=== PATIENT | male | born 1950 | race African-American/Black ===

== ENCOUNTER 2016-06-19 18:41 | Outpatient (CLI) | payer MEDICARE, OTHER | END 2016-06-19 18:42 | disposition home or self-care (01) | DX: N05.9 Unspecified nephritic syndrome with unspecified morphologic changes (principal); D64.9 Anemia, unspecified; R80.9 Proteinuria, unspecified; D50.0 Iron deficiency anemia secondary to blood loss (chronic); N25.81 Secondary hyperparathyroidism of renal origin ==

== ENCOUNTER 2016-08-04 12:59 | Outpatient (CLI) | payer MEDICARE, OTHER | END 2016-08-04 13:00 | disposition home or self-care (01) | DX: N05.9 Unspecified nephritic syndrome with unspecified morphologic changes (principal); D70.9 Neutropenia, unspecified; D63.1 Anemia in chronic kidney disease; E83.30 Disorder of phosphorus metabolism, unspecified; N25.81 Secondary hyperparathyroidism of renal origin ==

== ENCOUNTER 2016-08-21 15:06 | Outpatient (CLI) | payer MEDICARE, OTHER | END 2016-08-21 15:07 | disposition home or self-care (01) | DX: N05.9 Unspecified nephritic syndrome with unspecified morphologic changes (principal) ==

== ENCOUNTER 2016-10-26 13:41 | Outpatient (CLI) | payer MEDICARE, OTHER ==
[2016-10-26 19:46] LABS: CALCIUM 9.2 mg/dL (8.5-10.3); CREATININE 2.7 mg/dL (0.6-1.2); POTASSIUM 3.3 mmol/L (3.5-5.0)
== END 2016-10-26 13:42 | disposition home or self-care (01) ==
LOC: LAB.WCP 13:41
PROVIDERS: ATTEND Internal Medicine Nephrology
DX: N50.9 Disorder of male genital organs, unspecified (principal)
CPT/HCPCS: 36415; 80048

== ENCOUNTER 2016-10-30 11:26 | Emergency (ER) | payer MEDICARE, OTHER ==
--- NOTE | 2016-10-30 14:02 | ED Physician Documentation ---
PD HPI HEENT - Stated complaint Stated Complaint: MOUTH,THOAT & EYES BURNING,DIZZY - Chief complaint Chief Complaint: General - History obtained from History obtained from: Patient - History of Present Illness Timing - onset: How many days ago (1-2) Timing - duration: Days (1-2) Timing - details: Gradual onset Location: Other (he has feeling of burning/discomfort in face, throat, eyes. He has swelling in those areas. Says he had similar with low sodium in the past. Denies URI symptoms of fever, cough, congestion.) Worsens: No: Swalllowing, Position Associated symptoms: Facial swelling. No: Fever, Congestion, Rhinorrhea, Swollen nodes Similar symptoms before: Diagnosis (low sodium) Recently seen: Not recently seen Review of Systems Constitutional: denies: Fever, Chills Nose: denies: Rhinorrhea / runny nose, Congestion Throat: reports: Sore throat Cardiac: denies: Chest pain / pressure Respiratory: denies: Dyspnea, Cough, Wheezing GI: denies: Nausea, Vomiting, Diarrhea Neurologic: denies: Near syncope (but is feeling lightheaded) PD PAST MEDICAL HISTORY - Past Medical History Cardiovascular: Congestive heart failure, Hypertension, High cholesterol Respiratory: Pneumonia, Sleep apnea Neuro: Other Endocrine/Autoimmune: Type 2 diabetes : Renal insuffiency Psych: Depression, Post traumatic stress disorder Musculoskeletal: Gout Derm: Other - Past Surgical History Past Surgical History: Yes General: Appendectomy HEENT: Tonsil/Adenoidectomy - Present Medications Home Medications: Ambulatory Orders Medication Instructions Recorded Confirmed Atorvastatin Calcium [Lipitor] 20 mg PO DAILY 01/25/13 06/09/16 Bumetanide [Bumex] 8 mg PO TID 01/25/13 06/09/16 Carvedilol [Coreg] 50 mg PO BID 01/25/13 06/09/16 Clonidine HCl 0.2 mg PO BID 01/25/13 06/09/16 Hydralazine HCl 50 mg PO BID 01/25/13 06/09/16 Lisinopril [Zestril] 40 mg PO DAILY 01/25/13 06/09/16 Polyethylene Glycol 3350 [Miralax] 17 gm PO BID 01/25/13 06/09/16 Potassium Chloride 10 meq PO BID 01/25/13 06/09/16 amLODIPine [Norvasc] 10 mg PO DAILY 01/25/13 06/09/16 Ferrous Sulfate [Iron] 325 mg PO BID 08/13/13 06/09/16 Glimepiride 4 mg PO BID 08/13/13 06/09/16 oxyCODONE [Roxicodone] 5 mg PO Q4-6H PRN #10 tablet 08/11/14 06/09/16 Aspartame 32 units SQ TID 04/21/15 06/09/16 Chlorhexidine Gluconate [Peridex] 15 ml PO BID 04/21/15 06/09/16 Clindamycin Phosphate 1 applic TOP DAILY 04/21/15 06/09/16 Hydrocortisone 1% Oint 1 applic TOP BID PRN 04/21/15 06/09/16 [Hydrocortisone] Insulin Glargine [Lantus Solostar] 60 units SQ BID 04/21/15 06/09/16 Lidocaine Viscous 2% [Xylocaine 10 ml PO Q4HR PRN 04/21/15 06/09/16 Viscous 2%] Sildenafil Citrate [Viagra] 100 mg PO DAILY 04/21/15 06/09/16 Insulin Aspart [Novolog Flexpen] 40 unit SQ BID 06/09/16 06/09/16 Dexamethasone [Decadron] 4 mg PO DAILY #5 tablet 10/30/16 - Allergies Allergies/Adverse Reactions: Allergies Allergy/AdvReac Type Severity Reaction Status Date / Time PPD AdvReac Intermediate Unknown Uncoded 01/03/15 08:16 - Social History Does the pt smoke?: No Smoking Status: Never smoker Does the pt drink ETOH?: No Does the pt have substance abuse?: No - Immunizations Immunizations are current?: Yes - POLST Patient has POLST: No PD ED PE NORMAL - Vitals Vital signs reviewed: Yes - General General: Alert and oriented X 3, No acute distress, Well developed/nourished - HEENT HEENT: Other (facial swelling around eyes, mouth and cheeks. Mild swelling of uvula. Normal swallow and voice. No JVD noted. ) - Neck Neck: Supple, no meningeal sign, No adenopathy - Cardiac Cardiac: RRR, No murmur - Respiratory Respiratory: Clear bilaterally - Abdomen Abdomen: Soft, Non tender - Derm Derm: Normal color, Warm and dry, No rash - Neuro Neuro: Alert and oriented X 3, supervisor hanging and trimming 2-12 intact, No motor deficit, No sensory deficit, Normal speech - Psych Psych: Normal mood, Normal affect Results - Vitals Vitals: Oxygen O2 Source Room air - Labs Labs: Laboratory Tests 10/30/16 10/30/16 14:20 14:20 WBC 3.9 L RBC 5.25 Hgb 15.2 Hct 43.8 MCV 83.5 MCH 29.1 MCHC 34.8 RDW 14.5 Plt Count 154 MPV 9.3 Neut # 1.8 Lymph # 1.5 [place] # 0.4 Eos # 0.1 Baso # 0.0 Absolute Nucleated RBC 0.00 Nucleated RBCs 0.0 Manual Slide Review Indicated Platelet Estimate NORMAL (130-450,000) Platelet Morphology NORMAL APPEARANCE RBC Morph Micro Appear NORMAL APPEARANCE Sodium 127 L Potassium 3.1 L Chloride 81 L Carbon Dioxide 34 H Anion Gap 13.0 BUN 53 H Creatinine 3.0 H Estimated GFR (MDRD) 26 L Glucose 147 H Calcium 8.9 Magnesium 1.6 L Total Bilirubin 1.0 AST 17 ALT 16 Alkaline Phosphatase 84 Total Protein 6.9 Albumin 4.2 Globulin 2.7 Albumin/Globulin Ratio 1.6 Lipase 24 PD MEDICAL DECISION MAKING - ED course Complexity details: reviewed results, considered differential (sodium is low and he says he had similar feeling of furning in throat with low Na in the past. He has some swelling around eyes and lips, but minimal of uvula and throat. He is feeling improved after 1-2 hours in ED with decadron/ antihistamine and given IV NS. He is on lisinopril, so concern about related to that. BP slightly low but he feels okay standing up and walking around. ), d/w patient Departure - Departure Disposition: 01 Home, Self Care Clinical Impression: Hyponatremia, Hypokalemia Angio-edema Qualifiers: Encounter type: initial encounter Qualified Code(s): T78.3XXA - Angioneurotic edema, initial encounter Condition: Stable Record reviewed to determine appropriate education?: Yes Instructions: ED Angioedema Prescriptions: Dexamethasone [Decadron] 4 mg PO DAILY #5 tablet Comments: I would stop your Lisinopril as this might be contributing to the swelling. Other medications as usual. Decadron daily for 5 more days. Recheck with PMD next week for recheck labs. Discharge Date/Time: 10/30/16 17:22
[2016-10-30] MEDS ORDERED: diphenhydrAMINE INJ 50 MG/ML VIAL IVP STA (14:24)
[2016-10-30] MEDS ORDERED: DEXAMETHASONE 10 MG/ML VIAL IVP STA (14:24)
[2016-10-30] MEDS ORDERED: DEXAMETHASONE 10 MG/ML VIAL ONE (14:30)
[2016-10-30] MEDS ORDERED: diphenhydrAMINE INJ 50 MG/ML VIAL ONE (14:30)
[2016-10-30 14:44] LABS: BASOPHILS % (AUTO) 0.4 %; EOSINOPHILS # (AUTO) 0.1 10^3/uL (0.0-0.7); HCT - HEMATOCRIT 43.8 % (42.0-52.0); HGB - HEMOGLOBIN 15.2 g/dL (14.0-18.0); LYMPHOCYTES # (AUTO) 1.5 10^3/uL (1.5-3.5); LYMPHOCYTES % (AUTO) 38.3 %; MEAN CORPUSCULAR HEMOGLOBIN 29.1 pg (27.0-31.0); MEAN CORPUSCULAR HGB CONC 34.8 g/dL (32.0-36.0); MEAN CORPUSCULAR VOLUME 83.5 fL (80.0-94.0); MEAN PLATELET VOLUME 9.3 fL (7.4-11.4); MONOCYTES # (AUTO) 0.4 10^3/uL (0.0-1.0); MONOCYTES % (AUTO) 11.5 %; NEUTROPHILS # (AUTO) 1.8 10^3/uL (1.5-6.6); NEUTROPHILS % (AUTO) 46.8 %; RED BLOOD COUNT 5.25 10^6/uL (4.70-6.10); RED CELL DISTRIBUTION WIDTH 14.5 % (12.0-15.0); UNCORRECTED WHITE BLOOD COUNT 3.9 x10^3/uL; WHITE BLOOD COUNT 3.9 x10^3/uL (4.8-10.8)
[2016-10-30 15:01] LABS: PLATELET ESTIMATE, MANUAL NORMAL (130-450,000) (NORMAL); PLATELET MORPHOLOGY NORMAL APPEARANCE (NORMAL)
[2016-10-30 15:07] LABS: ALBUMIN/GLOBULIN RATIO 1.6 (1.0-2.2); CALCIUM 8.9 mg/dL (8.5-10.3); MAGNESIUM 1.6 mg/dL (1.7-2.8); POTASSIUM 3.1 mmol/L (3.5-5.0); TOTAL PROTEIN 6.9 g/dL (6.7-8.2)
[2016-10-30] MEDS ORDERED: SODIUM CHLORIDE 0.9% 1,000 ML IV ONE (15:18)
[2016-10-30] MEDS ORDERED: POTASSIUM BICARB 25 MEQ TABLET PO STA (15:20)
[2016-10-30] MEDS ORDERED: POTASSIUM BICARB 25 MEQ TABLET PO ONE (15:26)
[2016-10-30] MEDS ORDERED: MAG HYDROX/AL HYDROX/SIMETH 30 ML UDC PO STA (15:57)
[2016-10-30] MEDS ORDERED: MAG HYDROX/AL HYDROX/SIMETH 30 ML UDC ONE (16:00)
--- NOTE | 2016-10-30 16:39 | XRAY Preliminary Report ---
Exam: XR Chest 2 View PA/LAT IMPRESSION: Normal 2-view chest radiography. [facility] SITE ID: [id number]
--- NOTE | 2016-10-30 16:47 | XRAY Report ---
EXAM: CHEST RADIOGRAPHY EXAM DATE: 10/30/2016 04:15 PM. CLINICAL HISTORY: Chest pain. COMPARISON: 01/03/2015. TECHNIQUE: 2 views. FINDINGS: Lungs/Pleura: No focal opacities evident. No pleural effusion. No pneumothorax. Normal volumes. Mediastinum: Heart and mediastinal contours are unremarkable. Other: None. IMPRESSION: Normal 2-view chest radiography. [facility] Referring Provider Line: [phone] SITE ID: [id number]
[2016-10-30 17:12] VITALS: BP 143/77
== END 2016-10-30 17:22 | disposition home or self-care (01) ==
LOC: ED 11:26
DX: E87.1 Hypo-osmolality and hyponatremia (principal); E87.6 Hypokalemia; T78.3XXA Angioneurotic edema, initial encounter; I11.0 Hypertensive heart disease with heart failure; I50.9 Heart failure, unspecified; E11.9 Type 2 diabetes mellitus without complications; M10.9 Gout, unspecified; Z79.4 Long term (current) use of insulin
CPT/HCPCS: 36415; 71020; 80053; 83690; 83735; 85025; 96361; 96374; 96375; 99283; 99284; A9270

== ENCOUNTER 2016-11-10 08:00 | Outpatient (CLI) | payer MEDICARE, OTHER ==
[2016-11-10 19:14] LABS: CALCIUM 9.2 mg/dL (8.5-10.3); CREATININE 1.7 mg/dL (0.6-1.2); POTASSIUM 3.9 mmol/L (3.5-5.0)
== END 2016-11-10 08:01 ==
LOC: LAB.WCP 08:00
PROVIDERS: ATTEND Internal Medicine Nephrology
DX: N05.9 Unspecified nephritic syndrome with unspecified morphologic changes (principal)
CPT/HCPCS: 36415; 80048; 83880

== ENCOUNTER 2017-07-01 18:08 | Outpatient (CLI) | payer MEDICARE, OTHER ==
[2017-07-01 18:25] LABS: HGB - HEMOGLOBIN 13.2 g/dL (14.0-18.0); MEAN CORPUSCULAR HEMOGLOBIN 28.1 pg (27.0-31.0); MEAN CORPUSCULAR HGB CONC 33.8 g/dL (32.0-36.0); MEAN CORPUSCULAR VOLUME 82.9 fL (80.0-94.0); MEAN PLATELET VOLUME 8.6 fL (7.4-11.4); RED BLOOD COUNT 4.71 10^6/uL (4.70-6.10); RED CELL DISTRIBUTION WIDTH 15.8 % (12.0-15.0); WHITE BLOOD COUNT 4.2 x10^3/uL (4.8-10.8)
[2017-07-01 18:38] LABS: CALCIUM 9.4 mg/dL (8.5-10.3); CREATININE 2.5 mg/dL (0.6-1.2); PHOSPHORUS 3.9 mg/dL (2.5-4.6)
[2017-07-01 19:07] LABS: CREATININE,URINE 118.5 mg/dL; PROTEIN/CREATININE RATIO,URINE 0.1 (<=0.2)
== END 2017-07-01 18:09 | disposition home or self-care (01) ==
LOC: LAB 18:08
PROVIDERS: ATTEND Internal Medicine Nephrology
DX: N05.9 Unspecified nephritic syndrome with unspecified morphologic changes (principal); D70.9 Neutropenia, unspecified; D63.1 Anemia in chronic kidney disease; E83.30 Disorder of phosphorus metabolism, unspecified; N25.81 Secondary hyperparathyroidism of renal origin; R80.9 Proteinuria, unspecified
CPT/HCPCS: 80048; 82570; 83970; 84100; 84156

== ENCOUNTER 2017-12-27 08:00 | Outpatient (CLI) | payer MEDICARE, OTHER ==
[2017-12-27 18:51] LABS: HGB - HEMOGLOBIN 13.9 g/dL (14.0-18.0); MEAN CORPUSCULAR HEMOGLOBIN 29.7 pg (27.0-31.0); MEAN CORPUSCULAR HGB CONC 33.4 g/dL (32.0-36.0); MEAN CORPUSCULAR VOLUME 88.9 fL (80.0-94.0); MEAN PLATELET VOLUME 9.5 fL (7.4-11.4); RED BLOOD COUNT 4.69 10^6/uL (4.70-6.10); RED CELL DISTRIBUTION WIDTH 15.2 % (12.0-15.0); WHITE BLOOD COUNT 4.5 x10^3/uL (4.8-10.8)
[2017-12-27 18:53] LABS: CALCIUM 9.4 mg/dL (8.5-10.3); CREATININE 1.8 mg/dL (0.6-1.2)
== END 2017-12-27 08:01 | disposition home or self-care (01) ==
LOC: LAB.WCP 08:00
PROVIDERS: ATTEND Internal Medicine Nephrology
DX: N05.9 Unspecified nephritic syndrome with unspecified morphologic changes (principal); D63.1 Anemia in chronic kidney disease; D70.9 Neutropenia, unspecified; I50.32 Chronic diastolic (congestive) heart failure
CPT/HCPCS: 36415; 80048; 83880; 85027

== ENCOUNTER 2018-03-03 10:40 | Outpatient (CLI) | payer MEDICARE, OTHER | END 2018-03-03 10:41 | LOC: LAB.WCP 10:40 | PROVIDERS: ATTEND Urology | DX: E29.1 Testicular hypofunction (principal) | CPT/HCPCS: 36415; 84403 ==

== ENCOUNTER 2018-06-02 08:00 | Outpatient (CLI) | payer MEDICARE, OTHER ==
[2018-06-02 14:01] LABS: HGB - HEMOGLOBIN 14.6 g/dL (14.0-18.0); MEAN CORPUSCULAR HEMOGLOBIN 30.1 pg (27.0-31.0); MEAN CORPUSCULAR HGB CONC 34.7 g/dL (32.0-36.0); MEAN CORPUSCULAR VOLUME 86.8 fL (80.0-94.0); RED BLOOD COUNT 4.85 10^6/uL (4.70-6.10); RED CELL DISTRIBUTION WIDTH 14.4 % (12.0-15.0); WHITE BLOOD COUNT 4.2 x10^3/uL (4.8-10.8)
[2018-06-02 14:05] LABS: CREATININE 1.9 mg/dL (0.6-1.2)
[2018-06-02 14:37] LABS: CREATININE,URINE 21.9 mg/dL
[2018-06-02 14:40] LABS: TOTAL PROTEIN,URINE TIMED < 6 mg/dL
[2018-06-02 14:45] LABS: CALCIUM 9.5 mg/dL (8.5-10.3)
== END 2018-06-02 23:59 | disposition home or self-care (01) ==
LOC: LAB.WCP 08:00
PROVIDERS: ATTEND Internal Medicine Nephrology
DX: N05.9 Unspecified nephritic syndrome with unspecified morphologic changes (principal); D70.9 Neutropenia, unspecified; D63.1 Anemia in chronic kidney disease; R80.9 Proteinuria, unspecified
CPT/HCPCS: 36415; 80048; 80053; 82570; 84156; 85027

== ENCOUNTER 2018-07-16 00:03 | Outpatient (CLI) | payer MEDICARE, OTHER | END 2018-07-16 00:04 | disposition short-term general hospital (02) | LOC: EMS 00:03 | PROVIDERS: ATTEND Surgery | DX: R42 Dizziness and giddiness (principal) | CPT/HCPCS: A0425; A0429 ==

== ENCOUNTER 2018-12-28 16:33 | Outpatient (CLI) | payer MEDICARE, OTHER ==
[2018-12-28 17:17] LABS: HGB - HEMOGLOBIN 14.1 g/dL (14.0-18.0)
[2018-12-28 18:17] LABS: PSA FREE 0.12 ng/mL (0.16-2.81); PSA TOTAL 0.63 ng/mL (0.000-2.000)
[2018-12-28 18:19] LABS: ALBUMIN 4.2 g/dL (3.2-5.5); ALBUMIN/GLOBULIN RATIO 1.4 (1.0-2.2); BILIRUBIN,TOTAL 0.6 mg/dL (0.2-1.0); CALCIUM 9.6 mg/dL (8.5-10.3); CREATININE 1.8 mg/dL (0.6-1.2); TOTAL PROTEIN 7.3 g/dL (6.7-8.2)
== END 2018-12-28 16:34 | disposition home or self-care (01) ==
LOC: LAB 16:33
PROVIDERS: ATTEND Urology
DX: E29.1 Testicular hypofunction (principal); Z12.5 Encounter for screening for malignant neoplasm of prostate; N40.1 Benign prostatic hyperplasia with lower urinary tract symptoms
CPT/HCPCS: 36415; 80053; 84153; 84154; 84403; 85014; 85018

== ENCOUNTER 2019-01-29 05:30 | Outpatient (CLI) | payer MEDICARE, OTHER ==
[2019-01-29 06:24] LABS: HGB - HEMOGLOBIN 13.8 g/dL (14.0-18.0)
[2019-01-29 06:32] LABS: ALBUMIN 4.1 g/dL (3.2-5.5); ALBUMIN/GLOBULIN RATIO 1.5 (1.0-2.2); BILIRUBIN,DIRECT 0.1 mg/dL (0.1-0.5); BILIRUBIN,TOTAL 0.4 mg/dL (0.2-1.0); CALCIUM 9.1 mg/dL (8.5-10.3); TOTAL PROTEIN 6.9 g/dL (6.7-8.2)
== END 2019-01-29 05:31 | disposition home or self-care (01) ==
LOC: LAB 05:30
PROVIDERS: ATTEND Urology
DX: E29.1 Testicular hypofunction (principal)
CPT/HCPCS: 36415; 80053; 80076; 81599; 85014; 85018

== ENCOUNTER 2020-02-23 11:53 | Outpatient (CLI) | payer MEDICARE, OTHER ==
[2020-02-23 12:04] LABS: BILIRUBIN,URINE NEGATIVE (NEGATIVE); GLUCOSE, URINE (UA) >=1000 mg/dL (NEGATIVE); KETONES,URINE (UA) NEGATIVE (NEGATIVE); LEUKOCYTE ESTERASE, URINE NEGATIVE (NEGATIVE); NITRITE,URINE NEGATIVE (NEGATIVE); OCCULT BLOOD,URINE NEGATIVE (NEGATIVE); PH,URINE 5.5 PH (5.0-7.5); PROTEIN,URINE NEGATIVE (NEGATIVE); UROBILINOGEN,URINE 0.2 (NORMAL) E.U./dL (NORMAL)
[2020-02-23 12:05] LABS: CLARITY,URINE CLEAR (CLEAR)
[2020-02-23 12:13] LABS: RBC,URINE None Seen /HPF (0-5)
[2020-02-23 12:14] LABS: BACTERIA,URINE Rare /HPF (None Seen); SQUAMOUS EPITHELIAL CELL,UR RARE Squamous (<= Few)
== END 2020-02-23 11:54 | disposition home or self-care (01) ==
LOC: LAB 11:53
PROVIDERS: ATTEND Urology
DX: N39.0 Urinary tract infection, site not specified (principal)
CPT/HCPCS: 81001; 87086

== ENCOUNTER 2020-05-23 09:03 | Outpatient (CLI) | payer MEDICARE, OTHER ==
[2020-05-23 09:26] LABS: CALCIUM 9.3 mg/dL (8.5-10.3); CREATININE 1.6 mg/dL (0.6-1.2)
[2020-05-23 09:58] LABS: HEMOGLOBIN A1c% 8.6 % (4.27-6.07)
== END 2020-05-23 09:04 | disposition home or self-care (01) ==
LOC: LAB 09:03
PROVIDERS: ATTEND Internal Medicine Nephrology
DX: N05.9 Unspecified nephritic syndrome with unspecified morphologic changes (principal); E11.9 Type 2 diabetes mellitus without complications
CPT/HCPCS: 36415; 80048; 83036

== ENCOUNTER 2020-06-21 15:36 | Outpatient (CLI) | payer MEDICARE, OTHER ==
[2020-06-21 17:51] LABS: BASOPHILS % (AUTO) 0.2 %; EOSINOPHILS # (AUTO) 0.1 10^3/uL (0.0-0.7); EOSINOPHILS % (AUTO) 3.1 %; HCT - HEMATOCRIT 40.2 % (42.0-52.0); HGB - HEMOGLOBIN 13.7 g/dL (14.0-18.0); LYMPHOCYTES # (AUTO) 1.1 10^3/uL (1.5-3.5); LYMPHOCYTES % (AUTO) 26.9 %; MEAN CORPUSCULAR HGB CONC 34.1 g/dL (32.0-36.0); MEAN PLATELET VOLUME 12.2 fL (7.4-11.4); MONOCYTES # (AUTO) 0.4 10^3/uL (0.0-1.0); MONOCYTES % (AUTO) 8.3 %; NEUTROPHILS # (AUTO) 2.6 10^3/uL (1.5-6.6); PLT - PLATELET COUNT 163 10^3/uL (130-450); RED BLOOD COUNT 4.42 10^6/uL (4.70-6.10); RED CELL DISTRIBUTION WIDTH 14.6 % (12.0-15.0); WHITE BLOOD COUNT 4.2 x10^3/uL (4.8-10.8)
[2020-06-21 19:08] LABS: ALBUMIN 4.2 g/dL (3.2-5.5); ALBUMIN/GLOBULIN RATIO 1.4 (1.0-2.2); BILIRUBIN,TOTAL 0.9 mg/dL (0.2-1.0); CREATININE 1.6 mg/dL (0.6-1.2); POTASSIUM 3.3 mmol/L (3.5-5.0); TOTAL PROTEIN 7.2 g/dL (6.7-8.2)
[2020-06-21 19:10] LABS: BILIRUBIN,URINE NEGATIVE (NEGATIVE); GLUCOSE, URINE (UA) >=1000 mg/dL (NEGATIVE); KETONES,URINE (UA) NEGATIVE (NEGATIVE); LEUKOCYTE ESTERASE, URINE NEGATIVE (NEGATIVE); NITRITE,URINE NEGATIVE (NEGATIVE); OCCULT BLOOD,URINE NEGATIVE (NEGATIVE); PH,URINE 6.5 PH (5.0-7.5); PROTEIN,URINE NEGATIVE (NEGATIVE); UROBILINOGEN,URINE 0.2 (NORMAL) E.U./dL (NORMAL)
[2020-06-21 19:13] LABS: CLARITY,URINE CLEAR (CLEAR)
[2020-06-21 20:20] LABS: ESTIMATED AVERAGE GLUCOSE 194 mg/dL (70-100); HEMOGLOBIN A1c% 8.4 % (4.27-6.07)
== END 2020-06-21 23:59 | disposition home or self-care (01) ==
LOC: LAB.WCP 15:36
DX: E11.9 Type 2 diabetes mellitus without complications (principal); N39.0 Urinary tract infection, site not specified; Z79.4 Long term (current) use of insulin; N05.9 Unspecified nephritic syndrome with unspecified morphologic changes
CPT/HCPCS: 36415; 80053; 81001; 81003; 83036; 85025; 87086

== ENCOUNTER 2020-07-31 08:00 | Outpatient (CLI) | payer MEDICARE, OTHER ==
[2020-07-31 18:42] LABS: ALBUMIN/GLOBULIN RATIO 1.5 (1.0-2.2); ALKALINE PHOSPHATASE 90 IU/L (42-121); ALT ALANINE AMINOTRANSFERASE 27 IU/L (10-60); AST ASPARTATE AMINOTRANSFERASE 23 IU/L (10-42); BILIRUBIN,TOTAL 0.6 mg/dL (0.2-1.0); BUN - BLOOD UREA NITROGEN 22 mg/dL (6-20); CALCIUM 8.6 mg/dL (8.5-10.3); CARBON DIOXIDE - CO2 26 mmol/L (21-32); CHLORIDE 101 mmol/L (101-111); CHOL/HDL RATIO 3.2 (<5.0); CHOLESTEROL 156 mg/dL; CREATININE 1.5 mg/dL (0.6-1.2); GFR - MDRD 56 (>89); GLUCOSE 137 mg/dL (70-100); HDL CHOLESTEROL 49 mg/dL; LDL CHOLESTEROL,CALCULATED 89 mg/dL; LDL/HDL RATIO 1.8 (<3.6); POTASSIUM 3.4 mmol/L (3.5-5.0); SODIUM 136 mmol/L (135-145); TOTAL PROTEIN 6.7 g/dL (6.7-8.2); TRIGLYCERIDES 91 mg/dL; VLDL CHOLESTEROL 18 mg/dL
== END 2020-07-31 23:45 | disposition home or self-care (01) ==
LOC: LAB.WCP 08:00
PROVIDERS: ATTEND Urology
DX: E29.1 Testicular hypofunction (principal); Z12.5 Encounter for screening for malignant neoplasm of prostate; E78.5 Hyperlipidemia, unspecified
CPT/HCPCS: 36415; 80053; 80061; 84402; 84403; 85014; 85018; G0103; 81599; 83721; 84153

== ENCOUNTER 2020-12-05 12:15 | Outpatient (CLI) | payer MEDICARE, OTHER ==
[2020-12-05 12:41] LABS: HCT - HEMATOCRIT 37.6 % (42.0-52.0); HGB - HEMOGLOBIN 12.8 g/dL (14.0-18.0); MEAN CORPUSCULAR HEMOGLOBIN 29.4 pg (27.0-31.0); MEAN CORPUSCULAR VOLUME 86.4 fL (80.0-94.0); MEAN PLATELET VOLUME 11.6 fL (7.4-11.4); RED BLOOD COUNT 4.35 10^6/uL (4.70-6.10); RED CELL DISTRIBUTION WIDTH 14.9 % (12.0-15.0); WHITE BLOOD COUNT 3.9 x10^3/uL (4.8-10.8)
[2020-12-05 12:48] LABS: CALCIUM 9.3 mg/dL (8.5-10.3); CREATININE 2.5 mg/dL (0.6-1.2); POTASSIUM 3.9 mmol/L (3.5-5.0)
[2020-12-05 13:00] LABS: ESTIMATED AVERAGE GLUCOSE 177 mg/dL (70-100); HEMOGLOBIN A1c% 7.8 % (4.27-6.07)
== END 2020-12-05 12:16 | disposition home or self-care (01) ==
LOC: LAB 12:15
PROVIDERS: ATTEND Orthopaedic Surgery
DX: Z01.812 Encounter for preprocedural laboratory examination (principal); N05.9 Unspecified nephritic syndrome with unspecified morphologic changes; R68.89 Other general symptoms and signs; I50.32 Chronic diastolic (congestive) heart failure; D70.9 Neutropenia, unspecified; E10.8 Type 1 diabetes mellitus with unspecified complications; D63.1 Anemia in chronic kidney disease
CPT/HCPCS: 36415; 80048; 83036; 83880; 85025; 85027

== ENCOUNTER 2021-02-04 08:00 | Outpatient (CLI) | payer MEDICARE, OTHER | END 2021-02-04 23:59 | disposition home or self-care (01) | LOC: LAB.N 08:00 | PROVIDERS: ATTEND Nurse Practitioner | DX: R07.0 Pain in throat (principal); B34.9 Viral infection, unspecified; Z20.822 Contact with and (suspected) exposure to COVID-19 | CPT/HCPCS: 87070; U0004 ==

== ENCOUNTER 2021-03-27 14:59 | Outpatient (CLI) | payer MEDICARE, OTHER ==
[2021-03-27 19:30] LABS: ESTIMATED AVERAGE GLUCOSE 194 mg/dL (70-100); HEMOGLOBIN A1c% 8.4 % (4.27-6.07)
[2021-03-28 16:31] LABS: POTASSIUM 4.1 mmol/L (3.5-5.0)
== END 2021-03-27 15:00 | disposition home or self-care (01) ==
LOC: LAB 14:59
PROVIDERS: ATTEND Internal Medicine Nephrology
DX: N05.9 Unspecified nephritic syndrome with unspecified morphologic changes (principal); E11.9 Type 2 diabetes mellitus without complications
CPT/HCPCS: 36415; 82565; 83036; 84132

== ENCOUNTER 2021-05-09 12:11 | Outpatient (CLI) | payer MEDICARE, OTHER ==
--- NOTE | 2021-05-09 18:53 | XRAY Report ---
PROCEDURE: Abdomen 1 View X-Ray INDICATIONS: CONSTIPATION TECHNIQUE: 1 view of the abdomen were acquired. COMPARISON: Reference is made to the CT abdomen report dated August 16, 2012. FINDINGS: Surgical changes and devices: None. Bowel: No pneumoperitoneum. Nonspecific bowel gas pattern. Soft tissues: No masses; visualized solid organ contours appear normal in size. Suggestion of right nephrolithiasis. Bones: No suspicious bony abnormalities. Multifocal degenerative change. IMPRESSION: 1. Nonspecific bowel gas pattern. Reviewed by: Kedar Estevez MD on 05/09/2021 6:51 PM [facility] Approved by: Kedar Estevez MD on 05/09/2021 6:51 PM [facility] Station ID: [id number]
== END 2021-05-09 12:12 | disposition home or self-care (01) ==
LOC: DI 12:11
PROVIDERS: ATTEND Physician Assistant
DX: K59.00 Constipation, unspecified (principal)

== ENCOUNTER 2021-05-22 22:59 | Outpatient (CLI) | payer MEDICARE, OTHER | END 2021-05-22 23:00 | disposition EMS.NT | LOC: EMS 22:59 | DX: R25.2 Cramp and spasm (principal) ==

== ENCOUNTER 2021-06-20 10:40 | Outpatient (CLI) | payer OTHER, MEDICARE ==
--- NOTE | 2021-06-20 11:51 | SLEEP CARE CONSULTATION ---
Information from patient questionnaire entered by Rosi Laguerre MA. I have reviewed and concur with the information entered by Rosi Laguerre MA. This document represents the service I personally performed and the decisions made by me, Breanna Holbrook ARNP. History of Present Illness Service Date and Time: 06/20/2021 1040 Reason for Visit: New patient, Previously diagnosed sleep apnea Chief Complaint: reports: Insomnia, Unrefreshed sleep, Snoring, Excessive daytime sleepiness, Observed pauses in breathing, Fatigue, Frequent awakenings at night Date of Onset: 1971 Usual bedtime: don't have a usual time, 11 pm to 1 AM Time it takes to fall asleep: can't tell, long time Snores at night: Yes Observed to quit breathing while asleep: Yes Sleeps alone due to snoring: Yes Number of times waking at night: 3-5 times Reasons for waking at night: reports: Choking, Gasping for air Toss, Turn, or Twitch while sleeping: Yes Recalls having dreams: No Usually gets out of bed at: depends, 0630 to 0900 Feels refreshed in the morning: No Morning headache: Yes (1-2 times a week, last until drinks lot of water) Sleepy or fatigued during the day: Yes Ever fallen asleep while driving: Yes (drowsy driving, no accidents ) Takes day naps: Yes (whenever he sits still during the day) Dreams during day naps: No Prior sleep studies: Yes ([place], [facility]) Additional HPI information: I had the pleasure of seeing GABRIEL CHAVEZ today regarding the possibility of him having a sleep disorder. His current complaints are excessive daytime sleepiness, fatigue, frequent awakenings at night, insomnia, observed pauses in breathing, snoring and unrefreshed sleep. He has been previously diagnosed and put on a CPAP and tried about 6 times but was unable to tolerate it on his face due to claustrophobia and PTSD issues. He does not sleep in same room as his because of his loud snoring and hasn't for years. He states he only sleeps about 3 hours in small increments at night. He was sent here by the [place] ENT to see if he could be helped by the Inspire implantation therapy device. - Parasomnia Symptoms Ever been unable to move upon waking from sleep: No Walks in sleep: No Talks in sleep: Yes Ever acted out dreams in sleep: No Ever felt weak in the knees when startled or emotional: Yes Bothered by creepy, crawly, restless sensations in legs: Yes (gets nocturnal leg cramps) Problems with memory or concentration: Yes Subjective Initial [place] Sleepiness Scale score: 11 (2021) Past Medical History Past Medical History: reports: Hypertension, Claustrophobia, Congestive Heart Failure (2008), Diabetes (type 2), Arthritis, Anemia, Anxiety, Impotence, Depression, Mood disorder (PTSD), GERD Social History 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 Patient is and lives in [place]. Have you smoked in the past 12 months: No Years of smokin Quit date: 1990 Alcohol use: No Caffeine use: Yes Caffeine amount and frequency: daily 1-2 expressos Family History Family history of sleep disordered breathing: No Family Hx Sleep Apnea: Mother: Snoring, Father: Snoring Allergies and Home Medications Drug allergies reviewed: Yes (PPD) Home medication list reviewed: Yes Allergy and home medication list: See scanned list Review of Systems Weight gain over past 5 years: 50 Cardiovascular: reports: high blood pressure, leg or foot swelling, have to sleep sitting up Respiratory: reports: shortness of breath Gastrointestinal: reports: diarrhea, abdominal pain Urinary: reports: incontinence, impotence Neurological: reports: head trauma Psychiatric: reports: anxiety, depression, mood disorder (PTSD), claustrophobia Ear/Nose/Throat: reports: sinus problems, dry mouth/throat, tonsillectomy, wisdom teeth removed Endocrine: reports: sluggishness, increased appetite, unexplained weakness Musculoskeletal: reports: joint pain, neck pain, back pain, joint swelling, muscle pain or cramping, mobility problems Physical Exam Vital signs obtained and entered by: Juanito LAGUERRE CMA [facility] Blood Pressure: 139/84 (RIGHT, PULSE 80) Heart Rate: 87 O2 Saturation: 97 (WITH A PAPER MASK) Height: 5 ft 7 in Weight: 240 lb (WITH CLOTHES AND SHOES) Body Mass Index: 37.5 BMI Classification: Obese Neck circumference: 17.5 (inches) Mouth and throat: narrow oropharynx Soft palate: long Hard palate: normal Uvula: normal, long Uvula visualization: 25% Mallampati Class III Tongue: enlarged in size with teeth card on lateral edges Tonsils: absent bilaterally Heart: regular rate and rhythm Lungs: clear bilaterally Impression and Plan 1. Suspected Obstructive Sleep Apnea-Hypopnea Syndrome, as previously diagnosed and as suggested by a history of loud and irregular snoring, observed cessation of breath while asleep, gasping or choking in sleep, morning headache, frequent awakening during the night, unrefreshed sleep, cognitive impairment, and exc essive daytime sleepiness. Narrow oropharynx and obesity are common predisposing factors for obstructive sleep apnea-hypopnea syndrome. I recommend proceeding to polysomnography to confirm the diagnosis and to assess severity. If the patient has significant sleep disordered breathing, a manual CPAP titration study will also be performed to find the optimal treatment pressure. I informed the patient of what the sleep studies involve and after some discussion, obtained agreement to proceed. The pathophysiology of obstructive sleep apnea-hypopnea syndrome was discussed with the patient and health risks of cardiovascular and cerebrovascular disease if not treated. Risks of drowsy driving discussed in detail and patient advised to avoid long distance driving and to well puller head at the first sign of drowsiness. Patient agreed to plan. * Schedule polysomnography +- manual CPAP titration study and return in 1-2 weeks after the study to discuss result and initiate therapy. * Avoid long distance driving or driving when feeling sleepy. * Avoid alcohol, sedative and muscle relaxant around bedtime. * Attempt to lose weight. * Review instructions provided by trained office staff on how to prepare for the sleep study. * Return for follow-up after sleep study completed. Counseling Topics: Weight loss health impact Visit Type: In Office Time Spent with Patient (minutes): 37 Provider Statement: I spent 100% of the Face to Face Visit with the patient with greater than 50% spent counseling the patient and coordination of care.
[2021-06-20 11:52] VITALS: BP 139/84
== END 2021-06-20 10:41 | disposition home or self-care (01) ==
LOC: SC 10:40
PROVIDERS: ATTEND Nurse Practitioner Family
DX: G47.33 Obstructive sleep apnea (adult) (pediatric) (principal); E66.9 Obesity, unspecified; Z68.37 Body mass index [BMI] 37.0-37.9, adult
CPT/HCPCS: 99203; 99212

== ENCOUNTER 2021-06-25 08:22 | Outpatient (CLI) | payer OTHER, MEDICARE | END 2021-06-25 08:23 | disposition home or self-care (01) | LOC: SC 08:22 | PROVIDERS: ATTEND Nurse Practitioner Family | DX: G47.33 Obstructive sleep apnea (adult) (pediatric) (principal); R09.02 Hypoxemia; E66.9 Obesity, unspecified; Z68.37 Body mass index [BMI] 37.0-37.9, adult | CPT/HCPCS: 95806 ==

== ENCOUNTER 2021-07-04 12:44 | Outpatient (CLI) | payer OTHER, MEDICARE ==
[2021-07-04 13:28] VITALS: BP 131/68
--- NOTE | 2021-07-04 13:28 | SLEEP CARE CONSULTATION ---
Information from patient questionnaire entered by Rosi Fink MA. I have reviewed and concur with the information entered by Rosi Fink MA. This document represents the service I personally performed and the decisions made by , Breanna Holbrook ARNP. History of Present Illness Service Date and Time: 07/04/2021 1244 Initial [place] Sleepiness Scale score: 11 (2021) Current [place] Sleepiness Scale score: 14 Additional HPI information: GABRIEL CHAVEZ returns for follow up and results of the recently performed home sleep study. I explained the pathophysiology behind obstructive sleep apnea. We then spent quite a bit of time discussing different treatment options. For mild obstructive sleep apnea, surgery and oral appliance are alternatives to nasal CPAP therapy but in moderate or severe cases, nasal CPAP is the most effective and reliable treatment. I reviewed the impact of weight changes on sleep apnea and strongly recommended losing weight. Patient was cautioned about risks of drowsy driving until sleepiness symptoms resolve. Sleep Study - Results Type of Sleep Study: Home sleep study Prior sleep studies: Yes ([place], [place]) Polysomnography/Home Sleep Study results: Physician Impression: The quality of the study is good. The length of the study is adequate (> 240 minutes). Please also see the tabulated and graphic data. 1. Obstructive Sleep Apnea-Hypopnea (ICD-10 G47.33), mild, with an AHI of 8.6/hr and rei SaO2 of 84%. During the study, the patient had 5 apneas (5 obstructive, 0 central, 0 mixed) and 28 hypopneas. The longest episode lasted 72.5 seconds. The respiratory events occurred independently of body position (supine AHI was 8.8 and non-supine, 8.26). 2. Hypoxemia (ICD-10 R09.02), mild, with the lowest oxygen saturation of 84 % and 68.5 minutes with SaO2 under 90%. Baseline oxygen saturation was normal (Average oxygen saturation was 92%). Allergies and Home Medications Home medication list reviewed: Yes (no changes) Review of Systems Review of systems same as previous: No (pain behind ear and top of head: seen/eval at ED done) Physical Exam Blood Pressure: 131/68 (right) Cuff size: wrist Heart Rate: 77 O2 Saturation: 97 Height: 5 ft 7 in Weight: 247 lb Body Mass Index: 38.7 BMI Classification: Obese Impression and Plan 1. Obstructive Sleep Apnea-Hypopnea Syndrome, mild, with lowest oxygen saturation of 84%. Obviously this is the cause of the patients symptoms of unrefreshed sleep, and excessive daytime sleepiness. Positive pressure therapy could benefit hypertension, cardiac disease (CHF), diabetes, anxiety, depression, PTSD and gastric reflux. Patient states he did not sleep well the night of the study and he even started out the night in a chair. Patient states he cannot tolerate a mask on his face due to traumatic event in his past. He has tried to use a CPAP several times in the past but eventually just cannot tolerate it. He has tried an oral appliance and this also did not work for him. Patient would like to be evaluated for the Inspire implantable sleep apnea device. Patient informed that they would have to qualify for this type of therapy. A referral is needed for an ENT specialist who would evaluate if Inspire therapy is indeed right for them. Patient will need to undergo a sleep endoscopy where they are put under light sedation and the airway is examined by an endoscope to determine the cause of their sleep apnea. If it is determined that Inspire therapy is right for them than they may proceed to implantation. Patient voiced understanding and agreement with plan of care. He will follow up here if he does not qualify for Inspire. Patient was advised to try to lose weight. 2. Hypoxemia, mild, with the lowest oxygen saturation of 84 % and 68.5 minutes with SaO2 under 90%. His baseline oxygen saturation was normal with an average oxygen saturation of 92%. * Referral for Dr. Hiren Garcia for evaluation for Inspire implant therapy. * Attempt to lose weight. * Avoid alcohol consumption near bedtime. * Avoid supine sleep. * The patient is again cautioned about driving until sleepiness completely resolves. * Follow up determined by referral results. Counseling Topics: Weight loss health impact Visit Type: In Office Time Spent with Patient (minutes): 22 Provider Statement: I spent 100% of the Face to Face Visit with the patient with greater than 50% spent counseling the patient and coordination of care.
== END 2021-07-04 12:45 | disposition home or self-care (01) ==
LOC: SC 12:44
PROVIDERS: ATTEND Nurse Practitioner Family
DX: G47.33 Obstructive sleep apnea (adult) (pediatric) (principal); R09.02 Hypoxemia; E66.9 Obesity, unspecified; Z68.38 Body mass index [BMI] 38.0-38.9, adult
CPT/HCPCS: 99212; 99213

== ENCOUNTER 2021-08-05 13:19 | Outpatient (CLI) | payer OTHER | END 2021-08-05 13:20 | disposition critical access hospital (66) | LOC: EMS 13:19 | DX: R07.9 Chest pain, unspecified (principal); R06.02 Shortness of breath; R11.2 Nausea with vomiting, unspecified; M54.2 Cervicalgia; R61 Generalized hyperhidrosis | CPT/HCPCS: A0425; A0429 ==

== ENCOUNTER 2021-08-05 13:42 | Emergency (ER) | payer MEDICARE, OTHER ==
--- NOTE | 2021-08-05 14:01 | ED Physician Documentation ---
History of Present Illness - Stated complaint Stated Complaint: WEAKNESS N/V/D - Chief complaint Chief Complaint: General - History obtained from History obtained from: Patient - History of Present Illness Timing: Yesterday Pain level max: 2 Pain level now: 0 - Additonal information Additional information: Patient is a 71-year-old male brought in by EMS today for chest pain. He states that he has had chest pain intermittently for several years. Nothing makes it better or worse. He states it is not any different than usual. He states when he gets this chest discomfort it lasts for about an hour. Currently is asymptomatic. He states that he had a EKG yesterday prior to a colonoscopy at [facility]. He states that he was told that "the tracing looked different", but when they repeated the EKG it was "normal". No fevers. No chills. No diarrhea. No constipation. No vomiting. Has mild abdominal discomfort since yesterday. Patient states he had an angiogram in 2008 that was normal. He states his last cardiac stress test was about 5 months ago and was also normal. Review of Systems Ten Systems: 10 systems reviewed and negative Constitutional: denies: Fever, Chills Throat: denies: Sore throat Respiratory: denies: Cough, Wheezing Skin: denies: Rash Musculoskeletal: denies: Neck pain Neurologic: denies: Headache PD PAST MEDICAL HISTORY - Past Medical History Past Medical History: Yes Cardiovascular: Congestive heart failure, Hypertension, High cholesterol Respiratory: Pneumonia, Sleep apnea Endocrine/Autoimmune: Type 2 diabetes : Renal insuffiency Psych: Depression, Post traumatic stress disorder Musculoskeletal: Gout Derm: Other - Past Surgical History Past Surgical History: Yes General: Appendectomy HEENT: Tonsil/Adenoidectomy - Present Medications Home Medications: Ambulatory Orders Medication Instructions Recorded Confirmed Atorvastatin Calcium [Lipitor] 40 mg PO DAILY 01/25/13 02/27/20 Bumetanide [Bumex] 6 mg PO TID 01/25/13 02/27/20 amLODIPine [Norvasc] 10 mg PO DAILY 01/25/13 02/27/20 polyethylene glycoL 3350 [Miralax] 17 gm PO BID 01/25/13 02/27/20 Aspartame 32 units SQ TID 04/21/15 02/27/20 Chlorhexidine Gluconate [Peridex] 15 ml PO BID 04/21/15 02/27/20 Hydrocortisone 1% Oint 1 applic TOP BID PRN 04/21/15 02/27/20 [Hydrocortisone] Insulin Glargine [Lantus Solostar] 60 units SQ BID 04/21/15 02/27/20 Lidocaine Viscous 2% [Xylocaine 10 ml PO Q4HR PRN 04/21/15 02/27/20 Viscous 2%] Sildenafil Citrate [Viagra] 100 mg PO DAILY 04/21/15 02/27/20 Insulin Aspart [Novolog Flexpen] 10 unit SQ TID 06/09/16 02/27/20 dexAMETHasone [Decadron] 4 mg PO DAILY #5 tablet 10/30/16 02/27/20 Isoniazid 300 mg PO DAILY 02/27/20 02/27/20 Metoprolol Succinate [Toprol Xl] 25 mg PO DAILY #30 tablet 08/05/21 - Allergies Allergies/Adverse Reactions: Allergies Allergy/AdvReac Type Severity Reaction Status Date / Time PPD AdvReac Intermediate Unknown Uncoded 08/05/21 13:50 - Social History Does the pt smoke?: No Smoking Status: Never smoker Does the pt drink ETOH?: No Does the pt have substance abuse?: No - Immunizations Immunizations are current?: Yes - POLST Patient has POLST: No PD ED PE NORMAL - Vitals Vital signs reviewed: Yes - General General: Alert and oriented X 3, No acute distress, Well developed/nourished - HEENT HEENT: PERRL, Moist mucous membranes - Neck Neck: Supple, no meningeal sign - Cardiac Cardiac: RRR, Strong equal pulses - Respiratory Respiratory: No respiratory distress, Clear bilaterally - Abdomen Abdomen: Soft, Non tender, Non distended - Derm Derm: Warm and dry - Extremities Extremities: No edema, No calf tenderness / cord - Neuro Neuro: Alert and oriented X 3 - Psych Psych: Normal mood, Normal affect Results - Vitals Vitals: Vital Signs - 24 hr 08/05/21 08/05/21 08/05/21 13:50 13:55 15:55 Temperature 36.5 C 36.5 C Heart Rate 74 74 67 Respiratory 16 16 22 Rate Blood Pressure 178/77 H 178/77 H 148/87 H O2 Saturation 97 97 96 08/05/21 16:29 Temperature Heart Rate 67 Respiratory 20 Rate Blood Pressure 142/87 H O2 Saturation 100 Oxygen O2 Source Room air - EKG (time done) 1352 Rate: Rate (enter#) (71) Rhythm: NSR Kirby: Normal Intervals: Normal KS QRS: Normal Ischemia: Non specific changes - Labs Labs: Laboratory Tests 08/05/21 08/05/21 08/05/21 14:11 14:11 14:11 WBC 3.1 L RBC 4.34 L Hgb 12.9 L Hct 37.8 L MCV 87.1 MCH 29.7 MCHC 34.1 RDW 13.7 Plt Count 169 MPV 11.4 Neut # (Auto) 1.4 L Lymph # (Auto) 1.2 L Gates # (Auto) 0.4 Eos # (Auto) 0.1 Baso # (Auto) 0.0 Absolute Nucleated RBC 0.00 Nucleated RBC % 0.0 Sodium 141 Potassium 3.8 Chloride 103 Carbon Dioxide 27 Anion Gap 11.0 BUN 16 Creatinine 1.6 H Estimated GFR (MDRD) 52 L Glucose 131 H Calcium 9.5 Phosphorus Magnesium Total Bilirubin 0.7 AST 22 ALT 19 Alkaline Phosphatase 104 Troponin I High Sens 44.3 H* Total Protein 7.0 Albumin 4.1 Globulin 2.9 Albumin/Globulin Ratio 1.4 Lipase 44 08/05/21 14:11 WBC RBC Hgb Hct MCV MCH MCHC RDW Plt Count MPV Neut # (Auto) Lymph # (Auto) Gates # (Auto) Eos # (Auto) Baso # (Auto) Absolute Nucleated RBC Nucleated RBC % Sodium Potassium Chloride Carbon Dioxide Anion Gap BUN Creatinine Estimated GFR (MDRD) Glucose Calcium Phosphorus 2.8 Magnesium 1.9 Total Bilirubin AST ALT Alkaline Phosphatase Troponin I High Sens Total Protein Albumin Globulin Albumin/Globulin Ratio Lipase - Rads (name of study) cxr Radiology: Final report received, EMP read contemporaneously, See rad report (Interstitial radiopacities suspicious for pulmonary edema. ) PD MEDICAL DECISION MAKING - ED course Complexity details: reviewed results, re-evaluated patient, considered differential (No ST elevation DC, no aortic dissection, no PE, no tension pneumothorax, no aortic aneurysm), d/w patient ED course: 71-year-old male with constant chest pain for over 12 hours. Negative troponin. No acute findings on EKG. He did have 1 small run of nonsustained V. tach. Was asymptomatic with this. No significant lab abnormalities. Discussed the case with his asset protection specialist, Dr. Lewis, recommend starting Toprol-XL 25 mg p.o. daily and will follow up in the office. Patient currently asymptomatic. No chest pain. No shortness of breath. We did discuss a second troponin, but patient does not want to stay any longer in the emergency department. Request to go home. Patient counseled regarding signs and symptoms for which I believe and urgent re-evaluation would be necessary. Patient with good understanding of and agreement to plan and is comfortable going home at this time This document was made in part using voice recognition software. While efforts are made to proofread this document, sound alike and grammatical errors may occur. Departure - Departure Disposition: Home, Self Care Clinical Impression: Non-sustained ventricular tachycardia Hypertension Qualifiers: Hypertension type: unspecified Qualified Code(s): I10 - Essential (primary) hypertension Chest pain Qualifiers: Chest pain type: unspecified Qualified Code(s): R07.9 - Chest pain, unspecified Condition: Good Instructions: ED Chest Pain Atypical Unkn Cause Follow-Up: [facility]Elmer Hguhes MD [Primary Care Provider] - Bandar Lewis MD [Physician No Access] - Within 1 week Prescriptions: Metoprolol Succinate [Toprol Xl] 25 mg PO DAILY #30 tablet Comments: Your prescription was sent to [facility] in [place]. Please follow-up with your doctor for further care. You did have a short run of nonsustained ventricular tachycardia here. You need to stay on the metoprolol for this. I spoke with Dr. Lewis today. Discharge Date/Time: 08/05/21 16:15
[2021-08-05 14:18] LABS: BASOPHILS % (AUTO) 0.6 %; EOSINOPHILS # (AUTO) 0.1 10^3/uL (0.0-0.7); EOSINOPHILS % (AUTO) 1.9 %; HCT - HEMATOCRIT 37.8 % (42.0-52.0); HGB - HEMOGLOBIN 12.9 g/dL (14.0-18.0); LYMPHOCYTES # (AUTO) 1.2 10^3/uL (1.5-3.5); LYMPHOCYTES % (AUTO) 37.9 %; MEAN CORPUSCULAR HEMOGLOBIN 29.7 pg (27.0-31.0); MEAN CORPUSCULAR HGB CONC 34.1 g/dL (32.0-36.0); MEAN CORPUSCULAR VOLUME 87.1 fL (80.0-94.0); MEAN PLATELET VOLUME 11.4 fL (7.4-11.4); MONOCYTES # (AUTO) 0.4 10^3/uL (0.0-1.0); MONOCYTES % (AUTO) 14.2 %; NEUTROPHILS # (AUTO) 1.4 10^3/uL (1.5-6.6); NEUTROPHILS % (AUTO) 45.4 %; PLT - PLATELET COUNT 169 10^3/uL (130-450); RED BLOOD COUNT 4.34 10^6/uL (4.70-6.10); RED CELL DISTRIBUTION WIDTH 13.7 % (12.0-15.0); WHITE BLOOD COUNT 3.1 x10^3/uL (4.8-10.8)
[2021-08-05 14:32] LABS: ALBUMIN 4.1 g/dL (3.2-5.5); ALBUMIN/GLOBULIN RATIO 1.4 (1.0-2.2); BILIRUBIN,TOTAL 0.7 mg/dL (0.2-1.0); CALCIUM 9.5 mg/dL (8.5-10.3); CREATININE 1.6 mg/dL (0.6-1.2); POTASSIUM 3.8 mmol/L (3.5-5.0)
[2021-08-05] MEDS ORDERED: MAGNESIUM SULFATE 2 GRAM 2 GM/50 ML BAG IV ONE (14:49)
--- NOTE | 2021-08-05 15:16 | XRAY Report ---
PROCEDURE: Chest 1 View X-Ray INDICATIONS: Chest Pain TECHNIQUE: One view of the chest was acquired. COMPARISON: 2 views of the chest dated 10/30/2016 FINDINGS: Surgical changes and devices: None. Lungs and pleura: There are diffuse interstitial opacities bilaterally. No focal airspace consolidati on. No pleural effusion or pneumothorax. Mediastinum: Mediastinal contours appear normal. Heart size is normal. Bones and chest wall: No suspicious bony lesions. Overlying soft tissues appear unremarkable. IMPRESSION: Interstitial radiopacities suspicious for pulmonary edema. Reviewed by: Kemi Rothman MD on 08/05/2021 3:15 PM PST Approved by: Kemi Rothman MD on 08/05/2021 3:15 PM PST Station ID: [id number]
[2021-08-05 15:25] LABS: MAGNESIUM 1.9 mg/dL (1.7-2.8); PHOSPHORUS 2.8 mg/dL (2.5-4.6)
[2021-08-05] MEDS ORDERED: METOPROLOL SUCCINATE 25 MG TABLET PO STA (15:55)
[2021-08-05 16:30] VITALS: BP 142/87
== END 2021-08-05 16:15 | disposition home or self-care (01) ==
LOC: EDUNIT# → ED 13:42
DX: I47.2 Ventricular tachycardia (principal); I11.0 Hypertensive heart disease with heart failure; I50.9 Heart failure, unspecified; E11.9 Type 2 diabetes mellitus without complications; Z79.4 Long term (current) use of insulin
CPT/HCPCS: 36415; 71045; 80053; 83690; 83735; 84100; 84484; 85025; 93005; 96365; 99284; A9270

== ENCOUNTER 2021-08-22 05:52 | Outpatient (CLI) | payer OTHER | END 2021-08-22 05:53 | disposition short-term general hospital (02) | LOC: EMS 05:52 | DX: R07.81 Pleurodynia (principal); R07.1 Chest pain on breathing; M25.511 Pain in right shoulder; M54.2 Cervicalgia; W11.XXXA Fall on and from ladder, initial encounter | CPT/HCPCS: A0425; A0427 ==

== ENCOUNTER 2022-07-08 16:54 | Outpatient (CLI) | payer MEDICARE, OTHER ==
[2022-07-08 17:52] LABS: CALCIUM 9.5 mg/dL (8.5-10.3); CREATININE 2.3 mg/dL (0.6-1.2); POTASSIUM 3.8 mmol/L (3.5-5.0); URIC ACID 5.3 mg/dL (2.6-7.2)
[2022-07-08 17:54] LABS: HCT - HEMATOCRIT 40.5 % (42.0-52.0); HGB - HEMOGLOBIN 13.2 g/dL (14.0-18.0); MEAN CORPUSCULAR HEMOGLOBIN 28.4 pg (27.0-31.0); MEAN CORPUSCULAR HGB CONC 32.6 g/dL (32.0-36.0); MEAN CORPUSCULAR VOLUME 87.3 fL (80.0-94.0); MEAN PLATELET VOLUME 11.2 fL (7.4-11.4); RED BLOOD COUNT 4.64 10^6/uL (4.70-6.10); WHITE BLOOD COUNT 3.3 x10^3/uL (4.8-10.8)
== END 2022-07-08 16:55 | disposition home or self-care (01) ==
LOC: LAB 16:54
PROVIDERS: ATTEND Internal Medicine Nephrology
DX: N05.9 Unspecified nephritic syndrome with unspecified morphologic changes (principal); D70.9 Neutropenia, unspecified; E83.30 Disorder of phosphorus metabolism, unspecified; N25.81 Secondary hyperparathyroidism of renal origin; D47.2 Monoclonal gammopathy; M10.00 Idiopathic gout, unspecified site; D63.1 Anemia in chronic kidney disease
CPT/HCPCS: 36415; 80048; 81599; 83970; 84100; 84155; 84165; 84550; 85027

== ENCOUNTER 2022-07-10 17:26 | Outpatient (CLI) | payer MEDICARE, OTHER ==
[2022-07-10 18:06] LABS: CALCIUM 9.6 mg/dL (8.5-10.3); CREATININE 2.3 mg/dL (0.6-1.2); POTASSIUM 4.3 mmol/L (3.5-5.0)
[2022-07-10 21:22] LABS: ESTIMATED AVERAGE GLUCOSE 171 mg/dL (70-100); HEMOGLOBIN A1c% 7.6 % (4.27-6.07)
== END 2022-07-10 17:27 | disposition home or self-care (01) ==
LOC: LAB 17:26
PROVIDERS: ATTEND Internal Medicine Nephrology
DX: E11.9 Type 2 diabetes mellitus without complications (principal)
CPT/HCPCS: 36415; 80048; 83036

== ENCOUNTER 2022-07-27 12:39 | Emergency (ER) | payer MEDICARE, OTHER ==
--- NOTE | 2022-07-27 13:47 | ED Physician Documentation ---
PD HPI HEAD INJURY - Stated complaint Stated Complaint: BACK PX - Chief complaint Chief Complaint: Neuro - History obtained from History obtained from: Patient - History of Present Illness Mechanism of head injury: Fell (he states he fell 4 weeks ago getting out of his truck and struck side of head. With some ongoing headache and neck pain right side. He states was seen at [facility] ER after the injury and did not have focal deficits, no LOC, and seemed muscular pain, so he says no imaging done there.) Timing - onset: How many weeks ago (4) Location of injury: Right Quality of pain: Pain, Aching Associated symptoms: Neck pain. No: LOC, AMS, Nausea / vomiting, Paresthesias Contributing factors: No: Anticoagulated Similar symptoms before: Has not had sx before Recently seen: Emergency Dept (4 weeks ago at time of injury.) Review of Systems Constitutional: denies: Fever Nose: denies: Rhinorrhea / runny nose, Congestion Throat: denies: Sore throat Respiratory: denies: Cough GI: denies: Abdominal Pain, Nausea, Vomiting Skin: denies: Abrasion (s), Laceration (s) Musculoskeletal: reports: Neck pain (right posterior) Neurologic: reports: Headache (right posterior). denies: Focal weakness, Numbne ss PD PAST MEDICAL HISTORY - Past Medical History Cardiovascular: Congestive heart failure, Hypertension, High cholesterol Respiratory: Pneumonia, Sleep apnea Neuro: None Endocrine/Autoimmune: Type 2 diabetes : Renal insuffiency Psych: Depression, Post traumatic stress disorder Musculoskeletal: Gout Derm: Other - Past Surgical History Past Surgical History: Yes General: Appendectomy HEENT: Tonsil/Adenoidectomy - Present Medications Home Medications: Ambulatory Orders Medication Instructions Recorded Confirmed Atorvastatin Calcium [Lipitor] 20 mg PO DAILY 01/25/13 06/16/22 Bumetanide [Bumex] 2 mg PO BID 01/25/13 06/16/22 amLODIPine [Norvasc] 10 mg PO DAILY 01/25/13 06/16/22 polyethylene glycoL 3350 [Miralax] 17 gm PO BID 01/25/13 06/16/22 Hydrocortisone 1% Oint 1 applic TOP BID PRN 04/21/15 06/16/22 [Hydrocortisone] Insulin Glargine [Lantus Solostar] 56 units SQ BID 04/21/15 06/16/22 Lidocaine Viscous 2% [Xylocaine 10 ml PO Q4HR PRN 04/21/15 06/16/22 Viscous 2%] Sildenafil Citrate [Viagra] 100 mg PO DAILY 04/21/15 06/16/22 Insulin Aspart [Novolog Flexpen] 22 unit SQ UD 06/09/16 06/16/22 dexAMETHasone [Decadron] 4 mg PO DAILY #5 tablet 10/30/16 06/16/22 Isoniazid 300 mg PO DAILY 02/27/20 06/16/22 Metoprolol Succinate [Toprol Xl] 25 mg PO DAILY #30 tablet 08/05/21 06/16/22 Semaglutide [Ozempic] 1 mg SQ UD 06/16/22 06/16/22 Meloxicam [Mobic] 7.5 mg PO BID 10 Days #20 tablet 07/27/22 methocarbamoL [Robaxin] 500 mg PO Q6H PRN #30 tablet 07/27/22 traMADol [Ultram] 50 mg PO Q6H PRN #20 tablet 07/27/22 - Allergies Allergies/Adverse Reactions: Allergies Allergy/AdvReac Type Severity Reaction Status Date / Time gabapentin Allergy Unknown Verified 07/27/22 12:53 PPD AdvReac Intermediate Unknown Uncoded 07/27/22 12:53 - Social History Does the pt smoke?: No Smoking Status: Never smoker Does the pt drink ETOH?: No Does the pt have substance abuse?: No - Immunizations Immunizations are current?: Yes - POLST Patient has POLST: No PD ED PE NORMAL - Vitals Vital signs reviewed: Yes - General General: Alert and oriented X 3, No acute distress, Well developed/nourished - HEENT HEENT: PERRL, EOMI - Neck Neck: Supple, no meningeal sign, No adenopathy, Other (some tender in mid to lower cervical area, more to the right of midline. ) - Cardiac Cardiac: RRR, No murmur - Respiratory Respiratory: Clear bilaterally - Derm Derm: Normal color, Warm and dry - Neuro Neuro: Alert and oriented X 3, No motor deficit, No sensory deficit, Normal speech Results - Vitals Vitals: Vital Signs - 24 hr 07/27/22 07/27/22 12:46 16:14 Temperature 37.1 C 36.8 C Heart Rate 88 74 Respiratory 20 16 Rate Blood Pressure 136/74 H 135/57 H O2 Saturation 97 99 Oxygen O2 Source Room air - Rads (name of study) head cT Radiology: Prelim report reviewed (no acute process), See rad report cervical CT Radiology: Prelim report reviewed, See rad report PD Medical Decision Making - ED course Complexity details: reviewed results (read Radiology report and I viewed the images myself as well. ), considered differential, d/w patient Departure - Departure Disposition: 01 Home, Self Care Clinical Impression: Neck pain on right side Headache Qualifiers: Headache type: post-traumatic Headache chronicity pattern: acute headache Intractability: not intractable Qualified Code(s): G44.319 - Acute post- traumatic headache, not intractable Fall Qualifiers: Encounter type: initial encounter Qualified Code(s): W19.XXXA - Unspecified fall, initial encounter Condition: Stable Record reviewed to determine appropriate education?: Yes Instructions: ED Sprain Strain Neck Prescriptions: Meloxicam [Mobic] 7.5 mg PO BID 10 Days #20 tablet methocarbamoL [Robaxin] 500 mg PO Q6H PRN #30 tablet PRN Reason: Spasms traMADol [Ultram] 50 mg PO Q6H PRN #20 tablet PRN Reason: Pain Comments: Your head and neck CTs are normal without any acute abnormalities. No fractures, bleeding, significant disc displacement. There is arthritic changes in the neck. I presume your neck and head pain are related to muscle ligament injury in the neck and some headache after falling and hitting your head. We can treat these with a combination of anti-inflammatories and muscle relaxant. I prescribed meloxicam and methocarbamol. To that add Tylenol 4 times daily for the next 7 to 10 days. In addition you can use your tramadol every 6-8 hours if needed. I sent your prescriptions to [facility] pharmacy in [place]. Physical treatment such as heat, stretching, massage or chiropractic are all reasonable to try. Follow-up with your primary care in about a week if not improved well and resolved by that time. My narcotic instructions I am prescribing a short course of narcotic pain medication for you. These are potentially dangerous and addictive medications that should be used carefully. These medications may constipate you. Take an [id number] stool softener such as docusate twice daily with plenty of water while taking these medications. If you go 24 hours without a bowel movement, take [id number] MiraLAX, per package instructions. Do not drink or drive while taking these medications. If you received narcotic or sedating medications while in the emergency department do not drive for 24 hours. Store this medication in a safe, secure place and out of reach of children. It is a violation of federal law to give or sell this medication to another person or to use in a manner other than prescribed. The ED will not refill narcotic prescriptions, including prescriptions lost or stolen. You can dispose of unwanted medications at the [facility]'s office or at several pharmacies such as [facility]. Discharge Date/Time: 07/27/22 16:19
[2022-07-27] MEDS ORDERED: IBUPROFEN 600 MG TABLET PO STA (14:05)
[2022-07-27] MEDS ORDERED: ACETAMINOPHEN 325 MG TABLET PO STA (14:05)
--- OUTSIDE RECORDS SUMMARY | 2022-07-27 14:05 | EXTERNAL MEDICAL SUMMARY RPT | Continuity of Care Document ---
:1950 Author Organization [facility] Address [address] [place] [address] Phone Care Team Providers Name Role Phone Unavailable Unavailable Unavailable Elmer Naylor Unavailable Unavailable Sebastian, Provider Unavailable Unavailable Allergies and Intolerances date description facility type (no date) gabapentin [facility] (unknown) Encounters No information. Functional Status No information. Immunizations No information. Medications date description facility 2022-06-25 00:[address] [facility] 2022-06-25 00:[address] [facility]:[address] [facility] 2022-07-03 00:00 [facility] Problems date description facility 2022-06-16 00:00 Gout All 2022-06-16 00:00 Gout, unspecified All 2022-06-17 00:00 Gout All 2022-06-17 00:00 Gout, unspecified All 2022-06-18 00:00 Gout All 2022-06-18 00:00 Gout, unspecified All 2022-06-25 00:[address] [facility] 2022-06-25 00:00 Strain of hamstring muscle [facility] ital 2022-07-03 00:00 [facility]00 Pain in both lower extremities [facility] 2022-07-08 00:00 Gout All 2022-07-08 00:00 Gout, unspecified All 2022-07-10 00:00 Gout All 2022-07-10 00:00 Gout, unspecified All 2022-07-13 00:00 Gout All 2022-07-13 00:00 Gout, unspecified All Procedures No information. Results/Labs test date author facility value unit interpret ation Result panel 1 (unknown) (no date) (unknown) All (no value) (units unknown ) (unknown) Result panel 2 (unknown) (no date) (unknown) All (no value) (units unknown ) (unknown) Result panel 3 (unknown) (no date) (unknown) All (no value) (units unknown ) (unknown) Result panel 4 (unknown) (no date) (unknown) All (no value) (units unknown ) (unknown) Result panel 5 (unknown) (no date) (unknown) All (no value) (units unknown ) (unknown) Result panel 6 (unknown) (no date) (unknown) All (no value) (units unknown ) (unknown) Result panel 7 (unknown) (no date) (unknown) All (no value) (units unknown ) (unknown) Result panel 8 (unknown) (no date) (unknown) All (no value) (units unknown ) (unknown) Result panel 9 (unknown) (no date) (unknown) All (no value) (units unknown ) (unknown) Result panel 10 (unknown) (no date) (unknown) All (no value) (units unknown ) (unknown) Result panel 11 (unknown) (no date) (unknown) All (no value) (units unknown ) (unknown) Result panel 12 (unknown) (no date) (unknown) All (no value) (units unknown ) (unknown) Result panel 13 (unknown) (no date) (unknown) All (no value) (units unknown ) (unknown) Result panel 14 (unknown) (no date) (unknown) All (no value) (units unknown ) (unknown) Result panel 15 (unknown) (no date) (unknown) All (no value) (units unknown ) (unknown) Result panel 16 (unknown) (no date) (unknown) All (no value) (units unknown ) (unknown) Result panel 17 (unknown) (no date) (unknown) All (no value) (units unknown ) (unknown) Result panel 18 (unknown) (no date) (unknown) All (no value) (units unknown ) (unknown) Result panel 19 (unknown) (no date) (unknown) All (no value) (units unknown ) (unknown) Result panel 20 (unknown) (no date) (unknown) All (no value) (units unknown ) (unknown) Result panel 21 (unknown) (no date) (unknown) All (no value) (units unknown ) (unknown) Result panel 22 (unknown) (no date) (unknown) All (no value) (units unknown ) (unknown) Result panel 23 (unknown) (no date) (unknown) All (no value) (units unknown ) (unknown) Result panel 24 (unknown) (no date) (unknown) All (no value) (units unknown ) (unknown) Result panel 25 (unknown) (no date) (unknown) All (no value) (units unknown ) (unknown) Result panel 26 (unknown) (no date) (unknown) All (no value) (units unknown ) (unknown) Result panel 27 (unknown) (no date) (unknown) All (no value) (units unknown ) (unknown) Result panel 28 (unknown) (no date) (unknown) All (no value) (units unknown ) (unknown) Result panel 29 (unknown) (no date) (unknown) All (no value) (units unknown ) (unknown) Result panel 30 (unknown) (no date) (unknown) All (no value) (units unknown ) (unknown) Result panel 31 (unknown) (no date) (unknown) All (no value) (units unknown ) (unknown) Result panel 32 (unknown) (no date) (unknown) All (no value) (units unknown ) (unknown) Result panel 33 (unknown) (no date) (unknown) All (no value) (units unknown ) (unknown) Result panel 34 (unknown) (no date) (unknown) All (no value) (units unknown ) (unknown) Result panel 35 (unknown) (no date) (unknown) All (no value) (units unknown ) (unknown) Result panel 36 (unknown) (no date) (unknown) All (no value) (units unknown ) (unknown) Result panel 37 (unknown) (no date) (unknown) All (no value) (units unknown ) (unknown) Result panel 38 (unknown) (no date) (unknown) All (no value) (units unknown ) (unknown) Result panel 39 (unknown) (no date) (unknown) All (no value) (units unknown ) (unknown) Result panel 40 (unknown) (no date) (unknown) All (no value) (units unknown ) (unknown) Result panel 41 (unknown) (no date) (unknown) All (no value) (units unknown ) (unknown) Result panel 42 (unknown) (no date) (unknown) All (no value) (units unknown ) (unknown) Result panel 43 (unknown) (no date) (unknown) All (no value) (units unknown ) (unknown) Result panel 44 (unknown) (no date) (unknown) All (no value) (units unknown ) (unknown) Result panel 45 (unknown) (no date) (unknown) All (no value) (units unknown ) (unknown) Result panel 46 (unknown) (no date) (unknown) All (no value) (units unknown ) (unknown) Result panel 47 (unknown) (no date) (unknown) All (no value) (units unknown ) (unknown) Result panel 48 (unknown) (no date) (unknown) All (no value) (units unknown ) (unknown) Result panel 49 (unknown) (no date) (unknown) All (no value) (units unknown ) (unknown) Result panel 50 (unknown) (no date) (unknown) All (no value) (units unknown ) (unknown) Result panel 51 (unknown) (no date) (unknown) All (no value) (units unknown ) (unknown) Result panel 52 (unknown) (no date) (unknown) All (no value) (units unknown ) (unknown) Result panel 53 (unknown) (no date) (unknown) All (no value) (units unknown ) (unknown) Result panel 54 (unknown) (no date) (unknown) All (no value) (units unknown ) (unknown) Result panel 55 (unknown) (no date) (unknown) All (no value) (units unknown ) (unknown) Result panel 56 (unknown) (no date) (unknown) All (no value) (units unknown ) (unknown) Result panel 57 (unknown) (no date) (unknown) All (no value) (units unknown ) (unknown) Result panel 58 (unknown) (no date) (unknown) All (no value) (units unknown ) (unknown) Result panel 59 (unknown) (no date) (unknown) All (no value) (units unknown ) (unknown) Result panel 60 (unknown) (no date) (unknown) All (no value) (units unknown ) (unknown) Result panel 61 (unknown) (no date) (unknown) All (no value) (units unknown ) (unknown) Result panel 62 (unknown) (no date) (unknown) All (no value) (units unknown ) (unknown) Result panel 63 (unknown) (no date) (unknown) All (no value) (units unknown ) (unknown) Result panel 64 (unknown) (no date) (unknown) All (no value) (units unknown ) (unknown) Result panel 65 (unknown) (no date) (unknown) All (no value) (units unknown ) (unknown) Result panel 66 (unknown) (no date) (unknown) All (no value) (units unknown ) (unknown) Result panel 67 (unknown) (no date) (unknown) All (no value) (units unknown ) (unknown) Result panel 68 (unknown) (no date) (unknown) All (no value) (units unknown ) (unknown) Result panel 69 (unknown) (no date) (unknown) All (no value) (units unknown ) (unknown) Result panel 70 (unknown) (no date) (unknown) All (no value) (units unknown ) (unknown) Result panel 71 (unknown) (no date) (unknown) All (no value) (units unknown ) (unknown) Result panel 72 (unknown) (no date) (unknown) All (no value) (units unknown ) (unknown) Result panel 73 (unknown) (no date) (unknown) All (no value) (units unknown ) (unknown) Result panel 74 (unknown) (no date) (unknown) All (no value) (units unknown ) (unknown) Result panel 75 (unknown) (no date) (unknown) All (no value) (units unknown ) (unknown) Result panel 76 (unknown) (no date) (unknown) All (no value) (units unknown ) (unknown) Result panel 77 (unknown) (no date) (unknown) All (no value) (units unknown ) (unknown) Result panel 78 (unknown) (no date) (unknown) All (no value) (units unknown ) (unknown) Result panel 79 (unknown) (no date) (unknown) All (no value) (units unknown ) (unknown) Result panel 80 (unknown) (no date) (unknown) All (no value) (units unknown ) (unknown) Result panel 81 (unknown) (no date) (unknown) All (no value) (units unknown ) (unknown) Result panel 82 (unknown) (no date) (unknown) All (no value) (units unknown ) (unknown) Result panel 83 (unknown) (no date) (unknown) All (no value) (units unknown ) (unknown) Result panel 84 (unknown) (no date) (unknown) All (no value) (units unknown ) (unknown) Result panel 85 (unknown) (no date) (unknown) All (no value) (units unknown ) (unknown) Result panel 86 (unknown) (no date) (unknown) All (no value) (units unknown ) (unknown) Result panel 87 (unknown) (no date) (unknown) All (no value) (units unknown ) (unknown) Result panel 88 (unknown) (no date) (unknown) All (no value) (units unknown ) (unknown) Result panel 89 (unknown) (no date) (unknown) All (no value) (units unknown ) (unknown) Result panel 90 (unknown) (no date) (unknown) All (no value) (units unknown ) (unknown) Result panel 91 (unknown) (no date) (unknown) All (no value) (units unknown ) (unknown) Result panel 92 (unknown) (no date) (unknown) All (no value) (units unknown ) (unknown) Result panel 93 (unknown) (no date) (unknown) All (no value) (units unknown ) (unknown) Result panel 94 (unknown) (no date) (unknown) All (no value) (units unknown ) (unknown) Result panel 95 (unknown) (no date) (unknown) All (no value) (units unknown ) (unknown) Result panel 96 (unknown) (no date) (unknown) All (no value) (units unknown ) (unknown) Result panel 97 (unknown) (no date) (unknown) All (no value) (units unknown ) (unknown) Result panel 98 (unknown) (no date) (unknown) All (no value) (units unknown ) (unknown) Result panel 99 (unknown) (no date) (unknown) All (no value) (units unknown ) (unknown) Result panel 100 (unknown) (no date) (unknown) All (no value) (units unknown ) (unknown) Result panel 101 (unknown) (no date) (unknown) All (no value) (units unknown ) (unknown) Result panel 102 (unknown) (no date) (unknown) All (no value) (units unknown ) (unknown) Result panel 103 (unknown) (no date) (unknown) All (no value) (units unknown ) (unknown) Result panel 104 (unknown) (no date) (unknown) All (no value) (units unknown ) (unknown) Result panel 105 (unknown) (no date) (unknown) All (no value) (units unknown ) (unknown) Result panel 106 (unknown) (no date) (unknown) All (no value) (units unknown ) (unknown) Result panel 107 (unknown) (no date) (unknown) All (no value) (units unknown ) (unknown) Result panel 108 (unknown) (no date) (unknown) All (no value) (units unknown ) (unknown) Result panel 109 (unknown) (no date) (unknown) All (no value) (units unknown ) (unknown) Result panel 110 (unknown) (no date) (unknown) All (no value) (units unknown ) (unknown) Result panel 111 (unknown) (no date) (unknown) All (no value) (units unknown ) (unknown) Result panel 112 (unknown) (no date) (unknown) All (no value) (units unknown ) (unknown) Result panel 113 (unknown) (no date) (unknown) All (no value) (units unknown ) (unknown) Result panel 114 (unknown) (no date) (unknown) All (no value) (units unknown ) (unknown) Result panel 115 (unknown) (no date) (unknown) All (no value) (units unknown ) (unknown) Result panel 116 (unknown) (no date) (unknown) All (no value) (units unknown ) (unknown) Result panel 117 (unknown) (no date) (unknown) All (no value) (units unknown ) (unknown) Result panel 118 (unknown) (no date) (unknown) All (no value) (units unknown ) (unknown) Result panel 119 (unknown) (no date) (unknown) All (no value) (units unknown ) (unknown) Result panel 120 (unknown) (no date) (unknown) All (no value) (units unknown ) (unknown) Result panel 121 (unknown) (no date) (unknown) All (no value) (units unknown ) (unknown) Result panel 122 (unknown) (no date) (unknown) All (no value) (units unknown ) (unknown) Result panel 123 (unknown) (no date) (unknown) All (no value) (units unknown ) (unknown) Result panel 124 (unknown) (no date) (unknown) All (no value) (units unknown ) (unknown) Result panel 125 (unknown) (no date) (unknown) All (no value) (units unknown ) (unknown) Result panel 126 (unknown) (no date) (unknown) All (no value) (units unknown ) (unknown) Result panel 127 (unknown) (no date) (unknown) All (no value) (units unknown ) (unknown) Result panel 128 (unknown) (no date) (unknown) All (no value) (units unknown ) (unknown) Result panel 129 (unknown) (no date) (unknown) All (no value) (units unknown ) (unknown) Result panel 130 (unknown) (no date) (unknown) All (no value) (units unknown ) (unknown) Result panel 131 (unknown) (no date) (unknown) All (no value) (units unknown ) (unknown) Result panel 132 (unknown) (no date) (unknown) All (no value) (units unknown ) (unknown) Result panel 133 (unknown) (no date) (unknown) All (no value) (units unknown ) (unknown) Result panel 134 (unknown) (no date) (unknown) All (no value) (units unknown ) (unknown) Result panel 135 (unknown) (no date) (unknown) All (no value) (units unknown ) (unknown) Result panel 136 (unknown) (no date) (unknown) All (no value) (units unknown ) (unknown) Result panel 137 (unknown) (no date) (unknown) All (no value) (units unknown ) (unknown) Result panel 138 (unknown) (no date) (unknown) All (no value) (units unknown ) (unknown) Result panel 139 (unknown) (no date) (unknown) All (no value) (units unknown ) (unknown) Result panel 140 (unknown) (no date) (unknown) All (no value) (units unknown ) (unknown) Result panel 141 (unknown) (no date) (unknown) All (no value) (units unknown ) (unknown) Result panel 142 (unknown) (no date) (unknown) All (no value) (units unknown ) (unknown) Result panel 143 (unknown) (no date) (unknown) All (no value) (units unknown ) (unknown) Result panel 144 (unknown) (no date) (unknown) All (no value) (units unknown ) (unknown) Result panel 145 (unknown) (no date) (unknown) All (no value) (units unknown ) (unknown) Result panel 146 (unknown) (no date) (unknown) All (no value) (units unknown ) (unknown) Result panel 147 (unknown) (no date) (unknown) All (no value) (units unknown ) (unknown) Result panel 148 (unknown) (no date) (unknown) All (no value) (units unknown ) (unknown) Result panel 149 (unknown) (no date) (unknown) All (no value) (units unknown ) (unknown) Result panel 150 (unknown) (no date) (unknown) All (no value) (units unknown ) (unknown) Result panel 151 (unknown) (no date) (unknown) All (no value) (units unknown ) (unknown) Result panel 152 (unknown) (no date) (unknown) All (no value) (units unknown ) (unknown) Result panel 153 (unknown) (no date) (unknown) All (no value) (units unknown ) (unknown) Result panel 154 (unknown) (no date) (unknown) All (no value) (units unknown ) (unknown) Result panel 155 (unknown) (no date) (unknown) All (no value) (units unknown ) (unknown) Result panel 156 (unknown) (no date) (unknown) All (no value) (units unknown ) (unknown) Result panel 157 (unknown) (no date) (unknown) All (no value) (units unknown ) (unknown) Result panel 158 (unknown) (no date) (unknown) All (no value) (units unknown ) (unknown) Result panel 159 (unknown) (no date) (unknown) All (no value) (units unknown ) (unknown) Result panel 160 (unknown) (no date) (unknown) All (no value) (units unknown ) (unknown) Result panel 161 (unknown) (no date) (unknown) All (no value) (units unknown ) (unknown) Result panel 162 (unknown) (no date) (unknown) All (no value) (units unknown ) (unknown) Result panel 163 (unknown) (no date) (unknown) All (no value) (units unknown ) (unknown) Result panel 164 (unknown) (no date) (unknown) All (no value) (units unknown ) (unknown) Result panel 165 (unknown) (no date) (unknown) All (no value) (units unknown ) (unknown) Result panel 166 (unknown) (no date) (unknown) All (no value) (units unknown ) (unknown) Result panel 167 (unknown) (no date) (unknown) All (no value) (units unknown ) (unknown) Result panel 168 (unknown) (no date) (unknown) All (no value) (units unknown ) (unknown) Result panel 169 (unknown) (no date) (unknown) All (no value) (units unknown ) (unknown) Result panel 170 (unknown) (no date) (unknown) All (no value) (units unknown ) (unknown) Result panel 171 (unknown) (no date) (unknown) All (no value) (units unknown ) (unknown) Result panel 172 (unknown) (no date) (unknown) All (no value) (units unknown ) (unknown) Result panel 173 (unknown) (no date) (unknown) All (no value) (units unknown ) (unknown) Result panel 174 (unknown) (no date) (unknown) All (no value) (units unknown ) (unknown) Result panel 175 (unknown) (no date) (unknown) All (no value) (units unknown ) (unknown) Result panel 176 (unknown) (no date) (unknown) All (no value) (units unknown ) (unknown) Result panel 177 (unknown) (no date) (unknown) All (no value) (units unknown ) (unknown) Result panel 178 (unknown) (no date) (unknown) All (no value) (units unknown ) (unknown) Result panel 179 (unknown) (no date) (unknown) All (no value) (units unknown ) (unknown) Result panel 180 (unknown) (no date) (unknown) All (no value) (units unknown ) (unknown) Result panel 181 (unknown) (no date) (unknown) All (no value) (units unknown ) (unknown) Result panel 182 (unknown) (no date) (unknown) All (no value) (units unknown ) (unknown) Result panel 183 (unknown) (no date) (unknown) All (no value) (units unknown ) (unknown) Result panel 184 (unknown) (no date) (unknown) All (no value) (units unknown ) (unknown) Result panel 185 (unknown) (no date) (unknown) All (no value) (units unknown ) (unknown) Result panel 186 (unknown) (no date) (unknown) All (no value) (units unknown ) (unknown) Result panel 187 (unknown) (no date) (unknown) All (no value) (units unknown ) (unknown) Result panel 188 (unknown) (no date) (unknown) All (no value) (units unknown ) (unknown) Result panel 189 (unknown) (no date) (unknown) All (no value) (units unknown ) (unknown) Result panel 190 (unknown) (no date) (unknown) All (no value) (units unknown ) (unknown) Result panel 191 (unknown) (no date) (unknown) All (no value) (units unknown ) (unknown) Result panel 192 (unknown) (no date) (unknown) All (no value) (units unknown ) (unknown) Result panel 193 (unknown) (no date) (unknown) All (no value) (units unknown ) (unknown) Result panel 194 (unknown) (no date) (unknown) All (no value) (units unknown ) (unknown) Result panel 195 (unknown) (no date) (unknown) All (no value) (units unknown ) (unknown) Result panel 196 (unknown) (no date) (unknown) All (no value) (units unknown ) (unknown) Result panel 197 (unknown) (no date) (unknown) All (no value) (units unknown ) (unknown) Result panel 198 (unknown) (no date) (unknown) All (no value) (units unknown ) (unknown) Result panel 199 (unknown) (no date) (unknown) All (no value) (units unknown ) (unknown) Result panel 200 (unknown) (no date) (unknown) All (no value) (units unknown ) (unknown) Result panel 201 (unknown) (no date) (unknown) All (no value) (units unknown ) (unknown) Result panel 202 (unknown) (no date) (unknown) All (no value) (units unknown ) (unknown) Result panel 203 (unknown) (no date) (unknown) All (no value) (units unknown ) (unknown) Result panel 204 (unknown) (no date) (unknown) All (no value) (units unknown ) (unknown) Result panel 205 (unknown) (no date) (unknown) All (no value) (units unknown ) (unknown) Result panel 206 (unknown) (no date) (unknown) All (no value) (units unknown ) (unknown) Result panel 207 (unknown) (no date) (unknown) All (no value) (units unknown ) (unknown) Result panel 208 (unknown) (no date) (unknown) All (no value) (units unknown ) (unknown) Result panel 209 (unknown) (no date) (unknown) All (no value) (units unknown ) (unknown) Result panel 210 (unknown) (no date) (unknown) All (no value) (units unknown ) (unknown) Result panel 211 (unknown) (no date) (unknown) All (no value) (units unknown ) (unknown) Result panel 212 (unknown) (no date) (unknown) All (no value) (units unknown ) (unknown) Result panel 213 (unknown) (no date) (unknown) All (no value) (units unknown ) (unknown) Result panel 214 (unknown) (no date) (unknown) All (no value) (units unknown ) (unknown) Result panel 215 (unknown) (no date) (unknown) All (no value) (units unknown ) (unknown) Result panel 216 (unknown) (no date) (unknown) All (no value) (units unknown ) (unknown) Result panel 217 (unknown) (no date) (unknown) All (no value) (units unknown ) (unknown) Result panel 218 (unknown) (no date) (unknown) All (no value) (units unknown ) (unknown) Result panel 219 (unknown) (no date) (unknown) All (no value) (units unknown ) (unknown) Result panel 220 (unknown) (no date) (unknown) All (no value) (units unknown ) (unknown) Result panel 221 (unknown) (no date) (unknown) All (no value) (units unknown ) (unknown) Result panel 222 (unknown) (no date) (unknown) All (no value) (units unknown ) (unknown) Result panel 223 (unknown) (no date) (unknown) All (no value) (units unknown ) (unknown) Result panel 224 (unknown) (no date) (unknown) All (no value) (units unknown ) (unknown) Result panel 225 (unknown) (no date) (unknown) All (no value) (units unknown ) (unknown) Result panel 226 (unknown) (no date) (unknown) All (no value) (units unknown ) (unknown) Result panel 227 (unknown) (no date) (unknown) All (no value) (units unknown ) (unknown) Result panel 228 (unknown) (no date) (unknown) All (no value) (units unknown ) (unknown) Result panel 229 (unknown) (no date) (unknown) All (no value) (units unknown ) (unknown) Result panel 230 (unknown) (no date) (unknown) All (no value) (units unknown ) (unknown) Result panel 231 (unknown) (no date) (unknown) All (no value) (units unknown ) (unknown) Result panel 232 (unknown) (no date) (unknown) All (no value) (units unknown ) (unknown) Result panel 233 (unknown) (no date) (unknown) All (no value) (units unknown ) (unknown) Result panel 234 (unknown) (no date) (unknown) All (no value) (units unknown ) (unknown) Result panel 235 (unknown) (no date) (unknown) All (no value) (units unknown ) (unknown) Result panel 236 (unknown) (no date) (unknown) All (no value) (units unknown ) (unknown) Result panel 237 (unknown) (no date) (unknown) All (no value) (units unknown ) (unknown) Result panel 238 (unknown) (no date) (unknown) All (no value) (units unknown ) (unknown) Result panel 239 (unknown) (no date) (unknown) All (no value) (units unknown ) (unknown) Result panel 240 (unknown) (no date) (unknown) All (no value) (units unknown ) (unknown) Result panel 241 (unknown) (no date) (unknown) All (no value) (units unknown ) (unknown) Result panel 242 (unknown) (no date) (unknown) All (no value) (units unknown ) (unknown) Result panel 243 (unknown) (no date) (unknown) All (no value) (units unknown ) (unknown) Result panel 244 (unknown) (no date) (unknown) All (no value) (units unknown ) (unknown) Result panel 245 (unknown) (no date) (unknown) All (no value) (units unknown ) (unknown) Result panel 246 (unknown) (no date) (unknown) All (no value) (units unknown ) (unknown) Result panel 247 (unknown) (no date) (unknown) All (no value) (units unknown ) (unknown) Result panel 248 (unknown) (no date) (unknown) All (no value) (units unknown ) (unknown) Result panel 249 (unknown) (no date) (unknown) All (no value) (units unknown ) (unknown) Result panel 250 (unknown) (no date) (unknown) All (no value) (units unknown ) (unknown) Result panel 251 (unknown) (no date) (unknown) All (no value) (units unknown ) (unknown) Result panel 252 (unknown) (no date) (unknown) All (no value) (units unknown ) (unknown) Result panel 253 (unknown) (no date) (unknown) All (no value) (units unknown ) (unknown) Result panel 254 (unknown) (no date) (unknown) All (no value) (units unknown ) (unknown) Result panel 255 (unknown) (no date) (unknown) All (no value) (units unknown ) (unknown) Result panel 256 (unknown) (no date) (unknown) All (no value) (units unknown ) (unknown) Result panel 257 (unknown) (no date) (unknown) All (no value) (units unknown ) (unknown) Result panel 258 (unknown) (no date) (unknown) All (no value) (units unknown ) (unknown) Result panel 259 (unknown) (no date) (unknown) All (no value) (units unknown ) (unknown) Result panel 260 (unknown) (no date) (unknown) All (no value) (units unknown ) (unknown) Result panel 261 (unknown) (no date) (unknown) All (no value) (units unknown ) (unknown) Result panel 262 (unknown) (no date) (unknown) All (no value) (units unknown ) (unknown) Result panel 263 (unknown) (no date) (unknown) All (no value) (units unknown ) (unknown) Result panel 264 (unknown) (no date) (unknown) All (no value) (units unknown ) (unknown) Result panel 265 (unknown) (no date) (unknown) All (no value) (units unknown ) (unknown) Result panel 266 (unknown) (no date) (unknown) All (no value) (units unknown ) (unknown) Result panel 267 (unknown) (no date) (unknown) All (no value) (units unknown ) (unknown) Result panel 268 (unknown) (no date) (unknown) All (no value) (units unknown ) (unknown) Result panel 269 (unknown) (no date) (unknown) All (no value) (units unknown ) (unknown) Result panel 270 (unknown) (no date) (unknown) All (no value) (units unknown ) (unknown) Result panel 271 (unknown) (no date) (unknown) All (no value) (units unknown ) (unknown) Result panel 272 (unknown) (no date) (unknown) All (no value) (units unknown ) (unknown) Result panel 273 (unknown) (no date) (unknown) All (no value) (units unknown ) (unknown) Result panel 274 (unknown) (no date) (unknown) All (no value) (units unknown ) (unknown) Result panel 275 (unknown) (no date) (unknown) All (no value) (units unknown ) (unknown) Result panel 276 (unknown) (no date) (unknown) All (no value) (units unknown ) (unknown) Result panel 277 (unknown) (no date) (unknown) All (no value) (units unknown ) (unknown) Result panel 278 (unknown) (no date) (unknown) All (no value) (units unknown ) (unknown) Result panel 279 (unknown) (no date) (unknown) All (no value) (units unknown ) (unknown) Result panel 280 (unknown) (no date) (unknown) All (no value) (units unknown ) (unknown) Result panel 281 (unknown) (no date) (unknown) All (no value) (units unknown ) (unknown) Result panel 282 (unknown) (no date) (unknown) All (no value) (units unknown ) (unknown) Result panel 283 (unknown) (no date) (unknown) All (no value) (units unknown ) (unknown) Result panel 284 (unknown) (no date) (unknown) All (no value) (units unknown ) (unknown) Result panel 285 (unknown) (no date) (unknown) All (no value) (units unknown ) (unknown) Result panel 286 (unknown) (no date) (unknown) All (no value) (units unknown ) (unknown) Result panel 287 (unknown) (no date) (unknown) All (no value) (units unknown ) (unknown) Result panel 288 (unknown) (no date) (unknown) All (no value) (units unknown ) (unknown) Result panel 289 (unknown) (no date) (unknown) All (no value) (units unknown ) (unknown) Result panel 290 (unknown) (no date) (unknown) All (no value) (units unknown ) (unknown) Result panel 291 (unknown) (no date) (unknown) All (no value) (units unknown ) (unknown) Result panel 292 (unknown) (no date) (unknown) All (no value) (units unknown ) (unknown) Result panel 293 (unknown) (no date) (unknown) All (no value) (units unknown ) (unknown) Result panel 294 (unknown) (no date) (unknown) All (no value) (units unknown ) (unknown) Result panel 295 (unknown) (no date) (unknown) All (no value) (units unknown ) (unknown) Result panel 296 (unknown) (no date) (unknown) All (no value) (units unknown ) (unknown) Result panel 297 (unknown) (no date) (unknown) All (no value) (units unknown ) (unknown) Result panel 298 (unknown) (no date) (unknown) All (no value) (units unknown ) (unknown) Result panel 299 (unknown) (no date) (unknown) All (no value) (units unknown ) (unknown) Result panel 300 (unknown) (no date) (unknown) All (no value) (units unknown ) (unknown) Result panel 301 (unknown) (no date) (unknown) All (no value) (units unknown ) (unknown) Result panel 302 (unknown) (no date) (unknown) All (no value) (units unknown ) (unknown) Result panel 303 (unknown) (no date) (unknown) All (no value) (units unknown ) (unknown) Result panel 304 (unknown) (no date) (unknown) All (no value) (units unknown ) (unknown) Result panel 305 (unknown) (no date) (unknown) All (no value) (units unknown ) (unknown) Result panel 306 (unknown) (no date) (unknown) All (no value) (units unknown ) (unknown) Result panel 307 (unknown) (no date) (unknown) All (no value) (units unknown ) (unknown) Result panel 308 (unknown) (no date) (unknown) All (no value) (units unknown ) (unknown) Result panel 309 (unknown) (no date) (unknown) All (no value) (units unknown ) (unknown) Result panel 310 (unknown) (no date) (unknown) All (no value) (units unknown ) (unknown) Result panel 311 (unknown) (no date) (unknown) All (no value) (units unknown ) (unknown) Result panel 312 (unknown) (no date) (unknown) All (no value) (units unknown ) (unknown) Result panel 313 (unknown) (no date) (unknown) All (no value) (units unknown ) (unknown) Result panel 314 (unknown) (no date) (unknown) All (no value) (units unknown ) (unknown) Result panel 315 (unknown) (no date) (unknown) All (no value) (units unknown ) (unknown) Result panel 316 (unknown) (no date) (unknown) All (no value) (units unknown ) (unknown) Result panel 317 (unknown) (no date) (unknown) All (no value) (units unknown ) (unknown) Result panel 318 (unknown) (no date) (unknown) All (no value) (units unknown ) (unknown) Result panel 319 (unknown) (no date) (unknown) All (no value) (units unknown ) (unknown) Result panel 320 (unknown) (no date) (unknown) All (no value) (units unknown ) (unknown) Result panel 321 (unknown) (no date) (unknown) All (no value) (units unknown ) (unknown) Result panel 322 (unknown) (no date) (unknown) All (no value) (units unknown ) (unknown) Result panel 323 (unknown) (no date) (unknown) All (no value) (units unknown ) (unknown) Result panel 324 (unknown) (no date) (unknown) All (no value) (units unknown ) (unknown) Result panel 325 (unknown) (no date) (unknown) All (no value) (units unknown ) (unknown) Result panel 326 (unknown) (no date) (unknown) All (no value) (units unknown ) (unknown) Result panel 327 (unknown) (no date) (unknown) All (no value) (units unknown ) (unknown) Result panel 328 (unknown) (no date) (unknown) All (no value) (units unknown ) (unknown) Result panel 329 (unknown) (no date) (unknown) All (no value) (units unknown ) (unknown) Result panel 330 (unknown) (no date) (unknown) All (no value) (units unknown ) (unknown) Result panel 331 (unknown) (no date) (unknown) All (no value) (units unknown ) (unknown) Result panel 332 (unknown) (no date) (unknown) All (no value) (units unknown ) (unknown) Result panel 333 (unknown) (no date) (unknown) All (no value) (units unknown ) (unknown) Result panel 334 (unknown) (no date) (unknown) All (no value) (units unknown ) (unknown) Result panel 335 (unknown) (no date) (unknown) All (no value) (units unknown ) (unknown) Result panel 336 (unknown) (no date) (unknown) All (no value) (units unknown ) (unknown) Result panel 337 (unknown) (no date) (unknown) All (no value) (units unknown ) (unknown) Result panel 338 (unknown) (no date) (unknown) All (no value) (units unknown ) (unknown) Result panel 339 (unknown) (no date) (unknown) All (no value) (units unknown ) (unknown) Result panel 340 (unknown) (no date) (unknown) All (no value) (units unknown ) (unknown) Result panel 341 (unknown) (no date) (unknown) All (no value) (units unknown ) (unknown) Result panel 342 (unknown) (no date) (unknown) All (no value) (units unknown ) (unknown) Result panel 343 (unknown) (no date) (unknown) All (no value) (units unknown ) (unknown) Result panel 344 (unknown) (no date) (unknown) All (no value) (units unknown ) (unknown) Result panel 345 (unknown) (no date) (unknown) All (no value) (units unknown ) (unknown) Result panel 346 (unknown) (no date) (unknown) All (no value) (units unknown ) (unknown) Result panel 347 (unknown) (no date) (unknown) All (no value) (units unknown ) (unknown) Result panel 348 (unknown) (no date) (unknown) All (no value) (units unknown ) (unknown) Result panel 349 (unknown) (no date) (unknown) All (no value) (units unknown ) (unknown) Result panel 350 (unknown) (no date) (unknown) All (no value) (units unknown ) (unknown) Result panel 351 (unknown) (no date) (unknown) All (no value) (units unknown ) (unknown) Result panel 352 (unknown) (no date) (unknown) All (no value) (units unknown ) (unknown) Result panel 353 (unknown) (no date) (unknown) All (no value) (units unknown ) (unknown) Result panel 354 (unknown) (no date) (unknown) All (no value) (units unknown ) (unknown) Result panel 355 (unknown) (no date) (unknown) All (no value) (units unknown ) (unknown) Result panel 356 (unknown) (no date) (unknown) All (no value) (units unknown ) (unknown) Result panel 357 (unknown) (no date) (unknown) All (no value) (units unknown ) (unknown) Result panel 358 (unknown) (no date) (unknown) All (no value) (units unknown ) (unknown) Result panel 359 (unknown) (no date) (unknown) All (no value) (units unknown ) (unknown) Result panel 360 (unknown) (no date) (unknown) All (no value) (units unknown ) (unknown) Result panel 361 (unknown) (no date) (unknown) All (no value) (units unknown ) (unknown) Result panel 362 (unknown) (no date) (unknown) All (no value) (units unknown ) (unknown) Result panel 363 (unknown) (no date) (unknown) All (no value) (units unknown ) (unknown) Result panel 364 (unknown) (no date) (unknown) All (no value) (units unknown ) (unknown) Result panel 365 (unknown) (no date) (unknown) All (no value) (units unknown ) (unknown) Result panel 366 (unknown) (no date) (unknown) All (no value) (units unknown ) (unknown) Result panel 367 (unknown) (no date) (unknown) All (no value) (units unknown ) (unknown) Result panel 368 (unknown) (no date) (unknown) All (no value) (units unknown ) (unknown) Result panel 369 (unknown) (no date) (unknown) All (no value) (units unknown ) (unknown) Result panel 370 (unknown) (no date) (unknown) All (no value) (units unknown ) (unknown) Result panel 371 (unknown) (no date) (unknown) All (no value) (units unknown ) (unknown) Result panel 372 (unknown) (no date) (unknown) All (no value) (units unknown ) (unknown) Result panel 373 (unknown) (no date) (unknown) All (no value) (units unknown ) (unknown) Result panel 374 (unknown) (no date) (unknown) All (no value) (units unknown ) (unknown) Result panel 375 (unknown) (no date) (unknown) All (no value) (units unknown ) (unknown) Result panel 376 (unknown) (no date) (unknown) All (no value) (units unknown ) (unknown) Result panel 377 (unknown) (no date) (unknown) All (no value) (units unknown ) (unknown) Result panel 378 (unknown) (no date) (unknown) All (no value) (units unknown ) (unknown) Result panel 379 (unknown) (no date) (unknown) All (no value) (units unknown ) (unknown) Result panel 380 (unknown) (no date) (unknown) All (no value) (units unknown ) (unknown) Result panel 381 (unknown) (no date) (unknown) All (no value) (units unknown ) (unknown) Result panel 382 (unknown) (no date) (unknown) All (no value) (units unknown ) (unknown) Result panel 383 (unknown) (no date) (unknown) All (no value) (units unknown ) (unknown) Result panel 384 (unknown) (no date) (unknown) All (no value) (units unknown ) (unknown) Result panel 385 (unknown) (no date) (unknown) All (no value) (units unknown ) (unknown) Result panel 386 (unknown) (no date) (unknown) All (no value) (units unknown ) (unknown) Result panel 387 (unknown) (no date) (unknown) All (no value) (units unknown ) (unknown) Result panel 388 (unknown) (no date) (unknown) All (no value) (units unknown ) (unknown) Result panel 389 (unknown) (no date) (unknown) All (no value) (units unknown ) (unknown) Result panel 390 (unknown) (no date) (unknown) All (no value) (units unknown ) (unknown) Result panel 391 (unknown) (no date) (unknown) All (no value) (units unknown ) (unknown) Result panel 392 (unknown) (no date) (unknown) All (no value) (units unknown ) (unknown) Result panel 393 (unknown) (no date) (unknown) All (no value) (units unknown ) (unknown) Result panel 394 (unknown) (no date) (unknown) All (no value) (units unknown ) (unknown) Result panel 395 (unknown) (no date) (unknown) All (no value) (units unknown ) (unknown) Result panel 396 (unknown) (no date) (unknown) All (no value) (units unknown ) (unknown) Result panel 397 (unknown) (no date) (unknown) All (no value) (units unknown ) (unknown) Result panel 398 (unknown) (no date) (unknown) All (no value) (units unknown ) (unknown) Result panel 399 (unknown) (no date) (unknown) All (no value) (units unknown ) (unknown) Result panel 400 (unknown) (no date) (unknown) All (no value) (units unknown ) (unknown) Result panel 401 (unknown) (no date) (unknown) All (no value) (units unknown ) (unknown) Result panel 402 (unknown) (no date) (unknown) All (no value) (units unknown ) (unknown) Result panel 403 (unknown) (no date) (unknown) All (no value) (units unknown ) (unknown) Result panel 404 (unknown) (no date) (unknown) All (no value) (units unknown ) (unknown) Result panel 405 (unknown) (no date) (unknown) All (no value) (units unknown ) (unknown) Result panel 406 (unknown) (no date) (unknown) All (no value) (units unknown ) (unknown) Result panel 407 (unknown) (no date) (unknown) All (no value) (units unknown ) (unknown) Result panel 408 (unknown) (no date) (unknown) All (no value) (units unknown ) (unknown) Result panel 409 (unknown) (no date) (unknown) All (no value) (units unknown ) (unknown) Result panel 410 (unknown) (no date) (unknown) All (no value) (units unknown ) (unknown) Result panel 411 (unknown) (no date) (unknown) All (no value) (units unknown ) (unknown) Result panel 412 (unknown) (no date) (unknown) All (no value) (units unknown ) (unknown) Result panel 413 (unknown) (no date) (unknown) All (no value) (units unknown ) (unknown) Result panel 414 (unknown) (no date) (unknown) All (no value) (units unknown ) (unknown) Result panel 415 (unknown) (no date) (unknown) All (no value) (units unknown ) (unknown) Result panel 416 (unknown) (no date) (unknown) All (no value) (units unknown ) (unknown) Result panel 417 (unknown) (no date) (unknown) All (no value) (units unknown ) (unknown) Result panel 418 (unknown) (no date) (unknown) All (no value) (units unknown ) (unknown) Result panel 419 (unknown) (no date) (unknown) All (no value) (units unknown ) (unknown) Result panel 420 (unknown) (no date) (unknown) All (no value) (units unknown ) (unknown) Result panel 421 (unknown) (no date) (unknown) All (no value) (units unknown ) (unknown) Result panel 422 (unknown) (no date) (unknown) All (no value) (units unknown ) (unknown) Result panel 423 (unknown) (no date) (unknown) All (no value) (units unknown ) (unknown) Result panel 424 (unknown) (no date) (unknown) All (no value) (units unknown ) (unknown) Result panel 425 (unknown) (no date) (unknown) All (no value) (units unknown ) (unknown) Result panel 426 (unknown) (no date) (unknown) All (no value) (units unknown ) (unknown) Result panel 427 (unknown) (no date) (unknown) All (no value) (units unknown ) (unknown) Result panel 428 (unknown) (no date) (unknown) All (no value) (units unknown ) (unknown) Result panel 429 (unknown) (no date) (unknown) All (no value) (units unknown ) (unknown) Result panel 430 (unknown) (no date) (unknown) All (no value) (units unknown ) (unknown) Result panel 431 (unknown) (no date) (unknown) All (no value) (units unknown ) (unknown) Result panel 432 (unknown) (no date) (unknown) All (no value) (units unknown ) (unknown) Result panel 433 (unknown) (no date) (unknown) All (no value) (units unknown ) (unknown) Result panel 434 (unknown) (no date) (unknown) All (no value) (units unknown ) (unknown) Result panel 435 (unknown) (no date) (unknown) All (no value) (units unknown ) (unknown) Result panel 436 (unknown) (no date) (unknown) All (no value) (units unknown ) (unknown) Result panel 437 (unknown) (no date) (unknown) All (no value) (units unknown ) (unknown) Result panel 438 (unknown) (no date) (unknown) All (no value) (units unknown ) (unknown) Result panel 439 (unknown) (no date) (unknown) All (no value) (units unknown ) (unknown) Result panel 440 (unknown) (no date) (unknown) All (no value) (units unknown ) (unknown) Result panel 441 (unknown) (no date) (unknown) All (no value) (units unknown ) (unknown) Result panel 442 (unknown) (no date) (unknown) All (no value) (units unknown ) (unknown) Result panel 443 (unknown) (no date) (unknown) All (no value) (units unknown ) (unknown) Result panel 444 (unknown) (no date) (unknown) All (no value) (units unknown ) (unknown) Result panel 445 (unknown) (no date) (unknown) All (no value) (units unknown ) (unknown) Result panel 446 (unknown) (no date) (unknown) All (no value) (units unknown ) (unknown) Result panel 447 (unknown) (no date) (unknown) All (no value) (units unknown ) (unknown) Result panel 448 (unknown) (no date) (unknown) All (no value) (units unknown ) (unknown) Result panel 449 (unknown) (no date) (unknown) All (no value) (units unknown ) (unknown) Result panel 450 (unknown) (no date) (unknown) All (no value) (units unknown ) (unknown) Result panel 451 (unknown) (no date) (unknown) All (no value) (units unknown ) (unknown) Result panel 452 (unknown) (no date) (unknown) All (no value) (units unknown ) (unknown) Result panel 453 (unknown) (no date) (unknown) All (no value) (units unknown ) (unknown) Result panel 454 (unknown) (no date) (unknown) All (no value) (units unknown ) (unknown) Result panel 455 (unknown) (no date) (unknown) All (no value) (units unknown ) (unknown) Result panel 456 (unknown) (no date) (unknown) All (no value) (units unknown ) (unknown) Result panel 457 (unknown) (no date) (unknown) All (no value) (units unknown ) (unknown) Result panel 458 (unknown) (no date) (unknown) All (no value) (units unknown ) (unknown) Result panel 459 (unknown) (no date) (unknown) All (no value) (units unknown ) (unknown) Result panel 460 (unknown) (no date) (unknown) All (no value) (units unknown ) (unknown) Result panel 461 (unknown) (no date) (unknown) All (no value) (units unknown ) (unknown) Result panel 462 (unknown) (no date) (unknown) All (no value) (units unknown ) (unknown) Result panel 463 (unknown) (no date) (unknown) All (no value) (units unknown ) (unknown) Result panel 464 (unknown) (no date) (unknown) All (no value) (units unknown ) (unknown) Result panel 465 (unknown) (no date) (unknown) All (no value) (units unknown ) (unknown) Result panel 466 (unknown) (no date) (unknown) All (no value) (units unknown ) (unknown) Result panel 467 (unknown) (no date) (unknown) All (no value) (units unknown ) (unknown) Result panel 468 (unknown) (no date) (unknown) All (no value) (units unknown ) (unknown) Result panel 469 (unknown) (no date) (unknown) All (no value) (units unknown ) (unknown) Result panel 470 (unknown) (no date) (unknown) All (no value) (units unknown ) (unknown) Result panel 471 (unknown) (no date) (unknown) All (no value) (units unknown ) (unknown) Result panel 472 (unknown) (no date) (unknown) All (no value) (units unknown ) (unknown) Result panel 473 (unknown) (no date) (unknown) All (no value) (units unknown ) (unknown) Result panel 474 (unknown) (no date) (unknown) All (no value) (units unknown ) (unknown) Result panel 475 (unknown) (no date) (unknown) All (no value) (units unknown ) (unknown) Result panel 476 (unknown) (no date) (unknown) All (no value) (units unknown ) (unknown) Result panel 477 (unknown) (no date) (unknown) All (no value) (units unknown ) (unknown) Result panel 478 (unknown) (no date) (unknown) All (no value) (units unknown ) (unknown) Result panel 479 (unknown) (no date) (unknown) All (no value) (units unknown ) (unknown) Result panel 480 (unknown) (no date) (unknown) All (no value) (units unknown ) (unknown) Result panel 481 (unknown) (no date) (unknown) All (no value) (units unknown ) (unknown) Result panel 482 (unknown) (no date) (unknown) All (no value) (units unknown ) (unknown) Result panel 483 (unknown) (no date) (unknown) All (no value) (units unknown ) (unknown) Result panel 484 (unknown) (no date) (unknown) All (no value) (units unknown ) (unknown) Result panel 485 (unknown) (no date) (unknown) All (no value) (units unknown ) (unknown) Result panel 486 (unknown) (no date) (unknown) All (no value) (units unknown ) (unknown) Result panel 487 (unknown) (no date) (unknown) All (no value) (units unknown ) (unknown) Result panel 488 (unknown) (no date) (unknown) All (no value) (units unknown ) (unknown) Result panel 489 (unknown) (no date) (unknown) All (no value) (units unknown ) (unknown) Result panel 490 (unknown) (no date) (unknown) All (no value) (units unknown ) (unknown) Result panel 491 (unknown) (no date) (unknown) All (no value) (units unknown ) (unknown) Result panel 492 (unknown) (no date) (unknown) All (no value) (units unknown ) (unknown) Result panel 493 (unknown) (no date) (unknown) All (no value) (units unknown ) (unknown) Result panel 494 (unknown) (no date) (unknown) All (no value) (units unknown ) (unknown) Result panel 495 (unknown) (no date) (unknown) All (no value) (units unknown ) (unknown) Result panel 496 (unknown) (no date) (unknown) All (no value) (units unknown ) (unknown) Result panel 497 (unknown) (no date) (unknown) All (no value) (units unknown ) (unknown) Result panel 498 (unknown) (no date) (unknown) All (no value) (units unknown ) (unknown) Result panel 499 (unknown) (no date) (unknown) All (no value) (units unknown ) (unknown) Result panel 500 (unknown) (no date) (unknown) All (no value) (units unknown ) (unknown) Result panel 501 (unknown) (no date) (unknown) All (no value) (units unknown ) (unknown) Result panel 502 (unknown) (no date) (unknown) All (no value) (units unknown ) (unknown) Result panel 503 (unknown) (no date) (unknown) All (no value) (units unknown ) (unknown) Result panel 504 (unknown) (no date) (unknown) All (no value) (units unknown ) (unknown) Result panel 505 (unknown) (no date) (unknown) All (no value) (units unknown ) (unknown) Result panel 506 (unknown) (no date) (unknown) All (no value) (units unknown ) (unknown) Result panel 507 (unknown) (no date) (unknown) All (no value) (units unknown ) (unknown) Result panel 508 (unknown) (no date) (unknown) All (no value) (units unknown ) (unknown) Result panel 509 (unknown) (no date) (unknown) All (no value) (units unknown ) (unknown) Result panel 510 (unknown) (no date) (unknown) All (no value) (units unknown ) (unknown) Result panel 511 (unknown) (no date) (unknown) All (no value) (units unknown ) (unknown) Result panel 512 (unknown) (no date) (unknown) All (no value) (units unknown ) (unknown) Result panel 513 (unknown) (no date) (unknown) All (no value) (units unknown ) (unknown) Result panel 514 (unknown) (no date) (unknown) All (no value) (units unknown ) (unknown) Result panel 515 (unknown) (no date) (unknown) All (no value) (units unknown ) (unknown) Result panel 516 (unknown) (no date) (unknown) All (no value) (units unknown ) (unknown) Result panel 517 (unknown) (no date) (unknown) All (no value) (units unknown ) (unknown) Result panel 518 (unknown) (no date) (unknown) All (no value) (units unknown ) (unknown) Result panel 519 (unknown) (no date) (unknown) All (no value) (units unknown ) (unknown) Result panel 520 (unknown) (no date) (unknown) All (no value) (units unknown ) (unknown) Result panel 521 (unknown) (no date) (unknown) All (no value) (units unknown ) (unknown) Result panel 522 (unknown) (no date) (unknown) All (no value) (units unknown ) (unknown) Result panel 523 (unknown) (no date) (unknown) All (no value) (units unknown ) (unknown) Result panel 524 (unknown) (no date) (unknown) All (no value) (units unknown ) (unknown) Result panel 525 (unknown) (no date) (unknown) All (no value) (units unknown ) (unknown) Result panel 526 (unknown) (no date) (unknown) All (no value) (units unknown ) (unknown) Result panel 527 (unknown) (no date) (unknown) All (no value) (units unknown ) (unknown) Result panel 528 (unknown) (no date) (unknown) All (no value) (units unknown ) (unknown) Result panel 529 (unknown) (no date) (unknown) All (no value) (units unknown ) (unknown) Result panel 530 (unknown) (no date) (unknown) All (no value) (units unknown ) (unknown) Result panel 531 (unknown) (no date) (unknown) All (no value) (units unknown ) (unknown) Result panel 532 (unknown) (no date) (unknown) All (no value) (units unknown ) (unknown) Result panel 533 (unknown) (no date) (unknown) All (no value) (units unknown ) (unknown) Result panel 534 (unknown) (no date) (unknown) All (no value) (units unknown ) (unknown) Result panel 535 (unknown) (no date) (unknown) All (no value) (units unknown ) (unknown) Result panel 536 (unknown) (no date) (unknown) All (no value) (units unknown ) (unknown) Result panel 537 (unknown) (no date) (unknown) All (no value) (units unknown ) (unknown) Result panel 538 (unknown) (no date) (unknown) All (no value) (units unknown ) (unknown) Result panel 539 (unknown) (no date) (unknown) All (no value) (units unknown ) (unknown) Result panel 540 (unknown) (no (unknown) (unknown) (no value) (units (unk nown) date) unknown) (unknown) (no (unknown) (unknown) ##0 (units (unkno wn) date) unknown) (unknown) (no (unknown) (unknown) %-glycerin 0.9 % (PF) (un its (unknown) date) eye unknown) (unknown) (no (unknown) (unknown) (2.5 mg base)/3 mL (units (unknown) date) nebulization unknown) (unknown) (no (unknown) (unknown) (Voltaren) (units (unk nown) date) osteoarthritis ##0 unknown) (unknown) (no (unknown) (unknown) [id number] (units (unkn own) date) unknown) (unknown) (no (unknown) (unknown) 06/25/22 (units (unkno wn) date) unknown) (unknown) (no (unknown) (unknown) 08/23/21 (units (unkno wn) date) unknown) (unknown) (no (unknown) (unknown) 1 scottie Topical Q4H MDD (un its (unknown) date) 16 G (4 doses) PRN unknown) (Reason: osteoarthritis) Qty: 0 (unknown) (no (unknown) (unknown) 1 applic TOPICAL DAILY (u nits (unknown) date) unknown) (unknown) (no (unknown) (unknown) 1 applic dental (units (unknown) date) DIRECTED unknown) (unknown) (no (unknown) (unknown) 1 applic ophthalmic (unit s (unknown) date) (eye) QID unknown) (unknown) (no (unknown) (unknown) 1 applic topical PRN (uni ts (unknown) date) PRN (Reason: pain) unknown) (unknown) (no (unknown) (unknown) 1 cap PO DAILY (units (unknown) date) unknown) (unknown) (no (unknown) (unknown) 1 dose subcutaneously (un its (unknown) date) ;24 ac breakfast, 24 at unknow n) noon, 24 at bedtime. (unknown) (no (unknown) (unknown) 1 ea inhalation (units (unknown) date) DIRECTED unknown) (unknown) (no (unknown) (unknown) 1 mg SUBCUT QWEEK (units (unknown) date) unknown) (unknown) (no (unknown) (unknown) 1 patch topical DAILY (un its (unknown) date) PRN (Reason: pain) Qty: unknow n) 15 0RF (unknown) (no (unknown) (unknown) 1 spray PO PRN PRN (units (unknown) date) (Reason: Dry Mouth) unknown) (unknown) (no (unknown) (unknown) 1 tab PO BID PRN (units (unknown) date) (Reason: pain) Qty: 10 unknown ) 0RF (unknown) (no (unknown) (unknown) 1 tab PO DAILY (units (unknown) date) unknown) (unknown) (no (unknown) (unknown) 1 tab PO Q6H PRN (units (unknown) date) (Reason: pain) Qty: 10 unknown ) 0RF (unknown) (no (unknown) (unknown) 10 mg PO TID PRN (units (unknown) date) (Reason: muscle spasm) unknown ) Qty: 10 0RF (unknown) (no (unknown) (unknown) 10 mg PO TID PRN (units (unknown) date) (Reason: muscle spasm) unknown ) Qty: 30 0RF (unknown) (no (unknown) (unknown) 100 mg PO PRN MDD 100 (un its (unknown) date) mg PRN (Reason: Sexual unknown ) Activity) Qty: 0 (unknown) (no (unknown) (unknown) 14:01 (units (unkno wn) date) unknown) (unknown) (no (unknown) (unknown) 15 ml MUCOUS MEMBRANE (un its (unknown) date) BID unknown) (unknown) (no (unknown) (unknown) 17 gm PO QDAYP Qty: 0 (un its (unknown) date) unknown) (unknown) (no (unknown) (unknown) 180 mg PO DAILY (units (unknown) date) unknown) (unknown) (no (unknown) (unknown) 2 mg PO BID (units (un known) date) unknown) (unknown) (no (unknown) (unknown) 2 tab PO DAILY (units (unknown) date) unknown) (unknown) (no (unknown) (unknown) 2,000 unit PO DAILY (unit s (unknown) date) unknown) (unknown) (no (unknown) (unknown) 20 mg PO DAILY (units (unknown) date) unknown) (unknown) (no (unknown) (unknown) 25 mg PO BID (units (u nknown) date) unknown) (unknown) (no (unknown) (unknown) 25 mg PO DAILY (units (unknown) date) unknown) (unknown) (no (unknown) (unknown) 300 mg PO DAILY Qty: 0 (u nits (unknown) date) unknown) (unknown) (no (unknown) (unknown) 4 mg PO DAILY (units ( unknown) date) unknown) (unknown) (no (unknown) (unknown) 5 mg PO Q6H PRN (units (unknown) date) (Reason: pain) Qty: 14 unknown ) 0RF (unknown) (no (unknown) (unknown) 50 mg PO Q8H PRN (units (unknown) date) (Reason: pain) Qty: 7 unknown) 0RF (unknown) (no (unknown) (unknown) 50 mg tablet (units (u nknown) date) unknown) (unknown) (no (unknown) (unknown) 500 mg PO TID PRN (units (unknown) date) (Reason: muscle spasm) unknown ) Qty: 20 0RF (unknown) (no (unknown) (unknown) 60 mg PO DAILY (units (unknown) date) unknown) (unknown) (no (unknown) (unknown) 70 unit SUBCUT QAM (units (unknown) date) unknown) (unknown) (no (unknown) (unknown) 75 mg PO BID (units (u nknown) date) unknown) (unknown) (no (unknown) (unknown) 8 mg PO BEDTIME Qty: 0 (u nits (unknown) date) unknown) (unknown) (no (unknown) (unknown) Age/Sex: 72 / M (units (unknown) date) unknown) (unknown) (no (unknown) (unknown) Allergies (units (unkn own) date) unknown) (unknown) (no (unknown) (unknown) Allergy/AdvReac Type (uni ts (unknown) date) Severity Reaction Status unkno wn) Date / Time (unknown) (no (unknown) (unknown) Blood Pressure 148/67 H ( units (unknown) date) 06/25/22 14:01 unknown) (unknown) (no (unknown) (unknown) Blood Pressure 148/67 H ( units (unknown) date) unknown) (unknown) (no (unknown) (unknown) Chief complaint: (units (unknown) date) Extremity unknown) Problem,Nontraumatic (unknown) (no (unknown) (unknown) Constipation (units (u nknown) date) unknown) (unknown) (no (unknown) (unknown) Course (units (unkno wn) date) unknown) (unknown) (no (unknown) (unknown) : 1950 (units (unknown) date) Acct:[id number] unknown) (unknown) (no (unknown) (unknown) Date of Service: (units (unknown) date) 06/25/22 unknown) (unknown) (no (unknown) (unknown) Departure (units (unkn own) date) unknown) (unknown) (no (unknown) (unknown) Discharge Plan (units (unknown) date) unknown) (unknown) (no (unknown) (unknown) Doesn't take regularly (u nits (unknown) date) unknown) (unknown) (no (unknown) (unknown) ER Physician: (units ( unknown) date) Kel Coello D.O. unknown) (unknown) (no (unknown) (unknown) Emergency Report (units (unknown) date) unknown) (unknown) (no (unknown) (unknown) Exam (units (unkno wn) date) unknown) (unknown) (no (unknown) (unknown) Elmer Naylor, (u nits (unknown) date) [Primary Care unknown) Provider] (unknown) (no (unknown) (unknown) GERD (gastroesophageal (u nits (unknown) date) reflux disease) unknown) (unknown) (no (unknown) (unknown) General (units (unkno wn) date) unknown) (unknown) (no (unknown) (unknown) HPI - Extremity Problem ( units (unknown) date) unknown) (unknown) (no (unknown) (unknown) HTN (hypertension) (units (unknown) date) unknown) (unknown) (no (unknown) (unknown) Heart failure (units ( unknown) date) unknown) (unknown) (no (unknown) (unknown) Home Medications (units (unknown) date) unknown) (unknown) (no (unknown) (unknown) Hypercholesteremia (units (unknown) date) unknown) (unknown) (no (unknown) (unknown) Initial Vital Signs (unit s (unknown) date) unknown) (unknown) (no (unknown) (unknown) Initial Vital Signs: (uni ts (unknown) date) unknown) (unknown) (no (unknown) (unknown) [facility] [address] (uni ts (unknown) date) [address] [place] [address] [place], unknown ) [place] [address] (unknown) (no (unknown) (unknown) Knee pain (units (unkn own) date) unknown) (unknown) (no (unknown) (unknown) Label Comments: (units (unknown) date) unknown) (unknown) (no (unknown) (unknown) Medical History (units (unknown) date) (Reviewed 02/06/22 @ unknown) 19:18 by Kel Coello DO) (unknown) (no (unknown) (unknown) Medication Instructions ( units (unknown) date) Recorded Confirmed unknown) (unknown) (no (unknown) (unknown) Medication Instructions ( units (unknown) date) Recorded unknown) (unknown) (no (unknown) (unknown) Mode of arrival: (units (unknown) date) Wheelchair unknown) (unknown) (no (unknown) (unknown) No Action (units (unkn own) date) unknown) (unknown) (no (unknown) (unknown) Oxygen Delivery Method (u nits (unknown) date) 06/25/22 14:01 unknown) (unknown) (no (unknown) (unknown) Oxygen Delivery Method (u nits (unknown) date) Room Air unknown) (unknown) (no (unknown) (unknown) Ozempic 0.25 mg or 0.5 (u nits (unknown) date) mg(2 mg/1.5 mL) Pen unknown) Injector (unknown) (no (unknown) (unknown) Patient History (units (unknown) date) unknown) (unknown) (no (unknown) (unknown) Patient: (units (unkno wn) date) Gabriel Chavez MR#: M unkno wn) (unknown) (no (unknown) (unknown) Per Pt. Takes 35units (un its (unknown) date) left side ABD and the unknown) 0ther 35units on rt side (unknown) (no (unknown) (unknown) Prescriptions: (units (unknown) date) unknown) (unknown) (no (unknown) (unknown) Previous Rx's (units ( unknown) date) unknown) (unknown) (no (unknown) (unknown) Pulse Oximetry 99 (units (unknown) date) 06/25/22 14:01 unknown) (unknown) (no (unknown) (unknown) Pulse Oximetry 99 (units (unknown) date) unknown) (unknown) (no (unknown) (unknown) Pulse Rate 77 06/25/22 (u nits (unknown) date) 14:01 unknown) (unknown) (no (unknown) (unknown) Pulse Rate 77 (units ( unknown) date) unknown) (unknown) (no (unknown) (unknown) Referrals: (units (unk nown) date) unknown) (unknown) (no (unknown) (unknown) Related Data (units (u nknown) date) unknown) (unknown) (no (unknown) (unknown) Renal disease (units ( unknown) date) unknown) (unknown) (no (unknown) (unknown) Respiratory Rate 17 (unit s (unknown) date) 06/25/22 14:01 unknown) (unknown) (no (unknown) (unknown) Respiratory Rate 17 (unit s (unknown) date) unknown) (unknown) (no (unknown) (unknown) Rx Instructions: (units (unknown) date) unknown) (unknown) (no (unknown) (unknown) See Rx Instructions (unit s (unknown) date) .ROUTE .COMPLEX unknown) (unknown) (no (unknown) (unknown) Signed By: (units (unk nown) date) unknown) (unknown) (no (unknown) (unknown) Smoking Status: Former (u nits (unknown) date) smoker unknown) (unknown) (no (unknown) (unknown) Social History (units (unknown) date) (Reviewed 02/06/22 @ unknown) 19:18 by Kel Coello DO) (unknown) (no (unknown) (unknown) Source: patient (units (unknown) date) unknown) (unknown) (no (unknown) (unknown) Stated complaint: knees ( units (unknown) date) 'burning' mid thigh unknown) down/back of head RT ulysses (unknown) (no (unknown) (unknown) Substance Use Type: (unit s (unknown) date) does not use unknown) (unknown) (no (unknown) (unknown) Takes every Wednesday. (u nits (unknown) date) Per Pt 08/23/21 unknown) (unknown) (no (unknown) (unknown) Temperature 97.8 F (units (unknown) date) 06/25/22 14:01 unknown) (unknown) (no (unknown) (unknown) Temperature 97.8 F (units (unknown) date) unknown) (unknown) (no (unknown) (unknown) The above doses per (unit s (unknown) date) Gabriel today 08/23/21 unknown ) at approx 1535. (unknown) (no (unknown) (unknown) Time Seen by Provider: (u nits (unknown) date) 06/25/22 18:10 unknown) (unknown) (no (unknown) (unknown) Vital Signs - 8 hr (units (unknown) date) unknown) (unknown) (no (unknown) (unknown) Vital Signs (units (un known) date) unknown) (unknown) (no (unknown) (unknown) Vital signs: (units (u nknown) date) unknown) (unknown) (no (unknown) (unknown) alcohol intake (units (unknown) date) frequency: 0-2 drinks unknown) per day (unknown) (no (unknown) (unknown) alcohol intake: former (u nits (unknown) date) unknown) (unknown) (no (unknown) (unknown) allopurinol 300 MG (units (unknown) date) tablet unknown) (unknown) (no (unknown) (unknown) allopurinol 300 mg (units (unknown) date) tablet 300 mg PO DAILY unknown ) ##0 12/17/16 08/23/21 (unknown) (no (unknown) (unknown) artificial 1 spray PO (un its (unknown) date) PRN PRN Dry Mouth unknown) 11/24/18 08/23/21 (unknown) (no (unknown) (unknown) artificial saliva (units (unknown) date) (cmce-lytes) [place] With unknow n) Pump (unknown) (no (unknown) (unknown) atorvastatin 20 mg (units (unknown) date) tablet 20 mg PO DAILY unknown) 08/04/21 08/23/21 (unknown) (no (unknown) (unknown) atorvastatin 20 mg (units (unknown) date) tablet unknown) (unknown) (no (unknown) (unknown) bumetanide 2 mg tablet (u nits (unknown) date) 2 mg PO BID 11/24/18 unknown) 08/23/21 (unknown) (no (unknown) (unknown) bumetanide 2 mg tablet (u nits (unknown) date) unknown) (unknown) (no (unknown) (unknown) capsaicin 0.025 % cream ( units (unknown) date) unknown) (unknown) (no (unknown) (unknown) capsaicin 0.025 % (units (unknown) date) topical cream 1 applic unknown ) topical PRN PRN pain 11/24/18 08/23/21 (unknown) (no (unknown) (unknown) capsule,biphase delayed ( units (unknown) date) release unknown) (unknown) (no (unknown) (unknown) carboxymethylcell-glyce ( units (unknown) date) rin(PF) 0.5-0.9 % unknown) Dropperette (unknown) (no (unknown) (unknown) carboxymethylcellulose (u nits (unknown) date) 0.5 1 applic ophthalmic unknow n) (eye) QID 11/24/18 08/23/21 (unknown) (no (unknown) (unknown) chlorhexidine gluconate ( units (unknown) date) 0.12 % 15 ml mucous unknown) membrane BID 01/23/19 08/23/21 (unknown) (no (unknown) (unknown) chlorhexidine gluconate ( units (unknown) date) 0.12 % Mouthwash unknown) (unknown) (no (unknown) (unknown) chlorhexidine gluconate ( units (unknown) date) 4 % 1 applic topical unknown) DAILY 01/23/19 08/23/21 (unknown) (no (unknown) (unknown) chlorhexidine gluconate ( units (unknown) date) 4 % Liquid unknown) (unknown) (no (unknown) (unknown) cholecalciferol (units (unknown) date) (vitamin D3) 1,000 unit unknow n) capsule (unknown) (no (unknown) (unknown) cholecalciferol (units (unknown) date) (vitamin D3) 25 2,000 unknown) unit PO DAILY 11/24/18 08/23/21 (unknown) (no (unknown) (unknown) cream (units (unkno wn) date) unknown) (unknown) (no (unknown) (unknown) cyclobenzaprine 10 mg (un its (unknown) date) tablet 10 mg PO TID PRN unknow n) muscle spasm #10 11/22/21 (unknown) (no (unknown) (unknown) cyclobenzaprine 10 mg (un its (unknown) date) tablet 10 mg PO TID PRN unknow n) muscle spasm #30 01/23/19 (unknown) (no (unknown) (unknown) cyclobenzaprine 10 mg (un its (unknown) date) tablet unknown) (unknown) (no (unknown) (unknown) dexlansoprazole 60 mg (un its (unknown) date) 60 mg PO DAILY 11/24/18 unknow n) 08/23/21 (unknown) (no (unknown) (unknown) dexlansoprazole 60 mg (un its (unknown) date) capsule,biphase delayed unknow n) releas (unknown) (no (unknown) (unknown) diclofenac sodium 1 % (un its (unknown) date) topical gel 1 scottie unknown) topical Q4H PRN 12/17/16 08/23/21 (unknown) (no (unknown) (unknown) diclofenac sodium (units (unknown) date) [Voltaren] 1 % gel unknown) (unknown) (no (unknown) (unknown) doxazosin 8 mg tablet (un its (unknown) date) (Cardura) 8 mg PO unknown) BEDTIME ##0 12/17/16 08/23/21 (unknown) (no (unknown) (unknown) doxazosin [Cardura] 8 (un its (unknown) date) MG tablet unknown) (unknown) (no (unknown) (unknown) drink for at least one (u nits (unknown) date) hour after use. unknown) (unknown) (no (unknown) (unknown) drops,dropperette (units (unknown) date) unknown) (unknown) (no (unknown) (unknown) ea (units (unkno wn) date) unknown) (unknown) (no (unknown) (unknown) fexofenadine 180 mg (unit s (unknown) date) tablet 180 mg PO DAILY unknown ) 11/24/18 08/23/21 (unknown) (no (unknown) (unknown) fexofenadine 180 mg (unit s (unknown) date) tablet unknown) (unknown) (no (unknown) (unknown) fluoride (sodium) 1.1 % ( units (unknown) date) cream unknown) (unknown) (no (unknown) (unknown) fluoride (sodium) 1.1 % ( units (unknown) date) dental 1 applic dental unknown ) DIRECTED 11/24/18 08/23/21 (unknown) (no (unknown) (unknown) gabapentin Allergy (units (unknown) date) Verified 06/25/22 14:01 unknow n) (unknown) (no (unknown) (unknown) gram/dose oral powder (un its (unknown) date) (Miralax) unknown) (unknown) (no (unknown) (unknown) hasn't used for a (units (unknown) date) couple months unknown) (unknown) (no (unknown) (unknown) hasn't used in 'months' ( units (unknown) date) unknown) (unknown) (no (unknown) (unknown) household members: (units (unknown) date) spouse unknown) (unknown) (no (unknown) (unknown) hydrocodone 5 (units ( unknown) date) mg-acetaminophen 325 1 unknown ) tab PO BID PRN pain #10 tabs 07/03/21 (unknown) (no (unknown) (unknown) hydrocodone 5 (units ( unknown) date) mg-acetaminophen 325 1 unknown ) tab PO Q6H PRN pain #10 tabs 11/22/21 (unknown) (no (unknown) (unknown) hydrocodone-acetaminoph ( units (unknown) date) en 5-325 mg tablet unknown) (unknown) (no (unknown) (unknown) injector (Ozempic) (units (unknown) date) unknown) (unknown) (no (unknown) (unknown) insulin aspart U-100 (uni ts (unknown) date) 100 unit/mL See Rx unknown) Instructions .Route .COMPLEX 11/24/18 (unknown) (no (unknown) (unknown) insulin aspart U-100 (uni ts (unknown) date) 100 unit/mL Solution unknown) (unknown) (no (unknown) (unknown) insulin glargine 100 (uni ts (unknown) date) unit/mL 70 unit SUBCUT unknown ) QAM 01/23/19 08/23/21 (unknown) (no (unknown) (unknown) insulin glargine 100 (uni ts (unknown) date) unit/mL Solution unknown) (unknown) (no (unknown) (unknown) ipratropium 0.5 (units (unknown) date) mg-albuterol 3 mg 1 ea unknown ) inhalation DIRECTED 01/23/19 08/23/21 (unknown) (no (unknown) (unknown) ipratropium-albuterol (un its (unknown) date) 0.5 mg-3 mg(2.5 mg unknown) base)/3 mL Solution For Nebulization (unknown) (no (unknown) (unknown) leave on most painful (un its (unknown) date) area for up to 12 hrs unknown) (unknown) (no (unknown) (unknown) lidocaine 5 % adhesive (u nits (unknown) date) patch,medicated unknown) (unknown) (no (unknown) (unknown) lidocaine 5 % topical (un its (unknown) date) patch 1 patch topical unknown) DAILY PRN pain #15 06/23/20 (unknown) (no (unknown) (unknown) lives independently: (uni ts (unknown) date) Yes unknown) (unknown) (no (unknown) (unknown) losartan 25 mg tablet (un its (unknown) date) 25 mg PO DAILY 08/04/21 unknow n) 08/23/21 (unknown) (no (unknown) (unknown) losartan 25 mg tablet (un its (unknown) date) unknown) (unknown) (no (unknown) (unknown) marital status: ( units (unknown) date) unknown) (unknown) (no (unknown) (unknown) mcg (1,000 unit) (units (unknown) date) capsule unknown) (unknown) (no (unknown) (unknown) methocarbamol 500 mg (uni ts (unknown) date) tablet 500 mg PO TID PRN unkno wn) muscle spasm #20 07/03/21 (unknown) (no (unknown) (unknown) methocarbamol 500 mg (uni ts (unknown) date) tablet unknown) (unknown) (no (unknown) (unknown) mg tablet (units (unkn own) date) unknown) (unknown) (no (unknown) (unknown) mg/1.5 mL) subcutaneous ( units (unknown) date) pen unknown) (unknown) (no (unknown) (unknown) mouthwash (units (unkn own) date) unknown) (unknown) (no (unknown) (unknown) multivitamin with (units (unknown) date) minerals 1 cap PO DAILY unknow n) 11/24/18 08/23/21 (unknown) (no (unknown) (unknown) multivitamin with (units (unknown) date) minerals Capsule unknown) (unknown) (no (unknown) (unknown) oxycodone 5 mg tablet 5 ( units (unknown) date) mg PO Q6H PRN pain #14 unknown ) tabs 08/24/21 (unknown) (no (unknown) (unknown) oxycodone 5 mg tablet (un its (unknown) date) unknown) (unknown) (no (unknown) (unknown) per Pt at approx 1535 (un its (unknown) date) 08/23/21 unknown) (unknown) (no (unknown) (unknown) polyethylene glycol (unit s (unknown) date) 3350 17 17 gm PO QDAYP unknown ) constipation ##0 12/31/12 08/23/21 (unknown) (no (unknown) (unknown) polyethylene glycol (unit s (unknown) date) 3350 [Miralax] 119 GM unknown) powder (unknown) (no (unknown) (unknown) pregabalin 75 mg (units (unknown) date) capsule 75 mg PO BID unknown) 11/24/18 08/23/21 (unknown) (no (unknown) (unknown) pregabalin 75 mg (units (unknown) date) capsule unknown) (unknown) (no (unknown) (unknown) release 24 hr (units ( unknown) date) unknown) (unknown) (no (unknown) (unknown) saliva(carboxymethylcel ( units (unknown) date) lulose-electrolytes) unknown) (unknown) (no (unknown) (unknown) semaglutide 0.25 mg or (u nits (unknown) date) 0.5 mg (2 1 mg SUBCUT unknown) QWEEK 08/04/21 08/23/21 (unknown) (no (unknown) (unknown) sennosides 8.6 (units (unknown) date) mg-docusate sodium 2 tab unkno wn) PO DAILY 01/23/19 08/23/21 (unknown) (no (unknown) (unknown) sennosides-docusate (unit s (unknown) date) sodium 8.6-50 mg Tablet unknow n) (unknown) (no (unknown) (unknown) sildenafil 100 mg (units (unknown) date) tablet (Viagra) 100 mg unknown ) PO PRN PRN Sexual Activity 12/17/16 (unknown) (no (unknown) (unknown) sildenafil [Viagra] 100 ( units (unknown) date) MG tablet unknown) (unknown) (no (unknown) (unknown) soln (units (unkno wn) date) unknown) (unknown) (no (unknown) (unknown) spironolactone 25 mg (uni ts (unknown) date) tablet 25 mg PO BID unknown) 11/24/18 08/23/21 (unknown) (no (unknown) (unknown) spironolactone 25 mg (uni ts (unknown) date) tablet unknown) (unknown) (no (unknown) (unknown) spray pump (units (unk nown) date) unknown) (unknown) (no (unknown) (unknown) subcutaneous solution (un its (unknown) date) unknown) (unknown) (no (unknown) (unknown) swish for 30 seconds (uni ts (unknown) date) and spit. after unknown) breakfast and at bedtime. do not eat or (unknown) (no (unknown) (unknown) tabs (units (unkno wn) date) unknown) (unknown) (no (unknown) (unknown) to bumps on back of (unit s (unknown) date) head unknown) (unknown) (no (unknown) (unknown) tobacco type: (units ( unknown) date) cigarettes unknown) (unknown) (no (unknown) (unknown) tolterodine 4 mg (units (unknown) date) capsule,extended 4 mg PO unkno wn) DAILY 11/24/18 08/23/21 (unknown) (no (unknown) (unknown) tolterodine 4 mg (units (unknown) date) capsule,extended release unkno wn) 24hr (unknown) (no (unknown) (unknown) topical liquid (units (unknown) date) unknown) (unknown) (no (unknown) (unknown) total dose 1.5mg (units (unknown) date) unknown) (unknown) (no (unknown) (unknown) tramadol 50 mg tablet (un its (unknown) date) 50 mg PO Q8H PRN pain #7 unkno wn) tabs 01/23/19 (unknown) (no (unknown) (unknown) tramadol 50 mg tablet (un its (unknown) date) unknown) (unknown) (no (unknown) (unknown) vitamin B complex 1 tab ( units (unknown) date) PO DAILY 11/24/18 unknown) 08/23/21 (unknown) (no (unknown) (unknown) vitamin B complex (units (unknown) date) Tablet unknown) Result panel 541 (unknown) (no (unknown) (unknown) (no value) (units (unk nown) date) unknown) (unknown) (no (unknown) (unknown) ##0 (units (unkno wn) date) unknown) (unknown) (no (unknown) (unknown) %-glycerin 0.9 % (PF) (un its (unknown) date) eye unknown) (unknown) (no (unknown) (unknown) (2.5 mg base)/3 mL (units (unknown) date) nebulization unknown) (unknown) (no (unknown) (unknown) (Voltaren) (units (unk nown) date) osteoarthritis ##0 unknown) (unknown) (no (unknown) (unknown) [id number] (units (unkn own) date) unknown) (unknown) (no (unknown) (unknown) 06/25/22 (units (unkno wn) date) unknown) (unknown) (no (unknown) (unknown) 08/23/21 (units (unkno wn) date) unknown) (unknown) (no (unknown) (unknown) 1 scottie Topical Q4H MDD (un its (unknown) date) 16 G (4 doses) PRN unknown) (Reason: osteoarthritis) Qty: 0 (unknown) (no (unknown) (unknown) 1 applic TOPICAL DAILY (u nits (unknown) date) unknown) (unknown) (no (unknown) (unknown) 1 applic dental (units (unknown) date) DIRECTED unknown) (unknown) (no (unknown) (unknown) 1 applic ophthalmic (unit s (unknown) date) (eye) QID unknown) (unknown) (no (unknown) (unknown) 1 applic topical PRN (uni ts (unknown) date) PRN (Reason: pain) unknown) (unknown) (no (unknown) (unknown) 1 cap PO DAILY (units (unknown) date) unknown) (unknown) (no (unknown) (unknown) 1 dose subcutaneously (un its (unknown) date) ;24 ac breakfast, 24 at unknow n) noon, 24 at bedtime. (unknown) (no (unknown) (unknown) 1 ea inhalation (units (unknown) date) DIRECTED unknown) (unknown) (no (unknown) (unknown) 1 mg SUBCUT QWEEK (units (unknown) date) unknown) (unknown) (no (unknown) (unknown) 1 patch topical DAILY (un its (unknown) date) PRN (Reason: pain) Qty: unknow n) 15 0RF (unknown) (no (unknown) (unknown) 1 spray PO PRN PRN (units (unknown) date) (Reason: Dry Mouth) unknown) (unknown) (no (unknown) (unknown) 1 tab PO BID PRN (units (unknown) date) (Reason: pain) Qty: 10 unknown ) 0RF (unknown) (no (unknown) (unknown) 1 tab PO DAILY (units (unknown) date) unknown) (unknown) (no (unknown) (unknown) 1 tab PO Q6H PRN (units (unknown) date) (Reason: pain) Qty: 10 unknown ) 0RF (unknown) (no (unknown) (unknown) 10 mg PO TID PRN (units (unknown) date) (Reason: muscle spasm) unknown ) Qty: 10 0RF (unknown) (no (unknown) (unknown) 10 mg PO TID PRN (units (unknown) date) (Reason: muscle spasm) unknown ) Qty: 21 0RF (unknown) (no (unknown) (unknown) 10 mg PO TID PRN (units (unknown) date) (Reason: muscle spasm) unknown ) Qty: 30 0RF (unknown) (no (unknown) (unknown) 100 mg PO PRN MDD 100 (un its (unknown) date) mg PRN (Reason: Sexual unknown ) Activity) Qty: 0 (unknown) (no (unknown) (unknown) 14:01 06/25/22 (units (unknown) date) unknown) (unknown) (no (unknown) (unknown) 15 ml MUCOUS MEMBRANE (un its (unknown) date) BID unknown) (unknown) (no (unknown) (unknown) 17 gm PO QDAYP Qty: 0 (un its (unknown) date) unknown) (unknown) (no (unknown) (unknown) 180 mg PO DAILY (units (unknown) date) unknown) (unknown) (no (unknown) (unknown) 18:49 (units (unkno wn) date) unknown) (unknown) (no (unknown) (unknown) 2 mg PO BID (units (un known) date) unknown) (unknown) (no (unknown) (unknown) 2 tab PO DAILY (units (unknown) date) unknown) (unknown) (no (unknown) (unknown) 2,000 unit PO DAILY (unit s (unknown) date) unknown) (unknown) (no (unknown) (unknown) 20 mg PO DAILY Qty: 3 (un its (unknown) date) 0RF unknown) (unknown) (no (unknown) (unknown) 20 mg PO DAILY (units (unknown) date) unknown) (unknown) (no (unknown) (unknown) 25 mg PO BID (units (u nknown) date) unknown) (unknown) (no (unknown) (unknown) 25 mg PO DAILY (units (unknown) date) unknown) (unknown) (no (unknown) (unknown) 300 mg PO DAILY Qty: 0 (u nits (unknown) date) unknown) (unknown) (no (unknown) (unknown) 4 mg PO DAILY (units ( unknown) date) unknown) (unknown) (no (unknown) (unknown) 5 mg PO Q6H PRN (units (unknown) date) (Reason: pain) Qty: 14 unknown ) 0RF (unknown) (no (unknown) (unknown) 50 mg PO Q6H PRN (units (unknown) date) (Reason: pain) Qty: 12 unknown ) 0RF (unknown) (no (unknown) (unknown) 50 mg PO Q8H PRN (units (unknown) date) (Reason: pain) Qty: 7 unknown) 0RF (unknown) (no (unknown) (unknown) 50 mg tablet (units (u nknown) date) unknown) (unknown) (no (unknown) (unknown) 500 mg PO TID PRN (units (unknown) date) (Reason: muscle spasm) unknown ) Qty: 20 0RF (unknown) (no (unknown) (unknown) 60 mg PO DAILY (units (unknown) date) unknown) (unknown) (no (unknown) (unknown) 70 unit SUBCUT QAM (units (unknown) date) unknown) (unknown) (no (unknown) (unknown) 75 mg PO BID (units (u nknown) date) unknown) (unknown) (no (unknown) (unknown) 8 mg PO BEDTIME Qty: 0 (u nits (unknown) date) unknown) (unknown) (no (unknown) (unknown) Activity (units (unkno wn) date) Restrictions/Additional unknow n) Instructions: (unknown) (no (unknown) (unknown) Age/Sex: 72 / M (units (unknown) date) unknown) (unknown) (no (unknown) (unknown) Allergies (units (unkn own) date) unknown) (unknown) (no (unknown) (unknown) Allergy/AdvReac Type (uni ts (unknown) date) Severity Reaction Status unkno wn) Date / Time (unknown) (no (unknown) (unknown) Blood Pressure 148/67 H ( units (unknown) date) 06/25/22 14:01 unknown) (unknown) (no (unknown) (unknown) Blood Pressure 148/67 H ( units (unknown) date) 150/72 H unknown) (unknown) (no (unknown) (unknown) Cervical strain, Strain ( units (unknown) date) of hamstring muscle unknown) (unknown) (no (unknown) (unknown) Chief complaint: (units (unknown) date) Extremity unknown) Problem,Nontraumatic (unknown) (no (unknown) (unknown) Clinical Impression: (uni ts (unknown) date) unknown) (unknown) (no (unknown) (unknown) Constipation (units (u nknown) date) unknown) (unknown) (no (unknown) (unknown) Course (units (unkno wn) date) unknown) (unknown) (no (unknown) (unknown) : 1950 (units (unknown) date) Acct:[id number] unknown) (unknown) (no (unknown) (unknown) Date of Service: (units (unknown) date) 06/25/22 unknown) (unknown) (no (unknown) (unknown) Departure (units (unkn own) date) unknown) (unknown) (no (unknown) (unknown) Discharge Plan (units (unknown) date) unknown) (unknown) (no (unknown) (unknown) Doesn't take regularly (u nits (unknown) date) unknown) (unknown) (no (unknown) (unknown) ER Physician: (units ( unknown) date) Kel Coello D.O. unknown) (unknown) (no (unknown) (unknown) Emergency Report (units (unknown) date) unknown) (unknown) (no (unknown) (unknown) Exam (units (unkno wn) date) unknown) (unknown) (no (unknown) (unknown) Elmer Naylor, (u nits (unknown) date) MD [Primary Care unknown) Provider] (unknown) (no (unknown) (unknown) GERD (gastroesophageal (u nits (unknown) date) reflux disease) unknown) (unknown) (no (unknown) (unknown) General (units (unkno wn) date) unknown) (unknown) (no (unknown) (unknown) HPI - Extremity Problem ( units (unknown) date) unknown) (unknown) (no (unknown) (unknown) HTN (hypertension) (units (unknown) date) unknown) (unknown) (no (unknown) (unknown) Heart failure (units ( unknown) date) unknown) (unknown) (no (unknown) (unknown) Home Medications (units (unknown) date) unknown) (unknown) (no (unknown) (unknown) Hypercholesteremia (units (unknown) date) unknown) (unknown) (no (unknown) (unknown) Initial Vital Signs (unit s (unknown) date) unknown) (unknown) (no (unknown) (unknown) Initial Vital Signs: (uni ts (unknown) date) unknown) (unknown) (no (unknown) (unknown) Instructions: DI for (uni ts (unknown) date) Muscle Strain unknown) (unknown) (no (unknown) (unknown) [facility] [address] (uni ts (unknown) date) [address] [place] [address] [place], unknown ) [place] [address] (unknown) (no (unknown) (unknown) Knee pain (units (unkn own) date) unknown) (unknown) (no (unknown) (unknown) Label Comments: (units (unknown) date) unknown) (unknown) (no (unknown) (unknown) Medical History (units (unknown) date) (Reviewed 02/06/22 @ unknown) 19:18 by Kel Coello DO) (unknown) (no (unknown) (unknown) Medication Instructions ( units (unknown) date) Recorded Confirmed unknown) (unknown) (no (unknown) (unknown) Medication Instructions ( units (unknown) date) Recorded unknown) (unknown) (no (unknown) (unknown) Medications were sent (un its (unknown) date) to [facility] unknown) [place] per your request. One of the (unknown) (no (unknown) (unknown) Mode of arrival: (units (unknown) date) Wheelchair unknown) (unknown) (no (unknown) (unknown) New (units (unkno wn) date) unknown) (unknown) (no (unknown) (unknown) No Action (units (unkn own) date) unknown) (unknown) (no (unknown) (unknown) Oxygen Delivery Method (u nits (unknown) date) 06/25/22 14:01 unknown) (unknown) (no (unknown) (unknown) Oxygen Delivery Method (u nits (unknown) date) Room Air Room Air unknown) (unknown) (no (unknown) (unknown) Ozempic 0.25 mg or 0.5 (u nits (unknown) date) mg(2 mg/1.5 mL) Pen unknown) Injector (unknown) (no (unknown) (unknown) Patient Disposition: (uni ts (unknown) date) Home unknown) (unknown) (no (unknown) (unknown) Patient History (units (unknown) date) unknown) (unknown) (no (unknown) (unknown) Patient: (units (unkno wn) date) Gabriel Chavez MR#: M unkno wn) (unknown) (no (unknown) (unknown) Per Pt. Takes 35units (un its (unknown) date) left side ABD and the unknown) 0ther 35units on rt side (unknown) (no (unknown) (unknown) Prescriptions: (units (unknown) date) unknown) (unknown) (no (unknown) (unknown) Previous Rx's (units ( unknown) date) unknown) (unknown) (no (unknown) (unknown) Pulse Oximetry 99 (units (unknown) date) 06/25/22 14:01 unknown) (unknown) (no (unknown) (unknown) Pulse Oximetry 99 98 (uni ts (unknown) date) unknown) (unknown) (no (unknown) (unknown) Pulse Rate 77 06/25/22 (u nits (unknown) date) 14:01 unknown) (unknown) (no (unknown) (unknown) Pulse Rate 77 71 (units (unknown) date) unknown) (unknown) (no (unknown) (unknown) Referrals: (units (unk nown) date) unknown) (unknown) (no (unknown) (unknown) Related Data (units (u nknown) date) unknown) (unknown) (no (unknown) (unknown) Renal disease (units ( unknown) date) unknown) (unknown) (no (unknown) (unknown) Respiratory Rate 17 (unit s (unknown) date) 06/25/22 14:01 unknown) (unknown) (no (unknown) (unknown) Respiratory Rate 17 18 (u nits (unknown) date) unknown) (unknown) (no (unknown) (unknown) Rx Instructions: (units (unknown) date) unknown) (unknown) (no (unknown) (unknown) See Rx Instructions (unit s (unknown) date) .ROUTE .COMPLEX unknown) (unknown) (no (unknown) (unknown) Signed By: (units (unk nown) date) unknown) (unknown) (no (unknown) (unknown) Smoking Status: Former (u nits (unknown) date) smoker unknown) (unknown) (no (unknown) (unknown) Social History (units (unknown) date) (Reviewed 02/06/22 @ unknown) 19:18 by Kel Coello DO) (unknown) (no (unknown) (unknown) Source: patient (units (unknown) date) unknown) (unknown) (no (unknown) (unknown) Stand Alone Forms: (units (unknown) date) Patient Portal/API unknown) (unknown) (no (unknown) (unknown) Stated complaint: knees ( units (unknown) date) 'burning' mid thigh unknown) down/back of head RT ulysses (unknown) (no (unknown) (unknown) Substance Use Type: (unit s (unknown) date) does not use unknown) (unknown) (no (unknown) (unknown) Takes every Wednesday. (u nits (unknown) date) Per Pt 08/23/21 unknown) (unknown) (no (unknown) (unknown) Temperature 97.8 F (units (unknown) date) 06/25/22 14:01 unknown) (unknown) (no (unknown) (unknown) Temperature 97.8 F (units (unknown) date) unknown) (unknown) (no (unknown) (unknown) The above doses per (unit s (unknown) date) Gabriel today 08/23/21 unknown ) at approx 1535. (unknown) (no (unknown) (unknown) Time Seen by Provider: (u nits (unknown) date) 06/25/22 18:10 unknown) (unknown) (no (unknown) (unknown) Vital Signs - 8 hr (units (unknown) date) unknown) (unknown) (no (unknown) (unknown) Vital Signs (units (un known) date) unknown) (unknown) (no (unknown) (unknown) Vital signs: (units (u nknown) date) unknown) (unknown) (no (unknown) (unknown) alcohol intake (units (unknown) date) frequency: 0-2 drinks unknown) per day (unknown) (no (unknown) (unknown) alcohol intake: former (u nits (unknown) date) unknown) (unknown) (no (unknown) (unknown) allopurinol 300 MG (units (unknown) date) tablet unknown) (unknown) (no (unknown) (unknown) allopurinol 300 mg (units (unknown) date) tablet 300 mg PO DAILY unknown ) ##0 12/17/16 08/23/21 (unknown) (no (unknown) (unknown) artificial 1 spray PO (un its (unknown) date) PRN PRN Dry Mouth unknown) 11/24/18 08/23/21 (unknown) (no (unknown) (unknown) artificial saliva (units (unknown) date) (cmce-lytes) [place] With unknow n) Pump (unknown) (no (unknown) (unknown) atorvastatin 20 mg (units (unknown) date) tablet 20 mg PO DAILY unknown) 08/04/21 08/23/21 (unknown) (no (unknown) (unknown) atorvastatin 20 mg (units (unknown) date) tablet unknown) (unknown) (no (unknown) (unknown) bumetanide 2 mg tablet (u nits (unknown) date) 2 mg PO BID 11/24/18 unknown) 08/23/21 (unknown) (no (unknown) (unknown) bumetanide 2 mg tablet (u nits (unknown) date) unknown) (unknown) (no (unknown) (unknown) capsaicin 0.025 % cream ( units (unknown) date) unknown) (unknown) (no (unknown) (unknown) capsaicin 0.025 % (units (unknown) date) topical cream 1 applic unknown ) topical PRN PRN pain 11/24/18 08/23/21 (unknown) (no (unknown) (unknown) capsule,biphase delayed ( units (unknown) date) release unknown) (unknown) (no (unknown) (unknown) carboxymethylcell-glyce ( units (unknown) date) rin(PF) 0.5-0.9 % unknown) Dropperette (unknown) (no (unknown) (unknown) carboxymethylcellulose (u nits (unknown) date) 0.5 1 applic ophthalmic unknow n) (eye) QID 11/24/18 08/23/21 (unknown) (no (unknown) (unknown) chlorhexidine gluconate ( units (unknown) date) 0.12 % 15 ml mucous unknown) membrane BID 01/23/19 08/23/21 (unknown) (no (unknown) (unknown) chlorhexidine gluconate ( units (unknown) date) 0.12 % Mouthwash unknown) (unknown) (no (unknown) (unknown) chlorhexidine gluconate ( units (unknown) date) 4 % 1 applic topical unknown) DAILY 01/23/19 08/23/21 (unknown) (no (unknown) (unknown) chlorhexidine gluconate ( units (unknown) date) 4 % Liquid unknown) (unknown) (no (unknown) (unknown) cholecalciferol (units (unknown) date) (vitamin D3) 1,000 unit unknow n) capsule (unknown) (no (unknown) (unknown) cholecalciferol (units (unknown) date) (vitamin D3) 25 2,000 unknown) unit PO DAILY 11/24/18 08/23/21 (unknown) (no (unknown) (unknown) cream (units (unkno wn) date) unknown) (unknown) (no (unknown) (unknown) cyclobenzaprine 10 mg (un its (unknown) date) tablet 10 mg PO TID PRN unknow n) muscle spasm #10 11/22/21 (unknown) (no (unknown) (unknown) cyclobenzaprine 10 mg (un its (unknown) date) tablet 10 mg PO TID PRN unknow n) muscle spasm #21 06/25/22 (unknown) (no (unknown) (unknown) cyclobenzaprine 10 mg (un its (unknown) date) tablet 10 mg PO TID PRN unknow n) muscle spasm #30 01/23/19 (unknown) (no (unknown) (unknown) cyclobenzaprine 10 mg (un its (unknown) date) tablet unknown) (unknown) (no (unknown) (unknown) dexlansoprazole 60 mg (un its (unknown) date) 60 mg PO DAILY 11/24/18 unknow n) 08/23/21 (unknown) (no (unknown) (unknown) dexlansoprazole 60 mg (un its (unknown) date) capsule,biphase delayed unknow n) releas (unknown) (no (unknown) (unknown) diclofenac sodium 1 % (un its (unknown) date) topical gel 1 scottie unknown) topical Q4H PRN 12/17/16 08/23/21 (unknown) (no (unknown) (unknown) diclofenac sodium (units (unknown) date) [Voltaren] 1 % gel unknown) (unknown) (no (unknown) (unknown) doxazosin 8 mg tablet (un its (unknown) date) (Cardura) 8 mg PO unknown) BEDTIME ##0 12/17/16 08/23/21 (unknown) (no (unknown) (unknown) doxazosin [Cardura] 8 (un its (unknown) date) MG tablet unknown) (unknown) (no (unknown) (unknown) drink for at least one (u nits (unknown) date) hour after use. unknown) (unknown) (no (unknown) (unknown) drops,dropperette (units (unknown) date) unknown) (unknown) (no (unknown) (unknown) ea (units (unkno wn) date) unknown) (unknown) (no (unknown) (unknown) fexofenadine 180 mg (unit s (unknown) date) tablet 180 mg PO DAILY unknown ) 11/24/18 08/23/21 (unknown) (no (unknown) (unknown) fexofenadine 180 mg (unit s (unknown) date) tablet unknown) (unknown) (no (unknown) (unknown) fluoride (sodium) 1.1 % ( units (unknown) date) cream unknown) (unknown) (no (unknown) (unknown) fluoride (sodium) 1.1 % ( units (unknown) date) dental 1 applic dental unknown ) DIRECTED 11/24/18 08/23/21 (unknown) (no (unknown) (unknown) gabapentin Allergy (units (unknown) date) Verified 06/25/22 14:01 unknow n) (unknown) (no (unknown) (unknown) gram/dose oral powder (un its (unknown) date) (Miralax) unknown) (unknown) (no (unknown) (unknown) hasn't used for a (units (unknown) date) couple months unknown) (unknown) (no (unknown) (unknown) hasn't used in 'months' ( units (unknown) date) unknown) (unknown) (no (unknown) (unknown) household members: (units (unknown) date) spouse unknown) (unknown) (no (unknown) (unknown) hydrocodone 5 (units ( unknown) date) mg-acetaminophen 325 1 unknown ) tab PO BID PRN pain #10 tabs 07/03/21 (unknown) (no (unknown) (unknown) hydrocodone 5 (units ( unknown) date) mg-acetaminophen 325 1 unknown ) tab PO Q6H PRN pain #10 tabs 11/22/21 (unknown) (no (unknown) (unknown) hydrocodone-acetaminoph ( units (unknown) date) en 5-325 mg tablet unknown) (unknown) (no (unknown) (unknown) injector (Ozempic) (units (unknown) date) unknown) (unknown) (no (unknown) (unknown) insulin aspart U-100 (uni ts (unknown) date) 100 unit/mL See Rx unknown) Instructions .Route .COMPLEX 11/24/18 (unknown) (no (unknown) (unknown) insulin aspart U-100 (uni ts (unknown) date) 100 unit/mL Solution unknown) (unknown) (no (unknown) (unknown) insulin glargine 100 (uni ts (unknown) date) unit/mL 70 unit SUBCUT unknown ) QAM 01/23/19 08/23/21 (unknown) (no (unknown) (unknown) insulin glargine 100 (uni ts (unknown) date) unit/mL Solution unknown) (unknown) (no (unknown) (unknown) ipratropium 0.5 (units (unknown) date) mg-albuterol 3 mg 1 ea unknown ) inhalation DIRECTED 01/23/19 08/23/21 (unknown) (no (unknown) (unknown) ipratropium-albuterol (un its (unknown) date) 0.5 mg-3 mg(2.5 mg unknown) base)/3 mL Solution For Nebulization (unknown) (no (unknown) (unknown) leave on most painful (un its (unknown) date) area for up to 12 hrs unknown) (unknown) (no (unknown) (unknown) lidocaine 5 % adhesive (u nits (unknown) date) patch,medicated unknown) (unknown) (no (unknown) (unknown) lidocaine 5 % topical (un its (unknown) date) patch 1 patch topical unknown) DAILY PRN pain #15 06/23/20 (unknown) (no (unknown) (unknown) lives independently: (uni ts (unknown) date) Yes unknown) (unknown) (no (unknown) (unknown) losartan 25 mg tablet (un its (unknown) date) 25 mg PO DAILY 08/04/21 unknow n) 08/23/21 (unknown) (no (unknown) (unknown) losartan 25 mg tablet (un its (unknown) date) unknown) (unknown) (no (unknown) (unknown) marital status: ( units (unknown) date) unknown) (unknown) (no (unknown) (unknown) mcg (1,000 unit) (units (unknown) date) capsule unknown) (unknown) (no (unknown) (unknown) medications is a (units (unknown) date) steroid that can unknown) increase your blood sugars so make sure that (unknown) (no (unknown) (unknown) methocarbamol 500 mg (uni ts (unknown) date) tablet 500 mg PO TID PRN unkno wn) muscle spasm #20 07/03/21 (unknown) (no (unknown) (unknown) methocarbamol 500 mg (uni ts (unknown) date) tablet unknown) (unknown) (no (unknown) (unknown) mg tablet (units (unkn own) date) unknown) (unknown) (no (unknown) (unknown) mg/1.5 mL) subcutaneous ( units (unknown) date) pen unknown) (unknown) (no (unknown) (unknown) mouthwash (units (unkn own) date) unknown) (unknown) (no (unknown) (unknown) multivitamin with (units (unknown) date) minerals 1 cap PO DAILY unknow n) 11/24/18 08/23/21 (unknown) (no (unknown) (unknown) multivitamin with (units (unknown) date) minerals Capsule unknown) (unknown) (no (unknown) (unknown) oxycodone 5 mg tablet 5 ( units (unknown) date) mg PO Q6H PRN pain #14 unknown ) tabs 08/24/21 (unknown) (no (unknown) (unknown) oxycodone 5 mg tablet (un its (unknown) date) unknown) (unknown) (no (unknown) (unknown) per Pt at approx 1535 (un its (unknown) date) 08/23/21 unknown) (unknown) (no (unknown) (unknown) polyethylene glycol (unit s (unknown) date) 3350 17 17 gm PO QDAYP unknown ) constipation ##0 12/31/12 08/23/21 (unknown) (no (unknown) (unknown) polyethylene glycol (unit s (unknown) date) 3350 [Miralax] 119 GM unknown) powder (unknown) (no (unknown) (unknown) prednisone 20 mg tablet ( units (unknown) date) 20 mg PO DAILY #3 tabs unknown ) 06/25/22 (unknown) (no (unknown) (unknown) prednisone 20 mg tablet ( units (unknown) date) unknown) (unknown) (no (unknown) (unknown) pregabalin 75 mg (units (unknown) date) capsule 75 mg PO BID unknown) 11/24/18 08/23/21 (unknown) (no (unknown) (unknown) pregabalin 75 mg (units (unknown) date) capsule unknown) (unknown) (no (unknown) (unknown) release 24 hr (units ( unknown) date) unknown) (unknown) (no (unknown) (unknown) saliva(carboxymethylcel ( units (unknown) date) lulose-electrolytes) unknown) (unknown) (no (unknown) (unknown) semaglutide 0.25 mg or (u nits (unknown) date) 0.5 mg (2 1 mg SUBCUT unknown) QWEEK 08/04/21 08/23/21 (unknown) (no (unknown) (unknown) sennosides 8.6 (units (unknown) date) mg-docusate sodium 2 tab unkno wn) PO DAILY 01/23/19 08/23/21 (unknown) (no (unknown) (unknown) sennosides-docusate (unit s (unknown) date) sodium 8.6-50 mg Tablet unknow n) (unknown) (no (unknown) (unknown) sildenafil 100 mg (units (unknown) date) tablet (Viagra) 100 mg unknown ) PO PRN PRN Sexual Activity 12/17/16 (unknown) (no (unknown) (unknown) sildenafil [Viagra] 100 ( units (unknown) date) MG tablet unknown) (unknown) (no (unknown) (unknown) soln (units (unkno wn) date) unknown) (unknown) (no (unknown) (unknown) spironolactone 25 mg (uni ts (unknown) date) tablet 25 mg PO BID unknown) 11/24/18 08/23/21 (unknown) (no (unknown) (unknown) spironolactone 25 mg (uni ts (unknown) date) tablet unknown) (unknown) (no (unknown) (unknown) spray pump (units (unk nown) date) unknown) (unknown) (no (unknown) (unknown) subcutaneous solution (un its (unknown) date) unknown) (unknown) (no (unknown) (unknown) swish for 30 seconds (uni ts (unknown) date) and spit. after unknown) breakfast and at bedtime. do not eat or (unknown) (no (unknown) (unknown) tabs (units (unkno wn) date) unknown) (unknown) (no (unknown) (unknown) to bumps on back of (unit s (unknown) date) head unknown) (unknown) (no (unknown) (unknown) tobacco type: (units ( unknown) date) cigarettes unknown) (unknown) (no (unknown) (unknown) tolterodine 4 mg (units (unknown) date) capsule,extended 4 mg PO unkno wn) DAILY 11/24/18 08/23/21 (unknown) (no (unknown) (unknown) tolterodine 4 mg (units (unknown) date) capsule,extended release unkno wn) 24hr (unknown) (no (unknown) (unknown) topical liquid (units (unknown) date) unknown) (unknown) (no (unknown) (unknown) total dose 1.5mg (units (unknown) date) unknown) (unknown) (no (unknown) (unknown) tramadol 50 mg tablet (un its (unknown) date) 50 mg PO Q6H PRN pain unknown) #12 tabs 06/25/22 (unknown) (no (unknown) (unknown) tramadol 50 mg tablet (un its (unknown) date) 50 mg PO Q8H PRN pain #7 unkno wn) tabs 01/23/19 (unknown) (no (unknown) (unknown) tramadol 50 mg tablet (un its (unknown) date) unknown) (unknown) (no (unknown) (unknown) up. (units (unkno wn) date) unknown) (unknown) (no (unknown) (unknown) vitamin B complex 1 tab ( units (unknown) date) PO DAILY 11/24/18 unknown) 08/23/21 (unknown) (no (unknown) (unknown) vitamin B complex (units (unknown) date) Tablet unknown) (unknown) (no (unknown) (unknown) you adjust your insulin ( units (unknown) date) accordingly. Contact unknown) your primary doctor for a follow Result panel [phone] (unknown) (no (unknown) (unknown) (no value) (units (unk nown) date) unknown) (unknown) (no (unknown) (unknown) ##0 (units (unkno wn) date) unknown) (unknown) (no (unknown) (unknown) %-glycerin 0.9 % (PF) (un its (unknown) date) eye unknown) (unknown) (no (unknown) (unknown) <Electronically signed (u nits (unknown) date) by Kel Coello D.O.> unkno wn) (unknown) (no (unknown) (unknown) (2.5 mg base)/3 mL (units (unknown) date) nebulization unknown) (unknown) (no (unknown) (unknown) (Voltaren) (units (unk nown) date) osteoarthritis ##0 unknown) (unknown) (no (unknown) (unknown) [id number] (units (unkn own) date) unknown) (unknown) (no (unknown) (unknown) 06/25/220 (units ( unknown) date) unknown) (unknown) (no (unknown) (unknown) 06/25/22 (units (unkno wn) date) unknown) (unknown) (no (unknown) (unknown) 08/23/21 (units (unkno wn) date) unknown) (unknown) (no (unknown) (unknown) 1 scottie Topical Q4H MDD (un its (unknown) date) 16 G (4 doses) PRN unknown) (Reason: osteoarthritis) Qty: 0 (unknown) (no (unknown) (unknown) 1 applic TOPICAL DAILY (u nits (unknown) date) unknown) (unknown) (no (unknown) (unknown) 1 applic dental (units (unknown) date) DIRECTED unknown) (unknown) (no (unknown) (unknown) 1 applic ophthalmic (unit s (unknown) date) (eye) QID unknown) (unknown) (no (unknown) (unknown) 1 applic topical PRN (uni ts (unknown) date) PRN (Reason: pain) unknown) (unknown) (no (unknown) (unknown) 1 cap PO DAILY (units (unknown) date) unknown) (unknown) (no (unknown) (unknown) 1 dose subcutaneously (un its (unknown) date) ;24 ac breakfast, 24 at unknow n) noon, 24 at bedtime. (unknown) (no (unknown) (unknown) 1 ea inhalation (units (unknown) date) DIRECTED unknown) (unknown) (no (unknown) (unknown) 1 mg SUBCUT QWEEK (units (unknown) date) unknown) (unknown) (no (unknown) (unknown) 1 patch topical DAILY (un its (unknown) date) PRN (Reason: pain) Qty: unknow n) 15 0RF (unknown) (no (unknown) (unknown) 1 spray PO PRN PRN (units (unknown) date) (Reason: Dry Mouth) unknown) (unknown) (no (unknown) (unknown) 1 tab PO BID PRN (units (unknown) date) (Reason: pain) Qty: 10 unknown ) 0RF (unknown) (no (unknown) (unknown) 1 tab PO DAILY (units (unknown) date) unknown) (unknown) (no (unknown) (unknown) 1 tab PO Q6H PRN (units (unknown) date) (Reason: pain) Qty: 10 unknown ) 0RF (unknown) (no (unknown) (unknown) 10 mg PO TID PRN (units (unknown) date) (Reason: muscle spasm) unknown ) Qty: 10 0RF (unknown) (no (unknown) (unknown) 10 mg PO TID PRN (units (unknown) date) (Reason: muscle spasm) unknown ) Qty: 21 0RF (unknown) (no (unknown) (unknown) 10 mg PO TID PRN (units (unknown) date) (Reason: muscle spasm) unknown ) Qty: 30 0RF (unknown) (no (unknown) (unknown) 100 mg PO PRN MDD 100 (un its (unknown) date) mg PRN (Reason: Sexual unknown ) Activity) Qty: 0 (unknown) (no (unknown) (unknown) 14:01 06/25/22 (units (unknown) date) unknown) (unknown) (no (unknown) (unknown) 15 ml MUCOUS MEMBRANE (un its (unknown) date) BID unknown) (unknown) (no (unknown) (unknown) 17 gm PO QDAYP Qty: 0 (un its (unknown) date) unknown) (unknown) (no (unknown) (unknown) 180 mg PO DAILY (units (unknown) date) unknown) (unknown) (no (unknown) (unknown) 18:49 (units (unkno wn) date) unknown) (unknown) (no (unknown) (unknown) 2 mg PO BID (units (un known) date) unknown) (unknown) (no (unknown) (unknown) 2 tab PO DAILY (units (unknown) date) unknown) (unknown) (no (unknown) (unknown) 2,000 unit PO DAILY (unit s (unknown) date) unknown) (unknown) (no (unknown) (unknown) 20 mg PO DAILY Qty: 3 (un its (unknown) date) 0RF unknown) (unknown) (no (unknown) (unknown) 20 mg PO DAILY (units (unknown) date) unknown) (unknown) (no (unknown) (unknown) 25 mg PO BID (units (u nknown) date) unknown) (unknown) (no (unknown) (unknown) 25 mg PO DAILY (units (unknown) date) unknown) (unknown) (no (unknown) (unknown) 300 mg PO DAILY Qty: 0 (u nits (unknown) date) unknown) (unknown) (no (unknown) (unknown) 4 mg PO DAILY (units ( unknown) date) unknown) (unknown) (no (unknown) (unknown) 5 mg PO Q6H PRN (units (unknown) date) (Reason: pain) Qty: 14 unknown ) 0RF (unknown) (no (unknown) (unknown) 50 mg PO Q6H PRN (units (unknown) date) (Reason: pain) Qty: 12 unknown ) 0RF (unknown) (no (unknown) (unknown) 50 mg PO Q8H PRN (units (unknown) date) (Reason: pain) Qty: 7 unknown) 0RF (unknown) (no (unknown) (unknown) 50 mg tablet (units (u nknown) date) unknown) (unknown) (no (unknown) (unknown) 500 mg PO TID PRN (units (unknown) date) (Reason: muscle spasm) unknown ) Qty: 20 0RF (unknown) (no (unknown) (unknown) 60 mg PO DAILY (units (unknown) date) unknown) (unknown) (no (unknown) (unknown) 70 unit SUBCUT QAM (units (unknown) date) unknown) (unknown) (no (unknown) (unknown) 72-year-old male who is ( units (unknown) date) here for evaluation of 2 unkno wn) separate things. He is here (unknown) (no (unknown) (unknown) 75 mg PO BID (units (u nknown) date) unknown) (unknown) (no (unknown) (unknown) 8 mg PO BEDTIME Qty: 0 (u nits (unknown) date) unknown) (unknown) (no (unknown) (unknown) Activity (units (unkno wn) date) Restrictions/Additional unknow n) Instructions: (unknown) (no (unknown) (unknown) Age/Sex: 72 / M (units (unknown) date) unknown) (unknown) (no (unknown) (unknown) Allergies (units (unkn own) date) unknown) (unknown) (no (unknown) (unknown) Allergy/AdvReac Type (uni ts (unknown) date) Severity Reaction Status unkno wn) Date / Time (unknown) (no (unknown) (unknown) Back/Spine/Pelvis (units (unknown) date) unknown) (unknown) (no (unknown) (unknown) Blood Pressure 148/67 H ( units (unknown) date) 06/25/22 14:01 unknown) (unknown) (no (unknown) (unknown) Blood Pressure 148/67 H ( units (unknown) date) 150/72 H unknown) (unknown) (no (unknown) (unknown) Cervical strain, Strain ( units (unknown) date) of hamstring muscle unknown) (unknown) (no (unknown) (unknown) Chief complaint: (units (unknown) date) Extremity unknown) Problem,Nontraumatic (unknown) (no (unknown) (unknown) Clinical Impression: (uni ts (unknown) date) unknown) (unknown) (no (unknown) (unknown) Constipation (units (u nknown) date) unknown) (unknown) (no (unknown) (unknown) Constitutional (units (unknown) date) unknown) (unknown) (no (unknown) (unknown) Constitutional: Reports ( units (unknown) date) system reviewed and no unknown ) additional complaints, except as (unknown) (no (unknown) (unknown) Course (units (unkno wn) date) unknown) (unknown) (no (unknown) (unknown) : 1950 (units (unknown) date) Acct:[id number] unknown) (unknown) (no (unknown) (unknown) Date of Service: (units (unknown) date) 06/25/22 unknown) (unknown) (no (unknown) (unknown) Departure (units (unkn own) date) unknown) (unknown) (no (unknown) (unknown) Differential diagnosis (u nits (unknown) date) includes pulled muscles, unkno wn) lumbar radiculopathy, DVT, (unknown) (no (unknown) (unknown) Discharge Plan (units (unknown) date) unknown) (unknown) (no (unknown) (unknown) Discomfort with (units (unknown) date) palpation of bilateral unknown ) calf muscles from about the mid calf up (unknown) (no (unknown) (unknown) Doesn't take regularly (u nits (unknown) date) unknown) (unknown) (no (unknown) (unknown) ER Physician: (units ( unknown) date) Kel Coello D.O. unknown) (unknown) (no (unknown) (unknown) Effort + Inspection: (uni ts (unknown) date) normal respiratory unknown) effort (unknown) (no (unknown) (unknown) Emergency Report (units (unknown) date) unknown) (unknown) (no (unknown) (unknown) Exam (units (unkno wn) date) unknown) (unknown) (no (unknown) (unknown) Extrem (units (unkno wn) date) unknown) (unknown) (no (unknown) (unknown) Elmer Naylor, (u nits (unknown) date) [Primary Care unknown) Provider] (unknown) (no (unknown) (unknown) GERD (gastroesophageal (u nits (unknown) date) reflux disease) unknown) (unknown) (no (unknown) (unknown) General (units (unkno wn) date) unknown) (unknown) (no (unknown) (unknown) General: no rashes or (un its (unknown) date) lesions noted unknown) (unknown) (no (unknown) (unknown) Genitourinary (units ( unknown) date) unknown) (unknown) (no (unknown) (unknown) Genitourinary: Reports (u nits (unknown) date) system reviewed and no unknown ) additional complaints, except as (unknown) (no (unknown) (unknown) HPI - Extremity Problem ( units (unknown) date) unknown) (unknown) (no (unknown) (unknown) HPI Narrative: (units (unknown) date) unknown) (unknown) (no (unknown) (unknown) HTN (hypertension) (units (unknown) date) unknown) (unknown) (no (unknown) (unknown) He was given return (unit s (unknown) date) precautions. He unknown) expressed understanding and agreement. (unknown) (no (unknown) (unknown) Heart failure (units ( unknown) date) unknown) (unknown) (no (unknown) (unknown) History of Present (units (unknown) date) Illness unknown) (unknown) (no (unknown) (unknown) Home Medications (units (unknown) date) unknown) (unknown) (no (unknown) (unknown) Hypercholesteremia (units (unknown) date) unknown) (unknown) (no (unknown) (unknown) Initial Vital Signs (unit s (unknown) date) unknown) (unknown) (no (unknown) (unknown) Initial Vital Signs: (uni ts (unknown) date) unknown) (unknown) (no (unknown) (unknown) Instructions: DI for (uni ts (unknown) date) Muscle Strain unknown) (unknown) (no (unknown) (unknown) Integumentary/Breasts (un its (unknown) date) unknown) (unknown) (no (unknown) (unknown) [facility] [address] (uni ts (unknown) date) [address] [place], unknown ) [place] [id number] (unknown) (no (unknown) (unknown) Knee pain (units (unkn own) date) unknown) (unknown) (no (unknown) (unknown) Label Comments: (units (unknown) date) unknown) (unknown) (no (unknown) (unknown) Limitations: no (units (unknown) date) limitations unknown) (unknown) (no (unknown) (unknown) MDM - Extremity (units (unknown) date) (Nontraumatic) unknown) (unknown) (no (unknown) (unknown) MDM Narrative (units ( unknown) date) unknown) (unknown) (no (unknown) (unknown) Medical History (units (unknown) date) (Reviewed 06/25/22 @ unknown) 19:07 by Kel Coello DO) (unknown) (no (unknown) (unknown) Medical decision making ( units (unknown) date) narrative: unknown) (unknown) (no (unknown) (unknown) Medication Instructions ( units (unknown) date) Recorded Confirmed unknown) (unknown) (no (unknown) (unknown) Medication Instructions ( units (unknown) date) Recorded unknown) (unknown) (no (unknown) (unknown) [facility] [place] [facility] [place] per your request. One of the (unknown) (no (unknown) (unknown) Mode of arrival: (units (unknown) date) Wheelchair unknown) (unknown) (no (unknown) (unknown) Musculoskeletal (units (unknown) date) unknown) (unknown) (no (unknown) (unknown) Musculoskeletal: Reports ( units (unknown) date) system reviewed and no unknown ) additional complaints, except as (unknown) (no (unknown) (unknown) Neuro (units (unkno wn) date) unknown) (unknown) (no (unknown) (unknown) Neurologic (units (unk nown) date) unknown) (unknown) (no (unknown) (unknown) Neurologic: Reports (unit s (unknown) date) system reviewed and no unknown ) additional complaints, except as (unknown) (no (unknown) (unknown) New (units (unkno wn) date) unknown) (unknown) (no (unknown) (unknown) No Action (units (unkn own) date) unknown) (unknown) (no (unknown) (unknown) Other: (units (unkno wn) date) unknown) (unknown) (no (unknown) (unknown) Oxygen Delivery Method (u nits (unknown) date) 06/25/22 14:01 unknown) (unknown) (no (unknown) (unknown) Oxygen Delivery Method (u nits (unknown) date) Room Air Room Air unknown) (unknown) (no (unknown) (unknown) Ozempic 0.25 mg or 0.5 (u nits (unknown) date) mg(2 mg/1.5 mL) Pen unknown) Injector (unknown) (no (unknown) (unknown) Patient Disposition: (uni ts (unknown) date) Home unknown) (unknown) (no (unknown) (unknown) Patient History (units (unknown) date) unknown) (unknown) (no (unknown) (unknown) Patient: (units (unkno wn) date) Gabriel Chavez MR#: M unkno wn) (unknown) (no (unknown) (unknown) Per Pt. Takes 35units (un its (unknown) date) left side ABD and the unknown) 0ther 35units on rt side (unknown) (no (unknown) (unknown) Prescriptions: (units (unknown) date) unknown) (unknown) (no (unknown) (unknown) Previous Rx's (units ( unknown) date) unknown) (unknown) (no (unknown) (unknown) Pulse Oximetry 99 (units (unknown) date) 06/25/22 14:01 unknown) (unknown) (no (unknown) (unknown) Pulse Oximetry 99 98 (uni ts (unknown) date) unknown) (unknown) (no (unknown) (unknown) Pulse Rate 77 06/25/22 (u nits (unknown) date) 14:01 unknown) (unknown) (no (unknown) (unknown) Pulse Rate 77 71 (units (unknown) date) unknown) (unknown) (no (unknown) (unknown) Referrals: (units (unk nown) date) unknown) (unknown) (no (unknown) (unknown) Related Data (units (u nknown) date) unknown) (unknown) (no (unknown) (unknown) Renal disease (units ( unknown) date) unknown) (unknown) (no (unknown) (unknown) Resp (units (unkno wn) date) unknown) (unknown) (no (unknown) (unknown) Respiratory Rate 17 (unit s (unknown) date) 06/25/22 14:01 unknown) (unknown) (no (unknown) (unknown) Respiratory Rate 17 18 (u nits (unknown) date) unknown) (unknown) (no (unknown) (unknown) Review of Systems (units (unknown) date) unknown) (unknown) (no (unknown) (unknown) Rx Instructions: (units (unknown) date) unknown) (unknown) (no (unknown) (unknown) See Rx Instructions (unit s (unknown) date) .ROUTE .COMPLEX unknown) (unknown) (no (unknown) (unknown) Sensory Exam: no (units (unknown) date) sensory deficits noted unknown ) (unknown) (no (unknown) (unknown) Signed By: (units (unk nown) date) unknown) (unknown) (no (unknown) (unknown) Skin (units (unkno wn) date) unknown) (unknown) (no (unknown) (unknown) Skin/Breast: Reports (uni ts (unknown) date) system reviewed and no unknown ) additional complaints, except as (unknown) (no (unknown) (unknown) Smoking Status: Former (u nits (unknown) date) smoker unknown) (unknown) (no (unknown) (unknown) Social History (units (unknown) date) (Reviewed 06/25/22 @ unknown) 19:07 by Kel Coello DO) (unknown) (no (unknown) (unknown) Source: patient (units (unknown) date) unknown) (unknown) (no (unknown) (unknown) Stand Alone Forms: (units (unknown) date) Patient Portal/API unknown) (unknown) (no (unknown) (unknown) Stated complaint: knees ( units (unknown) date) 'burning' mid thigh unknown) down/back of head RT ulysses (unknown) (no (unknown) (unknown) Substance Use Type: (unit s (unknown) date) does not use unknown) (unknown) (no (unknown) (unknown) Takes every Wednesday. (u nits (unknown) date) Per Pt 08/23/21 unknown) (unknown) (no (unknown) (unknown) Temperature 97.8 F (units (unknown) date) 06/25/22 14:01 unknown) (unknown) (no (unknown) (unknown) Temperature 97.8 F (units (unknown) date) unknown) (unknown) (no (unknown) (unknown) Tenderness along the (uni ts (unknown) date) trapezius/levator unknown) scapula and also occipital muscle (unknown) (no (unknown) (unknown) The above doses per (unit s (unknown) date) Gabriel today 08/23/21 unknown ) at approx 1535. (unknown) (no (unknown) (unknown) Time Seen by Provider: (u nits (unknown) date) 06/25/22 18:10 unknown) (unknown) (no (unknown) (unknown) Vital Signs - 8 hr (units (unknown) date) unknown) (unknown) (no (unknown) (unknown) Vital Signs (units (un known) date) unknown) (unknown) (no (unknown) (unknown) Vital signs: (units (u nknown) date) unknown) (unknown) (no (unknown) (unknown) a couple weeks ago he (un its (unknown) date) fell while getting out unknown ) of his truck. He states he (unknown) (no (unknown) (unknown) alcohol intake (units (unknown) date) frequency: 0-2 drinks unknown) per day (unknown) (no (unknown) (unknown) alcohol intake: former (u nits (unknown) date) unknown) (unknown) (no (unknown) (unknown) allopurinol 300 MG (units (unknown) date) tablet unknown) (unknown) (no (unknown) (unknown) allopurinol 300 mg (units (unknown) date) tablet 300 mg PO DAILY unknown ) ##0 12/17/16 08/23/21 (unknown) (no (unknown) (unknown) artificial 1 spray PO (un its (unknown) date) PRN PRN Dry Mouth unknown) 11/24/18 08/23/21 (unknown) (no (unknown) (unknown) artificial saliva (units (unknown) date) (cmce-lytes) [place] With unknow n) Pump (unknown) (no (unknown) (unknown) atorvastatin 20 mg (units (unknown) date) tablet 20 mg PO DAILY unknown) 08/04/21 08/23/21 (unknown) (no (unknown) (unknown) atorvastatin 20 mg (units (unknown) date) tablet unknown) (unknown) (no (unknown) (unknown) because several weeks (un its (unknown) date) of right-sided upper unknown) back pain that has been (unknown) (no (unknown) (unknown) bumetanide 2 mg tablet (u nits (unknown) date) 2 mg PO BID 11/24/18 unknown) 08/23/21 (unknown) (no (unknown) (unknown) bumetanide 2 mg tablet (u nits (unknown) date) unknown) (unknown) (no (unknown) (unknown) burning sensation. (units (unknown) date) unknown) (unknown) (no (unknown) (unknown) capsaicin 0.025 % cream ( units (unknown) date) unknown) (unknown) (no (unknown) (unknown) capsaicin 0.025 % (units (unknown) date) topical cream 1 applic unknown ) topical PRN PRN pain 11/24/18 08/23/21 (unknown) (no (unknown) (unknown) capsule,biphase delayed ( units (unknown) date) release unknown) (unknown) (no (unknown) (unknown) carboxymethylcell-glyce ( units (unknown) date) rin(PF) 0.5-0.9 % unknown) Dropperette (unknown) (no (unknown) (unknown) carboxymethylcellulose (u nits (unknown) date) 0.5 1 applic ophthalmic unknow n) (eye) QID 11/24/18 08/23/21 (unknown) (no (unknown) (unknown) cellulitis, vasculitis, (u nits (unknown) date) cervical fracture, unknown) cervical muscle strain, headache, and (unknown) (no (unknown) (unknown) chlorhexidine gluconate ( units (unknown) date) 0.12 % 15 ml mucous unknown) membrane BID 01/23/19 08/23/21 (unknown) (no (unknown) (unknown) chlorhexidine gluconate ( units (unknown) date) 0.12 % Mouthwash unknown) (unknown) (no (unknown) (unknown) chlorhexidine gluconate ( units (unknown) date) 4 % 1 applic topical unknown) DAILY 01/23/19 08/23/21 (unknown) (no (unknown) (unknown) chlorhexidine gluconate ( units (unknown) date) 4 % Liquid unknown) (unknown) (no (unknown) (unknown) cholecalciferol (units (unknown) date) (vitamin D3) 1,000 unit unknow n) capsule (unknown) (no (unknown) (unknown) cholecalciferol (units (unknown) date) (vitamin D3) 25 2,000 unknown) unit PO DAILY 11/24/18 08/23/21 (unknown) (no (unknown) (unknown) cream (units (unkno wn) date) unknown) (unknown) (no (unknown) (unknown) cyclobenzaprine 10 mg (un its (unknown) date) tablet 10 mg PO TID PRN unknow n) muscle spasm #10 11/22/21 (unknown) (no (unknown) (unknown) cyclobenzaprine 10 mg (un its (unknown) date) tablet 10 mg PO TID PRN unknow n) muscle spasm #21 06/25/22 (unknown) (no (unknown) (unknown) cyclobenzaprine 10 mg (un its (unknown) date) tablet 10 mg PO TID PRN unknow n) muscle spasm #30 01/23/19 (unknown) (no (unknown) (unknown) cyclobenzaprine 10 mg (un its (unknown) date) tablet unknown) (unknown) (no (unknown) (unknown) dexlansoprazole 60 mg (un its (unknown) date) 60 mg PO DAILY 11/24/18 unknow n) 08/23/21 (unknown) (no (unknown) (unknown) dexlansoprazole 60 mg (un its (unknown) date) capsule,biphase delayed unknow n) releas (unknown) (no (unknown) (unknown) diclofenac sodium 1 % (un its (unknown) date) topical gel 1 scottie unknown) topical Q4H PRN 12/17/16 08/23/21 (unknown) (no (unknown) (unknown) diclofenac sodium (units (unknown) date) [Voltaren] 1 % gel unknown) (unknown) (no (unknown) (unknown) doctor regarding this. (u nits (unknown) date) The medications were unknown) sent to the pharmacy of his choice. (unknown) (no (unknown) (unknown) documented (units (unk nown) date) unknown) (unknown) (no (unknown) (unknown) does radiate up to the (u nits (unknown) date) back of his head. It unknown) hurts when he moves his head. He (unknown) (no (unknown) (unknown) doxazosin 8 mg tablet (un its (unknown) date) (Cardura) 8 mg PO unknown) BEDTIME ##0 12/17/16 08/23/21 (unknown) (no (unknown) (unknown) doxazosin [Cardura] 8 (un its (unknown) date) MG tablet unknown) (unknown) (no (unknown) (unknown) drink for at least one (u nits (unknown) date) hour after use. unknown) (unknown) (no (unknown) (unknown) drops,dropperette (units (unknown) date) unknown) (unknown) (no (unknown) (unknown) ea (units (unkno wn) date) unknown) (unknown) (no (unknown) (unknown) fexofenadine 180 mg (unit s (unknown) date) tablet 180 mg PO DAILY unknown ) 11/24/18 08/23/21 (unknown) (no (unknown) (unknown) fexofenadine 180 mg (unit s (unknown) date) tablet unknown) (unknown) (no (unknown) (unknown) fluoride (sodium) 1.1 % ( units (unknown) date) cream unknown) (unknown) (no (unknown) (unknown) fluoride (sodium) 1.1 % ( units (unknown) date) dental 1 applic dental unknown ) DIRECTED 11/24/18 08/23/21 (unknown) (no (unknown) (unknown) fractures. He does take ( units (unknown) date) oxycodone at home but he unkno wn) does not have any of his (unknown) (no (unknown) (unknown) gabapentin Allergy (units (unknown) date) Verified 06/25/22 14:01 unknow n) (unknown) (no (unknown) (unknown) gram/dose oral powder (un its (unknown) date) (Miralax) unknown) (unknown) (no (unknown) (unknown) hamstrings down to his (u nits (unknown) date) mid calf region. It is unknown ) now constant as well. It is a (unknown) (no (unknown) (unknown) hamstrings. (units (un known) date) unknown) (unknown) (no (unknown) (unknown) has been taking his (unit s (unknown) date) medications at home as unknown ) prescribed. He is also here because (unknown) (no (unknown) (unknown) hasn't used for a (units (unknown) date) couple months unknown) (unknown) (no (unknown) (unknown) hasn't used in 'months' ( units (unknown) date) unknown) (unknown) (no (unknown) (unknown) have a very high (units (unknown) date) suspicion this is unknown) musculoskeletal in origin. There is no (unknown) (no (unknown) (unknown) he can take prednisone (u nits (unknown) date) for a very short period unknow n) of time swallowing put him on (unknown) (no (unknown) (unknown) household members: (units (unknown) date) spouse unknown) (unknown) (no (unknown) (unknown) hydrocodone 5 (units ( unknown) date) mg-acetaminophen 325 1 unknown ) tab PO BID PRN pain #10 tabs 07/03/21 (unknown) (no (unknown) (unknown) hydrocodone 5 (units ( unknown) date) mg-acetaminophen 325 1 unknown ) tab PO Q6H PRN pain #10 tabs 11/22/21 (unknown) (no (unknown) (unknown) hydrocodone-acetaminoph ( units (unknown) date) en 5-325 mg tablet unknown) (unknown) (no (unknown) (unknown) hyperextended his lower ( units (unknown) date) legs and since that time unkno wn) has had pain from his mid (unknown) (no (unknown) (unknown) indication for any (units (unknown) date) radiologic studies. unknown) Patient is diabetic although he states (unknown) (no (unknown) (unknown) injector (Ozempic) (units (unknown) date) unknown) (unknown) (no (unknown) (unknown) insulin aspart U-100 (uni ts (unknown) date) 100 unit/mL See Rx unknown) Instructions .Route .COMPLEX 11/24/18 (unknown) (no (unknown) (unknown) insulin aspart U-100 (uni ts (unknown) date) 100 unit/mL Solution unknown) (unknown) (no (unknown) (unknown) insulin glargine 100 (uni ts (unknown) date) unit/mL 70 unit SUBCUT unknown ) QAM 01/23/19 08/23/21 (unknown) (no (unknown) (unknown) insulin glargine 100 (uni ts (unknown) date) unit/mL Solution unknown) (unknown) (no (unknown) (unknown) ipratropium 0.5 (units (unknown) date) mg-albuterol 3 mg 1 ea unknown ) inhalation DIRECTED 01/23/19 08/23/21 (unknown) (no (unknown) (unknown) ipratropium-albuterol (un its (unknown) date) 0.5 mg-3 mg(2.5 mg unknown) base)/3 mL Solution For Nebulization (unknown) (no (unknown) (unknown) leave on most painful (un its (unknown) date) area for up to 12 hrs unknown) (unknown) (no (unknown) (unknown) lidocaine 5 % adhesive (u nits (unknown) date) patch,medicated unknown) (unknown) (no (unknown) (unknown) lidocaine 5 % topical (un its (unknown) date) patch 1 patch topical unknown) DAILY PRN pain #15 06/23/20 (unknown) (no (unknown) (unknown) lives independently: (uni ts (unknown) date) Yes unknown) (unknown) (no (unknown) (unknown) losartan 25 mg tablet (un its (unknown) date) 25 mg PO DAILY 08/04/21 unknow n) 08/23/21 (unknown) (no (unknown) (unknown) losartan 25 mg tablet (un its (unknown) date) unknown) (unknown) (no (unknown) (unknown) marital status: ( units (unknown) date) unknown) (unknown) (no (unknown) (unknown) mcg (1,000 unit) (units (unknown) date) capsule unknown) (unknown) (no (unknown) (unknown) medication at home and (u nits (unknown) date) I told him that he unknown) needed to follow-up with his primary (unknown) (no (unknown) (unknown) medications is a (units (unknown) date) steroid that can unknown) increase your blood sugars so make sure that (unknown) (no (unknown) (unknown) methocarbamol 500 mg (uni ts (unknown) date) tablet 500 mg PO TID PRN unkno wn) muscle spasm #20 07/03/21 (unknown) (no (unknown) (unknown) methocarbamol 500 mg (uni ts (unknown) date) tablet unknown) (unknown) (no (unknown) (unknown) mg tablet (units (unkn own) date) unknown) (unknown) (no (unknown) (unknown) mg/1.5 mL) subcutaneous ( units (unknown) date) pen unknown) (unknown) (no (unknown) (unknown) mouthwash (units (unkn own) date) unknown) (unknown) (no (unknown) (unknown) multivitamin with (units (unknown) date) minerals 1 cap PO DAILY unknow n) 11/24/18 08/23/21 (unknown) (no (unknown) (unknown) multivitamin with (units (unknown) date) minerals Capsule unknown) (unknown) (no (unknown) (unknown) others. Patient's (units (unknown) date) symptoms been going on unknown ) for the past several days/weeks. I (unknown) (no (unknown) (unknown) oxycodone 5 mg tablet 5 ( units (unknown) date) mg PO Q6H PRN pain #14 unknown ) tabs 08/24/21 (unknown) (no (unknown) (unknown) oxycodone 5 mg tablet (un its (unknown) date) unknown) (unknown) (no (unknown) (unknown) per Pt at approx 1535 (un its (unknown) date) 08/23/21 unknown) (unknown) (no (unknown) (unknown) physical exam was not (un its (unknown) date) consistent with a DVT. I unkno wn) have low suspicion for (unknown) (no (unknown) (unknown) polyethylene glycol (unit s (unknown) date) 3350 17 17 gm PO QDAYP unknown ) constipation ##0 12/31/12 08/23/21 (unknown) (no (unknown) (unknown) polyethylene glycol (unit s (unknown) date) 3350 [Miralax] 119 GM unknown) powder (unknown) (no (unknown) (unknown) prednisone 20 mg tablet ( units (unknown) date) 20 mg PO DAILY #3 tabs unknown ) 06/25/22 (unknown) (no (unknown) (unknown) prednisone 20 mg tablet ( units (unknown) date) unknown) (unknown) (no (unknown) (unknown) prednisone for the next ( units (unknown) date) 3 days. I also feel the unknow n) muscle relaxers will be helpful (unknown) (no (unknown) (unknown) pregabalin 75 mg (units (unknown) date) capsule 75 mg PO BID unknown) 11/24/18 08/23/21 (unknown) (no (unknown) (unknown) pregabalin 75 mg (units (unknown) date) capsule unknown) (unknown) (no (unknown) (unknown) release 24 hr (units ( unknown) date) unknown) (unknown) (no (unknown) (unknown) saliva(carboxymethylcel ( units (unknown) date) lulose-electrolytes) unknown) (unknown) (no (unknown) (unknown) semaglutide 0.25 mg or (u nits (unknown) date) 0.5 mg (2 1 mg SUBCUT unknown) QWEEK 08/04/21 08/23/21 (unknown) (no (unknown) (unknown) sennosides 8.6 (units (unknown) date) mg-docusate sodium 2 tab unkno wn) PO DAILY 01/23/19 08/23/21 (unknown) (no (unknown) (unknown) sennosides-docusate (unit s (unknown) date) sodium 8.6-50 mg Tablet unknow n) (unknown) (no (unknown) (unknown) sildenafil 100 mg (units (unknown) date) tablet (Viagra) 100 mg unknown ) PO PRN PRN Sexual Activity 12/17/16 (unknown) (no (unknown) (unknown) sildenafil [Viagra] 100 ( units (unknown) date) MG tablet unknown) (unknown) (no (unknown) (unknown) soln (units (unkno wn) date) unknown) (unknown) (no (unknown) (unknown) specific on the right (un its (unknown) date) side of his cervical unknown) region. (unknown) (no (unknown) (unknown) specifically with his (un its (unknown) date) cervical muscle injury. unknow n) Reassured the patient that his (unknown) (no (unknown) (unknown) spironolactone 25 mg (uni ts (unknown) date) tablet 25 mg PO BID unknown) 11/24/18 08/23/21 (unknown) (no (unknown) (unknown) spironolactone 25 mg (uni ts (unknown) date) tablet unknown) (unknown) (no (unknown) (unknown) spray pump (units (unk nown) date) unknown) (unknown) (no (unknown) (unknown) subcutaneous solution (un its (unknown) date) unknown) (unknown) (no (unknown) (unknown) swish for 30 seconds (uni ts (unknown) date) and spit. after unknown) breakfast and at bedtime. do not eat or (unknown) (no (unknown) (unknown) tabs (units (unkno wn) date) unknown) (unknown) (no (unknown) (unknown) the posterior portion (un its (unknown) date) of the calf muscles past unkno wn) the knee to bilateral medial (unknown) (no (unknown) (unknown) to bumps on back of (unit s (unknown) date) head unknown) (unknown) (no (unknown) (unknown) tobacco type: (units ( unknown) date) cigarettes unknown) (unknown) (no (unknown) (unknown) tolterodine 4 mg (units (unknown) date) capsule,extended 4 mg PO unkno wn) DAILY 11/24/18 08/23/21 (unknown) (no (unknown) (unknown) tolterodine 4 mg (units (unknown) date) capsule,extended release unkno wn) 24hr (unknown) (no (unknown) (unknown) topical liquid (units (unknown) date) unknown) (unknown) (no (unknown) (unknown) total dose 1.5mg (units (unknown) date) unknown) (unknown) (no (unknown) (unknown) tramadol 50 mg tablet (un its (unknown) date) 50 mg PO Q6H PRN pain unknown) #12 tabs 06/25/22 (unknown) (no (unknown) (unknown) tramadol 50 mg tablet (un its (unknown) date) 50 mg PO Q8H PRN pain #7 unkno wn) tabs 01/23/19 (unknown) (no (unknown) (unknown) tramadol 50 mg tablet (un its (unknown) date) unknown) (unknown) (no (unknown) (unknown) up. (units (unkno wn) date) unknown) (unknown) (no (unknown) (unknown) vitamin B complex 1 tab ( units (unknown) date) PO DAILY 11/24/18 unknown) 08/23/21 (unknown) (no (unknown) (unknown) vitamin B complex (units (unknown) date) Tablet unknown) (unknown) (no (unknown) (unknown) worsening/constant over ( units (unknown) date) the past 3 days. No unknown) specific injury. He states that it (unknown) (no (unknown) (unknown) you adjust your insulin ( units (unknown) date) accordingly. Contact unknown) your primary doctor for a follow Result panel 543 (unknown) (no (unknown) (unknown) (no value) (units (unk nown) date) unknown) (unknown) (no (unknown) (unknown) ##0 (units (unkno wn) date) unknown) (unknown) (no (unknown) (unknown) %-glycerin 0.9 % (PF) (un its (unknown) date) eye unknown) (unknown) (no (unknown) (unknown) (2.5 mg base)/3 mL (units (unknown) date) nebulization unknown) (unknown) (no (unknown) (unknown) (Voltaren) (units (unk nown) date) osteoarthritis ##0 unknown) (unknown) (no (unknown) (unknown) [id number] (units (unkn own) date) unknown) (unknown) (no (unknown) (unknown) 07/03/22 (units (unkno wn) date) unknown) (unknown) (no (unknown) (unknown) 08/23/21 (units (unkno wn) date) unknown) (unknown) (no (unknown) (unknown) 1 scottie Topical Q4H MDD (un its (unknown) date) 16 G (4 doses) PRN unknown) (Reason: osteoarthritis) Qty: 0 (unknown) (no (unknown) (unknown) 1 applic TOPICAL DAILY (u nits (unknown) date) unknown) (unknown) (no (unknown) (unknown) 1 applic dental (units (unknown) date) DIRECTED unknown) (unknown) (no (unknown) (unknown) 1 applic ophthalmic (unit s (unknown) date) (eye) QID unknown) (unknown) (no (unknown) (unknown) 1 applic topical PRN (uni ts (unknown) date) PRN (Reason: pain) unknown) (unknown) (no (unknown) (unknown) 1 cap PO DAILY (units (unknown) date) unknown) (unknown) (no (unknown) (unknown) 1 dose subcutaneously (un its (unknown) date) ;24 ac breakfast, 24 at unknow n) noon, 24 at bedtime. (unknown) (no (unknown) (unknown) 1 ea inhalation (units (unknown) date) DIRECTED unknown) (unknown) (no (unknown) (unknown) 1 mg SUBCUT QWEEK (units (unknown) date) unknown) (unknown) (no (unknown) (unknown) 1 patch topical DAILY (un its (unknown) date) PRN (Reason: pain) Qty: unknow n) 15 0RF (unknown) (no (unknown) (unknown) 1 spray PO PRN PRN (units (unknown) date) (Reason: Dry Mouth) unknown) (unknown) (no (unknown) (unknown) 1 tab PO BID PRN (units (unknown) date) (Reason: pain) Qty: 10 unknown ) 0RF (unknown) (no (unknown) (unknown) 1 tab PO DAILY (units (unknown) date) unknown) (unknown) (no (unknown) (unknown) 1 tab PO Q6H PRN (units (unknown) date) (Reason: pain) Qty: 10 unknown ) 0RF (unknown) (no (unknown) (unknown) 10 mg PO TID PRN (units (unknown) date) (Reason: muscle spasm) unknown ) Qty: 10 0RF (unknown) (no (unknown) (unknown) 10 mg PO TID PRN (units (unknown) date) (Reason: muscle spasm) unknown ) Qty: 21 0RF (unknown) (no (unknown) (unknown) 10 mg PO TID PRN (units (unknown) date) (Reason: muscle spasm) unknown ) Qty: 30 0RF (unknown) (no (unknown) (unknown) 100 mg PO PRN MDD 100 (un its (unknown) date) mg PRN (Reason: Sexual unknown ) Activity) Qty: 0 (unknown) (no (unknown) (unknown) 15 ml MUCOUS MEMBRANE (un its (unknown) date) BID unknown) (unknown) (no (unknown) (unknown) 17 gm PO QDAYP Qty: 0 (un its (unknown) date) unknown) (unknown) (no (unknown) (unknown) 180 mg PO DAILY (units (unknown) date) unknown) (unknown) (no (unknown) (unknown) 2 mg PO BID (units (un known) date) unknown) (unknown) (no (unknown) (unknown) 2 tab PO DAILY (units (unknown) date) unknown) (unknown) (no (unknown) (unknown) 2,000 unit PO DAILY (unit s (unknown) date) unknown) (unknown) (no (unknown) (unknown) 20 mg PO DAILY Qty: 3 (un its (unknown) date) 0RF unknown) (unknown) (no (unknown) (unknown) 20 mg PO DAILY (units (unknown) date) unknown) (unknown) (no (unknown) (unknown) 20:29 (units (unkno wn) date) unknown) (unknown) (no (unknown) (unknown) 25 mg PO BID (units (u nknown) date) unknown) (unknown) (no (unknown) (unknown) 25 mg PO DAILY (units (unknown) date) unknown) (unknown) (no (unknown) (unknown) 300 mg PO DAILY Qty: 0 (u nits (unknown) date) unknown) (unknown) (no (unknown) (unknown) 4 mg PO DAILY (units ( unknown) date) unknown) (unknown) (no (unknown) (unknown) 5 mg PO Q6H PRN (units (unknown) date) (Reason: pain) Qty: 14 unknown ) 0RF (unknown) (no (unknown) (unknown) 50 mg PO Q6H PRN (units (unknown) date) (Reason: pain) Qty: 12 unknown ) 0RF (unknown) (no (unknown) (unknown) 50 mg PO Q8H PRN (units (unknown) date) (Reason: pain) Qty: 7 unknown) 0RF (unknown) (no (unknown) (unknown) 50 mg tablet (units (u nknown) date) unknown) (unknown) (no (unknown) (unknown) 500 mg PO TID PRN (units (unknown) date) (Reason: muscle spasm) unknown ) Qty: 20 0RF (unknown) (no (unknown) (unknown) 60 mg PO DAILY (units (unknown) date) unknown) (unknown) (no (unknown) (unknown) 70 unit SUBCUT QAM (units (unknown) date) unknown) (unknown) (no (unknown) (unknown) 75 mg PO BID (units (u nknown) date) unknown) (unknown) (no (unknown) (unknown) 8 mg PO BEDTIME Qty: 0 (u nits (unknown) date) unknown) (unknown) (no (unknown) (unknown) Age/Sex: 72 / M (units (unknown) date) unknown) (unknown) (no (unknown) (unknown) Allergies (units (unkn own) date) unknown) (unknown) (no (unknown) (unknown) Allergy/AdvReac Type (uni ts (unknown) date) Severity Reaction Status unkno wn) Date / Time (unknown) (no (unknown) (unknown) Blood Pressure 164/70 H ( units (unknown) date) 07/03/22 20:29 unknown) (unknown) (no (unknown) (unknown) Blood Pressure 164/70 H ( units (unknown) date) unknown) (unknown) (no (unknown) (unknown) Chief complaint: (units (unknown) date) Extremity unknown) Problem,Nontraumatic (unknown) (no (unknown) (unknown) Constipation (units (u nknown) date) unknown) (unknown) (no (unknown) (unknown) Course (units (unkno wn) date) unknown) (unknown) (no (unknown) (unknown) : 1950 (units (unknown) date) Acct:[id number] unknown) (unknown) (no (unknown) (unknown) Date of Service: (units (unknown) date) 07/03/22 unknown) (unknown) (no (unknown) (unknown) Departure (units (unkn own) date) unknown) (unknown) (no (unknown) (unknown) Discharge Plan (units (unknown) date) unknown) (unknown) (no (unknown) (unknown) Doesn't take regularly (u nits (unknown) date) unknown) (unknown) (no (unknown) (unknown) ER Physician: (units ( unknown) date) Kel Coello D.O. unknown) (unknown) (no (unknown) (unknown) Emergency Report (units (unknown) date) unknown) (unknown) (no (unknown) (unknown) Exam (units (unkno wn) date) unknown) (unknown) (no (unknown) (unknown) Elmer Naylor, (u nits (unknown) date) [Primary Care unknown) Provider] (unknown) (no (unknown) (unknown) GERD (gastroesophageal (u nits (unknown) date) reflux disease) unknown) (unknown) (no (unknown) (unknown) General (units (unkno wn) date) unknown) (unknown) (no (unknown) (unknown) HPI - Extremity Problem ( units (unknown) date) unknown) (unknown) (no (unknown) (unknown) HTN (hypertension) (units (unknown) date) unknown) (unknown) (no (unknown) (unknown) Heart failure (units ( unknown) date) unknown) (unknown) (no (unknown) (unknown) Home Medications (units (unknown) date) unknown) (unknown) (no (unknown) (unknown) Hypercholesteremia (units (unknown) date) unknown) (unknown) (no (unknown) (unknown) Initial Vital Signs (unit s (unknown) date) unknown) (unknown) (no (unknown) (unknown) Initial Vital Signs: (uni ts (unknown) date) unknown) (unknown) (no (unknown) (unknown) [facility] [address] (uni ts (unknown) date) [address] [place] [address] [place], unknown ) [place] [id number] (unknown) (no (unknown) (unknown) Knee pain (units (unkn own) date) unknown) (unknown) (no (unknown) (unknown) Label Comments: (units (unknown) date) unknown) (unknown) (no (unknown) (unknown) Medical History (units (unknown) date) (Reviewed 06/25/22 @ unknown) 19:07 by Kel Coello DO) (unknown) (no (unknown) (unknown) Medication Instructions ( units (unknown) date) Recorded Confirmed unknown) (unknown) (no (unknown) (unknown) Medication Instructions ( units (unknown) date) Recorded unknown) (unknown) (no (unknown) (unknown) Mode of arrival: (units (unknown) date) Wheelchair unknown) (unknown) (no (unknown) (unknown) No Action (units (unkn own) date) unknown) (unknown) (no (unknown) (unknown) Oxygen Delivery Method (u nits (unknown) date) 07/03/22 20:29 unknown) (unknown) (no (unknown) (unknown) Oxygen Delivery Method (u nits (unknown) date) Room Air unknown) (unknown) (no (unknown) (unknown) Ozempic 0.25 mg or 0.5 (u nits (unknown) date) mg(2 mg/1.5 mL) Pen unknown) Injector (unknown) (no (unknown) (unknown) Patient History (units (unknown) date) unknown) (unknown) (no (unknown) (unknown) Patient: (units (unkno wn) date) Gabriel Chavez MR#: M unkno wn) (unknown) (no (unknown) (unknown) Per Pt. Takes 35units (un its (unknown) date) left side ABD and the unknown) 0ther 35units on rt side (unknown) (no (unknown) (unknown) Prescriptions: (units (unknown) date) unknown) (unknown) (no (unknown) (unknown) Previous Rx's (units ( unknown) date) unknown) (unknown) (no (unknown) (unknown) Pulse Oximetry 99 (units (unknown) date) 07/03/22 20:29 unknown) (unknown) (no (unknown) (unknown) Pulse Oximetry 99 (units (unknown) date) unknown) (unknown) (no (unknown) (unknown) Pulse Rate 96 H (units (unknown) date) 07/03/22 20:29 unknown) (unknown) (no (unknown) (unknown) Pulse Rate 96 H (units (unknown) date) unknown) (unknown) (no (unknown) (unknown) Referrals: (units (unk nown) date) unknown) (unknown) (no (unknown) (unknown) Related Data (units (u nknown) date) unknown) (unknown) (no (unknown) (unknown) Renal disease (units ( unknown) date) unknown) (unknown) (no (unknown) (unknown) Respiratory Rate 20 (unit s (unknown) date) 07/03/22 20:29 unknown) (unknown) (no (unknown) (unknown) Respiratory Rate 20 (unit s (unknown) date) unknown) (unknown) (no (unknown) (unknown) Rx Instructions: (units (unknown) date) unknown) (unknown) (no (unknown) (unknown) See Rx Instructions (unit s (unknown) date) .ROUTE .COMPLEX unknown) (unknown) (no (unknown) (unknown) Signed By: (units (unk nown) date) unknown) (unknown) (no (unknown) (unknown) Smoking Status: Former (u nits (unknown) date) smoker unknown) (unknown) (no (unknown) (unknown) Social History (units (unknown) date) (Reviewed 06/25/22 @ unknown) 19:07 by Kel Coello DO) (unknown) (no (unknown) (unknown) Source: patient (units (unknown) date) unknown) (unknown) (no (unknown) (unknown) Stated complaint: Both (u nits (unknown) date) legs burnings/ joint unknown) pain 4-5 days (unknown) (no (unknown) (unknown) Substance Use Type: (unit s (unknown) date) does not use unknown) (unknown) (no (unknown) (unknown) Takes every Wednesday. (u nits (unknown) date) Per Pt 08/23/21 unknown) (unknown) (no (unknown) (unknown) Temperature 97.3 F L (uni ts (unknown) date) 07/03/22 20:29 unknown) (unknown) (no (unknown) (unknown) Temperature 97.3 F L (uni ts (unknown) date) unknown) (unknown) (no (unknown) (unknown) The above doses per (unit s (unknown) date) Gabriel today 08/23/21 unknown ) at approx 1535. (unknown) (no (unknown) (unknown) Time Seen by Provider: (u nits (unknown) date) 07/03/22 20:45 unknown) (unknown) (no (unknown) (unknown) Vital Signs - 8 hr (units (unknown) date) unknown) (unknown) (no (unknown) (unknown) Vital Signs (units (un known) date) unknown) (unknown) (no (unknown) (unknown) Vital signs: (units (u nknown) date) unknown) (unknown) (no (unknown) (unknown) alcohol intake (units (unknown) date) frequency: 0-2 drinks unknown) per day (unknown) (no (unknown) (unknown) alcohol intake: former (u nits (unknown) date) unknown) (unknown) (no (unknown) (unknown) allopurinol 300 MG (units (unknown) date) tablet unknown) (unknown) (no (unknown) (unknown) allopurinol 300 mg (units (unknown) date) tablet 300 mg PO DAILY unknown ) ##0 12/17/16 08/23/21 (unknown) (no (unknown) (unknown) artificial 1 spray PO (un its (unknown) date) PRN PRN Dry Mouth unknown) 11/24/18 08/23/21 (unknown) (no (unknown) (unknown) artificial saliva (units (unknown) date) (cmce-lytes) [place] With unknow n) Pump (unknown) (no (unknown) (unknown) atorvastatin 20 mg (units (unknown) date) tablet 20 mg PO DAILY unknown) 08/04/21 08/23/21 (unknown) (no (unknown) (unknown) atorvastatin 20 mg (units (unknown) date) tablet unknown) (unknown) (no (unknown) (unknown) bumetanide 2 mg tablet (u nits (unknown) date) 2 mg PO BID 11/24/18 unknown) 08/23/21 (unknown) (no (unknown) (unknown) bumetanide 2 mg tablet (u nits (unknown) date) unknown) (unknown) (no (unknown) (unknown) capsaicin 0.025 % cream ( units (unknown) date) unknown) (unknown) (no (unknown) (unknown) capsaicin 0.025 % (units (unknown) date) topical cream 1 applic unknown ) topical PRN PRN pain 11/24/18 08/23/21 (unknown) (no (unknown) (unknown) capsule,biphase delayed ( units (unknown) date) release unknown) (unknown) (no (unknown) (unknown) carboxymethylcell-glyce ( units (unknown) date) rin(PF) 0.5-0.9 % unknown) Dropperette (unknown) (no (unknown) (unknown) carboxymethylcellulose (u nits (unknown) date) 0.5 1 applic ophthalmic unknow n) (eye) QID 11/24/18 08/23/21 (unknown) (no (unknown) (unknown) chlorhexidine gluconate ( units (unknown) date) 0.12 % 15 ml mucous unknown) membrane BID 01/23/19 08/23/21 (unknown) (no (unknown) (unknown) chlorhexidine gluconate ( units (unknown) date) 0.12 % Mouthwash unknown) (unknown) (no (unknown) (unknown) chlorhexidine gluconate ( units (unknown) date) 4 % 1 applic topical unknown) DAILY 01/23/19 08/23/21 (unknown) (no (unknown) (unknown) chlorhexidine gluconate ( units (unknown) date) 4 % Liquid unknown) (unknown) (no (unknown) (unknown) cholecalciferol (units (unknown) date) (vitamin D3) 1,000 unit unknow n) capsule (unknown) (no (unknown) (unknown) cholecalciferol (units (unknown) date) (vitamin D3) 25 2,000 unknown) unit PO DAILY 11/24/18 08/23/21 (unknown) (no (unknown) (unknown) cream (units (unkno wn) date) unknown) (unknown) (no (unknown) (unknown) cyclobenzaprine 10 mg (un its (unknown) date) tablet 10 mg PO TID PRN unknow n) muscle spasm #10 11/22/21 (unknown) (no (unknown) (unknown) cyclobenzaprine 10 mg (un its (unknown) date) tablet 10 mg PO TID PRN unknow n) muscle spasm #21 06/25/22 (unknown) (no (unknown) (unknown) cyclobenzaprine 10 mg (un its (unknown) date) tablet 10 mg PO TID PRN unknow n) muscle spasm #30 01/23/19 (unknown) (no (unknown) (unknown) cyclobenzaprine 10 mg (un its (unknown) date) tablet unknown) (unknown) (no (unknown) (unknown) dexlansoprazole 60 mg (un its (unknown) date) 60 mg PO DAILY 11/24/18 unknow n) 08/23/21 (unknown) (no (unknown) (unknown) dexlansoprazole 60 mg (un its (unknown) date) capsule,biphase delayed unknow n) releas (unknown) (no (unknown) (unknown) diclofenac sodium 1 % (un its (unknown) date) topical gel 1 scottie unknown) topical Q4H PRN 12/17/16 08/23/21 (unknown) (no (unknown) (unknown) diclofenac sodium (units (unknown) date) [Voltaren] 1 % gel unknown) (unknown) (no (unknown) (unknown) doxazosin 8 mg tablet (un its (unknown) date) (Cardura) 8 mg PO unknown) BEDTIME ##0 12/17/16 08/23/21 (unknown) (no (unknown) (unknown) doxazosin [Cardura] 8 (un its (unknown) date) MG tablet unknown) (unknown) (no (unknown) (unknown) drink for at least one (u nits (unknown) date) hour after use. unknown) (unknown) (no (unknown) (unknown) drops,dropperette (units (unknown) date) unknown) (unknown) (no (unknown) (unknown) ea (units (unkno wn) date) unknown) (unknown) (no (unknown) (unknown) fexofenadine 180 mg (unit s (unknown) date) tablet 180 mg PO DAILY unknown ) 11/24/18 08/23/21 (unknown) (no (unknown) (unknown) fexofenadine 180 mg (unit s (unknown) date) tablet unknown) (unknown) (no (unknown) (unknown) fluoride (sodium) 1.1 % ( units (unknown) date) cream unknown) (unknown) (no (unknown) (unknown) fluoride (sodium) 1.1 % ( units (unknown) date) dental 1 applic dental unknown ) DIRECTED 11/24/18 08/23/21 (unknown) (no (unknown) (unknown) gabapentin Allergy (units (unknown) date) Verified 07/03/22 20:29 unknow n) (unknown) (no (unknown) (unknown) gram/dose oral powder (un its (unknown) date) (Miralax) unknown) (unknown) (no (unknown) (unknown) hasn't used for a (units (unknown) date) couple months unknown) (unknown) (no (unknown) (unknown) hasn't used in 'months' ( units (unknown) date) unknown) (unknown) (no (unknown) (unknown) household members: (units (unknown) date) spouse unknown) (unknown) (no (unknown) (unknown) hydrocodone 5 (units ( unknown) date) mg-acetaminophen 325 1 unknown ) tab PO BID PRN pain #10 tabs 07/03/21 (unknown) (no (unknown) (unknown) hydrocodone 5 (units ( unknown) date) mg-acetaminophen 325 1 unknown ) tab PO Q6H PRN pain #10 tabs 11/22/21 (unknown) (no (unknown) (unknown) hydrocodone-acetaminoph ( units (unknown) date) en 5-325 mg tablet unknown) (unknown) (no (unknown) (unknown) injector (Ozempic) (units (unknown) date) unknown) (unknown) (no (unknown) (unknown) insulin aspart U-100 (uni ts (unknown) date) 100 unit/mL See Rx unknown) Instructions .Route .COMPLEX 11/24/18 (unknown) (no (unknown) (unknown) insulin aspart U-100 (uni ts (unknown) date) 100 unit/mL Solution unknown) (unknown) (no (unknown) (unknown) insulin glargine 100 (uni ts (unknown) date) unit/mL 70 unit SUBCUT unknown ) QAM 01/23/19 08/23/21 (unknown) (no (unknown) (unknown) insulin glargine 100 (uni ts (unknown) date) unit/mL Solution unknown) (unknown) (no (unknown) (unknown) ipratropium 0.5 (units (unknown) date) mg-albuterol 3 mg 1 ea unknown ) inhalation DIRECTED 01/23/19 08/23/21 (unknown) (no (unknown) (unknown) ipratropium-albuterol (un its (unknown) date) 0.5 mg-3 mg(2.5 mg unknown) base)/3 mL Solution For Nebulization (unknown) (no (unknown) (unknown) leave on most painful (un its (unknown) date) area for up to 12 hrs unknown) (unknown) (no (unknown) (unknown) lidocaine 5 % adhesive (u nits (unknown) date) patch,medicated unknown) (unknown) (no (unknown) (unknown) lidocaine 5 % topical (un its (unknown) date) patch 1 patch topical unknown) DAILY PRN pain #15 06/23/20 (unknown) (no (unknown) (unknown) lives independently: (uni ts (unknown) date) Yes unknown) (unknown) (no (unknown) (unknown) losartan 25 mg tablet (un its (unknown) date) 25 mg PO DAILY 08/04/21 unknow n) 08/23/21 (unknown) (no (unknown) (unknown) losartan 25 mg tablet (un its (unknown) date) unknown) (unknown) (no (unknown) (unknown) marital status: ( units (unknown) date) unknown) (unknown) (no (unknown) (unknown) mcg (1,000 unit) (units (unknown) date) capsule unknown) (unknown) (no (unknown) (unknown) methocarbamol 500 mg (uni ts (unknown) date) tablet 500 mg PO TID PRN unkno wn) muscle spasm #20 07/03/21 (unknown) (no (unknown) (unknown) methocarbamol 500 mg (uni ts (unknown) date) tablet unknown) (unknown) (no (unknown) (unknown) mg tablet (units (unkn own) date) unknown) (unknown) (no (unknown) (unknown) mg/1.5 mL) subcutaneous ( units (unknown) date) pen unknown) (unknown) (no (unknown) (unknown) mouthwash (units (unkn own) date) unknown) (unknown) (no (unknown) (unknown) multivitamin with (units (unknown) date) minerals 1 cap PO DAILY unknow n) 11/24/18 08/23/21 (unknown) (no (unknown) (unknown) multivitamin with (units (unknown) date) minerals Capsule unknown) (unknown) (no (unknown) (unknown) oxycodone 5 mg tablet 5 ( units (unknown) date) mg PO Q6H PRN pain #14 unknown ) tabs 08/24/21 (unknown) (no (unknown) (unknown) oxycodone 5 mg tablet (un its (unknown) date) unknown) (unknown) (no (unknown) (unknown) per Pt at approx 1535 (un its (unknown) date) 08/23/21 unknown) (unknown) (no (unknown) (unknown) polyethylene glycol (unit s (unknown) date) 3350 17 17 gm PO QDAYP unknown ) constipation ##0 12/31/12 08/23/21 (unknown) (no (unknown) (unknown) polyethylene glycol (unit s (unknown) date) 3350 [Miralax] 119 GM unknown) powder (unknown) (no (unknown) (unknown) prednisone 20 mg tablet ( units (unknown) date) 20 mg PO DAILY #3 tabs unknown ) 06/25/22 (unknown) (no (unknown) (unknown) prednisone 20 mg tablet ( units (unknown) date) unknown) (unknown) (no (unknown) (unknown) pregabalin 75 mg (units (unknown) date) capsule 75 mg PO BID unknown) 11/24/18 08/23/21 (unknown) (no (unknown) (unknown) pregabalin 75 mg (units (unknown) date) capsule unknown) (unknown) (no (unknown) (unknown) release 24 hr (units ( unknown) date) unknown) (unknown) (no (unknown) (unknown) saliva(carboxymethylcel ( units (unknown) date) lulose-electrolytes) unknown) (unknown) (no (unknown) (unknown) semaglutide 0.25 mg or (u nits (unknown) date) 0.5 mg (2 1 mg SUBCUT unknown) QWEEK 08/04/21 08/23/21 (unknown) (no (unknown) (unknown) sennosides 8.6 (units (unknown) date) mg-docusate sodium 2 tab unkno wn) PO DAILY 01/23/19 08/23/21 (unknown) (no (unknown) (unknown) sennosides-docusate (unit s (unknown) date) sodium 8.6-50 mg Tablet unknow n) (unknown) (no (unknown) (unknown) sildenafil 100 mg (units (unknown) date) tablet (Viagra) 100 mg unknown ) PO PRN PRN Sexual Activity 12/17/16 (unknown) (no (unknown) (unknown) sildenafil [Viagra] 100 ( units (unknown) date) MG tablet unknown) (unknown) (no (unknown) (unknown) soln (units (unkno wn) date) unknown) (unknown) (no (unknown) (unknown) spironolactone 25 mg (uni ts (unknown) date) tablet 25 mg PO BID unknown) 11/24/18 08/23/21 (unknown) (no (unknown) (unknown) spironolactone 25 mg (uni ts (unknown) date) tablet unknown) (unknown) (no (unknown) (unknown) spray pump (units (unk nown) date) unknown) (unknown) (no (unknown) (unknown) subcutaneous solution (un its (unknown) date) unknown) (unknown) (no (unknown) (unknown) swish for 30 seconds (uni ts (unknown) date) and spit. after unknown) breakfast and at bedtime. do not eat or (unknown) (no (unknown) (unknown) tabs (units (unkno wn) date) unknown) (unknown) (no (unknown) (unknown) to bumps on back of (unit s (unknown) date) head unknown) (unknown) (no (unknown) (unknown) tobacco type: (units ( unknown) date) cigarettes unknown) (unknown) (no (unknown) (unknown) tolterodine 4 mg (units (unknown) date) capsule,extended 4 mg PO unkno wn) DAILY 11/24/18 08/23/21 (unknown) (no (unknown) (unknown) tolterodine 4 mg (units (unknown) date) capsule,extended release unkno wn) 24hr (unknown) (no (unknown) (unknown) topical liquid (units (unknown) date) unknown) (unknown) (no (unknown) (unknown) total dose 1.5mg (units (unknown) date) unknown) (unknown) (no (unknown) (unknown) tramadol 50 mg tablet (un its (unknown) date) 50 mg PO Q6H PRN pain unknown) #12 tabs 06/25/22 (unknown) (no (unknown) (unknown) tramadol 50 mg tablet (un its (unknown) date) 50 mg PO Q8H PRN pain #7 unkno wn) tabs 01/23/19 (unknown) (no (unknown) (unknown) tramadol 50 mg tablet (un its (unknown) date) unknown) (unknown) (no (unknown) (unknown) vitamin B complex 1 tab ( units (unknown) date) PO DAILY 11/24/18 unknown) 08/23/21 (unknown) (no (unknown) (unknown) vitamin B complex (units (unknown) date) Tablet unknown) Result panel 544 (unknown) (no (unknown) (unknown) (no value) (units (unk nown) date) unknown) (unknown) (no (unknown) (unknown) ##0 (units (unkno wn) date) unknown) (unknown) (no (unknown) (unknown) %-glycerin 0.9 % (PF) (un its (unknown) date) eye unknown) (unknown) (no (unknown) (unknown) (2.5 mg base)/3 mL (units (unknown) date) nebulization unknown) (unknown) (no (unknown) (unknown) (Voltaren) (units (unk nown) date) osteoarthritis ##0 unknown) (unknown) (no (unknown) (unknown) [id number] (units (unkn own) date) unknown) (unknown) (no (unknown) (unknown) 07/03/22 (units (unkno wn) date) unknown) (unknown) (no (unknown) (unknown) 08/23/21 (units (unkno wn) date) unknown) (unknown) (no (unknown) (unknown) 1 scottie Topical Q4H MDD (un its (unknown) date) 16 G (4 doses) PRN unknown) (Reason: osteoarthritis) Qty: 0 (unknown) (no (unknown) (unknown) 1 applic TOPICAL DAILY (u nits (unknown) date) unknown) (unknown) (no (unknown) (unknown) 1 applic dental (units (unknown) date) DIRECTED unknown) (unknown) (no (unknown) (unknown) 1 applic ophthalmic (unit s (unknown) date) (eye) QID unknown) (unknown) (no (unknown) (unknown) 1 applic topical PRN (uni ts (unknown) date) PRN (Reason: pain) unknown) (unknown) (no (unknown) (unknown) 1 cap PO DAILY (units (unknown) date) unknown) (unknown) (no (unknown) (unknown) 1 dose subcutaneously (un its (unknown) date) ;24 ac breakfast, 24 at unknow n) noon, 24 at bedtime. (unknown) (no (unknown) (unknown) 1 ea inhalation (units (unknown) date) DIRECTED unknown) (unknown) (no (unknown) (unknown) 1 mg SUBCUT QWEEK (units (unknown) date) unknown) (unknown) (no (unknown) (unknown) 1 patch topical DAILY (un its (unknown) date) PRN (Reason: pain) Qty: unknow n) 15 0RF (unknown) (no (unknown) (unknown) 1 spray PO PRN PRN (units (unknown) date) (Reason: Dry Mouth) unknown) (unknown) (no (unknown) (unknown) 1 tab PO BID PRN (units (unknown) date) (Reason: pain) Qty: 10 unknown ) 0RF (unknown) (no (unknown) (unknown) 1 tab PO DAILY (units (unknown) date) unknown) (unknown) (no (unknown) (unknown) 1 tab PO Q6H PRN (units (unknown) date) (Reason: pain) Qty: 10 unknown ) 0RF (unknown) (no (unknown) (unknown) 10 mg PO TID PRN (units (unknown) date) (Reason: muscle spasm) unknown ) Qty: 10 0RF (unknown) (no (unknown) (unknown) 10 mg PO TID PRN (units (unknown) date) (Reason: muscle spasm) unknown ) Qty: 21 0RF (unknown) (no (unknown) (unknown) 10 mg PO TID PRN (units (unknown) date) (Reason: muscle spasm) unknown ) Qty: 30 0RF (unknown) (no (unknown) (unknown) 100 mg PO PRN MDD 100 (un its (unknown) date) mg PRN (Reason: Sexual unknown ) Activity) Qty: 0 (unknown) (no (unknown) (unknown) 15 ml MUCOUS MEMBRANE (un its (unknown) date) BID unknown) (unknown) (no (unknown) (unknown) 17 gm PO QDAYP Qty: 0 (un its (unknown) date) unknown) (unknown) (no (unknown) (unknown) 180 mg PO DAILY (units (unknown) date) unknown) (unknown) (no (unknown) (unknown) 2 mg PO BID (units (un known) date) unknown) (unknown) (no (unknown) (unknown) 2 tab PO DAILY (units (unknown) date) unknown) (unknown) (no (unknown) (unknown) 2,000 unit PO DAILY (unit s (unknown) date) unknown) (unknown) (no (unknown) (unknown) 20 mg PO DAILY Qty: 3 (un its (unknown) date) 0RF unknown) (unknown) (no (unknown) (unknown) 20 mg PO DAILY (units (unknown) date) unknown) (unknown) (no (unknown) (unknown) 20:29 07/03/22 (units (unknown) date) unknown) (unknown) (no (unknown) (unknown) 23:28 (units (unkno wn) date) unknown) (unknown) (no (unknown) (unknown) 25 mg PO BID (units (u nknown) date) unknown) (unknown) (no (unknown) (unknown) 25 mg PO DAILY (units (unknown) date) unknown) (unknown) (no (unknown) (unknown) 300 mg PO DAILY Qty: 0 (u nits (unknown) date) unknown) (unknown) (no (unknown) (unknown) 4 mg PO DAILY (units ( unknown) date) unknown) (unknown) (no (unknown) (unknown) 5 mg PO Q6H PRN (units (unknown) date) (Reason: pain) Qty: 14 unknown ) 0RF (unknown) (no (unknown) (unknown) 50 mg PO Q6H PRN (units (unknown) date) (Reason: pain) Qty: 12 unknown ) 0RF (unknown) (no (unknown) (unknown) 50 mg PO Q8H PRN (units (unknown) date) (Reason: pain) Qty: 21 unknown ) 0RF (unknown) (no (unknown) (unknown) 50 mg PO Q8H PRN (units (unknown) date) (Reason: pain) Qty: 7 unknown) 0RF (unknown) (no (unknown) (unknown) 50 mg tablet (units (u nknown) date) unknown) (unknown) (no (unknown) (unknown) 500 mg PO TID PRN (units (unknown) date) (Reason: muscle spasm) unknown ) Qty: 20 0RF (unknown) (no (unknown) (unknown) 60 mg PO DAILY (units (unknown) date) unknown) (unknown) (no (unknown) (unknown) 70 unit SUBCUT QAM (units (unknown) date) unknown) (unknown) (no (unknown) (unknown) 75 mg PO BID (units (u nknown) date) unknown) (unknown) (no (unknown) (unknown) 8 mg PO BEDTIME Qty: 0 (u nits (unknown) date) unknown) (unknown) (no (unknown) (unknown) Activity (units (unkno wn) date) Restrictions/Additional unknow n) Instructions: (unknown) (no (unknown) (unknown) Acute thoracic back (unit s (unknown) date) pain, Bilateral leg pain unkno wn) (unknown) (no (unknown) (unknown) Age/Sex: 72 / M (units (unknown) date) unknown) (unknown) (no (unknown) (unknown) Allergies (units (unkn own) date) unknown) (unknown) (no (unknown) (unknown) Allergy/AdvReac Type (uni ts (unknown) date) Severity Reaction Status unkno wn) Date / Time (unknown) (no (unknown) (unknown) Blood Pressure 164/70 H ( units (unknown) date) 07/03/22 20:29 unknown) (unknown) (no (unknown) (unknown) Blood Pressure 164/70 H ( units (unknown) date) 154/76 H unknown) (unknown) (no (unknown) (unknown) Chief complaint: (units (unknown) date) Extremity unknown) Problem,Nontraumatic (unknown) (no (unknown) (unknown) Clinical Impression: (uni ts (unknown) date) unknown) (unknown) (no (unknown) (unknown) Constipation (units (u nknown) date) unknown) (unknown) (no (unknown) (unknown) Course (units (unkno wn) date) unknown) (unknown) (no (unknown) (unknown) Cyclobenzaprine HCl (unit s (unknown) date) (Cyclobenzaprine 10 Mg unknown ) Prepack) 1 bottle MISC SEEINSTR ONE (unknown) (no (unknown) (unknown) : 1950 (units (unknown) date) Acct:[id number] unknown) (unknown) (no (unknown) (unknown) Date of Service: (units (unknown) date) 07/03/22 unknown) (unknown) (no (unknown) (unknown) Departure (units (unkn own) date) unknown) (unknown) (no (unknown) (unknown) Discharge Plan (units (unknown) date) unknown) (unknown) (no (unknown) (unknown) Discontinued (units (u nknown) date) Medications unknown) (unknown) (no (unknown) (unknown) Documented By: GC (units (unknown) date) unknown) (unknown) (no (unknown) (unknown) Doesn't take regularly (u nits (unknown) date) unknown) (unknown) (no (unknown) (unknown) ER Physician: (units ( unknown) date) Kel Coello D.O. unknown) (unknown) (no (unknown) (unknown) Emergency Report (units (unknown) date) unknown) (unknown) (no (unknown) (unknown) Exam (units (unkno wn) date) unknown) (unknown) (no (unknown) (unknown) Elmer Naylor, (u nits (unknown) date) [Primary Care unknown) Provider] (unknown) (no (unknown) (unknown) GERD (gastroesophageal (u nits (unknown) date) reflux disease) unknown) (unknown) (no (unknown) (unknown) General (units (unkno wn) date) unknown) (unknown) (no (unknown) (unknown) HPI - Extremity Problem ( units (unknown) date) unknown) (unknown) (no (unknown) (unknown) HTN (hypertension) (units (unknown) date) unknown) (unknown) (no (unknown) (unknown) Heart failure (units ( unknown) date) unknown) (unknown) (no (unknown) (unknown) Home Medications (units (unknown) date) unknown) (unknown) (no (unknown) (unknown) Hypercholesteremia (units (unknown) date) unknown) (unknown) (no (unknown) (unknown) Initial Vital Signs (unit s (unknown) date) unknown) (unknown) (no (unknown) (unknown) Initial Vital Signs: (uni ts (unknown) date) unknown) (unknown) (no (unknown) (unknown) [facility] [address] (uni ts (unknown) date) [address] [place] [address] [place], unknown ) [place] [address] (unknown) (no (unknown) (unknown) It is important that (uni ts (unknown) date) you follow-up with your unknow n) primary doctor for long-term pain (unknown) (no (unknown) (unknown) Knee pain (units (unkn own) date) unknown) (unknown) (no (unknown) (unknown) Label Comments: (units (unknown) date) unknown) (unknown) (no (unknown) (unknown) Last Admin: 07/03/22 (uni ts (unknown) date) 23:23 Dose: 1 bottle unknown) (unknown) (no (unknown) (unknown) Limitations: no (units (unknown) date) limitations unknown) (unknown) (no (unknown) (unknown) Medical History (units (unknown) date) (Reviewed 06/25/22 @ unknown) 19:07 by Kel Coello DO) (unknown) (no (unknown) (unknown) Medication Instructions ( units (unknown) date) Recorded Confirmed unknown) (unknown) (no (unknown) (unknown) Medication Instructions ( units (unknown) date) Recorded unknown) (unknown) (no (unknown) (unknown) Mode of arrival: (units (unknown) date) Wheelchair unknown) (unknown) (no (unknown) (unknown) New (units (unkno wn) date) unknown) (unknown) (no (unknown) (unknown) No Action (units (unkn own) date) unknown) (unknown) (no (unknown) (unknown) Ordered: (units (unkno wn) date) unknown) (unknown) (no (unknown) (unknown) Orders (units (unkno wn) date) unknown) (unknown) (no (unknown) (unknown) Oxygen Delivery Method (u nits (unknown) date) 07/03/22 20:29 unknown) (unknown) (no (unknown) (unknown) Oxygen Delivery Method (u nits (unknown) date) Room Air Room Air unknown) (unknown) (no (unknown) (unknown) Ozempic 0.25 mg or 0.5 (u nits (unknown) date) mg(2 mg/1.5 mL) Pen unknown) Injector (unknown) (no (unknown) (unknown) Patient Disposition: (uni ts (unknown) date) Home unknown) (unknown) (no (unknown) (unknown) Patient History (units (unknown) date) unknown) (unknown) (no (unknown) (unknown) Patient: (units (unkno wn) date) Gabriel Chavez MR#: M unkno wn) (unknown) (no (unknown) (unknown) Per Pt. Takes 35units (un its (unknown) date) left side ABD and the unknown) 0ther 35units on rt side (unknown) (no (unknown) (unknown) Prescriptions: (units (unknown) date) unknown) (unknown) (no (unknown) (unknown) Previous Rx's (units ( unknown) date) unknown) (unknown) (no (unknown) (unknown) Pulse Oximetry 99 (units (unknown) date) 07/03/22 20:29 unknown) (unknown) (no (unknown) (unknown) Pulse Oximetry 99 98 (uni ts (unknown) date) unknown) (unknown) (no (unknown) (unknown) Pulse Rate 96 H (units (unknown) date) 07/03/22 20:29 unknown) (unknown) (no (unknown) (unknown) Pulse Rate 96 H 78 (units (unknown) date) unknown) (unknown) (no (unknown) (unknown) Referrals: (units (unk nown) date) unknown) (unknown) (no (unknown) (unknown) Related Data (units (u nknown) date) unknown) (unknown) (no (unknown) (unknown) Renal disease (units ( unknown) date) unknown) (unknown) (no (unknown) (unknown) Respiratory Rate 20 (unit s (unknown) date) 07/03/22 20:29 unknown) (unknown) (no (unknown) (unknown) Respiratory Rate 20 18 (u nits (unknown) date) unknown) (unknown) (no (unknown) (unknown) Rx Instructions: (units (unknown) date) unknown) (unknown) (no (unknown) (unknown) See Rx Instructions (unit s (unknown) date) .ROUTE .COMPLEX unknown) (unknown) (no (unknown) (unknown) Signed By: (units (unk nown) date) unknown) (unknown) (no (unknown) (unknown) Smoking Status: Former (u nits (unknown) date) smoker unknown) (unknown) (no (unknown) (unknown) Social History (units (unknown) date) (Reviewed 06/25/22 @ unknown) 19:07 by Kel Coello DO) (unknown) (no (unknown) (unknown) Source: patient (units (unknown) date) unknown) (unknown) (no (unknown) (unknown) Stand Alone Forms: (units (unknown) date) Patient Portal/API unknown) (unknown) (no (unknown) (unknown) Stated complaint: Both (u nits (unknown) date) legs burnings/ joint unknown) pain 4-5 days (unknown) (no (unknown) (unknown) Stop: 07/03/22 23:13 (uni ts (unknown) date) unknown) (unknown) (no (unknown) (unknown) Substance Use Type: (unit s (unknown) date) does not use unknown) (unknown) (no (unknown) (unknown) Takes every Wednesday. (u nits (unknown) date) Per Pt 08/23/21 unknown) (unknown) (no (unknown) (unknown) Temperature 97.3 F L (uni ts (unknown) date) 07/03/22 20:29 unknown) (unknown) (no (unknown) (unknown) Temperature 97.3 F L (uni ts (unknown) date) 97.3 F L unknown) (unknown) (no (unknown) (unknown) The above doses per (unit s (unknown) date) Gabriel today 08/23/21 unknown ) at approx 1535. (unknown) (no (unknown) (unknown) Time Seen by Provider: (u nits (unknown) date) 07/03/22 20:45 unknown) (unknown) (no (unknown) (unknown) Tramadol HCl (Tramadol (u nits (unknown) date) 50 Mg Prepack) 1 bottle unknow n) MISC SEEINSTR ONE (unknown) (no (unknown) (unknown) Vital Signs - 8 hr (units (unknown) date) unknown) (unknown) (no (unknown) (unknown) Vital Signs (units (un known) date) unknown) (unknown) (no (unknown) (unknown) Vital signs: (units (u nknown) date) unknown) (unknown) (no (unknown) (unknown) alcohol intake (units (unknown) date) frequency: 0-2 drinks unknown) per day (unknown) (no (unknown) (unknown) alcohol intake: former (u nits (unknown) date) unknown) (unknown) (no (unknown) (unknown) allopurinol 300 MG (units (unknown) date) tablet unknown) (unknown) (no (unknown) (unknown) allopurinol 300 mg (units (unknown) date) tablet 300 mg PO DAILY unknown ) ##0 12/17/16 08/23/21 (unknown) (no (unknown) (unknown) artificial 1 spray PO (un its (unknown) date) PRN PRN Dry Mouth unknown) 11/24/18 08/23/21 (unknown) (no (unknown) (unknown) artificial saliva (units (unknown) date) (cmce-lytes) [place] With unknow n) Pump (unknown) (no (unknown) (unknown) atorvastatin 20 mg (units (unknown) date) tablet 20 mg PO DAILY unknown) 08/04/21 08/23/21 (unknown) (no (unknown) (unknown) atorvastatin 20 mg (units (unknown) date) tablet unknown) (unknown) (no (unknown) (unknown) bumetanide 2 mg tablet (u nits (unknown) date) 2 mg PO BID 11/24/18 unknown) 08/23/21 (unknown) (no (unknown) (unknown) bumetanide 2 mg tablet (u nits (unknown) date) unknown) (unknown) (no (unknown) (unknown) capsaicin 0.025 % cream ( units (unknown) date) unknown) (unknown) (no (unknown) (unknown) capsaicin 0.025 % (units (unknown) date) topical cream 1 applic unknown ) topical PRN PRN pain 11/24/18 08/23/21 (unknown) (no (unknown) (unknown) capsule,biphase delayed ( units (unknown) date) release unknown) (unknown) (no (unknown) (unknown) carboxymethylcell-glyce ( units (unknown) date) rin(PF) 0.5-0.9 % unknown) Dropperette (unknown) (no (unknown) (unknown) carboxymethylcellulose (u nits (unknown) date) 0.5 1 applic ophthalmic unknow n) (eye) QID 11/24/18 08/23/21 (unknown) (no (unknown) (unknown) chlorhexidine gluconate ( units (unknown) date) 0.12 % 15 ml mucous unknown) membrane BID 01/23/19 08/23/21 (unknown) (no (unknown) (unknown) chlorhexidine gluconate ( units (unknown) date) 0.12 % Mouthwash unknown) (unknown) (no (unknown) (unknown) chlorhexidine gluconate ( units (unknown) date) 4 % 1 applic topical unknown) DAILY 01/23/19 08/23/21 (unknown) (no (unknown) (unknown) chlorhexidine gluconate ( units (unknown) date) 4 % Liquid unknown) (unknown) (no (unknown) (unknown) cholecalciferol (units (unknown) date) (vitamin D3) 1,000 unit unknow n) capsule (unknown) (no (unknown) (unknown) cholecalciferol (units (unknown) date) (vitamin D3) 25 2,000 unknown) unit PO DAILY 11/24/18 08/23/21 (unknown) (no (unknown) (unknown) cream (units (unkno wn) date) unknown) (unknown) (no (unknown) (unknown) cyclobenzaprine 10 mg (un its (unknown) date) tablet 10 mg PO TID PRN unknow n) muscle spasm #10 11/22/21 (unknown) (no (unknown) (unknown) cyclobenzaprine 10 mg (un its (unknown) date) tablet 10 mg PO TID PRN unknow n) muscle spasm #21 06/25/22 (unknown) (no (unknown) (unknown) cyclobenzaprine 10 mg (un its (unknown) date) tablet 10 mg PO TID PRN unknow n) muscle spasm #21 07/03/22 (unknown) (no (unknown) (unknown) cyclobenzaprine 10 mg (un its (unknown) date) tablet 10 mg PO TID PRN unknow n) muscle spasm #30 01/23/19 (unknown) (no (unknown) (unknown) cyclobenzaprine 10 mg (un its (unknown) date) tablet unknown) (unknown) (no (unknown) (unknown) dexlansoprazole 60 mg (un its (unknown) date) 60 mg PO DAILY 11/24/18 unknow n) 08/23/21 (unknown) (no (unknown) (unknown) dexlansoprazole 60 mg (un its (unknown) date) capsule,biphase delayed unknow n) releas (unknown) (no (unknown) (unknown) diclofenac sodium 1 % (un its (unknown) date) topical gel 1 scottie unknown) topical Q4H PRN 12/17/16 08/23/21 (unknown) (no (unknown) (unknown) diclofenac sodium (units (unknown) date) [Voltaren] 1 % gel unknown) (unknown) (no (unknown) (unknown) doxazosin 8 mg tablet (un its (unknown) date) (Cardura) 8 mg PO unknown) BEDTIME ##0 12/17/16 08/23/21 (unknown) (no (unknown) (unknown) doxazosin [Cardura] 8 (un its (unknown) date) MG tablet unknown) (unknown) (no (unknown) (unknown) drink for at least one (u nits (unknown) date) hour after use. unknown) (unknown) (no (unknown) (unknown) drops,dropperette (units (unknown) date) unknown) (unknown) (no (unknown) (unknown) ea (units (unkno wn) date) unknown) (unknown) (no (unknown) (unknown) fexofenadine 180 mg (unit s (unknown) date) tablet 180 mg PO DAILY unknown ) 11/24/18 08/23/21 (unknown) (no (unknown) (unknown) fexofenadine 180 mg (unit s (unknown) date) tablet unknown) (unknown) (no (unknown) (unknown) fluoride (sodium) 1.1 % ( units (unknown) date) cream unknown) (unknown) (no (unknown) (unknown) fluoride (sodium) 1.1 % ( units (unknown) date) dental 1 applic dental unknown ) DIRECTED 11/24/18 08/23/21 (unknown) (no (unknown) (unknown) gabapentin Allergy (units (unknown) date) Verified 07/03/22 20:29 unknow n) (unknown) (no (unknown) (unknown) gram/dose oral powder (un its (unknown) date) (Miralax) unknown) (unknown) (no (unknown) (unknown) hasn't used for a (units (unknown) date) couple months unknown) (unknown) (no (unknown) (unknown) hasn't used in 'months' ( units (unknown) date) unknown) (unknown) (no (unknown) (unknown) household members: (units (unknown) date) spouse unknown) (unknown) (no (unknown) (unknown) hydrocodone 5 (units ( unknown) date) mg-acetaminophen 325 1 unknown ) tab PO BID PRN pain #10 tabs 07/03/21 (unknown) (no (unknown) (unknown) hydrocodone 5 (units ( unknown) date) mg-acetaminophen 325 1 unknown ) tab PO Q6H PRN pain #10 tabs 11/22/21 (unknown) (no (unknown) (unknown) hydrocodone-acetaminoph ( units (unknown) date) en 5-325 mg tablet unknown) (unknown) (no (unknown) (unknown) injector (Ozempic) (units (unknown) date) unknown) (unknown) (no (unknown) (unknown) insulin aspart U-100 (uni ts (unknown) date) 100 unit/mL See Rx unknown) Instructions .Route .COMPLEX 11/24/18 (unknown) (no (unknown) (unknown) insulin aspart U-100 (uni ts (unknown) date) 100 unit/mL Solution unknown) (unknown) (no (unknown) (unknown) insulin glargine 100 (uni ts (unknown) date) unit/mL 70 unit SUBCUT unknown ) QAM 01/23/19 08/23/21 (unknown) (no (unknown) (unknown) insulin glargine 100 (uni ts (unknown) date) unit/mL Solution unknown) (unknown) (no (unknown) (unknown) ipratropium 0.5 (units (unknown) date) mg-albuterol 3 mg 1 ea unknown ) inhalation DIRECTED 01/23/19 08/23/21 (unknown) (no (unknown) (unknown) ipratropium-albuterol (un its (unknown) date) 0.5 mg-3 mg(2.5 mg unknown) base)/3 mL Solution For Nebulization (unknown) (no (unknown) (unknown) leave on most painful (un its (unknown) date) area for up to 12 hrs unknown) (unknown) (no (unknown) (unknown) lidocaine 5 % adhesive (u nits (unknown) date) patch,medicated unknown) (unknown) (no (unknown) (unknown) lidocaine 5 % topical (un its (unknown) date) patch 1 patch topical unknown) DAILY PRN pain #15 06/23/20 (unknown) (no (unknown) (unknown) lives independently: (uni ts (unknown) date) Yes unknown) (unknown) (no (unknown) (unknown) losartan 25 mg tablet (un its (unknown) date) 25 mg PO DAILY 08/04/21 unknow n) 08/23/21 (unknown) (no (unknown) (unknown) losartan 25 mg tablet (un its (unknown) date) unknown) (unknown) (no (unknown) (unknown) management (units (unk nown) date) prescriptions. Return to unkno wn) the emergency department for any new (unknown) (no (unknown) (unknown) marital status: ( units (unknown) date) unknown) (unknown) (no (unknown) (unknown) mcg (1,000 unit) (units (unknown) date) capsule unknown) (unknown) (no (unknown) (unknown) methocarbamol 500 mg (uni ts (unknown) date) tablet 500 mg PO TID PRN unkno wn) muscle spasm #20 07/03/21 (unknown) (no (unknown) (unknown) methocarbamol 500 mg (uni ts (unknown) date) tablet unknown) (unknown) (no (unknown) (unknown) mg tablet (units (unkn own) date) unknown) (unknown) (no (unknown) (unknown) mg/1.5 mL) subcutaneous ( units (unknown) date) pen unknown) (unknown) (no (unknown) (unknown) mouthwash (units (unkn own) date) unknown) (unknown) (no (unknown) (unknown) multivitamin with (units (unknown) date) minerals 1 cap PO DAILY unknow n) 11/24/18 08/23/21 (unknown) (no (unknown) (unknown) multivitamin with (units (unknown) date) minerals Capsule unknown) (unknown) (no (unknown) (unknown) oxycodone 5 mg tablet 5 ( units (unknown) date) mg PO Q6H PRN pain #14 unknown ) tabs 08/24/21 (unknown) (no (unknown) (unknown) oxycodone 5 mg tablet (un its (unknown) date) unknown) (unknown) (no (unknown) (unknown) per Pt at approx 1535 (un its (unknown) date) 08/23/21 unknown) (unknown) (no (unknown) (unknown) polyethylene glycol (unit s (unknown) date) 3350 17 17 gm PO QDAYP unknown ) constipation ##0 12/31/12 08/23/21 (unknown) (no (unknown) (unknown) polyethylene glycol (unit s (unknown) date) 3350 [Miralax] 119 GM unknown) powder (unknown) (no (unknown) (unknown) prednisone 20 mg tablet ( units (unknown) date) 20 mg PO DAILY #3 tabs unknown ) 06/25/22 (unknown) (no (unknown) (unknown) prednisone 20 mg tablet ( units (unknown) date) unknown) (unknown) (no (unknown) (unknown) pregabalin 75 mg (units (unknown) date) capsule 75 mg PO BID unknown) 11/24/18 08/23/21 (unknown) (no (unknown) (unknown) pregabalin 75 mg (units (unknown) date) capsule unknown) (unknown) (no (unknown) (unknown) release 24 hr (units ( unknown) date) unknown) (unknown) (no (unknown) (unknown) saliva(carboxymethylcel ( units (unknown) date) lulose-electrolytes) unknown) (unknown) (no (unknown) (unknown) semaglutide 0.25 mg or (u nits (unknown) date) 0.5 mg (2 1 mg SUBCUT unknown) QWEEK 08/04/21 08/23/21 (unknown) (no (unknown) (unknown) sennosides 8.6 (units (unknown) date) mg-docusate sodium 2 tab unkno wn) PO DAILY 08/19/19 03/19/22 (unknown) (no (unknown) (unknown) sennosides-docusate (unit s (unknown) date) sodium 8.6-50 mg Tablet unknow n) (unknown) (no (unknown) (unknown) sildenafil 100 mg (units (unknown) date) tablet (Viagra) 100 mg unknown ) PO PRN PRN Sexual Activity 12/17/16 (unknown) (no (unknown) (unknown) sildenafil [Viagra] 100 ( units (unknown) date) MG tablet unknown) (unknown) (no (unknown) (unknown) soln (units (unkno wn) date) unknown) (unknown) (no (unknown) (unknown) spironolactone 25 mg (uni ts (unknown) date) tablet 25 mg PO BID unknown) 11/24/18 08/23/21 (unknown) (no (unknown) (unknown) spironolactone 25 mg (uni ts (unknown) date) tablet unknown) (unknown) (no (unknown) (unknown) spray pump (units (unk nown) date) unknown) (unknown) (no (unknown) (unknown) subcutaneous solution (un its (unknown) date) unknown) (unknown) (no (unknown) (unknown) swish for 30 seconds (uni ts (unknown) date) and spit. after unknown) breakfast and at bedtime. do not eat or (unknown) (no (unknown) (unknown) symptoms. Continue all (u nits (unknown) date) of your medications as unknown ) directed. (unknown) (no (unknown) (unknown) tabs (units (unkno wn) date) unknown) (unknown) (no (unknown) (unknown) to bumps on back of (unit s (unknown) date) head unknown) (unknown) (no (unknown) (unknown) tobacco type: (units ( unknown) date) cigarettes unknown) (unknown) (no (unknown) (unknown) tolterodine 4 mg (units (unknown) date) capsule,extended 4 mg PO unkno wn) DAILY 11/24/18 08/23/21 (unknown) (no (unknown) (unknown) tolterodine 4 mg (units (unknown) date) capsule,extended release unkno wn) 24hr (unknown) (no (unknown) (unknown) topical liquid (units (unknown) date) unknown) (unknown) (no (unknown) (unknown) total dose 1.5mg (units (unknown) date) unknown) (unknown) (no (unknown) (unknown) tramadol 50 mg tablet (un its (unknown) date) 50 mg PO Q6H PRN pain unknown) #12 tabs 06/25/22 (unknown) (no (unknown) (unknown) tramadol 50 mg tablet (un its (unknown) date) 50 mg PO Q8H PRN pain unknown) #21 tabs 07/03/22 (unknown) (no (unknown) (unknown) tramadol 50 mg tablet (un its (unknown) date) 50 mg PO Q8H PRN pain #7 unkno wn) tabs 01/23/19 (unknown) (no (unknown) (unknown) tramadol 50 mg tablet (un its (unknown) date) unknown) (unknown) (no (unknown) (unknown) vitamin B complex 1 tab ( units (unknown) date) PO DAILY 11/24/18 unknown) 08/23/21 (unknown) (no (unknown) (unknown) vitamin B complex (units (unknown) date) Tablet unknown) Result panel 545 (unknown) (no (unknown) (unknown) (no value) (units (unk nown) date) unknown) (unknown) (no (unknown) (unknown) ##0 (units (unkno wn) date) unknown) (unknown) (no (unknown) (unknown) %-glycerin 0.9 % (PF) (un its (unknown) date) eye unknown) (unknown) (no (unknown) (unknown) (2.5 mg base)/3 mL (units (unknown) date) nebulization unknown) (unknown) (no (unknown) (unknown) (Voltaren) (units (unk nown) date) osteoarthritis ##0 unknown) (unknown) (no (unknown) (unknown) [id number] (units (unkn own) date) unknown) (unknown) (no (unknown) (unknown) 07/03/22 (units (unkno wn) date) unknown) (unknown) (no (unknown) (unknown) 08/23/21 (units (unkno wn) date) unknown) (unknown) (no (unknown) (unknown) 1 scottie Topical Q4H MDD (un its (unknown) date) 16 G (4 doses) PRN unknown) (Reason: osteoarthritis) Qty: 0 (unknown) (no (unknown) (unknown) 1 applic TOPICAL DAILY (u nits (unknown) date) unknown) (unknown) (no (unknown) (unknown) 1 applic dental (units (unknown) date) DIRECTED unknown) (unknown) (no (unknown) (unknown) 1 applic ophthalmic (unit s (unknown) date) (eye) QID unknown) (unknown) (no (unknown) (unknown) 1 applic topical PRN (uni ts (unknown) date) PRN (Reason: pain) unknown) (unknown) (no (unknown) (unknown) 1 cap PO DAILY (units (unknown) date) unknown) (unknown) (no (unknown) (unknown) 1 dose subcutaneously (un its (unknown) date) ;24 ac breakfast, 24 at unknow n) noon, 24 at bedtime. (unknown) (no (unknown) (unknown) 1 ea inhalation (units (unknown) date) DIRECTED unknown) (unknown) (no (unknown) (unknown) 1 mg SUBCUT QWEEK (units (unknown) date) unknown) (unknown) (no (unknown) (unknown) 1 patch topical DAILY (un its (unknown) date) PRN (Reason: pain) Qty: unknow n) 15 0RF (unknown) (no (unknown) (unknown) 1 spray PO PRN PRN (units (unknown) date) (Reason: Dry Mouth) unknown) (unknown) (no (unknown) (unknown) 1 tab PO BID PRN (units (unknown) date) (Reason: pain) Qty: 10 unknown ) 0RF (unknown) (no (unknown) (unknown) 1 tab PO DAILY (units (unknown) date) unknown) (unknown) (no (unknown) (unknown) 1 tab PO Q6H PRN (units (unknown) date) (Reason: pain) Qty: 10 unknown ) 0RF (unknown) (no (unknown) (unknown) 10 mg PO TID PRN (units (unknown) date) (Reason: muscle spasm) unknown ) Qty: 10 0RF (unknown) (no (unknown) (unknown) 10 mg PO TID PRN (units (unknown) date) (Reason: muscle spasm) unknown ) Qty: 21 0RF (unknown) (no (unknown) (unknown) 10 mg PO TID PRN (units (unknown) date) (Reason: muscle spasm) unknown ) Qty: 30 0RF (unknown) (no (unknown) (unknown) 100 mg PO PRN MDD 100 (un its (unknown) date) mg PRN (Reason: Sexual unknown ) Activity) Qty: 0 (unknown) (no (unknown) (unknown) 15 ml MUCOUS MEMBRANE (un its (unknown) date) BID unknown) (unknown) (no (unknown) (unknown) 17 gm PO QDAYP Qty: 0 (un its (unknown) date) unknown) (unknown) (no (unknown) (unknown) 180 mg PO DAILY (units (unknown) date) unknown) (unknown) (no (unknown) (unknown) 2 mg PO BID (units (un known) date) unknown) (unknown) (no (unknown) (unknown) 2 tab PO DAILY (units (unknown) date) unknown) (unknown) (no (unknown) (unknown) 2,000 unit PO DAILY (unit s (unknown) date) unknown) (unknown) (no (unknown) (unknown) 20 mg PO DAILY Qty: 3 (un its (unknown) date) 0RF unknown) (unknown) (no (unknown) (unknown) 20 mg PO DAILY (units (unknown) date) unknown) (unknown) (no (unknown) (unknown) 20:29 07/03/22 (units (unknown) date) unknown) (unknown) (no (unknown) (unknown) 23:28 (units (unkno wn) date) unknown) (unknown) (no (unknown) (unknown) 25 mg PO BID (units (u nknown) date) unknown) (unknown) (no (unknown) (unknown) 25 mg PO DAILY (units (unknown) date) unknown) (unknown) (no (unknown) (unknown) 300 mg PO DAILY Qty: 0 (u nits (unknown) date) unknown) (unknown) (no (unknown) (unknown) 4 mg PO DAILY (units ( unknown) date) unknown) (unknown) (no (unknown) (unknown) 5 mg PO Q6H PRN (units (unknown) date) (Reason: pain) Qty: 14 unknown ) 0RF (unknown) (no (unknown) (unknown) 50 mg PO Q6H PRN (units (unknown) date) (Reason: pain) Qty: 12 unknown ) 0RF (unknown) (no (unknown) (unknown) 50 mg PO Q8H PRN (units (unknown) date) (Reason: pain) Qty: 21 unknown ) 0RF (unknown) (no (unknown) (unknown) 50 mg PO Q8H PRN (units (unknown) date) (Reason: pain) Qty: 7 unknown) 0RF (unknown) (no (unknown) (unknown) 50 mg tablet (units (u nknown) date) unknown) (unknown) (no (unknown) (unknown) 500 mg PO TID PRN (units (unknown) date) (Reason: muscle spasm) unknown ) Qty: 20 0RF (unknown) (no (unknown) (unknown) 60 mg PO DAILY (units (unknown) date) unknown) (unknown) (no (unknown) (unknown) 70 unit SUBCUT QAM (units (unknown) date) unknown) (unknown) (no (unknown) (unknown) 75 mg PO BID (units (u nknown) date) unknown) (unknown) (no (unknown) (unknown) 8 mg PO BEDTIME Qty: 0 (u nits (unknown) date) unknown) (unknown) (no (unknown) (unknown) Activity (units (unkno wn) date) Restrictions/Additional unknow n) Instructions: (unknown) (no (unknown) (unknown) Acute thoracic back (unit s (unknown) date) pain, Bilateral leg pain unkno wn) (unknown) (no (unknown) (unknown) Age/Sex: 72 / M (units (unknown) date) unknown) (unknown) (no (unknown) (unknown) Allergies (units (unkn own) date) unknown) (unknown) (no (unknown) (unknown) Allergy/AdvReac Type (uni ts (unknown) date) Severity Reaction Status unkno wn) Date / Time (unknown) (no (unknown) (unknown) Blood Pressure 164/70 H ( units (unknown) date) 07/03/22 20:29 unknown) (unknown) (no (unknown) (unknown) Blood Pressure 164/70 H ( units (unknown) date) 154/76 H unknown) (unknown) (no (unknown) (unknown) Chief complaint: (units (unknown) date) Extremity unknown) Problem,Nontraumatic (unknown) (no (unknown) (unknown) Clinical Impression: (uni ts (unknown) date) unknown) (unknown) (no (unknown) (unknown) Constipation (units (u nknown) date) unknown) (unknown) (no (unknown) (unknown) Course (units (unkno wn) date) unknown) (unknown) (no (unknown) (unknown) Cyclobenzaprine HCl (unit s (unknown) date) (Cyclobenzaprine 10 Mg unknown ) Prepack) 1 bottle MIS SEEINSTR ONE (unknown) (no (unknown) (unknown) : 1950 (units (unknown) date) Acct:[id number] unknown) (unknown) (no (unknown) (unknown) Date of Service: (units (unknown) date) 07/03/22 unknown) (unknown) (no (unknown) (unknown) Departure (units (unkn own) date) unknown) (unknown) (no (unknown) (unknown) Discharge Plan (units (unknown) date) unknown) (unknown) (no (unknown) (unknown) Discontinued (units (u nknown) date) Medications unknown) (unknown) (no (unknown) (unknown) Documented By: GC (units (unknown) date) unknown) (unknown) (no (unknown) (unknown) Doesn't take regularly (u nits (unknown) date) unknown) (unknown) (no (unknown) (unknown) ER Physician: (units ( unknown) date) Kel Coello D.O. unknown) (unknown) (no (unknown) (unknown) Emergency Report (units (unknown) date) unknown) (unknown) (no (unknown) (unknown) Exam (units (unkno wn) date) unknown) (unknown) (no (unknown) (unknown) Elmer Naylor, (u nits (unknown) date) MD [Primary Care unknown) Provider] (unknown) (no (unknown) (unknown) GERD (gastroesophageal (u nits (unknown) date) reflux disease) unknown) (unknown) (no (unknown) (unknown) General (units (unkno wn) date) unknown) (unknown) (no (unknown) (unknown) HPI - Extremity Problem ( units (unknown) date) unknown) (unknown) (no (unknown) (unknown) HTN (hypertension) (units (unknown) date) unknown) (unknown) (no (unknown) (unknown) Heart failure (units ( unknown) date) unknown) (unknown) (no (unknown) (unknown) Home Medications (units (unknown) date) unknown) (unknown) (no (unknown) (unknown) Hypercholesteremia (units (unknown) date) unknown) (unknown) (no (unknown) (unknown) Initial Vital Signs (unit s (unknown) date) unknown) (unknown) (no (unknown) (unknown) Initial Vital Signs: (uni ts (unknown) date) unknown) (unknown) (no (unknown) (unknown) [facility] [address] (uni ts (unknown) date) [address] [place] [address] [place], unknown ) [place] [id number] (unknown) (no (unknown) (unknown) It is important that (uni ts (unknown) date) you follow-up with your unknow n) primary doctor for long-term pain (unknown) (no (unknown) (unknown) Knee pain (units (unkn own) date) unknown) (unknown) (no (unknown) (unknown) Label Comments: (units (unknown) date) unknown) (unknown) (no (unknown) (unknown) Last Admin: 07/03/22 (uni ts (unknown) date) 23:23 Dose: 1 bottle unknown) (unknown) (no (unknown) (unknown) Limitations: no (units (unknown) date) limitations unknown) (unknown) (no (unknown) (unknown) Medical History (units (unknown) date) (Reviewed 06/25/22 @ unknown) 19:07 by Kel Coello DO) (unknown) (no (unknown) (unknown) Medication Instructions ( units (unknown) date) Recorded Confirmed unknown) (unknown) (no (unknown) (unknown) Medication Instructions ( units (unknown) date) Recorded unknown) (unknown) (no (unknown) (unknown) Mode of arrival: (units (unknown) date) Wheelchair unknown) (unknown) (no (unknown) (unknown) New (units (unkno wn) date) unknown) (unknown) (no (unknown) (unknown) No Action (units (unkn own) date) unknown) (unknown) (no (unknown) (unknown) Ordered: (units (unkno wn) date) unknown) (unknown) (no (unknown) (unknown) Orders (units (unkno wn) date) unknown) (unknown) (no (unknown) (unknown) Oxygen Delivery Method (u nits (unknown) date) 07/03/22 20:29 unknown) (unknown) (no (unknown) (unknown) Oxygen Delivery Method (u nits (unknown) date) Room Air Room Air unknown) (unknown) (no (unknown) (unknown) Ozempic 0.25 mg or 0.5 (u nits (unknown) date) mg(2 mg/1.5 mL) Pen unknown) Injector (unknown) (no (unknown) (unknown) Patient Disposition: (uni ts (unknown) date) Home unknown) (unknown) (no (unknown) (unknown) Patient History (units (unknown) date) unknown) (unknown) (no (unknown) (unknown) Patient: (units (unkno wn) date) Gabriel Chavez MR#: M unkno wn) (unknown) (no (unknown) (unknown) Per Pt. Takes 35units (un its (unknown) date) left side ABD and the unknown) 0ther 35units on rt side (unknown) (no (unknown) (unknown) Prescriptions: (units (unknown) date) unknown) (unknown) (no (unknown) (unknown) Previous Rx's (units ( unknown) date) unknown) (unknown) (no (unknown) (unknown) Pulse Oximetry 99 (units (unknown) date) 07/03/22 20:29 unknown) (unknown) (no (unknown) (unknown) Pulse Oximetry 99 98 (uni ts (unknown) date) unknown) (unknown) (no (unknown) (unknown) Pulse Rate 96 H (units (unknown) date) 07/03/22 20:29 unknown) (unknown) (no (unknown) (unknown) Pulse Rate 96 H 78 (units (unknown) date) unknown) (unknown) (no (unknown) (unknown) Referrals: (units (unk nown) date) unknown) (unknown) (no (unknown) (unknown) Related Data (units (u nknown) date) unknown) (unknown) (no (unknown) (unknown) Renal disease (units ( unknown) date) unknown) (unknown) (no (unknown) (unknown) Respiratory Rate 20 (unit s (unknown) date) 07/03/22 20:29 unknown) (unknown) (no (unknown) (unknown) Respiratory Rate 20 18 (u nits (unknown) date) unknown) (unknown) (no (unknown) (unknown) Rx Instructions: (units (unknown) date) unknown) (unknown) (no (unknown) (unknown) See Rx Instructions (unit s (unknown) date) .ROUTE .COMPLEX unknown) (unknown) (no (unknown) (unknown) Signed By: (units (unk nown) date) unknown) (unknown) (no (unknown) (unknown) Smoking Status: Former (u nits (unknown) date) smoker unknown) (unknown) (no (unknown) (unknown) Social History (units (unknown) date) (Reviewed 06/25/22 @ unknown) 19:07 by Kel Coello DO) (unknown) (no (unknown) (unknown) Source: patient (units (unknown) date) unknown) (unknown) (no (unknown) (unknown) Stand Alone Forms: (units (unknown) date) Patient Portal/API unknown) (unknown) (no (unknown) (unknown) Stated complaint: Both (u nits (unknown) date) legs burnings/ joint unknown) pain 4-5 days (unknown) (no (unknown) (unknown) Stop: 07/03/22 23:13 (uni ts (unknown) date) unknown) (unknown) (no (unknown) (unknown) Substance Use Type: (unit s (unknown) date) does not use unknown) (unknown) (no (unknown) (unknown) Takes every Wednesday. (u nits (unknown) date) Per Pt 08/23/21 unknown) (unknown) (no (unknown) (unknown) Temperature 97.3 F L (uni ts (unknown) date) 07/03/22 20:29 unknown) (unknown) (no (unknown) (unknown) Temperature 97.3 F L (uni ts (unknown) date) 97.3 F L unknown) (unknown) (no (unknown) (unknown) The above doses per (unit s (unknown) date) Gabriel today 08/23/21 unknown ) at approx 1535. (unknown) (no (unknown) (unknown) Time Seen by Provider: (u nits (unknown) date) 07/03/22 20:45 unknown) (unknown) (no (unknown) (unknown) Tramadol HCl (Tramadol (u nits (unknown) date) 50 Mg Prepack) 1 bottle unknow n) MISC SEEINSTR ONE (unknown) (no (unknown) (unknown) Vital Signs - 8 hr (units (unknown) date) unknown) (unknown) (no (unknown) (unknown) Vital Signs (units (un known) date) unknown) (unknown) (no (unknown) (unknown) Vital signs: (units (u nknown) date) unknown) (unknown) (no (unknown) (unknown) alcohol intake (units (unknown) date) frequency: 0-2 drinks unknown) per day (unknown) (no (unknown) (unknown) alcohol intake: former (u nits (unknown) date) unknown) (unknown) (no (unknown) (unknown) allopurinol 300 MG (units (unknown) date) tablet unknown) (unknown) (no (unknown) (unknown) allopurinol 300 mg (units (unknown) date) tablet 300 mg PO DAILY unknown ) ##0 12/17/16 08/23/21 (unknown) (no (unknown) (unknown) artificial 1 spray PO (un its (unknown) date) PRN PRN Dry Mouth unknown) 11/24/18 08/23/21 (unknown) (no (unknown) (unknown) artificial saliva (units (unknown) date) (cmce-lytes) [place] With unknow n) Pump (unknown) (no (unknown) (unknown) atorvastatin 20 mg (units (unknown) date) tablet 20 mg PO DAILY unknown) 08/04/21 08/23/21 (unknown) (no (unknown) (unknown) atorvastatin 20 mg (units (unknown) date) tablet unknown) (unknown) (no (unknown) (unknown) bumetanide 2 mg tablet (u nits (unknown) date) 2 mg PO BID 11/24/18 unknown) 08/23/21 (unknown) (no (unknown) (unknown) bumetanide 2 mg tablet (u nits (unknown) date) unknown) (unknown) (no (unknown) (unknown) capsaicin 0.025 % cream ( units (unknown) date) unknown) (unknown) (no (unknown) (unknown) capsaicin 0.025 % (units (unknown) date) topical cream 1 applic unknown ) topical PRN PRN pain 11/24/18 08/23/21 (unknown) (no (unknown) (unknown) capsule,biphase delayed ( units (unknown) date) release unknown) (unknown) (no (unknown) (unknown) carboxymethylcell-glyce ( units (unknown) date) rin(PF) 0.5-0.9 % unknown) Dropperette (unknown) (no (unknown) (unknown) carboxymethylcellulose (u nits (unknown) date) 0.5 1 applic ophthalmic unknow n) (eye) QID 11/24/18 08/23/21 (unknown) (no (unknown) (unknown) chlorhexidine gluconate ( units (unknown) date) 0.12 % 15 ml mucous unknown) membrane BID 01/23/19 08/23/21 (unknown) (no (unknown) (unknown) chlorhexidine gluconate ( units (unknown) date) 0.12 % Mouthwash unknown) (unknown) (no (unknown) (unknown) chlorhexidine gluconate ( units (unknown) date) 4 % 1 applic topical unknown) DAILY 01/23/19 08/23/21 (unknown) (no (unknown) (unknown) chlorhexidine gluconate ( units (unknown) date) 4 % Liquid unknown) (unknown) (no (unknown) (unknown) cholecalciferol (units (unknown) date) (vitamin D3) 1,000 unit unknow n) capsule (unknown) (no (unknown) (unknown) cholecalciferol (units (unknown) date) (vitamin D3) 25 2,000 unknown) unit PO DAILY 11/24/18 08/23/21 (unknown) (no (unknown) (unknown) cream (units (unkno wn) date) unknown) (unknown) (no (unknown) (unknown) cyclobenzaprine 10 mg (un its (unknown) date) tablet 10 mg PO TID PRN unknow n) muscle spasm #10 11/22/21 (unknown) (no (unknown) (unknown) cyclobenzaprine 10 mg (un its (unknown) date) tablet 10 mg PO TID PRN unknow n) muscle spasm #21 06/25/22 (unknown) (no (unknown) (unknown) cyclobenzaprine 10 mg (un its (unknown) date) tablet 10 mg PO TID PRN unknow n) muscle spasm #21 07/03/22 (unknown) (no (unknown) (unknown) cyclobenzaprine 10 mg (un its (unknown) date) tablet 10 mg PO TID PRN unknow n) muscle spasm #30 01/23/19 (unknown) (no (unknown) (unknown) cyclobenzaprine 10 mg (un its (unknown) date) tablet unknown) (unknown) (no (unknown) (unknown) dexlansoprazole 60 mg (un its (unknown) date) 60 mg PO DAILY 11/24/18 unknow n) 08/23/21 (unknown) (no (unknown) (unknown) dexlansoprazole 60 mg (un its (unknown) date) capsule,biphase delayed unknow n) releas (unknown) (no (unknown) (unknown) diclofenac sodium 1 % (un its (unknown) date) topical gel 1 scottie unknown) topical Q4H PRN 12/17/16 08/23/21 (unknown) (no (unknown) (unknown) diclofenac sodium (units (unknown) date) [Voltaren] 1 % gel unknown) (unknown) (no (unknown) (unknown) doxazosin 8 mg tablet (un its (unknown) date) (Cardura) 8 mg PO unknown) BEDTIME ##0 12/17/16 08/23/21 (unknown) (no (unknown) (unknown) doxazosin [Cardura] 8 (un its (unknown) date) MG tablet unknown) (unknown) (no (unknown) (unknown) drink for at least one (u nits (unknown) date) hour after use. unknown) (unknown) (no (unknown) (unknown) drops,dropperette (units (unknown) date) unknown) (unknown) (no (unknown) (unknown) ea (units (unkno wn) date) unknown) (unknown) (no (unknown) (unknown) fexofenadine 180 mg (unit s (unknown) date) tablet 180 mg PO DAILY unknown ) 11/24/18 08/23/21 (unknown) (no (unknown) (unknown) fexofenadine 180 mg (unit s (unknown) date) tablet unknown) (unknown) (no (unknown) (unknown) fluoride (sodium) 1.1 % ( units (unknown) date) cream unknown) (unknown) (no (unknown) (unknown) fluoride (sodium) 1.1 % ( units (unknown) date) dental 1 applic dental unknown ) DIRECTED 11/24/18 08/23/21 (unknown) (no (unknown) (unknown) gabapentin Allergy (units (unknown) date) Verified 07/03/22 20:29 unknow n) (unknown) (no (unknown) (unknown) gram/dose oral powder (un its (unknown) date) (Miralax) unknown) (unknown) (no (unknown) (unknown) hasn't used for a (units (unknown) date) couple months unknown) (unknown) (no (unknown) (unknown) hasn't used in 'months' ( units (unknown) date) unknown) (unknown) (no (unknown) (unknown) household members: (units (unknown) date) spouse unknown) (unknown) (no (unknown) (unknown) hydrocodone 5 (units ( unknown) date) mg-acetaminophen 325 1 unknown ) tab PO BID PRN pain #10 tabs 07/03/21 (unknown) (no (unknown) (unknown) hydrocodone 5 (units ( unknown) date) mg-acetaminophen 325 1 unknown ) tab PO Q6H PRN pain #10 tabs 11/22/21 (unknown) (no (unknown) (unknown) hydrocodone-acetaminoph ( units (unknown) date) en 5-325 mg tablet unknown) (unknown) (no (unknown) (unknown) injector (Ozempic) (units (unknown) date) unknown) (unknown) (no (unknown) (unknown) insulin aspart U-100 (uni ts (unknown) date) 100 unit/mL See Rx unknown) Instructions .Route .COMPLEX 11/24/18 (unknown) (no (unknown) (unknown) insulin aspart U-100 (uni ts (unknown) date) 100 unit/mL Solution unknown) (unknown) (no (unknown) (unknown) insulin glargine 100 (uni ts (unknown) date) unit/mL 70 unit SUBCUT unknown ) QAM 01/23/19 08/23/21 (unknown) (no (unknown) (unknown) insulin glargine 100 (uni ts (unknown) date) unit/mL Solution unknown) (unknown) (no (unknown) (unknown) ipratropium 0.5 (units (unknown) date) mg-albuterol 3 mg 1 ea unknown ) inhalation DIRECTED 01/23/19 08/23/21 (unknown) (no (unknown) (unknown) ipratropium-albuterol (un its (unknown) date) 0.5 mg-3 mg(2.5 mg unknown) base)/3 mL Solution For Nebulization (unknown) (no (unknown) (unknown) leave on most painful (un its (unknown) date) area for up to 12 hrs unknown) (unknown) (no (unknown) (unknown) lidocaine 5 % adhesive (u nits (unknown) date) patch,medicated unknown) (unknown) (no (unknown) (unknown) lidocaine 5 % topical (un its (unknown) date) patch 1 patch topical unknown) DAILY PRN pain #15 06/23/20 (unknown) (no (unknown) (unknown) lives independently: (uni ts (unknown) date) Yes unknown) (unknown) (no (unknown) (unknown) losartan 25 mg tablet (un its (unknown) date) 25 mg PO DAILY 08/04/21 unknow n) 08/23/21 (unknown) (no (unknown) (unknown) losartan 25 mg tablet (un its (unknown) date) unknown) (unknown) (no (unknown) (unknown) management (units (unk nown) date) prescriptions. Return to unkno wn) the emergency department for any new (unknown) (no (unknown) (unknown) marital status: ( units (unknown) date) unknown) (unknown) (no (unknown) (unknown) mcg (1,000 unit) (units (unknown) date) capsule unknown) (unknown) (no (unknown) (unknown) methocarbamol 500 mg (uni ts (unknown) date) tablet 500 mg PO TID PRN unkno wn) muscle spasm #20 07/03/21 (unknown) (no (unknown) (unknown) methocarbamol 500 mg (uni ts (unknown) date) tablet unknown) (unknown) (no (unknown) (unknown) mg tablet (units (unkn own) date) unknown) (unknown) (no (unknown) (unknown) mg/1.5 mL) subcutaneous ( units (unknown) date) pen unknown) (unknown) (no (unknown) (unknown) mouthwash (units (unkn own) date) unknown) (unknown) (no (unknown) (unknown) multivitamin with (units (unknown) date) minerals 1 cap PO DAILY unknow n) 11/24/18 08/23/21 (unknown) (no (unknown) (unknown) multivitamin with (units (unknown) date) minerals Capsule unknown) (unknown) (no (unknown) (unknown) oxycodone 5 mg tablet 5 ( units (unknown) date) mg PO Q6H PRN pain #14 unknown ) tabs 08/24/21 (unknown) (no (unknown) (unknown) oxycodone 5 mg tablet (un its (unknown) date) unknown) (unknown) (no (unknown) (unknown) per Pt at approx 1535 (un its (unknown) date) 08/23/21 unknown) (unknown) (no (unknown) (unknown) polyethylene glycol (unit s (unknown) date) 3350 17 17 gm PO QDAYP unknown ) constipation ##0 12/31/12 08/23/21 (unknown) (no (unknown) (unknown) polyethylene glycol (unit s (unknown) date) 3350 [Miralax] 119 GM unknown) powder (unknown) (no (unknown) (unknown) prednisone 20 mg tablet ( units (unknown) date) 20 mg PO DAILY #3 tabs unknown ) 06/25/22 (unknown) (no (unknown) (unknown) prednisone 20 mg tablet ( units (unknown) date) unknown) (unknown) (no (unknown) (unknown) pregabalin 75 mg (units (unknown) date) capsule 75 mg PO BID unknown) 11/24/18 08/23/21 (unknown) (no (unknown) (unknown) pregabalin 75 mg (units (unknown) date) capsule unknown) (unknown) (no (unknown) (unknown) release 24 hr (units ( unknown) date) unknown) (unknown) (no (unknown) (unknown) saliva(carboxymethylcel ( units (unknown) date) lulose-electrolytes) unknown) (unknown) (no (unknown) (unknown) semaglutide 0.25 mg or (u nits (unknown) date) 0.5 mg (2 1 mg SUBCUT unknown) QWEEK 08/04/21 08/23/21 (unknown) (no (unknown) (unknown) sennosides 8.6 (units (unknown) date) mg-docusate sodium 2 tab unkno wn) PO DAILY 01/23/19 08/23/21 (unknown) (no (unknown) (unknown) sennosides-docusate (unit s (unknown) date) sodium 8.6-50 mg Tablet unknow n) (unknown) (no (unknown) (unknown) sildenafil 100 mg (units (unknown) date) tablet (Viagra) 100 mg unknown ) PO PRN PRN Sexual Activity 12/17/16 (unknown) (no (unknown) (unknown) sildenafil [Viagra] 100 ( units (unknown) date) MG tablet unknown) (unknown) (no (unknown) (unknown) soln (units (unkno wn) date) unknown) (unknown) (no (unknown) (unknown) spironolactone 25 mg (uni ts (unknown) date) tablet 25 mg PO BID unknown) 11/24/18 08/23/21 (unknown) (no (unknown) (unknown) spironolactone 25 mg (uni ts (unknown) date) tablet unknown) (unknown) (no (unknown) (unknown) spray pump (units (unk nown) date) unknown) (unknown) (no (unknown) (unknown) subcutaneous solution (un its (unknown) date) unknown) (unknown) (no (unknown) (unknown) swish for 30 seconds (uni ts (unknown) date) and spit. after unknown) breakfast and at bedtime. do not eat or (unknown) (no (unknown) (unknown) symptoms. Continue all (u nits (unknown) date) of your medications as unknown ) directed. (unknown) (no (unknown) (unknown) tabs (units (unkno wn) date) unknown) (unknown) (no (unknown) (unknown) to bumps on back of (unit s (unknown) date) head unknown) (unknown) (no (unknown) (unknown) tobacco type: (units ( unknown) date) cigarettes unknown) (unknown) (no (unknown) (unknown) tolterodine 4 mg (units (unknown) date) capsule,extended 4 mg PO unkno wn) DAILY 11/24/18 08/23/21 (unknown) (no (unknown) (unknown) tolterodine 4 mg (units (unknown) date) capsule,extended release unkno wn) 24hr (unknown) (no (unknown) (unknown) topical liquid (units (unknown) date) unknown) (unknown) (no (unknown) (unknown) total dose 1.5mg (units (unknown) date) unknown) (unknown) (no (unknown) (unknown) tramadol 50 mg tablet (un its (unknown) date) 50 mg PO Q6H PRN pain unknown) #12 tabs 06/25/22 (unknown) (no (unknown) (unknown) tramadol 50 mg tablet (un its (unknown) date) 50 mg PO Q8H PRN pain unknown) #21 tabs 07/03/22 (unknown) (no (unknown) (unknown) tramadol 50 mg tablet (un its (unknown) date) 50 mg PO Q8H PRN pain #7 unkno wn) tabs 01/23/19 (unknown) (no (unknown) (unknown) tramadol 50 mg tablet (un its (unknown) date) unknown) (unknown) (no (unknown) (unknown) vitamin B complex 1 tab ( units (unknown) date) PO DAILY 11/24/18 unknown) 08/23/21 (unknown) (no (unknown) (unknown) vitamin B complex (units (unknown) date) Tablet unknown) Result panel 546 (unknown) (no (unknown) (unknown) (no value) (units (unk nown) date) unknown) (unknown) (no (unknown) (unknown) ##0 (units (unkno wn) date) unknown) (unknown) (no (unknown) (unknown) %-glycerin 0.9 % (PF) (un its (unknown) date) eye unknown) (unknown) (no (unknown) (unknown) <Electronically signed (u nits (unknown) date) by Kel Coello D.O.> unkno wn) (unknown) (no (unknown) (unknown) (2.5 mg base)/3 mL (units (unknown) date) nebulization unknown) (unknown) (no (unknown) (unknown) (Voltaren) (units (unk nown) date) osteoarthritis ##0 unknown) (unknown) (no (unknown) (unknown) [id number] (units (unkn own) date) unknown) (unknown) (no (unknown) (unknown) 07/03/22 (units (unkno wn) date) unknown) (unknown) (no (unknown) (unknown) 07/04/22 0301 (units ( unknown) date) unknown) (unknown) (no (unknown) (unknown) 08/23/21 (units (unkno wn) date) unknown) (unknown) (no (unknown) (unknown) 1 scottie Topical Q4H MDD (un its (unknown) date) 16 G (4 doses) PRN unknown) (Reason: osteoarthritis) Qty: 0 (unknown) (no (unknown) (unknown) 1 applic TOPICAL DAILY (u nits (unknown) date) unknown) (unknown) (no (unknown) (unknown) 1 applic dental (units (unknown) date) DIRECTED unknown) (unknown) (no (unknown) (unknown) 1 applic ophthalmic (unit s (unknown) date) (eye) QID unknown) (unknown) (no (unknown) (unknown) 1 applic topical PRN (uni ts (unknown) date) PRN (Reason: pain) unknown) (unknown) (no (unknown) (unknown) 1 cap PO DAILY (units (unknown) date) unknown) (unknown) (no (unknown) (unknown) 1 dose subcutaneously (un its (unknown) date) ;24 ac breakfast, 24 at unknow n) noon, 24 at bedtime. (unknown) (no (unknown) (unknown) 1 ea inhalation (units (unknown) date) DIRECTED unknown) (unknown) (no (unknown) (unknown) 1 mg SUBCUT QWEEK (units (unknown) date) unknown) (unknown) (no (unknown) (unknown) 1 patch topical DAILY (un its (unknown) date) PRN (Reason: pain) Qty: unknow n) 15 0RF (unknown) (no (unknown) (unknown) 1 spray PO PRN PRN (units (unknown) date) (Reason: Dry Mouth) unknown) (unknown) (no (unknown) (unknown) 1 tab PO BID PRN (units (unknown) date) (Reason: pain) Qty: 10 unknown ) 0RF (unknown) (no (unknown) (unknown) 1 tab PO DAILY (units (unknown) date) unknown) (unknown) (no (unknown) (unknown) 1 tab PO Q6H PRN (units (unknown) date) (Reason: pain) Qty: 10 unknown ) 0RF (unknown) (no (unknown) (unknown) 10 mg PO TID PRN (units (unknown) date) (Reason: muscle spasm) unknown ) Qty: 10 0RF (unknown) (no (unknown) (unknown) 10 mg PO TID PRN (units (unknown) date) (Reason: muscle spasm) unknown ) Qty: 21 0RF (unknown) (no (unknown) (unknown) 10 mg PO TID PRN (units (unknown) date) (Reason: muscle spasm) unknown ) Qty: 30 0RF (unknown) (no (unknown) (unknown) 100 mg PO PRN MDD 100 (un its (unknown) date) mg PRN (Reason: Sexual unknown ) Activity) Qty: 0 (unknown) (no (unknown) (unknown) 15 ml MUCOUS MEMBRANE (un its (unknown) date) BID unknown) (unknown) (no (unknown) (unknown) 17 gm PO QDAYP Qty: 0 (un its (unknown) date) unknown) (unknown) (no (unknown) (unknown) 180 mg PO DAILY (units (unknown) date) unknown) (unknown) (no (unknown) (unknown) 2 mg PO BID (units (un known) date) unknown) (unknown) (no (unknown) (unknown) 2 tab PO DAILY (units (unknown) date) unknown) (unknown) (no (unknown) (unknown) 2,000 unit PO DAILY (unit s (unknown) date) unknown) (unknown) (no (unknown) (unknown) 20 mg PO DAILY Qty: 3 (un its (unknown) date) 0RF unknown) (unknown) (no (unknown) (unknown) 20 mg PO DAILY (units (unknown) date) unknown) (unknown) (no (unknown) (unknown) 20:29 07/03/22 (units (unknown) date) unknown) (unknown) (no (unknown) (unknown) 23:28 (units (unkno wn) date) unknown) (unknown) (no (unknown) (unknown) 25 mg PO BID (units (u nknown) date) unknown) (unknown) (no (unknown) (unknown) 25 mg PO DAILY (units (unknown) date) unknown) (unknown) (no (unknown) (unknown) 300 mg PO DAILY Qty: 0 (u nits (unknown) date) unknown) (unknown) (no (unknown) (unknown) 4 mg PO DAILY (units ( unknown) date) unknown) (unknown) (no (unknown) (unknown) 5 mg PO Q6H PRN (units (unknown) date) (Reason: pain) Qty: 14 unknown ) 0RF (unknown) (no (unknown) (unknown) 50 mg PO Q6H PRN (units (unknown) date) (Reason: pain) Qty: 12 unknown ) 0RF (unknown) (no (unknown) (unknown) 50 mg PO Q8H PRN (units (unknown) date) (Reason: pain) Qty: 21 unknown ) 0RF (unknown) (no (unknown) (unknown) 50 mg PO Q8H PRN (units (unknown) date) (Reason: pain) Qty: 7 unknown) 0RF (unknown) (no (unknown) (unknown) 50 mg tablet (units (u nknown) date) unknown) (unknown) (no (unknown) (unknown) 500 mg PO TID PRN (units (unknown) date) (Reason: muscle spasm) unknown ) Qty: 20 0RF (unknown) (no (unknown) (unknown) 60 mg PO DAILY (units (unknown) date) unknown) (unknown) (no (unknown) (unknown) 70 unit SUBCUT QAM (units (unknown) date) unknown) (unknown) (no (unknown) (unknown) 75 mg PO BID (units (u nknown) date) unknown) (unknown) (no (unknown) (unknown) 8 mg PO BEDTIME Qty: 0 (u nits (unknown) date) unknown) (unknown) (no (unknown) (unknown) Activity (units (unkno wn) date) Restrictions/Additional unknow n) Instructions: (unknown) (no (unknown) (unknown) Acute thoracic back (unit s (unknown) date) pain, Bilateral leg pain unkno wn) (unknown) (no (unknown) (unknown) Age/Sex: 72 / M (units (unknown) date) unknown) (unknown) (no (unknown) (unknown) Allergies (units (unkn own) date) unknown) (unknown) (no (unknown) (unknown) Allergy/AdvReac Type (uni ts (unknown) date) Severity Reaction Status unkno wn) Date / Time (unknown) (no (unknown) (unknown) Back/Spine/Pelvis (units (unknown) date) unknown) (unknown) (no (unknown) (unknown) Blood Pressure 164/70 H ( units (unknown) date) 07/03/22 20:29 unknown) (unknown) (no (unknown) (unknown) Blood Pressure 164/70 H ( units (unknown) date) 154/76 H unknown) (unknown) (no (unknown) (unknown) Chief complaint: (units (unknown) date) Extremity unknown) Problem,Nontraumatic (unknown) (no (unknown) (unknown) Clinical Impression: (uni ts (unknown) date) unknown) (unknown) (no (unknown) (unknown) Const (units (unkno wn) date) unknown) (unknown) (no (unknown) (unknown) Constipation (units (u nknown) date) unknown) (unknown) (no (unknown) (unknown) Constitutional (units (unknown) date) unknown) (unknown) (no (unknown) (unknown) Constitutional: Reports ( units (unknown) date) system reviewed and no unknown ) additional complaints, except as (unknown) (no (unknown) (unknown) Continued symptoms (units (unknown) date) since the last time that unkno wn) he was here. He is scheduled to see (unknown) (no (unknown) (unknown) Course (units (unkno wn) date) unknown) (unknown) (no (unknown) (unknown) Cyclobenzaprine HCl (unit s (unknown) date) (Cyclobenzaprine 10 Mg unknown ) Prepack) 1 bottle [facility] [place] (unknown) (no (unknown) (unknown) : 1950 (units (unknown) date) Acct:[id number] unknown) (unknown) (no (unknown) (unknown) Date of Service: (units (unknown) date) 07/03/22 unknown) (unknown) (no (unknown) (unknown) Departure (units (unkn own) date) unknown) (unknown) (no (unknown) (unknown) Discharge Plan (units (unknown) date) unknown) (unknown) (no (unknown) (unknown) Discomfort upper (units (unknown) date) thoracic region unknown) (unknown) (no (unknown) (unknown) Discontinued (units (u nknown) date) Medications unknown) (unknown) (no (unknown) (unknown) Documented By: GC (units (unknown) date) unknown) (unknown) (no (unknown) (unknown) Doesn't take regularly (u nits (unknown) date) unknown) (unknown) (no (unknown) (unknown) ER Physician: (units ( unknown) date) Kel Coello D.O. unknown) (unknown) (no (unknown) (unknown) Emergency Report (units (unknown) date) unknown) (unknown) (no (unknown) (unknown) Exam (units (unkno wn) date) unknown) (unknown) (no (unknown) (unknown) Extrem (units (unkno wn) date) unknown) (unknown) (no (unknown) (unknown) Elmer Naylor, (u nits (unknown) date) MD [Primary Care unknown) Provider] (unknown) (no (unknown) (unknown) GERD (gastroesophageal (u nits (unknown) date) reflux disease) unknown) (unknown) (no (unknown) (unknown) General (units (unkno wn) date) unknown) (unknown) (no (unknown) (unknown) General: cooperative (uni ts (unknown) date) and No ill appearing unknown) (unknown) (no (unknown) (unknown) General: no rashes or (un its (unknown) date) lesions noted unknown) (unknown) (no (unknown) (unknown) General: normal to (units (unknown) date) inspection and capillary unkno wn) refill normal (unknown) (no (unknown) (unknown) General: patient alert, ( units (unknown) date) patient awake and moves unknow n) all extremities (unknown) (no (unknown) (unknown) HENMT (units (unkno wn) date) unknown) (unknown) (no (unknown) (unknown) HPI - Extremity Problem ( units (unknown) date) unknown) (unknown) (no (unknown) (unknown) HPI Narrative: (units (unknown) date) unknown) (unknown) (no (unknown) (unknown) HTN (hypertension) (units (unknown) date) unknown) (unknown) (no (unknown) (unknown) Head: normal to (units (unknown) date) inspection and unknown) normocephalic (unknown) (no (unknown) (unknown) Heart failure (units ( unknown) date) unknown) (unknown) (no (unknown) (unknown) History of Present (units (unknown) date) Illness unknown) (unknown) (no (unknown) (unknown) Home Medications (units (unknown) date) unknown) (unknown) (no (unknown) (unknown) Hypercholesteremia (units (unknown) date) unknown) (unknown) (no (unknown) (unknown) Initial Vital Signs (unit s (unknown) date) unknown) (unknown) (no (unknown) (unknown) Initial Vital Signs: (uni ts (unknown) date) unknown) (unknown) (no (unknown) (unknown) [facility] [address] (uni ts (unknown) date) [address] [place] [address] [place], unknown ) [place] [address] (unknown) (no (unknown) (unknown) It is important that (uni ts (unknown) date) you follow-up with your unknow n) primary doctor for long-term pain (unknown) (no (unknown) (unknown) Knee pain (units (unkn own) date) unknown) (unknown) (no (unknown) (unknown) Label Comments: (units (unknown) date) unknown) (unknown) (no (unknown) (unknown) Last Admin: 07/03/22 (uni ts (unknown) date) 23:23 Dose: 1 bottle unknown) (unknown) (no (unknown) (unknown) Limitations: no (units (unknown) date) limitations unknown) (unknown) (no (unknown) (unknown) MDM - Extremity (units (unknown) date) (Nontraumatic) unknown) (unknown) (no (unknown) (unknown) MDM Narrative (units ( unknown) date) unknown) (unknown) (no (unknown) (unknown) Medical History (units (unknown) date) (Reviewed 07/04/22 @ unknown) 03:00 by Kel Coello DO) (unknown) (no (unknown) (unknown) Medical decision making ( units (unknown) date) narrative: unknown) (unknown) (no (unknown) (unknown) Medication Instructions ( units (unknown) date) Recorded Confirmed unknown) (unknown) (no (unknown) (unknown) Medication Instructions ( units (unknown) date) Recorded unknown) (unknown) (no (unknown) (unknown) Mode of arrival: (units (unknown) date) Wheelchair unknown) (unknown) (no (unknown) (unknown) Musculoskeletal (units (unknown) date) unknown) (unknown) (no (unknown) (unknown) Musculoskeletal: Reports ( units (unknown) date) system reviewed and no unknown ) additional complaints, except as (unknown) (no (unknown) (unknown) Neuro (units (unkno wn) date) unknown) (unknown) (no (unknown) (unknown) Neurologic (units (unk nown) date) unknown) (unknown) (no (unknown) (unknown) Neurologic: Reports (unit s (unknown) date) system reviewed and no unknown ) additional complaints, except as (unknown) (no (unknown) (unknown) New (units (unkno wn) date) unknown) (unknown) (no (unknown) (unknown) No Action (units (unkn own) date) unknown) (unknown) (no (unknown) (unknown) Ordered: (units (unkno wn) date) unknown) (unknown) (no (unknown) (unknown) Orders (units (unkno wn) date) unknown) (unknown) (no (unknown) (unknown) Other: (units (unkno wn) date) unknown) (unknown) (no (unknown) (unknown) Oxygen Delivery Method (u nits (unknown) date) 07/03/22 20:29 unknown) (unknown) (no (unknown) (unknown) Oxygen Delivery Method (u nits (unknown) date) Room Air Room Air unknown) (unknown) (no (unknown) (unknown) Ozempic 0.25 mg or 0.5 (u nits (unknown) date) mg(2 mg/1.5 mL) Pen unknown) Injector (unknown) (no (unknown) (unknown) Patient Disposition: (uni ts (unknown) date) Home unknown) (unknown) (no (unknown) (unknown) Patient History (units (unknown) date) unknown) (unknown) (no (unknown) (unknown) Patient is a (units (u nknown) date) 72-year-old male who I unknown ) evaluated here in the emergency department (unknown) (no (unknown) (unknown) Patient: (units (unkno wn) date) Gabriel Chavez MR#: M unkno wn) (unknown) (no (unknown) (unknown) Per Pt. Takes 35units (un its (unknown) date) left side ABD and the unknown) 0ther 35units on rt side (unknown) (no (unknown) (unknown) Prescriptions: (units (unknown) date) unknown) (unknown) (no (unknown) (unknown) Previous Rx's (units ( unknown) date) unknown) (unknown) (no (unknown) (unknown) Pulse Oximetry 99 (units (unknown) date) 07/03/22 20:29 unknown) (unknown) (no (unknown) (unknown) Pulse Oximetry 99 98 (uni ts (unknown) date) unknown) (unknown) (no (unknown) (unknown) Pulse Rate 96 H (units (unknown) date) 07/03/22 20:29 unknown) (unknown) (no (unknown) (unknown) Pulse Rate 96 H 78 (units (unknown) date) unknown) (unknown) (no (unknown) (unknown) Referrals: (units (unk nown) date) unknown) (unknown) (no (unknown) (unknown) Related Data (units (u nknown) date) unknown) (unknown) (no (unknown) (unknown) Renal disease (units ( unknown) date) unknown) (unknown) (no (unknown) (unknown) Respiratory Rate 20 (unit s (unknown) date) 07/03/22 20:29 unknown) (unknown) (no (unknown) (unknown) Respiratory Rate 20 18 (u nits (unknown) date) unknown) (unknown) (no (unknown) (unknown) Review of Systems (units (unknown) date) unknown) (unknown) (no (unknown) (unknown) Rx Instructions: (units (unknown) date) unknown) (unknown) (no (unknown) (unknown) See Rx Instructions (unit s (unknown) date) .ROUTE .COMPLEX unknown) (unknown) (no (unknown) (unknown) Signed By: (units (unk nown) date) unknown) (unknown) (no (unknown) (unknown) Since that time he (units (unknown) date) states his symptoms have unkno wn) continued. He has contacted his (unknown) (no (unknown) (unknown) Skin (units (unkno wn) date) unknown) (unknown) (no (unknown) (unknown) Smoking Status: Former (u nits (unknown) date) smoker unknown) (unknown) (no (unknown) (unknown) Social History (units (unknown) date) (Reviewed 07/04/22 @ unknown) 03:00 by Kel Coello DO) (unknown) (no (unknown) (unknown) Source: patient (units (unknown) date) unknown) (unknown) (no (unknown) (unknown) Stand Alone Forms: (units (unknown) date) Patient Portal/API unknown) (unknown) (no (unknown) (unknown) Stated complaint: Both (u nits (unknown) date) legs burnings/ joint unknown) pain 4-5 days (unknown) (no (unknown) (unknown) Stop: 07/03/22 23:13 (uni ts (unknown) date) unknown) (unknown) (no (unknown) (unknown) Substance Use Type: (unit s (unknown) date) does not use unknown) (unknown) (no (unknown) (unknown) Takes every Wednesday. (u nits (unknown) date) Per Pt 08/23/21 unknown) (unknown) (no (unknown) (unknown) Temperature 97.3 F L (uni ts (unknown) date) 07/03/22 20:29 unknown) (unknown) (no (unknown) (unknown) Temperature 97.3 F L (uni ts (unknown) date) 97.3 F L unknown) (unknown) (no (unknown) (unknown) The above doses per (unit s (unknown) date) Gabriel today 08/23/21 unknown ) at approx 1535. (unknown) (no (unknown) (unknown) Time Seen by Provider: (u nits (unknown) date) 07/03/22 20:45 unknown) (unknown) (no (unknown) (unknown) Tramadol HCl (Tramadol (u nits (unknown) date) 50 Mg Prepack) 1 bottle unknow n) MISC SEEINSTR ONE (unknown) (no (unknown) (unknown) Vital Signs - 8 hr (units (unknown) date) unknown) (unknown) (no (unknown) (unknown) Vital Signs (units (un known) date) unknown) (unknown) (no (unknown) (unknown) Vital signs: (units (u nknown) date) unknown) (unknown) (no (unknown) (unknown) agreement. (units (unk nown) date) unknown) (unknown) (no (unknown) (unknown) alcohol intake (units (unknown) date) frequency: 0-2 drinks unknown) per day (unknown) (no (unknown) (unknown) alcohol intake: former (u nits (unknown) date) unknown) (unknown) (no (unknown) (unknown) allopurinol 300 MG (units (unknown) date) tablet unknown) (unknown) (no (unknown) (unknown) allopurinol 300 mg (units (unknown) date) tablet 300 mg PO DAILY unknown ) ##0 12/17/16 08/23/21 (unknown) (no (unknown) (unknown) although he states that ( units (unknown) date) as of today that has yet unkno wn) to happen. He is run out of (unknown) (no (unknown) (unknown) artificial 1 spray PO (un its (unknown) date) PRN PRN Dry Mouth unknown) 11/24/18 08/23/21 (unknown) (no (unknown) (unknown) artificial saliva (units (unknown) date) (cmce-lytes) [place] With unknow n) Pump (unknown) (no (unknown) (unknown) atorvastatin 20 mg (units (unknown) date) tablet 20 mg PO DAILY unknown) 08/04/21 08/23/21 (unknown) (no (unknown) (unknown) atorvastatin 20 mg (units (unknown) date) tablet unknown) (unknown) (no (unknown) (unknown) bumetanide 2 mg tablet (u nits (unknown) date) 2 mg PO BID 11/24/18 unknown) 08/23/21 (unknown) (no (unknown) (unknown) bumetanide 2 mg tablet (u nits (unknown) date) unknown) (unknown) (no (unknown) (unknown) capsaicin 0.025 % cream ( units (unknown) date) unknown) (unknown) (no (unknown) (unknown) capsaicin 0.025 % (units (unknown) date) topical cream 1 applic unknown ) topical PRN PRN pain 11/24/18 08/23/21 (unknown) (no (unknown) (unknown) capsule,biphase delayed ( units (unknown) date) release unknown) (unknown) (no (unknown) (unknown) carboxymethylcell-glyce ( units (unknown) date) rin(PF) 0.5-0.9 % unknown) Dropperette (unknown) (no (unknown) (unknown) carboxymethylcellulose (u nits (unknown) date) 0.5 1 applic ophthalmic unknow n) (eye) QID 11/24/18 08/23/21 (unknown) (no (unknown) (unknown) chlorhexidine gluconate ( units (unknown) date) 0.12 % 15 ml mucous unknown) membrane BID 01/23/19 08/23/21 (unknown) (no (unknown) (unknown) chlorhexidine gluconate ( units (unknown) date) 0.12 % Mouthwash unknown) (unknown) (no (unknown) (unknown) chlorhexidine gluconate ( units (unknown) date) 4 % 1 applic topical unknown) DAILY 01/23/19 08/23/21 (unknown) (no (unknown) (unknown) chlorhexidine gluconate ( units (unknown) date) 4 % Liquid unknown) (unknown) (no (unknown) (unknown) cholecalciferol (units (unknown) date) (vitamin D3) 1,000 unit unknow n) capsule (unknown) (no (unknown) (unknown) cholecalciferol (units (unknown) date) (vitamin D3) 25 2,000 unknown) unit PO DAILY 11/24/18 08/23/21 (unknown) (no (unknown) (unknown) cream (units (unkno wn) date) unknown) (unknown) (no (unknown) (unknown) cyclobenzaprine 10 mg (un its (unknown) date) tablet 10 mg PO TID PRN unknow n) muscle spasm #10 11/22/21 (unknown) (no (unknown) (unknown) cyclobenzaprine 10 mg (un its (unknown) date) tablet 10 mg PO TID PRN unknow n) muscle spasm #21 06/25/22 (unknown) (no (unknown) (unknown) cyclobenzaprine 10 mg (un its (unknown) date) tablet 10 mg PO TID PRN unknow n) muscle spasm #21 07/03/22 (unknown) (no (unknown) (unknown) cyclobenzaprine 10 mg (un its (unknown) date) tablet 10 mg PO TID PRN unknow n) muscle spasm #30 01/23/19 (unknown) (no (unknown) (unknown) cyclobenzaprine 10 mg (un its (unknown) date) tablet unknown) (unknown) (no (unknown) (unknown) dexlansoprazole 60 mg (un its (unknown) date) 60 mg PO DAILY 11/24/18 unknow n) 08/23/21 (unknown) (no (unknown) (unknown) dexlansoprazole 60 mg (un its (unknown) date) capsule,biphase delayed unkn n) releas (unknown) (no (unknown) (unknown) diclofenac sodium 1 % (un its (unknown) date) topical gel 1 scottie unknown) topical Q4H PRN 12/17/16 08/23/21 (unknown) (no (unknown) (unknown) diclofenac sodium (units (unknown) date) [Voltaren] 1 % gel unknown) (unknown) (no (unknown) (unknown) documented (units (unk nown) date) unknown) (unknown) (no (unknown) (unknown) doxazosin 8 mg tablet (un its (unknown) date) (Cardura) 8 mg PO unknown) BEDTIME ##0 12/17/16 08/23/21 (unknown) (no (unknown) (unknown) doxazosin [Cardura] 8 (un its (unknown) date) MG tablet unknown) (unknown) (no (unknown) (unknown) drink for at least one (u nits (unknown) date) hour after use. unknown) (unknown) (no (unknown) (unknown) drops,dropperette (units (unknown) date) unknown) (unknown) (no (unknown) (unknown) ea (units (unkno wn) date) unknown) (unknown) (no (unknown) (unknown) fexofenadine 180 mg (unit s (unknown) date) tablet 180 mg PO DAILY unknown ) 11/24/18 08/23/21 (unknown) (no (unknown) (unknown) fexofenadine 180 mg (unit s (unknown) date) tablet unknown) (unknown) (no (unknown) (unknown) fluoride (sodium) 1.1 % ( units (unknown) date) cream unknown) (unknown) (no (unknown) (unknown) fluoride (sodium) 1.1 % ( units (unknown) date) dental 1 applic dental unknown ) DIRECTED 11/24/18 08/23/21 (unknown) (no (unknown) (unknown) gabapentin Allergy (units (unknown) date) Verified 07/03/22 20:29 unknow n) (unknown) (no (unknown) (unknown) gram/dose oral powder (un its (unknown) date) (Miralax) unknown) (unknown) (no (unknown) (unknown) hasn't used for a (units (unknown) date) couple months unknown) (unknown) (no (unknown) (unknown) hasn't used in 'months' ( units (unknown) date) unknown) (unknown) (no (unknown) (unknown) his primary doctor. No (u nits (unknown) date) indication for further unknown ) radiologic studies. I will (unknown) (no (unknown) (unknown) household members: (units (unknown) date) spouse unknown) (unknown) (no (unknown) (unknown) hydrocodone 5 (units ( unknown) date) mg-acetaminophen 325 1 unknown ) tab PO BID PRN pain #10 tabs 07/03/21 (unknown) (no (unknown) (unknown) hydrocodone 5 (units ( unknown) date) mg-acetaminophen 325 1 unknown ) tab PO Q6H PRN pain #10 tabs 11/22/21 (unknown) (no (unknown) (unknown) hydrocodone-acetaminoph ( units (unknown) date) en 5-325 mg tablet unknown) (unknown) (no (unknown) (unknown) injector (Ozempic) (units (unknown) date) unknown) (unknown) (no (unknown) (unknown) insulin aspart U-100 (uni ts (unknown) date) 100 unit/mL See Rx unknown) Instructions .Route .COMPLEX 11/24/18 (unknown) (no (unknown) (unknown) insulin aspart U-100 (uni ts (unknown) date) 100 unit/mL Solution unknown) (unknown) (no (unknown) (unknown) insulin glargine 100 (uni ts (unknown) date) unit/mL 70 unit SUBCUT unknown ) QAM 01/23/19 08/23/21 (unknown) (no (unknown) (unknown) insulin glargine 100 (uni ts (unknown) date) unit/mL Solution unknown) (unknown) (no (unknown) (unknown) ipratropium 0.5 (units (unknown) date) mg-albuterol 3 mg 1 ea unknown ) inhalation DIRECTED 01/23/19 08/23/21 (unknown) (no (unknown) (unknown) ipratropium-albuterol (un its (unknown) date) 0.5 mg-3 mg(2.5 mg unknown) base)/3 mL Solution For Nebulization (unknown) (no (unknown) (unknown) leave on most painful (un its (unknown) date) area for up to 12 hrs unknown) (unknown) (no (unknown) (unknown) lidocaine 5 % adhesive (u nits (unknown) date) patch,medicated unknown) (unknown) (no (unknown) (unknown) lidocaine 5 % topical (un its (unknown) date) patch 1 patch topical unknown) DAILY PRN pain #15 06/23/20 (unknown) (no (unknown) (unknown) lives independently: (uni ts (unknown) date) Yes unknown) (unknown) (no (unknown) (unknown) losartan 25 mg tablet (un its (unknown) date) 25 mg PO DAILY 08/04/21 unknow n) 08/23/21 (unknown) (no (unknown) (unknown) losartan 25 mg tablet (un its (unknown) date) unknown) (unknown) (no (unknown) (unknown) management (units (unk nown) date) prescriptions. Return to unkno wn) the emergency department for any new (unknown) (no (unknown) (unknown) marital status: ( units (unknown) date) unknown) (unknown) (no (unknown) (unknown) mcg (1,000 unit) (units (unknown) date) capsule unknown) (unknown) (no (unknown) (unknown) methocarbamol 500 mg (uni ts (unknown) date) tablet 500 mg PO TID PRN unkno wn) muscle spasm #20 07/03/21 (unknown) (no (unknown) (unknown) methocarbamol 500 mg (uni ts (unknown) date) tablet unknown) (unknown) (no (unknown) (unknown) mg tablet (units (unkn own) date) unknown) (unknown) (no (unknown) (unknown) mg/1.5 mL) subcutaneous ( units (unknown) date) pen unknown) (unknown) (no (unknown) (unknown) mouthwash (units (unkn own) date) unknown) (unknown) (no (unknown) (unknown) multivitamin with (units (unknown) date) minerals 1 cap PO DAILY unknow n) 11/24/18 08/23/21 (unknown) (no (unknown) (unknown) multivitamin with (units (unknown) date) minerals Capsule unknown) (unknown) (no (unknown) (unknown) oxycodone 5 mg tablet 5 ( units (unknown) date) mg PO Q6H PRN pain #14 unknown ) tabs 08/24/21 (unknown) (no (unknown) (unknown) oxycodone 5 mg tablet (un its (unknown) date) unknown) (unknown) (no (unknown) (unknown) pain management. (units (unknown) date) unknown) (unknown) (no (unknown) (unknown) per Pt at approx 1535 (un its (unknown) date) 08/23/21 unknown) (unknown) (no (unknown) (unknown) polyethylene glycol (unit s (unknown) date) 3350 17 17 gm PO QDAYP unknown ) constipation ##0 12/31/12 08/23/21 (unknown) (no (unknown) (unknown) polyethylene glycol (unit s (unknown) date) 3350 [Miralax] 119 GM unknown) powder (unknown) (no (unknown) (unknown) prednisone 20 mg tablet ( units (unknown) date) 20 mg PO DAILY #3 tabs unknown ) 06/25/22 (unknown) (no (unknown) (unknown) prednisone 20 mg tablet ( units (unknown) date) unknown) (unknown) (no (unknown) (unknown) pregabalin 75 mg (units (unknown) date) capsule 75 mg PO BID unknown) 11/24/18 08/23/21 (unknown) (no (unknown) (unknown) pregabalin 75 mg (units (unknown) date) capsule unknown) (unknown) (no (unknown) (unknown) primary doctor for (units (unknown) date) anymore medications. 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 He does ( units (unknown) date) have an appointment unknown) scheduled. He stated that his (unknown) (no (unknown) (unknown) refill his pain (units (unknown) date) medication but he was unknown) informed that he needed to talk with his (unknown) (no (unknown) (unknown) release 24 hr (units ( unknown) date) unknown) (unknown) (no (unknown) (unknown) saliva(carboxymethylcel ( units (unknown) date) lulose-electrolytes) unknown) (unknown) (no (unknown) (unknown) semaglutide 0.25 mg or (u nits (unknown) date) 0.5 mg (2 1 mg SUBCUT unknown) QWEEK 08/04/21 08/23/21 (unknown) (no (unknown) (unknown) sennosides 8.6 (units (unknown) date) mg-docusate sodium 2 tab unkno wn) PO DAILY 01/23/19 08/23/21 (unknown) (no (unknown) (unknown) sennosides-docusate (unit s (unknown) date) sodium 8.6-50 mg Tablet unknow n) (unknown) (no (unknown) (unknown) several days ago for (uni ts (unknown) date) pain in the back of his unknow n) legs and also upper back pain. (unknown) (no (unknown) (unknown) sildenafil 100 mg (units (unknown) date) tablet (Viagra) 100 mg unknown ) PO PRN PRN Sexual Activity 12/17/16 (unknown) (no (unknown) (unknown) sildenafil [Viagra] 100 ( units (unknown) date) MG tablet unknown) (unknown) (no (unknown) (unknown) soln (units (unkno wn) date) unknown) (unknown) (no (unknown) (unknown) spironolactone 25 mg (uni ts (unknown) date) tablet 25 mg PO BID unknown) 11/24/18 08/23/21 (unknown) (no (unknown) (unknown) spironolactone 25 mg (uni ts (unknown) date) tablet unknown) (unknown) (no (unknown) (unknown) spray pump (units (unk nown) date) unknown) (unknown) (no (unknown) (unknown) subcutaneous solution (un its (unknown) date) unknown) (unknown) (no (unknown) (unknown) swish for 30 seconds (uni ts (unknown) date) and spit. after unknown) breakfast and at bedtime. do not eat or (unknown) (no (unknown) (unknown) symptoms. Continue all (u nits (unknown) date) of your medications as unknown ) directed. (unknown) (no (unknown) (unknown) tabs (units (unkno wn) date) unknown) (unknown) (no (unknown) (unknown) the medications that he ( units (unknown) date) was given during his unknown) last visit. He is here seeking (unknown) (no (unknown) (unknown) to bumps on back of (unit s (unknown) date) head unknown) (unknown) (no (unknown) (unknown) tobacco type: (units ( unknown) date) cigarettes unknown) (unknown) (no (unknown) (unknown) tolterodine 4 mg (units (unknown) date) capsule,extended 4 mg PO unkno wn) DAILY 11/24/18 08/23/21 (unknown) (no (unknown) (unknown) tolterodine 4 mg (units (unknown) date) capsule,extended release unkno wn) 24hr (unknown) (no (unknown) (unknown) topical liquid (units (unknown) date) unknown) (unknown) (no (unknown) (unknown) total dose 1.5mg (units (unknown) date) unknown) (unknown) (no (unknown) (unknown) tramadol 50 mg tablet (un its (unknown) date) 50 mg PO Q6H PRN pain unknown) #12 tabs 06/25/22 (unknown) (no (unknown) (unknown) tramadol 50 mg tablet (un its (unknown) date) 50 mg PO Q8H PRN pain unknown) #21 tabs 07/03/22 (unknown) (no (unknown) (unknown) tramadol 50 mg tablet (un its (unknown) date) 50 mg PO Q8H PRN pain #7 unkno wn) tabs 01/23/19 (unknown) (no (unknown) (unknown) tramadol 50 mg tablet (un its (unknown) date) unknown) (unknown) (no (unknown) (unknown) vitamin B complex 1 tab ( units (unknown) date) PO DAILY 11/24/18 unknown) 08/23/21 (unknown) (no (unknown) (unknown) vitamin B complex (units (unknown) date) Tablet unknown) Social History date description facility 2022-06-25 00:00 Ex-smoker (finding) [facility] 2022-07-03 00:00 Ex-smoker (finding) [facility] Vital Signs date measurement value units 2022-06-25 00:00 BMI 34.4 kg/m2 2022-06-25 00:00 BP_diastolic 72 mmHg 2022-06-25 00:00 BP_systolic 150 mmHg 2022-06-25 00:00 heart_rate 71 /min 2022-06-25 00:00 height_metric 170.18 cm 2022-06-25 00:00 height_standard 67 in 2022-06-25 00:00 o2_saturation 98 % 2022-06-25 00:00 respiration_rate 18 /min 2022-06-25 00:00 temperature_metric 36.56 C 2022-06-25 00:00 temperature_standard 97.8 F 2022-06-25 00:00 weight_metric 99.79 kg 2022-06-25 00:00 weight_standard 220 lb 2022-07-03 00:00 BMI 34.4 kg/m2 2022-07-03 00:00 BP_diastolic 76 mmHg 2022-07-03 00:00 BP_systolic 154 mmHg 2022-07-03 00:00 heart_rate 78 /min 2022-07-03 00:00 height_metric 170.18 cm 2022-07-03 00:00 height_standard 67 in 2022-07-03 00:00 o2_saturation 98 % 2022-07-03 00:00 respiration_rate 18 /min 2022-07-03 00:00 temperature_metric 36.28 C 2022-07-03 00:00 temperature_standard 97.3 F 2022-07-03 00:00 weight_metric 99.79 kg 2022-07-03 00:00 weight_standard 220 lb
--- NOTE | 2022-07-27 15:00 | CT Report ---
PROCEDURE: HEAD WO INDICATIONS: fall, struck right head/neck TECHNIQUE: Noncontrast 4.5 mm thick angled axial sections acquired from the foramen magnum to the vertex. For r adiation dose reduction, the following was used: automated exposure control, adjustment of mA and/or kV according to patient size. COMPARISON: 12/14/2013. FINDINGS: Image quality: Excellent. CSF spaces: Basal cisterns are patent. No extra-axial fluid collections. Ventricles are normal in size and shape. Brain: No midline shift. No intracranial masses or hemorrhage. العلي-white matter interface is norm al. Intracranial carotid calcifications. Age-related volume loss and mild small vessel ischemic esparza ge. Skull and face: Calvarium and visualized facial bones are intact, without suspicious lesions. Sinuses: Visualized sinuses and mastoids are clear. IMPRESSION: Unremarkable CT head for patient's age. No evidence of acute intracranial process. Reviewed by: Sandeep Bojorquez MD on 07/27/2022 2:59 PM PST Approved by: Sandeep Bojorquez MD on 07/27/2022 2:59 PM PST Station ID: [id number]
--- NOTE | 2022-07-27 15:03 | CT Report ---
PROCEDURE: CERVICAL SPINE WO INDICATIONS: fall, struck head/neck TECHNIQUE: Noncontrast 3 mm thick sections acquired from the skull base to the T4 level. Sagittal and coronal r eformats were then constructed. For radiation dose reduction, the following was used: automated exp osure control, adjustment of mA and/or kV according to patient size. COMPARISON: 12/14/2013. FINDINGS: Image quality: Excellent. Bones: No fractures or dislocations. Visualized superior ribs are intact. Cervical spondylosis wit h multilevel facet arthropathy and multilevel disc height loss and uncovertebral joint osteophytes. Soft tissues: Prevertebral soft tissues are normal in thickness. No paravertebral hematomas. No ap ical pneumothoraces. Thyroid goiter. Question 4 cm left thyroid nodule. IMPRESSION: 1. No evidence of acute cervical fracture or dislocation. 2. Cervical spondylosis. 3. Thyroid goiter with question of 4 cm left thyroid nodule. Comment: Recommend nonemergent thyroid ultrasound for further characterization. Reviewed by: Sandeep Bojorquez MD on 07/27/2022 3:01 PM PST Approved by: Sandeep Bojorquez MD on 07/27/2022 3:01 PM PST Station ID: [id number]
[2022-07-27 16:15] VITALS: BP 135/57
== END 2022-07-27 16:19 | disposition home or self-care (01) ==
LOC: ED 12:39
DX: R51.9 Headache, unspecified (principal); M54.2 Cervicalgia; W17.89XA Other fall from one level to another, initial encounter; Y92.812 Truck as the place of occurrence of the external cause; I11.0 Hypertensive heart disease with heart failure; I50.9 Heart failure, unspecified; E11.9 Type 2 diabetes mellitus without complications; E78.00 Pure hypercholesterolemia, unspecified; Z79.899 Other long term (current) drug therapy; Z79.4 Long term (current) use of insulin; Z79.84 Long term (current) use of oral hypoglycemic drugs
CPT/HCPCS: 70450; 72125; 99283; 99284; A9270

== ENCOUNTER 2022-08-26 16:16 | Outpatient (CLI) | payer MEDICARE, OTHER ==
[2022-08-26 16:39] LABS: CALCIUM 9.2 mg/dL (8.5-10.3); CREATININE 2.3 mg/dL (0.6-1.2); POTASSIUM 4.3 mmol/L (3.5-5.0)
== END 2022-08-26 16:17 | disposition home or self-care (01) ==
LOC: LAB 16:16
PROVIDERS: ATTEND Nurse Practitioner
DX: M17.12 Unilateral primary osteoarthritis, left knee (principal)
CPT/HCPCS: 36415; 80048

== ENCOUNTER 2022-08-28 13:05 | Outpatient (CLI) | payer MEDICARE, OTHER ==
--- NOTE | 2022-08-28 15:09 | Ultrasound Report ---
PROCEDURE: Duplex Ext Veins Left INDICATIONS: LEG EDEMA TECHNIQUE: Real-time imaging, as well as color and pulse Doppler interrogation, were performed of the lower extr emity deep veins from the inguinal ligament to the popliteal fossa. COMPARISON: None. FINDINGS: The deep veins are normally compressible, and free of intraluminal thrombus. Color and pu lse Doppler demonstrate normal phasic intraluminal flow. There is normal augmentation response to di stal compression maneuver. IMPRESSION: Negative for DVT. Posterior tibial veins are not well-seen due to symptoms. Reviewed by: Anil Redmond MD on 08/28/2022 3:08 PM PDT Approved by: Anil Redmond MD on 08/28/2022 3:08 PM PDT Station ID: [id number]
== END 2022-08-28 13:06 | disposition home or self-care (01) ==
LOC: DI 13:05
PROVIDERS: ATTEND Family Medicine
DX: R60.0 Localized edema (principal); Z96.652 Presence of left artificial knee joint

== ENCOUNTER 2023-01-11 15:59 | Emergency (ER) | payer MEDICARE, OTHER ==
[2023-01-11 16:48] LABS: BASOPHILS % (AUTO) 0.3 %; EOSINOPHILS # (AUTO) 0.1 10^3/uL (0.0-0.7); HCT - HEMATOCRIT 39.6 % (42.0-52.0); HGB - HEMOGLOBIN 12.8 g/dL (14.0-18.0); LYMPHOCYTES # (AUTO) 1.2 10^3/uL (1.5-3.5); LYMPHOCYTES % (AUTO) 34.7 %; MEAN CORPUSCULAR HEMOGLOBIN 28.1 pg (27.0-31.0); MEAN CORPUSCULAR HGB CONC 32.3 g/dL (32.0-36.0); MEAN PLATELET VOLUME 10.7 fL (7.4-11.4); MONOCYTES # (AUTO) 0.3 10^3/uL (0.0-1.0); MONOCYTES % (AUTO) 8.2 %; NEUTROPHILS # (AUTO) 1.9 10^3/uL (1.5-6.6); NEUTROPHILS % (AUTO) 52.8 %; PLT - PLATELET COUNT 173 10^3/uL (130-450); RED BLOOD COUNT 4.55 10^6/uL (4.70-6.10); RED CELL DISTRIBUTION WIDTH 15.7 % (12.0-15.0); WHITE BLOOD COUNT 3.5 x10^3/uL (4.8-10.8)
[2023-01-11 17:04] LABS: ALBUMIN 4.1 g/dL (3.2-5.5); ALBUMIN/GLOBULIN RATIO 1.4 (1.0-2.2); BILIRUBIN,TOTAL 0.5 mg/dL (0.2-1.0); CALCIUM 10.1 mg/dL (8.5-10.3); CREATININE 1.8 mg/dL (0.6-1.3); POTASSIUM 4.3 mmol/L (3.5-4.5)
[2023-01-11] MEDS ORDERED: SODIUM CHLORIDE 0.9% 1,000 ML IV STA ×2 (17:09)
[2023-01-11] MEDS ORDERED: ONDANSETRON 4 MG/2 ML VIAL IVP STA (17:09)
--- NOTE | 2023-01-11 17:14 | ED Physician Documentation ---
History of Present Illness - Stated complaint Stated Complaint: V/ABD PX - Chief complaint Chief Complaint: Abd Pain - History obtained from History obtained from: Patient - History of Present Illness Pain level max: 2 Pain level now: 2 - Additonal information Additional information: Patient is a 72-year-old male, history of chronic renal failure and diabetes. Presents to the emergency department with emesis x3 today. The first was this morning around 9 AM, another episode was around noon and final episode around 1 PM. Has mild abdominal cramping, diffuse. No fevers. No chills. No recent antibiotics. No recent travel. No urinary symptoms. Patient states he currently is feeling better. Review of Systems Constitutional: denies: Fever, Chills Respiratory: denies: Dyspnea, Cough GI: reports: Nausea, Vomiting. denies: Diarrhea Musculoskeletal: denies: Neck pain, Back pain Neurologic: denies: Headache PD PAST MEDICAL HISTORY - Past Medical History Cardiovascular: Congestive heart failure, Hypertension, High cholesterol Respiratory: Pneumonia, Sleep apnea Neuro: None Endocrine/Autoimmune: Type 2 diabetes GI: GERD : Renal insuffiency HEENT: None Psych: Depression, Post traumatic stress disorder Musculoskeletal: Gout Derm: Other - Past Surgical History Past Surgical History: Yes General: Appendectomy HEENT: Tonsil/Adenoidectomy - Present Medications Home Medications: Ambulatory Orders Medication Instructions Recorded Confirmed Atorvastatin Calcium [Lipitor] 20 mg PO DAILY 01/25/13 06/16/22 Bumetanide [Bumex] 2 mg PO BID 01/25/13 06/16/22 amLODIPine [Norvasc] 10 mg PO DAILY 01/25/13 06/16/22 polyethylene glycoL 3350 [Miralax] 17 gm PO BID 01/25/13 06/16/22 Hydrocortisone 1% Oint 1 applic TOP BID PRN 04/21/15 06/16/22 [Hydrocortisone] Insulin Glargine [Lantus Solostar] 56 units SQ BID 04/21/15 06/16/22 Lidocaine Viscous 2% [Xylocaine 10 ml PO Q4HR PRN 04/21/15 06/16/22 Viscous 2%] Sildenafil Citrate [Viagra] 100 mg PO DAILY 04/21/15 06/16/22 Insulin Aspart [Novolog Flexpen] 22 unit SQ UD 06/09/16 06/16/22 dexAMETHasone [Decadron] 4 mg PO DAILY #5 tablet 10/30/16 06/16/22 Isoniazid 300 mg PO DAILY 02/27/20 06/16/22 Metoprolol Succinate [Toprol Xl] 25 mg PO DAILY #30 tablet 08/05/21 06/16/22 Semaglutide [Ozempic] 1 mg SQ UD 06/16/22 06/16/22 Meloxicam [Mobic] 7.5 mg PO BID 10 Days #20 tablet 07/27/22 methocarbamoL [Robaxin] 500 mg PO Q6H PRN #30 tablet 07/27/22 traMADol [Ultram] 50 mg PO Q6H PRN #20 tablet 07/27/22 - Allergies Allergies/Adverse Reactions: Allergies Allergy/AdvReac Type Severity Reaction Status Date / Time gabapentin Allergy Unknown Verified 01/11/23 16:02 PPD AdvReac Intermediate Unknown Uncoded 01/11/23 16:02 - Social History Does the pt smoke?: No Smoking Status: Never smoker Does the pt drink ETOH?: No Does the pt have substance abuse?: No - Immunizations Immunizations are current?: Yes - POLST Patient has POLST: No PD ED PE NORMAL - Vitals Vital signs reviewed: Yes - General General: Alert and oriented X 3, No acute distress - HEENT HEENT: Moist mucous membranes - Neck Neck: Supple, no meningeal sign - Cardiac Cardiac: RRR - Respiratory Respiratory: No respiratory distress, Clear bilaterally - Abdomen Abdomen: Soft, Non tender, Non distended - Back Back: No CVA TTP, No spinal TTP - Derm Derm: Warm and dry, No rash - Extremities Extremities: No edema, No calf tenderness / cord - Neuro Neuro: Alert and oriented X 3 - Psych Psych: Normal mood, Normal affect Results - Vitals Vitals: Vital Signs - 24 hr 01/11/23 01/11/23 16:02 19:48 Temperature 36.5 C Heart Rate 70 75 Respiratory 16 15 Rate Blood Pressure 160/70 H 194/91 H O2 Saturation 98 99 Oxygen O2 Source Room air - Labs Labs: Laboratory Tests 01/11/23 01/11/23 16:44 16:44 WBC 3.5 L RBC 4.55 L Hgb 12.8 L Hct 39.6 L MCV 87.0 MCH 28.1 MCHC 32.3 RDW 15.7 H Plt Count 173 MPV 10.7 Neut # (Auto) 1.9 Lymph # (Auto) 1.2 L [place] # (Auto) 0.3 Eos # (Auto) 0.1 Baso # (Auto) 0.0 Absolute Nucleated RBC 0.00 Nucleated RBC % 0.0 Sodium 138 Potassium 4.3 Chloride 103 Carbon Dioxide 30 Anion Gap 5.0 L BUN 34 H Creatinine 1.8 H Estimated GFR (MDRD) 45 L Glucose 185 H Calcium 10.1 Total Bilirubin 0.5 AST 13 ALT 10 Alkaline Phosphatase 131 H Total Protein 7.0 Albumin 4.1 Globulin 2.9 Albumin/Globulin Ratio 1.4 Lipase 68 - Rads (name of study) CT abdomen pelvis Relevant Findings:: Final report received, See rad report PD Medical Decision Making - ED course Complexity details: reviewed results, re-evaluated patient, considered differential, d/w patient ED course: Patient without further nausea and vomiting in the emergency department. Feels better after IV fluids. Tolerating p.o. without difficulty. No acute findings on laboratory testing or CT scan. Abdomen is soft, nontender nondistended on serial exam. Possible diabetic gastroparesis? Possible viral syndrome? We will continue supportive care and have him follow-up with his doctor. Patient counseled regarding signs and symptoms for which I believe and urgent re- evaluation would be necessary. Patient with good understanding of and agreement to plan and is comfortable going home at this time This document was made in part using voice recognition software. While efforts are made to proofread this document, sound alike and grammatical errors may occ ur. Departure - Departure Disposition: 01 Home, Self Care Clinical Impression: Vomiting Qualifiers: Vomiting type: unspecified Nausea presence: with nausea Qualified Code(s): R11.2 - Nausea with vomiting, unspecified Condition: Good Instructions: ED Nausea Vomiting Follow-Up: Elmer Naylor MD [Primary Care Provider] - Within 1 week Comments: Your laboratory testing and CT scan did not show any acute abnormalities today. Please follow-up with your doctor for further care. Please return if you worsen. The cause of your symptoms is unclear. Forms: PCP List Discharge Date/Time: 01/11/23 19:49
--- NOTE | 2023-01-11 19:06 | CT Report ---
PROCEDURE: ABDOMEN/PELVIS WO INDICATIONS: abd pain, vomiting TECHNIQUE: A CT scan of the abdomen and pelvis was performed without the use of intravenous contrast. Images we re recorded and evaluated at appropriate window settings. Reformats: coronal and sagittal. For radiat ion dose reduction, the following was used: automated exposure control, adjustment of mA and/or kV ac cording to patient size. COMPARISON: None. FINDINGS: Image quality: Excellent. Lung bases and heart: Bilateral lung bases are clear. Heart size is enlarged, no pericardial effusion . Liver: No solid mass. Gallbladder and biliary tree: Gallbladder is distended. Sludge material within dependent portion of g allbladder lumen is seen. No gallbladder wall thickening. No biliary ductal dilatation. Spleen: No splenomegaly. Pancreas: No pancreatic ductal dilation. Adrenals: No adrenal nodule. Kidneys and ureters: No hydronephrosis. No renal cystic lesion which requires follow up. No solid mas s. Nonspecific bilateral perinephric fat stranding is seen. Bowel and peritoneum: There is no bowel obstruction. No gross abnormal bowel wall thickening or mesen teric fat stranding. No abscess collection. Colonic diverticulosis is seen without colonic wall thick ening or mesenteric fat stranding. Lymph nodes: No central or retroperitoneal adenopathy. Vessels: No infrarenal aortic aneurysm. Moderate atherosclerotic calcifications in the abdominal aort a is seen. PELVIS Reproductive organs: Unremarkable. Bladder: No wall thickness, accounting for underdistention. Pelvic lymph nodes: No pelvic adenopathy by size criteria. Bones: No aggressive osseous abnormality. Other: Small left inguinal hernia is noted containing fat only. No ventral hernia. IMPRESSION: 1. No acute inflammatory process is seen in abdomen or pelvis. No bowel obstruction or abnormal bowel wall thickening. No free fluid of free air. Colonic diverticulosis without CT evidence of acute dive rticulitis. 2. No obstructing renal stones or hydronephrosis. Nonspecific mild bilateral perinephric fat strandin g. Reviewed by: Moy Polanco MD on 01/11/2023 7:05 PM PDT Approved by: Moy Polanco MD on 01/11/2023 7:05 PM PDT Station ID: [id number]
[2023-01-11 19:53] VITALS: BP 194/91; O2SAT 99
== END 2023-01-11 19:49 | disposition home or self-care (01) ==
LOC: ED 15:59
DX: R11.2 Nausea with vomiting, unspecified (principal); I13.0 Hypertensive heart and chronic kidney disease with heart failure and stage 1 through stage 4 chronic kidney disease, or unspecified chronic kidney disease; I50.9 Heart failure, unspecified; N18.9 Chronic kidney disease, unspecified; E11.22 Type 2 diabetes mellitus with diabetic chronic kidney disease; E78.00 Pure hypercholesterolemia, unspecified; Z79.899 Other long term (current) drug therapy; Z79.4 Long term (current) use of insulin
CPT/HCPCS: 36415; 80053; 83690; 85025; 96374; 99283

== ENCOUNTER 2024-02-23 19:10 | Emergency (ER) | payer OTHER ==
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
[2024-02-23] MEDS: ACETAMINOPHEN 500 MG TABLET PO STA (20:06)
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
[2024-02-23 20:59] VITALS: BP 174/78; O2SAT 95
== END 2024-02-23 20:52 | disposition home or self-care (01) ==
LOC: ED 19:10
DX: S22.32XA Fracture of one rib, left side, initial encounter for closed fracture (principal); V47.5XXA Car driver injured in collision with fixed or stationary object in traffic accident, initial encounter; E04.9 Nontoxic goiter, unspecified; M19.012 Primary osteoarthritis, left shoulder; M19.011 Primary osteoarthritis, right shoulder; M47.814 Spondylosis without myelopathy or radiculopathy, thoracic region; I51.7 Cardiomegaly
CPT/HCPCS: 71250; 93005; 99284; A9270

== ENCOUNTER 2024-03-06 08:37 | Inpatient (IN) ==
--- NOTE | 2024-03-06 08:49 | ED Physician Documentation ---
PD HPI ALTERED MENTAL STATUS - Stated complaint Stated Complaint: EXPOSURE - History obtained from History obtained from: Patient, Family (report from through Medic), EMS (Lives at home with his . She did not notice that he was not in the house. Found him outside this morning. Seemed agitated and unable to follow commands. EMS was called. They found him with left arm weakness and gaze deviation. Altered mental status.) - History of Present Illness Timing - onset: Last night (Sometime during the night he apparently wandered outside and was on the ground for what ever part of the night. Cold to the touch. Aphasic.) Timing - duration: Hours Timing - details: Still present Quality / character: Less responsive, Agitated Associated symptoms: Headache (he is able to verbalize somewhat with some ditinguishable, yes/no type answers.) Contributing factors: Diabetic. No: Anticoagulated PD PAST MEDICAL HISTORY - Past Medical History Cardiovascular: Congestive heart failure, Hypertension, High cholesterol Respiratory: Pneumonia, Sleep apnea Neuro: None Endocrine/Autoimmune: Type 2 diabetes GI: GERD : Renal insuffiency HEENT: None Psych: Depression, Post traumatic stress disorder Musculoskeletal: Gout Derm: Other - Past Surgical History Past Surgical History: Yes General: Appendectomy HEENT: Tonsil/Adenoidectomy - Present Medications Home Medications: Ambulatory Orders Medication Instructions Recorded Confirmed Atorvastatin Calcium [Lipitor] 40 mg PO DAILY 01/25/13 03/06/24 Hydrocortisone 1% Oint 1 applic TOP BID PRN 04/21/15 03/06/24 [Hydrocortisone] traMADol [Ultram] 50 mg PO Q6H PRN #20 tablet 07/27/22 03/06/24 Alfuzosin HCl [Alfuzosin HCl ER] 10 mg PO DAILY 03/06/24 03/06/24 Aspirin EC [Ecotrin] 81 mg PO DAILY 03/06/24 03/06/24 Dexlansoprazole [Dexlansoprazole 60 mg PO DAILY 03/06/24 03/06/24 ] Diclofenac Sodium 1% Gel [Voltaren 1 each TOP PRN PRN 03/06/24 03/06/24 Gel] Empagliflozin [Jardiance] 10 mg PO DAILY 03/06/24 03/06/24 Fluticasone [Flonase] 2 spray CARLOS EDUARDO DAILY 03/06/24 03/06/24 Metoprolol Succinate [Toprol Xl] 25 mg PO DAILY 03/06/24 03/06/24 Mirabegron [Myrbetriq] 50 mg PO DAILY 03/06/24 03/06/24 Multivitamin,Therapeutic 1 each PO DAILY 03/06/24 03/06/24 [Thera-Tabs] Pregabalin [Lyrica] 75 mg PO BID 03/06/24 03/06/24 Sacubitril/Valsartan [Entresto 97 1 each PO BID 03/06/24 03/06/24 mg-103 mg Tablet] Tolterodine Tartrate [Tolterodine 4 mg PO DAILY 03/06/24 03/06/24 Tartrate ER] allopurinoL [Allopurinol] 200 mg PO DAILY 03/06/24 03/06/24 - Allergies Allergies/Adverse Reactions: Allergies Allergy/AdvReac Type Severity Reaction Status Date / Time gabapentin Allergy Unknown Verified 02/23/24 19:37 lisinopril Allergy Edema Verified 03/06/24 10:18 metolazone Allergy Unknown Verified 03/06/24 10:18 PPD AdvReac Intermediate Unknown Uncoded 02/23/24 19:37 - Social History Does the pt smoke?: No Smoking Status: Never smoker Does the pt drink ETOH?: No Does the pt have substance abuse?: No - Immunizations Immunizations are current?: Yes - POLST Patient has POLST: No PD ED PE NORMAL - Vitals Vital signs reviewed: Yes (rectal temp actually febrile 38.6; sats 96%) - General General: Other (seems anxious. Shivering. gaze deviation to the right up. 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 ) - HEENT HEENT: Other (gag reflex present). No: Atraumatic (contusion with local swelling right parietal) - Neck Neck: Supple, no meningeal sign - Cardiac Cardiac: No: RRR (tachycardic but regular with some PVCs on monitor.) - Respiratory Respiratory: No respiratory distress, Clear bilaterally - Abdomen Abdomen: Non distended. No: Normal bowel sounds (diminished) - Derm Derm: Normal color, Other (skin with ground debris (pine needles, dirt, etc) on skin on backside. Superficial redness/abrasions. ). No: Warm and dry (cool to the touch, symone extremities) - Extremities Extremities: No deformity - Neuro Neuro: Other (weakness without movement left arm and leg. Facial weakness right side. Gaze deviation to right. ) NIHSS - Level of Consciousness Level of consciousness: (1) Not alert, but arousable by minor stimulation to obey, or answer LOC Questions: (2) Answers neither correct LOC Commands: (1) Performs one correctly - Gaze Best Gaze: (2) Forced deviation - Visual Visual: (0) No loss - Facial Palsy Facial Palsy: (2) Partial paralysis - Motor Arms (both separate) Motor Arm (right): (0) No drift Motor Arm (left): (3) No effort against gravity - Motor Legs (both separate) Motor Leg (right): (0) No drift Motor Leg (left): (3) No effort against gravity - Limb Ataxia Limb Ataxia: (2) Present in 2 limbs - Sensory Sensory: (1) Dvco-dc-ldccgtzs loss - Best Language Best Language: (2) Severe aphasia - Dysarthria Dysarthria: (2) Severe dysarthria - Extinction and Inattention (formally neg Extinction and inattention: (2) Profound papito-inattention or extinction to more than one modality - Total Score/Results Total Score/Result: 23 Results - Vitals Vitals: Vital Signs - 24 hr 03/06/24 03/06/24 03/06/24 08:42 09:00 09:30 Temperature 38.6 C H Heart Rate 120 H 117 H 107 H Respiratory 30 H 29 H 23 Rate Blood Pressure 169/112 H 200/100 H 191/89 H O2 Saturation 96 98 100 03/06/24 03/06/24 03/06/24 09:45 10:00 10:30 Temperature Heart Rate 106 H 100 104 H Respiratory 24 20 23 Rate Blood Pressure 163/83 H 167/110 H 186/101 H O2 Saturation 100 99 99 03/06/24 11:00 Temperature Heart Rate 123 H Respiratory 24 Rate Blood Pressure 200/95 H O2 Saturation 95 Oxygen O2 Source Room air - Labs Labs: Laboratory Tests 03/06/24 03/06/24 03/06/24 08:47 08:47 08:47 WBC 22.7 H RBC 6.46 H Hgb 18.1 H Hct 54.1 H MCV 83.7 MCH 28.0 MCHC 33.5 RDW 14.9 Plt Count 216 MPV 12.9 H Neut # (Auto) 20.4 H Lymph # (Auto) 0.9 L Yancey # (Auto) 1.3 H Eos # (Auto) 0.0 Baso # (Auto) 0.0 Absolute Nucleated RBC 0.00 Nucleated RBC % 0.0 Manual Slide Review Indicated RBC Morph Micro Appear 2+ ANISOCYTOSIS VBG pH VBG pCO2 VBG pO2 VBG HCO3 VBG Total CO2 VBG O2 Saturation VBG Base Excess Sodium 140 Potassium 4.5 Chloride 97 L Carbon Dioxide 22 Anion Gap 21.0 H BUN 53 H Creatinine 2.7 H Estimated GFR (MDRD) 28 L Glucose 379 H Lactic Acid 4.3 H* Calcium 10.0 Magnesium 1.9 Total Bilirubin 1.6 H AST 47 H ALT 27 Alkaline Phosphatase 182 H Total Creatine Kinase 1399 H* Total Protein 7.8 Albumin 4.5 Globulin 3.3 Albumin/Globulin Ratio 1.4 Lipase 33 Urine Color Urine Clarity Urine pH Ur Specific [place] Urine Protein Urine Glucose (UA) Urine Ketones Urine Occult Blood Urine Nitrite Urine Bilirubin Urine Urobilinogen Ur Leukocyte Esterase Urine RBC Urine WBC Ur Squamous Epith Cells Amorphous Sediment Urine Bacteria Urine Casts Ur Microscopic Review Urine Culture Comments Nasal Adenovirus (PCR) Nasal B. parapertussis DNA (PCR) Nasal Coronavir 229E PCR Nasal Coronavir HKU1 PCR Nasal Coronavir NL63 PCR Nasal Coronavir OC43 PCR Nasal Enterovir/Rhinovir PCR Nasal Influenza B PCR Nasal Influenza A PCR Nasal Parainfluen 1 PCR Nasal Parainfluen 2 PCR Nasal Parainfluen 3 PCR Nasal Parainfluen 4 PCR Nasal RSV (PCR) Nasal B.pertussis DNA PCR Nasal C.pneumoniae (PCR) Carlos Edurado Human Metapneumo PCR Nasal M.pneumoniae (PCR) Nasal SARS-CoV-2 (PCR) Ethyl Alcohol < 10.0 Serum Ketones SMALL H 03/06/24 03/06/24 03/06/24 08:47 09:10 11:09 WBC RBC Hgb Hct MCV MCH MCHC RDW Plt Count MPV Neut # (Auto) Lymph # (Auto) Yancey # (Auto) Eos # (Auto) Baso # (Auto) Absolute Nucleated RBC Nucleated RBC % Manual Slide Review RBC Morph Micro Appear VBG pH 7.275 L VBG pCO2 40.4 L VBG pO2 22.0 L VBG HCO3 18.3 L VBG Total CO2 19.6 L VBG O2 Saturation 38.6 L VBG Base Excess -7.9 L Sodium Potassium Chloride Carbon Dioxide Anion Gap BUN Creatinine Estimated GFR (MDRD) Glucose Lactic Acid Calcium Magnesium Total Bilirubin AST ALT Alkaline Phosphatase Total Creatine Kinase Total Protein Albumin Globulin Albumin/Globulin Ratio Lipase Urine Color YELLOW Urine Clarity CLEAR Urine pH 5.5 Ur Specific [place] 1.025 Urine Protein >=300 H Urine Glucose (UA) >=1000 H Urine Ketones 15 H Urine Occult Blood LARGE H Urine Nitrite NEGATIVE Urine Bilirubin NEGATIVE Urine Urobilinogen 0.2 (NORMAL) Ur Leukocyte Esterase NEGATIVE Urine RBC 0-5 Urine WBC 0-3 Ur Squamous Epith Cells RARE Squamous Amorphous Sediment Few Urine Bacteria Rare Urine Casts 0-2 Granular Casts Ur Microscopic Review INDICATED Urine Culture Comments NOT INDICATED Nasal Adenovirus (PCR) NOT DETECTED Nasal B. parapertussis DNA (PCR) NOT DETECTED Nasal Coronavir 229E PCR NOT DETECTED Nasal Coronavir HKU1 PCR NOT DETECTED Nasal Coronavir NL63 PCR NOT DETECTED Nasal Coronavir OC43 PCR NOT DETECTED Nasal Enterovir/Rhinovir PCR NOT DETECTED Nasal Influenza B PCR NOT DETECTED Nasal Influenza A PCR NOT DETECTED Nasal Parainfluen 1 PCR NOT DETECTED Nasal Parainfluen 2 PCR NOT DETECTED Nasal Parainfluen 3 PCR NOT DETECTED Nasal Parainfluen 4 PCR NOT DETECTED Nasal RSV (PCR) NOT DETECTED Nasal B.pertussis DNA PCR NOT DETECTED Nasal C.pneumoniae (PCR) NOT DETECTED Carlos Eduardo Human Metapneumo PCR NOT DETECTED Nasal M.pneumoniae (PCR) NOT DETECTED Nasal SARS-CoV-2 (PCR) NOT DETECTED Ethyl Alcohol Serum Ketones - Rads (name of study) head CT and angio Relevant Findings:: Prelim report reviewed, See rad report (no acute findings on CT. angio without any significant stenoses) cervical CT Relevant Findings:: Prelim report reviewed, EMP independent interpretation of test (no fractures nor acute process) chest xray Relevant Findings:: Prelim report reviewed, EMP independent interpretation of test (no infiltrates nor pneumonia. ) PD Medical Decision Making - ED course Complexity details: reviewed results, considered differential (gaze deviation, aphasia, left arm and leg weakness most c/w CVA. Does hav eelevated Creatinine and CK presume due to lying on ground. Fever on presentation and looking for source of infection, though could be central temp elevation if CVA. ), d/w patient, d/w institutional nutrition consultant (Hospitalist) Departure - Departure Disposition: 66 [facility] DC/Xfer Clinical Impression: Fever, Acute CVA (cerebrovascular accident), Exposure to environmental cold, Diabetes, Hyperglycemia, Hemiparesis, Head contusion Condition: Stable Discharge Date/Time: 03/06/24 12:37
[2024-03-06 09:00] LABS: KETONES, SERUM (ACETEST) SMALL (NEGATIVE)
[2024-03-06 09:02] LABS: BASOPHILS % (AUTO) 0.2 %; HCT - HEMATOCRIT 54.1 % (42.0-52.0); HGB - HEMOGLOBIN 18.1 g/dL (14.0-18.0); LYMPHOCYTES # (AUTO) 0.9 10^3/uL (1.5-3.5); MEAN CORPUSCULAR HGB CONC 33.5 g/dL (32.0-36.0); MEAN CORPUSCULAR VOLUME 83.7 fL (80.0-94.0); MEAN PLATELET VOLUME 12.9 fL (7.4-11.4); MONOCYTES # (AUTO) 1.3 10^3/uL (0.0-1.0); MONOCYTES % (AUTO) 5.6 %; NEUTROPHILS # (AUTO) 20.4 10^3/uL (1.5-6.6); NEUTROPHILS % (AUTO) 89.7 %; PLT - PLATELET COUNT 216 10^3/uL (130-450); RED BLOOD COUNT 6.46 10^6/uL (4.70-6.10); RED CELL DISTRIBUTION WIDTH 14.9 % (12.0-15.0); WHITE BLOOD COUNT 22.7 x10^3/uL (4.8-10.8)
[2024-03-06 09:03] LABS: SLIDE REVIEW? Indicated
[2024-03-06 09:09] LABS: ETOH - ETHANOL < 10.0 mg/dL; LIPASE 33 U/L (11-82); MAGNESIUM 1.9 mg/dL (1.7-2.3)
[2024-03-06] MEDS ORDERED: iohexoL-300 100 ML VIAL ONE (09:11)
[2024-03-06 09:13] LABS: ALBUMIN 4.5 g/dL (3.2-5.5); ALBUMIN/GLOBULIN RATIO 1.4 (1.0-2.2); ALKALINE PHOSPHATASE 182 IU/L (42-121); ALT ALANINE AMINOTRANSFERASE 27 IU/L (10-60); AST ASPARTATE AMINOTRANSFERASE 47 IU/L (10-42); BILIRUBIN,TOTAL 1.6 mg/dL (0.2-1.0); BUN - BLOOD UREA NITROGEN 53 mg/dL (6-20); CARBON DIOXIDE - CO2 22 mmol/L (21-32); CHLORIDE 97 mmol/L (101-111); CK- CREATINE KINASE 1399 IU/L (30-223); CREATININE 2.7 mg/dL (0.6-1.3); GFR - MDRD 28 (>89); GLUCOSE 379 mg/dL (74-104); POTASSIUM 4.5 mmol/L (3.5-4.5); SODIUM 140 mmol/L (135-145); TOTAL PROTEIN 7.8 g/dL (6.4-8.9)
[2024-03-06] MEDS: MORPHINE 2 MG/ML CARPUJECT IVP STA (09:14)
[2024-03-06] MEDS: ACETAMINOPHEN 1,000 MG/100 ML 1,000 MG/100 ML BAG IV ONE ×2 (09:14→22:55)
[2024-03-06] MEDS: LIDOCAINE 2% URO-JET 5 ML SYRINGE UR STA (09:14)
[2024-03-06] MEDS: SODIUM CHLORIDE 0.9% 1,000 ML IV STA ×2 (09:15→11:39)
[2024-03-06 09:41] LABS: RBC MORPHOLOGY (MULTIPLE) 2+ ANISOCYTOSIS (NORMAL)
[2024-03-06 09:44] LABS: CORONAVIRUS 229E-RESP PCR NOT DETECTED; CORONAVIRUS HKU1-RESP PCR NOT DETECTED; CORONAVIRUS NL63-RESP PCR NOT DETECTED; CORONAVIRUS OC43-RESP PCR NOT DETECTED; HUMAN METAPNEUMOVIRUS NOT DETECTED; RHINOVIRUS/ENTEROVIRUS NOT DETECTED; SARS-CoV-2 -RESP PCR PANEL NOT DETECTED
[2024-03-06 09:45] LABS: B. PARAPERTUSSIS- RESP PCR PAN NOT DETECTED; B. PERTUSSIS- RESP PCR PANEL NOT DETECTED; C. PNEUMONIAE- RESP PCR PANEL NOT DETECTED; INFLUENZA A- RESP PCR PANEL NOT DETECTED; INFLUENZA B - RESP PCR PANEL NOT DETECTED; M. PNEUMONIAE- RESP PCR PANEL NOT DETECTED; PARAINFLUENZA VIRUS 1 NOT DETECTED; PARAINFLUENZA VIRUS 2 NOT DETECTED; PARAINFLUENZA VIRUS 3 NOT DETECTED; PARAINFLUENZA VIRUS 4 NOT DETECTED; RSV- RESP PCR PANEL NOT DETECTED
[2024-03-06 09:49] LABS: BILIRUBIN,URINE NEGATIVE (NEGATIVE); GLUCOSE, URINE (UA) >=1000 mg/dL (NEGATIVE); KETONES,URINE (UA) 15 mg/dL (NEGATIVE); LEUKOCYTE ESTERASE, URINE NEGATIVE (NEGATIVE); NITRITE,URINE NEGATIVE (NEGATIVE); OCCULT BLOOD,URINE LARGE (NEGATIVE); PH,URINE 5.5 PH (5.0-7.5); PROTEIN,URINE >=300 mg/dL (NEGATIVE); UROBILINOGEN,URINE 0.2 (NORMAL) E.U./dL (NORMAL)
[2024-03-06 09:57] LABS: CLARITY,URINE CLEAR (CLEAR)
[2024-03-06 10:02] LABS: AMORPHOUS SEDIMENT,UR Few /LPF; BACTERIA,URINE Rare /HPF (None Seen); CASTS, URINE 0-2 Granular Casts /LPF; RBC,URINE 0-5 /HPF (0-5); SQUAMOUS EPITHELIAL CELL,UR RARE Squamous (<= Few); WBC,URINE 0-3 /HPF (0-3)
--- NOTE | 2024-03-06 10:03 | CT Report ---
PROCEDURE: Head WO INDICATIONS: AMS, left weakness TECHNIQUE: Noncontrast 4.5 mm thick angled axial sections acquired from the foramen magnum to the vertex. For r adiation dose reduction, the following was used: automated exposure control, adjustment of mA and/or kV according to patient size. COMPARISON: CT head 07/27/2022. FINDINGS: Image quality: Excellent. CSF spaces: Basal cisterns are patent. No extra-axial fluid collections. Ventricles are symmetric in size and shape. Brain: No midline shift. No intracranial masses or hemorrhage. Mild hypodensities in the subcortica l and periventricular white matter are most commonly seen in setting of chronic microvascular ischemi c changes. Age-related cerebral and cerebellar volume loss is seen. Intracranial vascular calcificati ons are noted in the internal carotid arteries. Skull and face: Small right parietal scalp hematoma. No skull fracture. Calvarium and visualized fac ial bones are intact, without suspicious lesions. Sinuses: Visualized sinuses and mastoids are clear. IMPRESSION: Small right parietal scalp hematoma. No skull fracture. No acute intracranial abnormality. Reviewed by: Otoniel Castro MD on 03/06/2024 10:02 AM PDT Approved by: Otoniel Castro MD on 03/06/2024 10:02 AM PDT Station ID: [id number]
--- NOTE | 2024-03-06 10:06 | CT Report ---
PROCEDURE: Cervical Spine WO INDICATIONS: AMS, possible fall TECHNIQUE: Noncontrast 3 mm thick sections acquired from the skull base to the T4 level. Sagittal and coronal r eformats were then constructed. For radiation dose reduction, the following was used: automated exp osure control, adjustment of mA and/or kV according to patient size. COMPARISON: Cervical spine CT 07/27/2022. FINDINGS: Image quality: Excellent. Bones: No acute fractures or dislocations. Visualized superior ribs are intact. There is osseous f usion across the C4-5 disc space. Multilevel disc space narrowing degenerative endplate changes are p resent. There is multilevel uncovertebral joint and facet hypertrophy. Soft tissues: Prevertebral soft tissues are normal in thickness. No paravertebral hematomas. No ap ical pneumothoraces. Surgical clips are seen in the right neck. The left thyroid lobe appears enlarge d and heterogeneous. IMPRESSION: 1.No acute cervical spine fracture or traumatic subluxation. 2.Multilevel cervical spondylosis. 3.Enlarged heterogeneous left thyroid lobe. Consider outpatient thyroid ultrasound for further evalua tion if not previously obtained. Reviewed by: Otoniel Castro MD on 03/06/2024 10:05 AM PDT Approved by: Otoniel Castro MD on 03/06/2024 10:05 AM PDT Station ID: [id number]
--- NOTE | 2024-03-06 10:11 | CT Report ---
PROCEDURE: Angio Head/Neck INDICATIONS: word search, confused for 15 min today TECHNIQUE: After the administration of intravenous contrast, 1 mm thick sections acquired from the aortic arch t hrough the [place]. 3-dimensional lvgyryw-htvrrowgv-nynqwykwwe (MIP) and/or volume renderin g reformats were acquired of the central intracranial vasculature and neck separately. For radiation dose reduction, the following was used: automated exposure control, adjustment of mA and/or kV acco rding to patient size. CONTRAST: Omni 300 100ml COMPARISON: Noncontrast CT head and cervical spine performed on the same day. FINDINGS: Image quality: Diagnostic. HEAD CT: CSF Spaces: Basal cisterns are patent. No extra-axial fluid collections. Ventricles are normal in size and shape. Brain: No significant abnormality is seen for scanning technique. Skull and face: Small right parietal scalp hematoma. Calvarium and visualized facial bones appear in tact, without suspicious lesions. Sinuses: Visualized sinuses and mastoids are clear. HEAD CT ANGIOGRAPHY: Anterior circulation: Intracranial internal carotid arteries are normal in size and flow. The flow within the paired anterior cerebral arteries is normal and symmetric. The flow within the middle cer ebral arteries is normal and symmetric. The anterior communicating artery is seen. No aneurysms are seen. Posterior circulation: Visualized portions of the vertebral arteries demonstrate normal caliber, and join to form a normal appearing basilar artery. Flow within the posterior cerebral arteries is norm al and symmetric. No aneurysms are seen. NECK CT ANGIOGRAPHY: Carotid system: Left common carotid artery arises from the brachiocephalic trunk, a normal anatomical variant. The origins of the common carotid arteries appear patent. The common carotid arteries demo nstrate normal caliber and courses. The bifurcation regions are both widely patent. The internal ca rotid arteries demonstrate normal calibers and courses. Posterior circulation: Short segment high-grade narrowing is seen at the right vertebral artery origi n, estimated at 70% narrowed the left vertebral artery origin demonstrates atherosclerotic calcificat ions without hemodynamically significant stenosis.. The more superior extracranial portions of both v ertebral arteries demonstrate normal courses and calibers. They join to form a normal appearing basi lar artery. Soft tissues: Visualized neck soft tissues demonstrate no suspicious abnormalities. Enlarged hetero geneous left thyroid lobe. Bones: No suspicious bony lesions. Multilevel degenerative changes in the included spine. IMPRESSION: No significant intracranial arterial abnormality is seen. Short segment 70% narrowing of the right vertebral artery at the origin. The estimate of stenosis included in the report of the imaging study was calculated using the NASCET method Reviewed by: Ootniel Castro MD on 03/06/2024 10:10 AM PDT Approved by: Otoniel Castro MD on 03/06/2024 10:10 AM PDT Station ID: [id number]
--- NOTE | 2024-03-06 10:33 | XRAY Report ---
PROCEDURE: Chest 1V INDICATIONS: chest pain TECHNIQUE: One view of the chest was acquired. COMPARISON: Chest radiographs 08/05/2021 FINDINGS: Surgical changes and devices: Surgical clips project over the lower neck. Lungs and pleura: Lung markings may be exaggerated by portable technique. No acute consolidation. No pleural effusion or pneumothorax. Mediastinum: Cardiac silhouette is mildly enlarged. Bones and chest wall: No suspicious bony lesions. Overlying soft tissues appear unremarkable. Pro minent degenerative changes are seen in the shoulders. IMPRESSION: Mildly enlarged cardiac silhouette. No acute consolidation. Reviewed by: Otoniel Castro MD on 03/06/2024 10:31 AM PDT Approved by: Otoniel Castro MD on 03/06/2024 10:31 AM PDT Station ID: [id number]
[2024-03-06] MEDS: iohexoL-300 100 ML VIAL IVP ONE (11:08)
[2024-03-06 11:15] LABS: VBG PH 7.275 (7.31-7.41)
[2024-03-06 11:16] LABS: VBG BASE EXCESS -7.9 mmol/L (-2 - +2); VBG HCO3 18.3 mmol/L (23-28); VBG OXYGEN SATURATION 38.6 % (60-80); VBG PCO2 40.4 mmHg (41-51); VBG TOTAL CO2 19.6 mmol/L (24-29)
[2024-03-06] MEDS: METOPROLOL 5 MG/5 ML VIAL IVP STA (11:28)
[2024-03-06] MEDS: ASPIRIN 300 MG SUPP PR STA (11:35)
[2024-03-06] MEDS ORDERED: oxyCODONE 5 MG TABLET PO PRN (11:43)
--- NOTE | 2024-03-06 12:22 | HISTORY & PHYSICAL EXAMINATION ---
History of Present Illness - Admitted From Admitted From:: ED - History Obtained From Records Reviewed: ED History obtained from: , Dr. Beal, and [facility] Exam Limitations: Patient unable to respond to my questions - History of Present Illness HPI Comment/Other: Mr. Sampson is a 73 year old man with a past medical history of smoking, hypertension, hyperlipidemia, and diabetes was presented to the emergency room after EMS found him laying on the ground with left arm weakness , gaze deviation, and altered mental status. His called him at 2:09pm yesterday with no response from the patient. Later that evening at 4:30pm she checked his location and called him again. Per , he picked up but hanged up the phone quickly saying "I have to go". She reported that over the phone he sounded good, nothing abnormal was recognized. She then kept calling him for dinner and he did not package pick up. She did not think anything unusual because he usually is always out doing errands. When she noticed her has not come home in the morning, she later drove to his location at 8am this morning and called EMS. The noticed there were scratches on his knees and elbows. She pinched his right side and he felt it however when she proceeded to pinch his left side, she reported he did not feel it. This is the first time that this has occurred according to the . She reported he has had falls in the past before once a month or every other month due to instability from either tripping over his pants because they are too low or over his shoes. She denies any recent trauma. Unable to obtain ROS from the patient. EMS reported dysarthia, dysphagia, and hemiplagia. Patient is a retired [place] vet and retired from [employer]. He is very active as he always is out doing errands or work around the house. He lives with his in a home. He currently is not an active drinker or smoker. He stopped smoking in 1990 and started when he was a teenager. The was unable to tell me for how many years or how many packs per day he used to smoke. History - Past Medical History Cardiovascular: reports: Congestive heart failure, Hypertension, High cholesterol Respiratory: reports: Pneumonia, Sleep apnea Neuro: reports: None Endocrine/Autoimmune: reports: Type 2 diabetes GI: reports: GERD CONDENSER CLEANER: reports: None : reports: Renal insuffiency (Anemia of CKD Stage III- stable ) HEENT: reports: None Psych: reports: Depression, Post traumatic stress disorder Musculoskeletal: reports: Gout, Other (Arthritis ) Derm: reports: None MRSA Hx?: No Other Past Medical History: History of anemia and leukopenia - repeat bone marrow biopsy in April 2022 at [place] which showed mild red cell atypia w/out significant dysplasia - can not rule out low grade MDS. MGUS w/ elevated kappa light chain normal SPEP and imuunofixation - repeat bone marrow biopsy on 04/28/2022 at [place] in [place] showed 2-10% plasma cell dyscrasia by IHC; PET scan negative in Apr 2022 at [facility] [place]; Continue to observe no interventions needed - Past Surgical History General: reports: Appendectomy Ortho: reports: Knee replacement, Other (C2-C4 fusion) HEENT: reports: Cataracts, Tonsil/Adenoidectomy, Other (Radical neck dissection ) - Family & Social History Family History Comment/Other: Mom - Kidney Disease. Dad - Colon Cancer, Lung Cancer Living arrangement: At home Living Situation: With spouse/s.o. Social History Notes: Retired [employer] and retired from [employer] - Substance History Use: Uses substance without health or social issues: NONE (Not an active smoker - stopped in 1990; Does not drink alcohol) Abuse: Recurrent use of substance despite neg consequences: NONE - POLST Patient has POLST: No Meds/Allgy - Home Medications Home Medications: Ambulatory Orders Medication Instructions Recorded Confirmed Atorvastatin Calcium [Lipitor] 40 mg PO DAILY 01/25/13 03/06/24 Hydrocortisone 1% Oint 1 applic TOP BID PRN 04/21/15 03/06/24 [Hydrocortisone] traMADol [Ultram] 50 mg PO Q6H PRN #20 tablet 07/27/22 03/06/24 Alfuzosin HCl [Alfuzosin HCl ER] 10 mg PO DAILY 03/06/24 03/06/24 Aspirin EC [Ecotrin] 81 mg PO DAILY 03/06/24 03/06/24 Dexlansoprazole [Dexlansoprazole 60 mg PO DAILY 03/06/24 03/06/24 Dr] Diclofenac Sodium 1% Gel [Voltaren 1 each TOP PRN PRN 03/06/24 03/06/24 Gel] Empagliflozin [Jardiance] 10 mg PO DAILY 03/06/24 03/06/24 Fluticasone [Flonase] 2 spray CARLOS EDUARDO DAILY 03/06/24 03/06/24 Metoprolol Succinate [Toprol Xl] 25 mg PO DAILY 03/06/24 03/06/24 Mirabegron [Myrbetriq] 50 mg PO DAILY 03/06/24 03/06/24 Multivitamin,Therapeutic 1 each PO DAILY 03/06/24 03/06/24 [Thera-Tabs] Pregabalin [Lyrica] 75 mg PO BID 03/06/24 03/06/24 Sacubitril/Valsartan [Entresto 97 1 each PO BID 03/06/24 03/06/24 mg-103 mg Tablet] Tolterodine Tartrate [Tolterodine 4 mg PO DAILY 03/06/24 03/06/24 Tartrate ER] allopurinoL [Allopurinol] 200 mg PO DAILY 03/06/24 03/06/24 - Allergies Allergies/Adverse Reactions: Allergies Allergy/AdvReac Type Severity Reaction Status Date / Time gabapentin Allergy Unknown Verified 02/23/24 19:37 lisinopril Allergy Edema Verified 03/06/24 10:18 metolazone Allergy Unknown Verified 03/06/24 10:18 PPD AdvReac Intermediate Unknown Uncoded 02/23/24 19:37 Review of Systems - Other Findings Other Findings: Unable to obtain a thorough ROS due to patient's encephalopathy Prior Level of Functionality: Patient lives a very active lifestyle of composed of doing errands and house work Exam - Vital Signs Reviewed Vital Signs: Yes Vital Signs: Vital Signs x48h Temp Pulse Resp BP Pulse Ox 03/06/24 11:50 38.9 C H 03/06/24 11:00 123 H 24 200/95 H 95 03/06/24 10:30 104 H 23 186/101 H 99 03/06/24 10:00 100 20 167/110 H 99 03/06/24 09:45 106 H 24 163/83 H 100 03/06/24 09:30 107 H 23 191/89 H 100 03/06/24 09:00 117 H 29 H 200/100 H 98 03/06/24 08:42 38.6 C H 120 H 30 H 169/112 H 96 - Physical Exam General Appearance: positive: Mild distress Eyes Bilateral: positive: Normal inspection, No lid inflammation Neck: positive: Nml inspection, Thyroid nml, No JVD Respiratory: positive: No respiratory distress, Breath sounds nml Cardiovascular: positive: Regular rate & rhythm, No murmur, No gallop Abdomen: positive: Nml bowel sounds, No distention Skin: positive: Color nml, No rash, Warm, Dry Comments/Other: Eyes closed, patient breathing through his mouth. Patient moved his right foot, right thumb and index finger twitched however he was unable to move his left foot and left hand was laying still on his leg Conclusion/Plan - Problem List (1) Stroke Conclusion/Plan: - CT Angiography shows a small right pareital scalp hematoma. Posterior circulation showed short segment high-grade narrowing is seen at the right vertebral artery origin, estimated at 70% narrowed. The left vertebral artery origin demonstrates atherosclerotic calcifications without hemodynamically significant stenosis - Enlarged heterogeneous left thyroid lobe seen - I will advise the patient to consider outpatient thyroid ultrasound for further evaluation - I will prescribe IV fluids to help decrease creatine kinase as labs indicate it is at a value of 1399 and to help with intravascular volume depletion - I will start the patient on aspirin - I will start the patient on prophylaxis for DVT and PE - I will involve speech therapy to address any issue with swallowing the patient may have - I will order an MRI as it is more sensitive and an echo to visualize an embolic stroke - I will order a tele for 36 hours (2) FRANK (acute kidney injury) Conclusion/Plan: - Anemia of CKD stage III - FRANK due to dehydration - Hgb is concentrated at a value of 18.1 indicating blood contains less water. I will give IV fluids and recheck Hgb to assess if equilibrium has been achieved - CT with angiogram was given to the patient - will draw labs to assess any changes to patient's creatine, BUN, and GFR levels - I will avoid any nephrotoxic agents that may impair with his kidney functions (3) Rhabdomyolysis Conclusion/Plan: - Patient was found laying on the ground in one position throughout the night - Total Creatine Kinase 1399 and Lactic Acid 4.3 indicating lactic acidosis from rabdomyolysis and dehydration - I will give IV Fluids to correct fluids and electrolyte absnormalities - I will draw labs to monitor CK, BUN, creatine, and routine electrolytes (4) Fever of unknown origin (FUO) Conclusion/Plan: - Patient's temperature is elevated at 38.4C - I have drawn blood culture to assess if there is a presence of infection - will monitor once results are received - Urine has glucosuria, proteinuria and large occult blood - Chest xray does not indicate pneumonia - no antibiotics is needed at this point - The fever perhaps could be due to the fact that the patient has been laying outside all night and not due to an infection - may resolve on its own but will continue to monitor (5) Diabetes mellitus type 2 with complications, uncontrolled Conclusion/Plan: - DM Type II w/ complications and uncontrolled - Patient's Glucose level is 379 - I will prescribe Lispro 1-5 units SUBQ - I will check A1C to to check if his glucose is controlled (6) Hypertension Conclusion/Plan: - Patients blood pressure is 152/76 - Patient is on Metoprolol at home - I will not start this at the hospital because I was to maintain a systolic of greater than 180 to maintain perfusion - I will start Labetalol 10 mg IVP Q4H - Lab Results Fish Bones: 03/06/24 08:47 03/06/24 08:47 Core Measures - Anticipated LOS I expect patient to be DC'd or transferred within 96 hours.: Yes - DVT/VTE - Prophylaxis VTE/DVT Device ordered at admit?: Yes - Stroke - Rehab Assessment Rehab services assessment to be ordered?: Yes
--- NOTE | 2024-03-06 13:14 | PHARMACY PROGRESS NOTE ---
- Best Possible Medication History Admit Date and Time: 03/06/24 1127 Processed by: Pharmacy Medication History completed: Yes Patient Interview: Pt unable to participate Secondary Source(s): Written medication list, Spouse/Significant other As the person ultimately responsible for medication therapy, providers are able to order a medication from an existing home medication list in [facility] via the "Reconcile Routine" prior to Confirmation of that medication by business support administrator. Such practice is discouraged except when the physician, in their clinical judgment, deems that a medical need exists for a medication without regard to previous use.
[2024-03-06] MEDS: SODIUM CHLORIDE 0.9% 1,000 ML IV SCH ×2 (13:26→17:41)
[2024-03-06 13:40] LABS: VBG BASE EXCESS -8.4 mmol/L (-2 - +2); VBG HCO3 16.3 mmol/L (23-28); VBG OXYGEN SATURATION 50.7 % (60-80); VBG PCO2 32.9 mmHg (41-51); VBG PH 7.313 (7.31-7.41); VBG PO2 28.8 mmHg (25-47); VBG TOTAL CO2 17.3 mmol/L (24-29)
--- NOTE | 2024-03-06 16:26 | MRI Report ---
PROCEDURE: Brain WO INDICATIONS: stroke TECHNIQUE: Noncontrast axial T1 spin echo, axial T2 fast spin echo, sagittal and axial FLAIR, coronal T2 fast sp in echo, axial gradient echo, axial diffusion and ADC through the brain. COMPARISON: 03/06/[address] FINDINGS: Image quality: Diagnostic CSF spaces: Basal cisterns are patent. Lateral ventricles are symmetric. Volume: Periventricular white matter signal abnormality is commonly seen with chronic microangiopathy . Volume loss is present. These findings are mild to moderate. Brain: No acute hematoma. No acute diffusion restriction Small focus of FLAIR signal is seen in the left cerebellum. Craniofacial structures: No significant paranasal sinus opacity IMPRESSION: No acute infarct on diffusion-weighted images. No significant hematoma Incidentally noted small focus of FLAIR signal in the left cerebellum, nonspecific and may be sequela e prior injury or chronic white matter disease Reviewed by: Anil Redmond MD on 03/06/2024 4:25 PM PDT Approved by: Anil Redmond MD on 03/06/2024 4:25 PM PDT Station ID: [id number]
[2024-03-06] MEDS: INSULIN LISPRO 300 UNIT/3 ML PEN SUBQ SCH (17:24)
[2024-03-06] MEDS: SODIUM CHLORIDE FLUSH 0.9% 10 ML SYRINGE IVP SCH (17:26)
[2024-03-06] MEDS ORDERED: MORPHINE 2 MG/ML CARPUJECT IVP PRN (17:32)
[2024-03-06] MEDS: INSULIN REGULAR, HUMAN 300 UNIT/3 ML PEN SUBQ ONE (17:42)
[2024-03-06] MEDS: ACETAMINOPHEN 1,000 MG/100 ML 1,000 MG/100 ML BAG IV PRN (19:10)
[2024-03-06 20:27] VITALS: BP 168/82
[2024-03-06] MEDS: INSULIN GLARGINE-YFGN 300 UNIT/3 ML PEN SUBQ SCH (20:59)
[2024-03-06 21:50] LABS: ALBUMIN 3.7 g/dL (3.2-5.5); ALBUMIN/GLOBULIN RATIO 1.5 (1.0-2.2); BILIRUBIN,TOTAL 1.5 mg/dL (0.2-1.0); CALCIUM 8.9 mg/dL (8.5-10.3); CREATININE 3.2 mg/dL (0.6-1.3); POTASSIUM 4.2 mmol/L (3.5-4.5); TOTAL PROTEIN 6.2 g/dL (6.4-8.9)
[2024-03-06 22:22] LABS: TROPONIN I HIGH SENSITIVITY 818.1 ng/L (2.3-19.7)
[2024-03-06] MEDS: INSULIN LISPRO 300 UNIT/3 ML PEN SUBQ ONE (22:55)
[2024-03-07] MEDS: INSULIN REGULAR, HUMAN 300 UNIT/3 ML PEN SUBQ SCH ×2 (15:47→19:07)
[2024-03-07] MEDS: LABETALOL 20 MG/4 ML SYRINGE IVP PRN (16:20)
[2024-03-07 18:15] LABS: BASOPHILS % (AUTO) 0.2 %; HCT - HEMATOCRIT 48.8 % (42.0-52.0); HGB - HEMOGLOBIN 16.1 g/dL (14.0-18.0); LYMPHOCYTES # (AUTO) 1.4 10^3/uL (1.5-3.5); LYMPHOCYTES % (AUTO) 7.9 %; MEAN CORPUSCULAR HEMOGLOBIN 27.6 pg (27.0-31.0); MEAN CORPUSCULAR VOLUME 83.6 fL (80.0-94.0); MONOCYTES # (AUTO) 1.4 10^3/uL (0.0-1.0); MONOCYTES % (AUTO) 8.1 %; NEUTROPHILS # (AUTO) 14.3 10^3/uL (1.5-6.6); NEUTROPHILS % (AUTO) 83.2 %; PLT - PLATELET COUNT 182 10^3/uL (130-450); RED BLOOD COUNT 5.84 10^6/uL (4.70-6.10); WHITE BLOOD COUNT 17.1 x10^3/uL (4.8-10.8)
[2024-03-07] MEDS ORDERED: INSULIN REGULAR, HUMAN 300 UNIT/3 ML PEN SUBQ SCH (18:49)
[2024-03-07 20:42] LABS: ESTIMATED AVERAGE GLUCOSE 341 mg/dL (70-100); HEMOGLOBIN A1c% 13.5 % (4.27-6.07)
[2024-03-07] MEDS: SODIUM CHLORIDE FLUSH 0.9% 10 ML SYRINGE IVP PRN (20:49)
[2024-03-07 22:28] LABS: CALCIUM 8.8 mg/dL (8.5-10.3); CREATININE 3.3 mg/dL (0.6-1.3)
[2024-03-08 06:12] LABS: BASOPHILS % (AUTO) 0.1 %; HCT - HEMATOCRIT 44.1 % (42.0-52.0); HGB - HEMOGLOBIN 14.7 g/dL (14.0-18.0); MEAN CORPUSCULAR HEMOGLOBIN 28.4 pg (27.0-31.0); MEAN CORPUSCULAR HGB CONC 33.3 g/dL (32.0-36.0); MEAN CORPUSCULAR VOLUME 85.1 fL (80.0-94.0); MEAN PLATELET VOLUME 12.8 fL (7.4-11.4); MONOCYTES % (AUTO) 6.4 %; NEUTROPHILS # (AUTO) 12.7 10^3/uL (1.5-6.6); NEUTROPHILS % (AUTO) 86.2 %; PLT - PLATELET COUNT 153 10^3/uL (130-450); RED BLOOD COUNT 5.18 10^6/uL (4.70-6.10); RED CELL DISTRIBUTION WIDTH 14.8 % (12.0-15.0); WHITE BLOOD COUNT 14.8 x10^3/uL (4.8-10.8)
[2024-03-08 07:37] LABS: CALCIUM 8.5 mg/dL (8.5-10.3); CREATININE 2.3 mg/dL (0.6-1.3); POTASSIUM 3.7 mmol/L (3.5-4.5)
--- NOTE | 2024-03-08 08:20 | PROVIDER PROGRESS NOTE ---
Subjective Prog Note Date Prog Note Date: 03/08/24 Prog Note Time: 08:19 Subjective Pt reports feeling: Improved Subjective: Patient feels much better today; he is alert and oriented x 2-3. He is able to converse appropriately and answer questions appropriately. He does endorse some abdominal pain in the right upper quadrant region. He states this is new. He does not believe he has had a hernia there previously. He is passing gas, and had a bowel movement overnight. He has had no nausea, no vomiting. He has had no fevers or chills overnight. He denies any cough. He still is a [place] in. Current Medications Current Medications Current Medications: Current Medications Generic Name Dose Route Start Last Admin Trade Name Freq PRN Reason Stop Dose Admin Acetaminophen 650 mg 03/06/24 11:43 Acetaminophen 325 Mg Tablet PO Q4HR PRN Pain 1 to 4, or Fever Aspirin 81 mg 03/08/24 09:00 Aspirin Ec 81 Mg Tablet PO DAILY MICKEY Atorvastatin Calcium 40 mg 03/08/24 09:00 Atorvastatin 40 Mg Tablet PO DAILY MICKEY Sodium Chloride 1,000 mls @ 200 mls/hr 03/06/24 17:32 03/08/24 02:55 Normal Saline 0.9% IV 200 mls/hr .Q5H MICKEY Administration Acetaminophen 1,000 mg in 100 mls @ 400 mls/hr 03/06/24 18:55 03/07/24 22:45 Acetaminophen IV 400 mls/hr Q6HR PRN Administration FEVER > 100.5 F Insulin Glargine-yfgn 20 unit 03/06/24 21:00 03/07/24 20:48 Insulin Glargine-Yfgn 300 Unit/3 Ml Pen SUBQ 20 unit QPM MICKEY Administration Insulin Human Regular 1 - 9 unit 03/07/24 19:00 03/08/24 05:45 Insulin Regular, Human 300 Unit/3 Ml Pen SUBQ Not Given Q6HR [facility] Protocol Labetalol HCl 10 mg 03/06/24 12:48 03/08/24 06:56 Labetalol 20 Mg/4 Ml Syringe IVP 10 mg Q4H PRN Administration Hypertensive Emergency Metoprolol Succinate 25 mg 03/08/24 09:00 Metoprolol Succinate 25 Mg Tablet PO DAILY MICKEY Ondansetron HCl 4 mg 03/06/24 11:43 Ondansetron Odt 4 Mg Tablet TL Q6HR PRN Nausea / Vomiting Ondansetron HCl 4 mg 03/06/24 11:43 Ondansetron 4 Mg/2 Ml Vial IVP Q6HR PRN Nausea / Vomiting Pantoprazole Sodium 40 mg 03/09/24 09:00 Pantoprazole 40 Mg Tablet PO BID [facility] Patient Own Med ( 1 each 03/08/24 09:00 Jardiance 10 Mg PO Tablet) DAILY [facility] Patient Own Med ( 1 each 03/08/24 09:00 Myrbetriq 50mg ) PO DAILY [facility] Sodium Chloride 10 ml 03/06/24 11:27 03/07/24 20:49 Sodium Chloride Flush 0.9% 10 Ml Syringe IVP 10 ml PRN PRN Administration NEEDED PER PROVIDER ORDERS Sodium Chloride 10 ml 03/06/24 17:00 03/08/24 00:57 Sodium Chloride Flush 0.9% 10 Ml Syringe IVP 10 ml 0100,0900,1700 [facility] Administration Objective Vital Signs/Intake & Output Reviewed Vital Signs: Yes Vital Signs: Vital Signs x48h Temp Pulse Pulse Resp BP BP Pulse Ox 03/08/24 07:55 64 180/86 H 03/08/24 07:40 36.6 C 70 22 178/83 H 97 03/08/24 07:25 75 163/81 H 03/08/24 07:10 65 163/75 H 03/08/24 07:05 68 163/79 H 03/08/24 07:00 71 150/64 H 03/08/24 06:56 72 185/83 H 03/08/24 06:26 37.1 C 68 24 183/85 H 96 Intake & Output: Intake & Output 03/06/24 03/07/24 03/08/24 03/09/24 05:59 05:59 05:59 05:59 Intake Total 2767.667 / 2767.667 1000 / 1000 Output Total 575 / 575 1825 / 1825 Balance 2192.667 / 2192.667 -825 / -825 Weight (kg) 86.4 kg Objective General Appearance: positive No acute distress and Alert Respiratory: positive Chest non-tender and No respiratory distress Cardiovascular: positive Regular rate & rhythm, No murmur and No gallop Abdomen: positive Tenderness and Other (Bulge/hernia felt in right abdominal wall; tender to palpation, reducible ) Skin: positive No rash, Dry and Other (Excoriations noted on bilateral knees) Extremities: positive Non-tender Neurologic/Psychiatric: positive Oriented x3, Motor nml, Mood/affect nml and Weakness (Left UE and left LE improving. No gaze deviation present.) Lab Results 03/08/24 05:35 03/08/24 07:05 Other Labs: Lab Results x24hrs 03/08/24 03/08/24 03/08/24 Range/Units 07:05 05:43 05:35 WBC 14.8 H (4.8-10.8) x10^3/uL RBC 5.18 (4.70-6.10) 10^6/uL Hgb 14.7 (14.0-18.0) g/dL Hct 44.1 (42.0-52.0) % MCV 85.1 (80.0-94.0) fL MCH 28.4 (27.0-31.0) pg MCHC 33.3 (32.0-36.0) g/dL RDW 14.8 (12.0-15.0) % Plt Count 153 (130-450) 10^3/uL MPV 12.8 H (7.4-11.4) fL Neut # (Auto) 12.7 H (1.5-6.6) 10^3/uL Lymph # (Auto) 1.0 L (1.5-3.5) 10^3/uL Kidder # (Auto) 1.0 (0.0-1.0) 10^3/uL Eos # (Auto) 0.0 (0.0-0.7) 10^3/uL Baso # (Auto) 0.0 (0.0-0.1) 10^3/uL Absolute Nucleated RBC 0.00 x10^3/uL Nucleated RBC % 0.0 /100WBC Sodium 149 H (135-145) mmol/L Potassium 3.7 (3.5-4.5) mmol/L Chloride 122 H* (101-111) mmol/L Carbon Dioxide 19 L (21-32) mmol/L Anion Gap 8.0 (6-13) BUN 68 H (6-20) mg/dL Creatinine 2.3 H (0.6-1.3) mg/dL Estimated GFR (MDRD) 34 L (>89) Glucose 131 H (74-104) mg/dL POC Whole Bld Glucose 124 (70-100) mg/dL Estimat Average Glucose (70-100) mg/dL Hemoglobin A1c % (4.27-6.07) % Calcium 8.5 (8.5-10.3) mg/dL Troponin I High Sens (2.3-19.7) ng/L 03/08/24 03/07/24 03/07/24 Range/Units 00:43 23:37 20:47 WBC (4.8-10.8) x10^3/uL RBC (4.70-6.10) 10^6/uL Hgb (14.0-18.0) g/dL Hct (42.0-52.0) % MCV (80.0-94.0) fL MCH (27.0-31.0) pg MCHC (32.0-36.0) g/dL RDW (12.0-15.0) % Plt Count (130-450) 10^3/uL MPV (7.4-11.4) fL Neut # (Auto) (1.5-6.6) 10^3/uL Lymph # (Auto) (1.5-3.5) 10^3/uL Kidder # (Auto) (0.0-1.0) 10^3/uL Eos # (Auto) (0.0-0.7) 10^3/uL Baso # (Auto) (0.0-0.1) 10^3/uL Absolute Nucleated RBC x10^3/uL Nucleated RBC % /100WBC Sodium (135-145) mmol/L Potassium (3.5-4.5) mmol/L Chloride (101-111) mmol/L Carbon Dioxide (21-32) mmol/L Anion Gap (6-13) BUN (6-20) mg/dL Creatinine (0.6-1.3) mg/dL Estimated GFR (MDRD) (>89) Glucose (74-104) mg/dL POC Whole Bld Glucose 142 156 183 (70-100) mg/dL Estimat Average Glucose (70-100) mg/dL Hemoglobin A1c % (4.27-6.07) % Calcium (8.5-10.3) mg/dL Troponin I High Sens (2.3-19.7) ng/L 03/07/24 03/07/24 03/07/24 Range/Units 18:42 11:22 08:56 WBC (4.8-10.8) x10^3/uL RBC (4.70-6.10) 10^6/uL Hgb (14.0-18.0) g/dL Hct (42.0-52.0) % MCV (80.0-94.0) fL MCH (27.0-31.0) pg MCHC (32.0-36.0) g/dL RDW (12.0-15.0) % Plt Count (130-450) 10^3/uL MPV (7.4-11.4) fL Neut # (Auto) (1.5-6.6) 10^3/uL Lymph # (Auto) (1.5-3.5) 10^3/uL Kidder # (Auto) (0.0-1.0) 10^3/uL Eos # (Auto) (0.0-0.7) 10^3/uL Baso # (Auto) (0.0-0.1) 10^3/uL Absolute Nucleated RBC x10^3/uL Nucleated RBC % /100WBC Sodium (135-145) mmol/L Potassium (3.5-4.5) mmol/L Chloride (101-111) mmol/L Carbon Dioxide (21-32) mmol/L Anion Gap (6-13) BUN (6-20) mg/dL Creatinine (0.6-1.3) mg/dL Estimated GFR (MDRD) (>89) Glucose (74-104) mg/dL POC Whole Bld Glucose 190 157 (70-100) mg/dL Estimat Average Glucose (70-100) mg/dL Hemoglobin A1c % (4.27-6.07) % Calcium (8.5-10.3) mg/dL Troponin I High Sens 610.8 H* (2.3-19.7) ng/L 03/07/24 03/07/24 03/07/24 Range/Units 05:08 05:07 05:00 WBC 17.1 H (4.8-10.8) x10^3/uL RBC 5.84 (4.70-6.10) 10^6/uL Hgb 16.1 (14.0-18.0) g/dL Hct 48.8 (42.0-52.0) % MCV 83.6 (80.0-94.0) fL MCH 27.6 (27.0-31.0) pg MCHC 33.0 (32.0-36.0) g/dL RDW 15.0 (12.0-15.0) % Plt Count 182 (130-450) 10^3/uL MPV 12.0 H (7.4-11.4) fL Neut # (Auto) 14.3 H (1.5-6.6) 10^3/uL Lymph # (Auto) 1.4 L (1.5-3.5) 10^3/uL Kidder # (Auto) 1.4 H (0.0-1.0) 10^3/uL Eos # (Auto) 0.0 (0.0-0.7) 10^3/uL Baso # (Auto) 0.0 (0.0-0.1) 10^3/uL Absolute Nucleated RBC 0.00 x10^3/uL Nucleated RBC % 0.0 /100WBC Sodium 142 (135-145) mmol/L Potassium 4.0 (3.5-4.5) mmol/L Chloride 109 (101-111) mmol/L Carbon Dioxide 21 (21-32) mmol/L Anion Gap 12.0 (6-13) BUN 80 H* (6-20) mg/dL Creatinine 3.3 H (0.6-1.3) mg/dL Estimated GFR (MDRD) 23 L (>89) Glucose 274 H (74-104) mg/dL POC Whole Bld Glucose 272 (70-100) mg/dL Estimat Average Glucose 341 H (70-100) mg/dL Hemoglobin A1c % 13.5 H (4.27-6.07) % Calcium 8.8 (8.5-10.3) mg/dL Troponin I High Sens (2.3-19.7) ng/L 03/06/24 Range/Units 23:44 WBC (4.8-10.8) x10^3/uL RBC (4.70-6.10) 10^6/uL Hgb (14.0-18.0) g/dL Hct (42.0-52.0) % MCV (80.0-94.0) fL MCH (27.0-31.0) pg MCHC (32.0-36.0) g/dL RDW (12.0-15.0) % Plt Count (130-450) 10^3/uL MPV (7.4-11.4) fL Neut # (Auto) (1.5-6.6) 10^3/uL Lymph # (Auto) (1.5-3.5) 10^3/uL Kidder # (Auto) (0.0-1.0) 10^3/uL Eos # (Auto) (0.0-0.7) 10^3/uL Baso # (Auto) (0.0-0.1) 10^3/uL Absolute Nucleated RBC x10^3/uL Nucleated RBC % /100WBC Sodium (135-145) mmol/L Potassium (3.5-4.5) mmol/L Chloride (101-111) mmol/L Carbon Dioxide (21-32) mmol/L Anion Gap (6-13) BUN (6-20) mg/dL Creatinine (0.6-1.3) mg/dL Estimated GFR (MDRD) (>89) Glucose (74-104) mg/dL POC Whole Bld Glucose 389 (70-100) mg/dL Estimat Average Glucose (70-100) mg/dL Hemoglobin A1c % (4.27-6.07) % Calcium (8.5-10.3) mg/dL Troponin I High Sens (2.3-19.7) ng/L Diagnostic Imaging Diagnostic Imaging Results: positive Final report reviewed Diagnostic Imaging Comments: Brain MRI done on 03/06 shows no acute infarct. Chest x-ray shows mildly enlarged cardiac silhouette, no acute consolidation. CTA shows short segment 70% narrowing of right vertebral artery at the origin. Assessment/Plan Problem List (1) Acute metabolic encephalopathy: Impression: Patient found down and confused. Mental status improving, currently ANO x 2. MRI brain with no acute infarcts. Head CT showed small right parietal scalp hematoma. Likely due to uremia and delirium, both of which are improving. (2) FRANK (acute kidney injury): Impression: Continues to improve. Baseline appears to be between 1.8-2.3 according to records from 01/27 and 08/27. Sodium elevated likely due to 0.9% normal saline infusion. Continue half- normal saline for this morning until patient is able to eat adequately. (3) Abdominal pain: Impression: Patient with new onset abdominal pain. Appears to have a right abdominal wall hernia. Reducible at this time. Ultrasound ordered to evaluate. Continue to pass gas, have bowel movements. (4) DM type 2 causing CKD stage 3: Impression: Sugars well-controlled on current regimen: Insulin glargine 20 units every afternoon, sliding scale insulin. A1c on 03/07 13.5%. Will need insulin as outpatient. Diabetes education. (5) Fever: Impression: Patient had fever on admission. Blood cultures are sent on 03/06; no growth to date. Chest x-ray with no infiltrate. UA negative for any infection. Continue to monitor off antibiotics. (6) Rhabdomyolysis: Impression: CPK for this morning pending. Continue gentle IV fluid rehydration at this time. (7) Dehydration: Impression: See above. (8) Diabetes mellitus type 2 with complications, uncontrolled: Impression: See above. (9) Hypertension: Impression: Patient was unable to take p.o. medications due to mental status; was receiving labetalol pushes. Started metoprolol succinate 25 mg daily today with mental status improvement. Continue to hold Entresto until tomorrow with further kidney improvement.
[2024-03-08] MEDS: METOPROLOL SUCCINATE 25 MG TABLET PO SCH (08:40)
[2024-03-08] MEDS: ATORVASTATIN 40 MG TABLET PO SCH (08:40)
[2024-03-08] MEDS: ASPIRIN EC 81 MG TABLET PO SCH (08:40)
[2024-03-08] MEDS: SODIUM CHLORIDE 0.45% 1,000 ML IV SCH (10:13)
[2024-03-08] MEDS: MYRBETRIQ 50MG PO SCH (10:39)
[2024-03-08] MEDS: ACETAMINOPHEN 325 MG TABLET PO PRN (11:46)
[2024-03-08] MEDS: INSULIN LISPRO 300 UNIT/3 ML PEN SUBQ SCH (11:58)
[2024-03-08] MEDS: MELATONIN 3 MG TABLET PO SCH (20:46)
--- NOTE | 2024-03-08 21:29 | Ultrasound Report ---
PROCEDURE: US Abdomen Limited INDICATIONS: hernia TECHNIQUE: Real-time focused scanning was performed of the inguinal region with image documentation. COMPARISONS: 01/11/2023 FINDINGS: Bilateral inguinal region were obtained. No visualized hernia. Mild appearance of skin thickening on the right without fluid collection. IMPRESSION: No inguinal hernias. Mild appearance of skin thickening within the right inguinal region without associated fluid collecti on. This may represent mild inflammatory change. Reviewed by: Diana Angulo MD on 03/08/2024 9:28 PM PDT Approved by: Diana Angulo MD on 03/08/2024 9:28 PM PDT Station ID: [id number]
[2024-03-09] MEDS: ONDANSETRON 4 MG/2 ML VIAL IVP PRN (00:16)
[2024-03-09] MEDS ORDERED: NITROGLYCERIN SL 0.4 MG TABLET SL ONE (05:10)
[2024-03-09] MEDS: MORPHINE 2 MG/ML CARPUJECT IVP SCH (05:34)
[2024-03-09] MEDS: hydrALAZINE INJ 20 MG/ML VIAL IVP ONE (05:34)
[2024-03-09 05:50] LABS: BASOPHILS % (AUTO) 0.1 %; EOSINOPHILS # (AUTO) 0.1 10^3/uL (0.0-0.7); EOSINOPHILS % (AUTO) 1.3 %; HCT - HEMATOCRIT 43.7 % (42.0-52.0); HGB - HEMOGLOBIN 14.3 g/dL (14.0-18.0); LYMPHOCYTES # (AUTO) 1.2 10^3/uL (1.5-3.5); MEAN CORPUSCULAR HEMOGLOBIN 28.4 pg (27.0-31.0); MEAN CORPUSCULAR HGB CONC 32.7 g/dL (32.0-36.0); MEAN CORPUSCULAR VOLUME 86.9 fL (80.0-94.0); MEAN PLATELET VOLUME 12.1 fL (7.4-11.4); MONOCYTES # (AUTO) 0.6 10^3/uL (0.0-1.0); MONOCYTES % (AUTO) 7.3 %; NEUTROPHILS # (AUTO) 6.7 10^3/uL (1.5-6.6); PLT - PLATELET COUNT 129 10^3/uL (130-450); RED BLOOD COUNT 5.03 10^6/uL (4.70-6.10); RED CELL DISTRIBUTION WIDTH 14.7 % (12.0-15.0); WHITE BLOOD COUNT 8.7 x10^3/uL (4.8-10.8)
[2024-03-09 06:06] LABS: CALCIUM 8.3 mg/dL (8.5-10.3); CREATININE 2.1 mg/dL (0.6-1.3); POTASSIUM 3.8 mmol/L (3.5-4.5)
[2024-03-09] MEDS: ONDANSETRON ODT 4 MG TABLET TL PRN (06:23)
[2024-03-09] MEDS: PANTOPRAZOLE 40 MG TABLET PO SCH (06:23)
--- NOTE | 2024-03-09 09:11 | PROVIDER PROGRESS NOTE ---
Subjective Prog Note Date Prog Note Date: 03/09/24 Prog Note Time: 09:06 Subjective Pt reports feeling: Improved Subjective: Patient is alert and oriented, and is able to converse appropriately and answer questions appropriately. Overnight, rapid response was called for abdominal pain that patient described at the time is tearing. Troponin was drawn, which is downtrending. EKG was also done which showed no ischemic changes. Patient was given 2 mg of morphine provided mild relief. When patient was seen this morning, he describes the pain as epigastric in nature, with no radiation. He also described as cramping, as if he was about to have a bowel movement. He does state that he has been having some loose bowel movements. He is continuing to pass gas. He denies any fevers, chills, shortness of breath. He has not any nausea or vomiting. He states he has not felt this pain before. He is on Protonix twice a day here, and states it has not been providing relief. He did states that food does not trigger any of the symptoms. Current Medications Current Medications Current Medications: Current Medications Generic Name Dose Route Start Last Admin Trade Name Freq PRN Reason Stop Dose Admin Acetaminophen 650 mg 03/06/24 11:43 03/09/24 08:05 Acetaminophen 325 Mg Tablet PO 650 mg Q4HR PRN Administration Pain 1 to 4, or Fever Aspirin 81 mg 03/08/24 09:00 03/09/24 08:04 Aspirin Ec 81 Mg Tablet PO 81 mg DAILY MICKEY Administration Atorvastatin Calcium 40 mg 03/08/24 09:00 03/09/24 08:05 Atorvastatin 40 Mg Tablet PO 40 mg DAILY MICKEY Administration Acetaminophen 1,000 mg in 100 mls @ 400 mls/hr 03/06/24 18:55 03/07/24 22:45 Acetaminophen IV 400 mls/hr Q6HR PRN Administration FEVER > 100.5 F Insulin Glargine-yfgn 20 unit 03/06/24 21:00 03/08/24 20:46 Insulin Glargine-Yfgn 300 Unit/3 Ml Pen SUBQ 20 unit QPM MICKEY Administration Insulin Human Lispro 1 - 5 unit 03/08/24 12:00 03/09/24 08:05 Insulin Lispro 300 Unit/3 Ml Pen SUBQ 1 unit 0800,1200,1700,2100 MICKEY Administration Protocol Melatonin 3 mg 03/08/24 21:00 03/08/24 20:46 Melatonin 3 Mg Tablet PO 3 mg QPM MICKEY Administration Metoprolol Succinate 50 mg 03/09/24 09:00 Metoprolol Succinate 50 Mg Tablet PO DAILY MICKEY Morphine Sulfate 2 mg 03/09/24 06:00 03/09/24 05:34 Morphine 2 Mg/Ml Carpuject IVP 03/10/24 05:59 2 mg ONCE MICKEY Administration Ondansetron HCl 4 mg 03/06/24 11:43 03/09/24 06:23 Ondansetron Odt 4 Mg Tablet TL 4 mg Q6HR PRN Administration Nausea / Vomiting Ondansetron HCl 4 mg 03/06/24 11:43 03/09/24 00:16 Ondansetron 4 Mg/2 Ml Vial IVP 4 mg Q6HR PRN Administration Nausea / Vomiting Pantoprazole Sodium 40 mg 03/09/24 07:00 03/09/24 06:23 Pantoprazole 40 Mg Tablet PO 40 mg BIDAC MICKEY Administration Patient Own Med ( 1 each 03/08/24 09:00 03/08/24 10:39 Jardiance 10 Mg PO Not Given Tablet) DAILY MICKEY Patient Own Med ( 1 each 03/08/24 09:00 03/08/24 10:39 Myrbetriq 50mg ) PO Not Given DAILY MICKEY Simethicone 80 mg 03/09/24 08:19 Simethicone *( Susp)* 40 Mg/0.6 Ml Bottle PO Q6HR PRN Gas Sodium Chloride 10 ml 03/06/24 11:27 03/07/24 20:49 Sodium Chloride Flush 0.9% 10 Ml Syringe IVP 10 ml PRN PRN Administration NEEDED PER PROVIDER ORDERS Sodium Chloride 10 ml 03/06/24 17:00 03/09/24 08:11 Sodium Chloride Flush 0.9% 10 Ml Syringe IVP 10 ml 0100,0900,1700 MICKEY Administration Objective Vital Signs/Intake & Output Reviewed Vital Signs: Yes Vital Signs: Vital Signs x48h Temp Pulse Pulse Resp BP BP Pulse Ox 03/09/24 08:00 36.6 C 63 18 172/76 H 03/09/24 06:20 62 158/71 H 03/09/24 06:05 62 175/68 H 03/09/24 05:50 62 159/68 H 03/09/24 05:45 64 169/75 H 03/09/24 05:40 60 173/75 H 03/09/24 05:34 179/85 H 03/09/24 05:25 60 179/85 H 03/09/24 05:15 59 L 180/83 H 03/09/24 05:10 64 178/78 H 03/09/24 05:05 59 L 174/82 H 03/09/24 05:00 56 L 170/80 H 03/09/24 04:50 62 186/85 H 03/09/24 04:45 36.6 C 62 20 186/85 H 98 Intake & Output: Intake & Output 03/07/24 03/08/24 03/09/24 03/10/24 05:59 05:59 05:59 05:59 Intake Total 2767.667 / 2767.667 1000 / 1000 3378 / 3378 960 / 960 Output Total 575 / 575 1825 / 1825 1000 / 1000 Balance 2192.667 / 2192.667 -825 / -825 2378 / 2378 960 / 960 Weight (kg) 86.4 kg Objective General Appearance: positive No acute distress and Alert Respiratory: positive Chest non-tender and No respiratory distress Cardiovascular: positive Regular rate & rhythm, No murmur and No gallop Abdomen: positive Tenderness (Tenderness to palpation in epigastric region.), Guarding (Voluntary guarding due to pain.) and Other (Bulge/hernia felt in right abdominal wall; tender to palpation, reducible ) Skin: positive No rash, Dry and Other (Excoriations noted on bilateral knees) Extremities: positive Non-tender Neurologic/Psychiatric: positive Oriented x3, Motor nml, Mood/affect nml and Weakness (Left UE and left LE improving. No gaze deviation present.) Lab Results 03/09/24 05:41 03/09/24 05:41 Other Labs: Lab Results x24hrs 03/09/24 03/09/24 03/09/24 Range/Units 07:53 05:41 05:14 WBC 8.7 (4.8-10.8) x10^3/uL RBC 5.03 (4.70-6.10) 10^6/uL Hgb 14.3 (14.0-18.0) g/dL Hct 43.7 (42.0-52.0) % MCV 86.9 (80.0-94.0) fL MCH 28.4 (27.0-31.0) pg MCHC 32.7 (32.0-36.0) g/dL RDW 14.7 (12.0-15.0) % Plt Count 129 L (130-450) 10^3/uL MPV 12.1 H (7.4-11.4) fL Neut # (Auto) 6.7 H (1.5-6.6) 10^3/uL Lymph # (Auto) 1.2 L (1.5-3.5) 10^3/uL Carson # (Auto) 0.6 (0.0-1.0) 10^3/uL Eos # (Auto) 0.1 (0.0-0.7) 10^3/uL Baso # (Auto) 0.0 (0.0-0.1) 10^3/uL Absolute Nucleated RBC 0.00 x10^3/uL Nucleated RBC % 0.0 /100WBC Sodium 140 (135-145) mmol/L Potassium 3.8 (3.5-4.5) mmol/L Chloride 112 H (101-111) mmol/L Carbon Dioxide 21 (21-32) mmol/L Anion Gap 7.0 (6-13) BUN 49 H (6-20) mg/dL Creatinine 2.1 H (0.6-1.3) mg/dL Estimated GFR (MDRD) 38 L (>89) Glucose 200 H (74-104) mg/dL POC Whole Bld Glucose 175 179 (70-100) mg/dL Calcium 8.3 L (8.5-10.3) mg/dL Total Creatine Kinase 791 H (30-223) IU/L Troponin I High Sens 125.5 H* (2.3-19.7) ng/L 03/08/24 03/08/24 03/08/24 Range/Units 20:31 16:52 11:53 WBC (4.8-10.8) x10^3/uL RBC (4.70-6.10) 10^6/uL Hgb (14.0-18.0) g/dL Hct (42.0-52.0) % MCV (80.0-94.0) fL MCH (27.0-31.0) pg MCHC (32.0-36.0) g/dL RDW (12.0-15.0) % Plt Count (130-450) 10^3/uL MPV (7.4-11.4) fL Neut # (Auto) (1.5-6.6) 10^3/uL Lymph # (Auto) (1.5-3.5) 10^3/uL Carson # (Auto) (0.0-1.0) 10^3/uL Eos # (Auto) (0.0-0.7) 10^3/uL Baso # (Auto) (0.0-0.1) 10^3/uL Absolute Nucleated RBC x10^3/uL Nucleated RBC % /100WBC Sodium (135-145) mmol/L Potassium (3.5-4.5) mmol/L Chloride (101-111) mmol/L Carbon Dioxide (21-32) mmol/L Anion Gap (6-13) BUN (6-20) mg/dL Creatinine (0.6-1.3) mg/dL Estimated GFR (MDRD) (>89) Glucose (74-104) mg/dL POC Whole Bld Glucose 224 162 88 (70-100) mg/dL Calcium (8.5-10.3) mg/dL Total Creatine Kinase (30-223) IU/L Troponin I High Sens (2.3-19.7) ng/L Diagnostic Imaging Diagnostic Imaging Results: positive Final report reviewed Diagnostic Imaging Comments: Brain MRI done on 03/06 shows no acute infarct. Chest x-ray shows mildly enlarged cardiac silhouette, no acute consolidation. CTA shows short segment 70% narrowing of right vertebral artery at the origin. Assessment/Plan Problem List (1) Acute metabolic encephalopathy: Impression: Patient found down and confused. Mental status improved, currently ANO x 3. MRI brain with no acute infarcts. Head CT showed small right parietal scalp hematoma. Likely due to uremia and delirium, both of which are improving. (2) Abdominal pain: Impression: Patient with new onset abdominal pain. Appears to have a right abdominal wall hernia. Worsened pain overnight resulting in Rapid Response. Will order CT abdomen to evaluate further. Will order with contrast and hydrate adequately in setting of kidney disease and recent rhabdomyolysis. (3) FRANK (acute kidney injury): Impression: Continues to improve. Baseline appears to be between 1.8-2.3 according to records from 01/27 and 08/27. Will restart home Entresto tomorrow after contrast. (4) DM type 2 causing CKD stage 3: Impression: Sugars well-controlled on current regimen: Insulin glargine 20 units every afternoon, sliding scale insulin. A1c on 03/07 13.5%. Will need insulin as outpatient. Diabetes education. (5) Fever: Impression: Patient had fever on admission. Blood cultures are sent on 03/06; no growth to date. Chest x-ray with no infiltrate. UA negative for any infection. Continue to monitor off antibiotics. (6) Rhabdomyolysis: Impression: CPK continues to improve. Continue gentle IV fluid rehydration at this time. (7) Dehydration: Impression: See above. (8) Diabetes mellitus type 2 with complications, uncontrolled: Impression: See above. (9) Hypertension: Impression: Patient was unable to take p.o. medications due to mental status; was receiving labetalol pushes. Increased metoprolol succinate to 50 mg daily today. Will continue Entresto tomorrow. ECHO reviewed; no systolic heart failure noted. Will add CCB if blood pressure remains uncontrolled.
[2024-03-09] MEDS: SODIUM CHLORIDE 0.9% 500 ML IV ONE ×2 (09:32→13:24)
[2024-03-09] MEDS: METOPROLOL SUCCINATE 50 MG TABLET PO SCH (10:35)
[2024-03-09] MEDS ORDERED: iohexoL-300 100 ML VIAL ONE (10:38)
[2024-03-09] MEDS: METOPROLOL SUCCINATE 25 MG TABLET PO ONE (10:53)
--- NOTE | 2024-03-09 14:40 | CT Report ---
PROCEDURE: CT Abdomen W INDICATIONS: new onset sudden abdominal pain CONTRAST: Omni 300 100ml TECHNIQUE: CT scan of the abdomen was performed. Intravenous contrast media was administered. Images recorded an d evaluated at appropriate window settings. Reformats: coronal and sagittal. For radiation dose reduc tion, the following was used: automated exposure control, adjustment of mA and/or kV according to pat ient size. COMPARISON: 01/11/2023 FINDINGS: Image quality: Diagnostic Lower chest: Unremarkable Liver: Unremarkable Gallbladder and biliary system: Cholelithiasis. Mildly distended gallbladder Pancreas: No ductal dilation Spleen: Nonenlarged Adrenals: No discrete nodules Kidneys: Indeterminate density left upper pole renal lesion measures 2.3 cm. No hydronephrosis. Vessels and lymph nodes: No pathologic lymph nodes by size criteria. No abdominal aortic aneurysm. Bowel and peritoneum: Distended stomach, mild to moderate. Moderate inflammatory changes and wall thi ckening are seen around the duodenum. Suspected ulcer versus duodenal diverticulum is seen near the a mpulla No abscess or small bowel obstruction. Body wall: Unremarkable Bones: No acute or suspicious osseous finding. IMPRESSION: Moderate inflammatory changes in the duodenum, with an adjacent ulcer versus duodenal diverticulum. G I follow-up is suggested Distended gallbladder with gallstones. Consider sonographic follow-up. Indeterminate intermediate density left upper pole renal lesion, which may represent a low level enha ncing mass versus hyperattenuating cyst, consider also sonographic follow-up. Other findings above. Reviewed by: Anil Redmond MD on 03/09/2024 2:38 PM PDT Approved by: Anil Redmond MD on 03/09/2024 2:38 PM PDT Station ID: [id number]
--- NOTE | 2024-03-09 15:11 | Discharge Summary ---
Discharge Summary Admit Date: 03/06/24 Discharge Date: 03/13/24 Discharging Provider: Dr. Dumont DIAGNOSES Admission Diagnoses: Stroke Acute kidney injury Rhabdomyolysis Fever of unknown origin Diabetes mellitus type 2 with complications, uncontrolled Hypertension Discharge Diagnoses with Status of Each Condition: Acute metabolic encephalopathyresolved. Does appear to show signs of confusion, increased delirium at night, may need neurocognitive testing as outpatient. Likely due to uremia and acute kidney injury. 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 Acute kidney injurypatient back at baseline creatinine. Continue losartan outpatient, advised to follow up orchestrator to speak about Entresto. Diabetes mellitus type 2 causing CKD stage IIIpatient will be restarted on insulin; continue glargine 15 units every morning, as well as Jardiance. Advised to follow-up with primary care physician. Feverresolved. Rhabdomyolysisresolved. Dehydrationresolved. Diabetes mellitus type 2 with complications, uncontrolledsee above. Hypertensioncontinue metoprolol succinate 50 mg daily, losartan dose increased as wekk, Follow-up with primary care physician. HPI History of Present Illness: Per Dr. Neves: Mr. Sampson is a 73 year old man with a past medical history of smoking, hypertension, hyperlipidemia, and diabetes was presented to the emergency room after EMS found him laying on the ground with left arm weakness , gaze deviation, and altered mental status. His called him at 2:09pm yesterday with no response from the patient. Later that evening at 4:30pm she checked his location and called him again. Per , he picked up but hanged up the phone quickly saying "I have to go". She reported that over the phone he sounded good, nothing abnormal was recognized. 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 She did not think anything unusual because he usually is always out doing errands. When she noticed her has not come home in the morning, she later drove to his location at 8am this morning and called EMS. The noticed there were scratches on his knees and elbows. She pinched his right side and he felt it however when she proceeded to pinch his left side, she reported he did not feel it. This is the first time that this has occurred according to the . She reported he has had falls in the past before once a month or every other month due to instability from either tripping over his pants because they are too low or over his shoes. She denies any recent trauma. Unable to obtain ROS from the patient. EMS reported dysarthia, dysphagia, and hemiplagia. Patient is a retired [employer] vet and retired from [employer]. He is very active as he always is out doing errands or work around the house. He lives with his in a home. He currently is not an active drinker or smoker. He stopped smoking in 1990 and started when he was a teenager. The was unable to tell me for how many years or how many packs per day he used to smoke. Addendum per Dr. Lee: This is a 73-year-old black male who is retired [employer]. for over 35 years. Lives in his own home. 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 He was recently hospitalized for heart issues and his orchestrator is Dr. Lewis with [facility]. He is also followed by [facility] care provider [facility]. He disappeared last night. It was not till this morning that the became alarmed because she really was not able to locate him and he was not responding to her phone calls. When she located him she found him completely naked, on the ground except for short period shivering. Unresponsive. EMS was called and brought him to the hospital where we think he has had a stroke because he has a dense hemiplegia on the left. Yet he is able to indicate with his right hand that he does not like the fact that he forgot his shave this morning. He also keeps on pointing to his mouth with his index finger asking for water. His lab work shows him to be severely dehydrated with rhabdomyolysis, acute kidney injury and super concentrated hemoglobin. We are doing a stroke workup. CT of the head has been negative For hemorrhage or acute stroke. 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 Carotids are open. as such we are admitting him to the hospital to treat him for possible stroke resulting in falling to the ground. Then laying on the ground overnight. That has resulted in rhabdo and acute kidney injury superimposed on chronic kidney injury. I will make an attempt to call his orchestrator tomorrow and his primary care provider at the [facility]. His states that he is a DO NOT RESUSCITATE. He would not want CPR or intubation to keep him alive if his time were to come. CONSULTS | PROCEDURES Consultations: Physical therapy, Occupational Therapy, social work Procedures: Abdominal CT, abdominal ultrasound, brain MRI, chest x-ray, CT a head and neck, cervical spine CT, head CT, echocardiogram HOSPITAL COURSE Hospital Course: Patient is a 73-year-old man with a history of chronic any disease stage III, hypertension, insulin-dependent diabetes mellitus who presented after being found down. His was worried when he did not come home, and used her phone to find his location. He was found near a car with his pants off. He does not recall anything prior to the incident. When he first arrived, he was extremely confused and was unable to provide adequate history. He was agitated, easily startled. Code stroke up was done initially. Brain MRI was done, which was negative. CTA showed 70% stenosis in posterior circulation. Initial workup included CPK and creatinine, both of which were markedly elevated. He was given aggressive IV fluid rehydration, this normalized back to its baseline. With this, his mental status improved as well. Additionally, his sugars were uncontrolled. Outpatient, he had stopped his insulin regimen completely. He was started on 20 units glargine at night, as well as sliding scale, with normalization of his sugars. His A1c was found to be 13.4%; he will require insulin outpatient. During his stay, he started complaining of new onset abdominal pain. He described it as located in the epigastric region with no radiation. 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 He was encouraged to follow-up with GI outpatient. He will also be discharged with Protonix 40 mg daily. Physical therapy, Occupational Therapy worked with the patient recommended SNF. However, patient was resistant to this idea. After further discussion with , daughter, and due to patient's improvement in mental status as well as physical capabilities, plan was changed to discharge home. ALLERGIES Allergies Allergy/AdvReac Type Severity Reaction Status Date / Time tuberculin, purified protein Allergy Intermediate Unknown Verified 03/06/24 22:50 deriva gabapentin Allergy Unknown Verified 02/23/24 19:37 lisinopril Allergy Edema Verified 03/06/24 10:18 metolazone Allergy Unknown Verified 03/06/24 10:18 MEDICATIONS Ambulatory Orders Medication Instructions Recorded Confirmed atorvastatin 20 mg tablet (Lipitor) 40 mg PO DAILY 01/25/13 03/06/24 Alfuzosin Hcl [Alfuzosin Hcl Er] 10 mg PO DAILY 03/06/24 03/06/24 allopurinol 200 mg tablet 200 mg PO DAILY 03/06/24 03/06/24 aspirin 81 mg tablet,delayed 81 mg PO DAILY 03/06/24 03/06/24 release diclofenac sodium 1 % topical gel 1 ea topical PRN PRN PAIN 03/06/24 03/06/24 (Arthritis Pain (diclofenac)) empagliflozin 10 mg tablet 10 mg PO DAILY 03/06/24 03/06/24 (Jardiance) mirabegron 50 mg tablet,extended 50 mg PO DAILY 03/06/24 03/06/24 release 24 hr (Myrbetriq) pregabalin 75 mg capsule (Lyrica) 75 mg PO BID 03/06/24 03/06/24 therapeutic multivitamin 1 ea PO DAILY 03/06/24 03/06/24 (Thera-Tabs tablet) tolterodine 4 mg capsule,extended 4 mg PO DAILY 03/06/24 03/06/24 release 24 hr insulin glargine 100 unit/mL (3 15 unit (0.15 mL) subcut QAM #13.5 03/13/24 mL) subcutaneous pen (Lantus mL Solostar U-100 Insulin) insulin lispro 100 unit/mL 2 unit (0.02 mL) subcut TID #15 mL 03/13/24 subcutaneous pen (Humalog KwikPen (U-100) Insulin) metoprolol succinate 50 mg 50 mg PO DAILY #30 tabs 03/13/24 tablet,extended release 24 hr pantoprazole 40 mg tablet,delayed 40 mg PO DAILY #30 tabs 03/13/24 release pen needle, diabetic 29 gauge x #100 ea 03/13/24 1/2" (1st Tier Unifine Pentips) sacubitril 97 mg-valsartan 103 mg 1 tab PO BID #60 tabs 03/13/24 tablet (Entresto) PHYSICAL EXAM AT DISCHARGE General Appearance: positive No acute distress and Alert Eyes Bilateral: positive Normal inspection and PERRL Respiratory: positive Chest non-tender, No respiratory distress, Breath sounds nml and Wheezes Cardiovascular: positive Regular rate & rhythm, No murmur and No gallop Abdomen: positive Nml bowel sounds and No distention; negative Non-tender (Tender to palpation in epigastric region) Skin: positive Color nml and No rash Extremities: positive Non-tender and Full ROM Neurologic/Psychiatric: positive Oriented x3 and Mood/affect nml LABS 03/11/24 05:24 03/13/24 05:05 DIAGNOSTIC IMAGING Diagnostic Imaging Results: Final report reviewed Diagnostic Imaging Results Comments: Abdominal CT showed moderate inflammatory changes in duodenum, with adjacent ulcer versus diverticulum. Abdominal ultrasound showed mild appearance of skin thickening within the right inguinal region without associated fluid collection. Brain MRI showed no acute infarcts. Chest x-ray showed mildly enlarged cardiac silhouette, with no consolidation CTA showed no significant intracranial arterial abnormalities, short segment 70% narrowing of right vertebral artery at the origin, head CT showed small right parietal scalp hematoma. QUALITY (Female Hip Fx Only) Was patient sent home on osteoporosis medication?: No FOLLOW UP Follow Up: Follow-up encouraged with primary care physician as well as plum packer and orchestrator. TIME SPENT Time Spent in Discharge (Minutes): 30 Discharge Plan Discharge Patient Disposition: Home Health Service Condition: Stable Medically Cleared Comments:: Stable Prescriptions: New metoprolol succinate 50 mg Tablet Extended Release 24 Hr 50 mg PO DAILY Qty: 30 0RF pantoprazole 40 mg Tablet,Delayed Release (Dr/Ec) 40 mg PO DAILY Qty: 30 0RF insulin lispro [Humalog KwikPen Insulin] 100 unit/mL Insulin Pen 2 unit subcut TID Qty: 15 0RF Rx Instructions: Please take 2 units with meals. Please keep sugar log and follow up with your PCP. insulin glargine [Lantus Solostar U-100 Insulin] 100 unit/mL (3 mL) insulin pen 15 unit subcut QAM Qty: 13.5 3RF Entresto 97-103 mg tablet 1 tab PO BID Qty: 60 2RF (DME) pen needle, diabetic [1st Tier Unifine Pentips] 29 gauge x 1/2" needle See Rx Instructions .Route Qty: 100 0RF Rx Instructions: As directed Continued atorvastatin [Lipitor] 20 MG tablet 40 mg PO DAILY diclofenac sodium [Arthritis Pain (diclofenac)] 50 GM gel 1 ea topical PRN PRN (Reason: PAIN) aspirin 81 MG tablet,delayed release (DR/EC) 81 mg PO DAILY pregabalin [Lyrica] 75 MG capsule 75 mg PO BID Alfuzosin Hcl [Alfuzosin Hcl Er] 10 MG Tab.Er.24h 10 mg PO DAILY tolterodine 4 MG capsule,extended release 24hr 4 mg PO DAILY allopurinol 200 MG tablet 200 mg PO DAILY mirabegron [Myrbetriq] 50 MG tablet extended release 24 hr 50 mg PO DAILY Jardiance 10 MG tablet 10 mg PO DAILY Thera-Tabs 1 EACH tablet 1 ea PO DAILY Discontinued hydrocortisone 28 APPLIC/28 GM ointment 1 applic topical BID PRN (Reason: Itching) tramadol 50 MG tablet 50 mg PO Q6H PRN (Reason: Pain) Qty: 20 0RF Entresto 1 EACH tablet 1 ea PO BID Dexlansoprazole [Dexlansoprazole Dr] [address].Bp 60 mg PO DAILY metoprolol succinate 50 MG tablet extended release 24 hr 25 mg PO DAILY fluticasone propionate 120 SPRAYS spray,suspension 2 spray intranasal DAILY Activity Restrictions: Activity as Tolerated Diet: Diabetic Health Concerns: You came in initially because you were confused and found down by her car. Initially, we were concerned about a stroke. We did imaging including a brain MRI, a CT scan of your brain, as well as a CT scan of the vessels that go to your brain; all of these were negative for a stroke. When you came in, you had a lot of muscle breakdown because you are down for a long time. This muscle breakdown release pigment which caused your kidney numbers to go up. This is called rhabdomyolysis. We treated this with lots of IV fluids, and encouraging you to get rehydrated. As this started to resolve, your mental status started to improve as well. As part of the workup for possible stroke, we also got an ultrasound of your heart. This showed that it was functioning well. During your stay, you had an episode of really bad pain in your stomach. As such we got a CT scan of your abdomen as well. This showed an ulcer or a possible diverticulum (a tract or out-pocketing) in the first part of your small intestine. We talked about how you should follow-up with a stomach doctor outpatient; you stated that you have establish care with someone in the past due to need for an EGD, when they take a camera and look down your throat. We talked a lot about how to get you stronger to help you become more independent. We had physical therapy and Occupational Therapy worked for you. Initially, the plan was to go to a group home facility where they would work with you on rehab. However, you preferred to go home as you had a lot of support there. You are determined to get stronger and to be more independent. Additionally, while you are here, you had many episodes of confusion. We talked about how it would be important for you to follow-up with the neurologist, or brain doctor for further testing. During your stay here, we discovered that your need for insulin had come back as your A1c was 13%. We will be sending you home with long-acting insulin, which you will take in the morning, as well as short acting insulin, which you will take 2 units of 3 times a day. Your mentioned that you guys do have a glucometer at home; please use this to log your sugars and bring them in with you to your next primary care appointment. It will be very important for you to follow-up with many physicians, including her primary care doctor, your orchestrator, plum packer, as well as a neurologist. Care Plan Goals: 1. Continue to get stronger, work with physical therapy to get back to your baseline. 2. Continue insulin as prescribed; work on exercise and diet. Follow-up with your primary care physician about your sugar levels. 3. Follow-up with your cardiology; work on optimizing your medications. 4. Follow-up with your plum packer on abnormal findings on the CT scan of the abdomen. 5. Follow-up with your neurologist on further neurocognitive testing. Print Language: Kenyan Patient Instructions: Rhabdomyolysis, Stroke Ischemic, Stroke Prepare Home After, Diabetes Insulin Injections Ch, Diabetes Carbs Fats Protein Stand Alone Forms: PCP List Follow-up Care: Dora Romero MD [Physician No Access] - Bandar Lewis MD [Physician No Access] - Yasmine-Elmer Hughes MD [Physician No Access] - 1 Week
[2024-03-10 06:08] LABS: BASOPHILS % (AUTO) 0.3 %; EOSINOPHILS # (AUTO) 0.4 10^3/uL (0.0-0.7); EOSINOPHILS % (AUTO) 5.6 %; HCT - HEMATOCRIT 38.5 % (42.0-52.0); HGB - HEMOGLOBIN 13.1 g/dL (14.0-18.0); LYMPHOCYTES # (AUTO) 1.1 10^3/uL (1.5-3.5); LYMPHOCYTES % (AUTO) 16.4 %; MEAN CORPUSCULAR HEMOGLOBIN 28.8 pg (27.0-31.0); MEAN CORPUSCULAR VOLUME 84.6 fL (80.0-94.0); MEAN PLATELET VOLUME 12.6 fL (7.4-11.4); MONOCYTES # (AUTO) 0.6 10^3/uL (0.0-1.0); MONOCYTES % (AUTO) 8.5 %; NEUTROPHILS # (AUTO) 4.5 10^3/uL (1.5-6.6); NEUTROPHILS % (AUTO) 68.9 %; PLT - PLATELET COUNT 133 10^3/uL (130-450); RED BLOOD COUNT 4.55 10^6/uL (4.70-6.10); RED CELL DISTRIBUTION WIDTH 14.3 % (12.0-15.0); WHITE BLOOD COUNT 6.5 x10^3/uL (4.8-10.8)
[2024-03-10 06:29] LABS: ALBUMIN/GLOBULIN RATIO 1.6 (1.0-2.2); BILIRUBIN,TOTAL 1.1 mg/dL (0.2-1.0); CALCIUM 8.1 mg/dL (8.5-10.3); CREATININE 1.8 mg/dL (0.6-1.3); POTASSIUM 3.3 mmol/L (3.5-4.5); TOTAL PROTEIN 4.9 g/dL (6.4-8.9)
[2024-03-10] MEDS: POTASSIUM CHLORIDE 20 MEQ TABLET PO ONE (07:47)
[2024-03-10] MEDS: INSULIN LISPRO 300 UNIT/3 ML PEN SUBQ SCH (08:36)
--- NOTE | 2024-03-10 08:51 | PROVIDER PROGRESS NOTE ---
Subjective Subjective Pt reports feeling: Improved Subjective: Patient, although he is alert and oriented x 3, does not appear to be comprehending some information. He seems to be forgetting conversations that were had yesterday. He is tentatively agreeable to SNF, especially with his and daughter is encouraging him to be so. He has diffuse pain, including pain in his bilateral legs. He continues to have some abdominal pain, although he states is improved from yesterday. Current Medications Current Medications Current Medications: Current Medications Generic Name Dose Route Start Last Admin Trade Name Freq PRN Reason Stop Dose Admin Acetaminophen 650 mg 03/06/24 11:43 03/09/24 08:05 Acetaminophen 325 Mg Tablet PO 650 mg Q4HR PRN Administration Pain 1 to 4, or Fever Aspirin 81 mg 03/08/24 09:00 03/09/24 08:04 Aspirin Ec 81 Mg Tablet PO 81 mg DAILY MICKEY Administration Atorvastatin Calcium 40 mg 03/08/24 09:00 03/09/24 08:05 Atorvastatin 40 Mg Tablet PO 40 mg DAILY MICKEY Administration Acetaminophen 1,000 mg in 100 mls @ 400 mls/hr 03/06/24 18:55 03/09/24 18:16 Acetaminophen IV Infused Q6HR PRN Infusion FEVER > 100.5 F Insulin Glargine-yfgn 20 unit 03/06/24 21:00 03/09/24 20:48 Insulin Glargine-Yfgn 300 Unit/3 Ml Pen SUBQ 20 unit QPM MICKEY Administration Insulin Human Lispro 1 - 9 unit 03/10/24 08:00 03/10/24 08:36 Insulin Lispro 300 Unit/3 Ml Pen SUBQ Not Given 0800,1200,1700,2100 [facility] Protocol Melatonin 3 mg 03/08/24 21:00 03/09/24 20:47 Melatonin 3 Mg Tablet PO 3 mg QPM MICKEY Administration Metoprolol Succinate 50 mg 03/09/24 09:00 03/09/24 10:35 Metoprolol Succinate 50 Mg Tablet PO Not Given DAILY MICKEY Ondansetron HCl 4 mg 03/06/24 11:43 03/10/24 07:47 Ondansetron Odt 4 Mg Tablet TL 4 mg Q6HR PRN Administration Nausea / Vomiting Ondansetron HCl 4 mg 03/06/24 11:43 03/09/24 00:16 Ondansetron 4 Mg/2 Ml Vial IVP 4 mg Q6HR PRN Administration Nausea / Vomiting Pantoprazole Sodium 40 mg 03/09/24 07:00 03/10/24 06:01 Pantoprazole 40 Mg Tablet PO 40 mg BIDAC MICKEY Administration Patient Own Med ( 1 each 03/08/24 09:00 03/09/24 10:34 Jardiance 10 Mg PO Not Given Tablet) DAILY MICKEY Myrbetriq 50mg 1 each 03/08/24 09:00 03/09/24 12:31 PO 1 each DAILY MICKEY Administration Patient Own Med ( 1 each 03/10/24 09:00 Entresto 97/103) PO BID MICKEY Simethicone 80 mg 03/09/24 09:29 Simethicone Chew 80 Mg Tablet PO Q6HR PRN Gas Sodium Chloride 10 ml 03/06/24 11:27 03/07/24 20:49 Sodium Chloride Flush 0.9% 10 Ml Syringe IVP 10 ml PRN PRN Administration NEEDED PER PROVIDER ORDERS Sodium Chloride 10 ml 03/06/24 17:00 03/10/24 00:13 Sodium Chloride Flush 0.9% 10 Ml Syringe IVP 10 ml 0100,0900,1700 MICKEY Administration Objective Vital Signs/Intake & Output Reviewed Vital Signs: Yes Vital Signs: Vital Signs x48h Temp Pulse Pulse Resp BP BP Pulse Ox 03/09/24 08:00 36.6 C 63 18 172/76 H 03/09/24 06:20 62 158/71 H 03/09/24 06:05 62 175/68 H 03/09/24 05:50 62 159/68 H 03/09/24 05:45 64 169/75 H 03/09/24 05:40 60 173/75 H 03/09/24 05:34 179/85 H 03/09/24 05:25 60 179/85 H 03/09/24 05:15 59 L 180/83 H 03/09/24 05:10 64 178/78 H 03/09/24 05:05 59 L 174/82 H 03/09/24 05:00 56 L 170/80 H 03/09/24 04:50 62 186/85 H 03/09/24 04:45 36.6 C 62 20 186/85 H 98 Intake & Output: Intake & Output 03/08/24 03/09/24 03/10/24 03/11/24 05:59 05:59 05:59 05:59 Intake Total 1000 / 1000 3378 / 3378 3200 / 3200 250 / 250 Output Total 1825 / 1825 1000 / 1000 1525 / 1525 Balance -825 / -825 2378 / 2378 1675 / 1675 250 / 250 Weight (kg) 86.4 kg Objective General Appearance: positive No acute distress and Alert (some confusion with memory recall) Respiratory: positive Chest non-tender and No respiratory distress Cardiovascular: positive Regular rate & rhythm, No murmur and No gallop Abdomen: positive Tenderness (Tenderness to palpation in epigastric region.), Guarding (Voluntary guarding due to pain.) and Other (Bulge/hernia felt in right abdominal wall; tender to palpation, reducible ) Skin: positive No rash, Dry and Other (Excoriations noted on bilateral knees) Extremities: positive Non-tender Neurologic/Psychiatric: positive Oriented x3, Motor nml, Mood/affect nml and Weakness (Left UE and left LE improving. No gaze deviation present.) Lab Results 03/10/24 05:40 03/10/24 05:40 Other Labs: Lab Results x24hrs 03/10/24 03/10/24 03/09/24 Range/Units 07:43 05:40 20:37 WBC 6.5 (4.8-10.8) x10^3/uL RBC 4.55 L (4.70-6.10) 10^6/uL Hgb 13.1 L (14.0-18.0) g/dL Hct 38.5 L (42.0-52.0) % MCV 84.6 (80.0-94.0) fL MCH 28.8 (27.0-31.0) pg MCHC 34.0 (32.0-36.0) g/dL RDW 14.3 (12.0-15.0) % Plt Count 133 (130-450) 10^3/uL MPV 12.6 H (7.4-11.4) fL Neut # (Auto) 4.5 (1.5-6.6) 10^3/uL Lymph # (Auto) 1.1 L (1.5-3.5) 10^3/uL [place] # (Auto) 0.6 (0.0-1.0) 10^3/uL Eos # (Auto) 0.4 (0.0-0.7) 10^3/uL Baso # (Auto) 0.0 (0.0-0.1) 10^3/uL Absolute Nucleated RBC 0.00 x10^3/uL Nucleated RBC % 0.0 /100WBC Sodium 141 (135-145) mmol/L Potassium 3.3 L (3.5-4.5) mmol/L Chloride 114 H (101-111) mmol/L Carbon Dioxide 21 (21-32) mmol/L Anion Gap 6.0 (6-13) BUN 35 H (6-20) mg/dL Creatinine 1.8 H (0.6-1.3) mg/dL Estimated GFR (MDRD) 45 L (>89) Glucose 72 L (74-104) mg/dL POC Whole Bld Glucose 94 251 (70-100) mg/dL Calcium 8.1 L (8.5-10.3) mg/dL Total Bilirubin 1.1 H (0.2-1.0) mg/dL AST 36 (10-42) IU/L ALT 39 (10-60) IU/L Alkaline Phosphatase 77 (42-121) IU/L Total Creatine Kinase 583 H (30-223) IU/L Troponin I High Sens (2.3-19.7) ng/L Total Protein 4.9 L (6.4-8.9) g/dL Albumin 3.0 L (3.2-5.5) g/dL Globulin 1.9 L (2.1-4.2) g/dL Albumin/Globulin Ratio 1.6 (1.0-2.2) 03/09/24 03/09/24 03/09/24 Range/Units 16:37 11:37 10:03 WBC (4.8-10.8) x10^3/uL RBC (4.70-6.10) 10^6/uL Hgb (14.0-18.0) g/dL Hct (42.0-52.0) % MCV (80.0-94.0) fL MCH (27.0-31.0) pg MCHC (32.0-36.0) g/dL RDW (12.0-15.0) % Plt Count (130-450) 10^3/uL MPV (7.4-11.4) fL Neut # (Auto) (1.5-6.6) 10^3/uL Lymph # (Auto) (1.5-3.5) 10^3/uL [place] # (Auto) (0.0-1.0) 10^3/uL Eos # (Auto) (0.0-0.7) 10^3/uL Baso # (Auto) (0.0-0.1) 10^3/uL Absolute Nucleated RBC x10^3/uL Nucleated RBC % /100WBC Sodium (135-145) mmol/L Potassium (3.5-4.5) mmol/L Chloride (101-111) mmol/L Carbon Dioxide (21-32) mmol/L Anion Gap (6-13) BUN (6-20) mg/dL Creatinine (0.6-1.3) mg/dL Estimated GFR (MDRD) (>89) Glucose (74-104) mg/dL POC Whole Bld Glucose 277 260 (70-100) mg/dL Calcium (8.5-10.3) mg/dL Total Bilirubin (0.2-1.0) mg/dL AST (10-42) IU/L ALT (10-60) IU/L Alkaline Phosphatase (42-121) IU/L Total Creatine Kinase (30-223) IU/L Troponin I High Sens 103.3 H* (2.3-19.7) ng/L Total Protein (6.4-8.9) g/dL Albumin (3.2-5.5) g/dL Globulin (2.1-4.2) g/dL Albumin/Globulin Ratio (1.0-2.2) 03/06/24 Range/Units 16:17 WBC (4.8-10.8) x10^3/uL RBC (4.70-6.10) 10^6/uL Hgb (14.0-18.0) g/dL Hct (42.0-52.0) % MCV (80.0-94.0) fL MCH (27.0-31.0) pg MCHC (32.0-36.0) g/dL RDW (12.0-15.0) % Plt Count (130-450) 10^3/uL MPV (7.4-11.4) fL Neut # (Auto) (1.5-6.6) 10^3/uL Lymph # (Auto) (1.5-3.5) 10^3/uL [place] # (Auto) (0.0-1.0) 10^3/uL Eos # (Auto) (0.0-0.7) 10^3/uL Baso # (Auto) (0.0-0.1) 10^3/uL Absolute Nucleated RBC x10^3/uL Nucleated RBC % /100WBC Sodium (135-145) mmol/L Potassium (3.5-4.5) mmol/L Chloride (101-111) mmol/L Carbon Dioxide (21-32) mmol/L Anion Gap (6-13) BUN (6-20) mg/dL Creatinine (0.6-1.3) mg/dL Estimated GFR (MDRD) (>89) Glucose (74-104) mg/dL POC Whole Bld Glucose 387 (70-100) mg/dL Calcium (8.5-10.3) mg/dL Total Bilirubin (0.2-1.0) mg/dL AST (10-42) IU/L ALT (10-60) IU/L Alkaline Phosphatase (42-121) IU/L Total Creatine Kinase (30-223) IU/L Troponin I High Sens (2.3-19.7) ng/L Total Protein (6.4-8.9) g/dL Albumin (3.2-5.5) g/dL Globulin (2.1-4.2) g/dL Albumin/Globulin Ratio (1.0-2.2) Diagnostic Imaging Diagnostic Imaging Results: positive Final report reviewed Diagnostic Imaging Comments: Brain MRI done on 03/06 shows no acute infarct. Chest x-ray shows mildly enlarged cardiac silhouette, no acute consolidation. CTA shows short segment 70% narrowing of right vertebral artery at the origin. Assessment/Plan Problem List (1) Acute metabolic encephalopathy: Impression: Patient found down and confused. Mental status improved, currently ANO x 3. He does appear confused at times and has difficulty with short term recollection. MRI brain with no acute infarcts. Head CT showed small right parietal scalp hematoma. Likely due to uremia and delirium, both of which are improving. (2) Abdominal pain: Impression: Patient with new onset abdominal pain. Abdominal CT does show moderate inflammatory changes in the duodenum, with an adjacent ulcer versus duodenal diverticulum. He was informed of these results, and advised to follow-up with gastroenterology outpatient. Mild gallbladder distention is noted with stones; however patient does not have any right upper quadrant pain. Low suspicion for cholecystitis, ascending cholangitis. Continue Protonix twice daily. (3) FRANK (acute kidney injury): Impression: Resolved. Baseline appears to be between 1.8-2.3 according to records from 01/27 and 08/27. Entresto to be restarted today. Will also restart pregablin as patient is complaining of some neuropathy as FRANK is now resolved. (4) DM type 2 causing CKD stage 3: Impression: Sugars well-controlled on current regimen: Insulin glargine 20 units every afternoon, sliding scale insulin. A1c on 03/07 13.5%. Will need insulin as outpatient. Diabetes education. (5) Fever: Impression: Patient had fever on admission. Blood cultures are sent on 03/06; no growth to date. Chest x-ray with no infiltrate. UA negative for any infection. Continue to monitor off antibiotics. (6) Rhabdomyolysis: Impression: CPK continues to improve. Encourage P.O. intake. IVF stopped. (7) Dehydration: Impression: See above. (8) Diabetes mellitus type 2 with complications, uncontrolled: Impression: See above. (9) Hypertension: Impression: Patient was unable to take p.o. medications due to mental status; was receiving labetalol pushes. Increased metoprolol succinate to 50 mg daily today. Restart Entresto today. ECHO reviewed; no systolic heart failure noted. Will add CCB if blood pressure remains uncontrolled.
[2024-03-10] MEDS: PREGABALIN 25 MG CAPSULE PO SCH (09:25)
[2024-03-10] MEDS: ENTRESTO PO SCH (09:30)
[2024-03-10] MEDS: CARBOXYMETHYLCELLULOSE OPHTH DROPS EACHEYE PRN (13:18)
[2024-03-10] MEDS ORDERED: MELATONIN 3 MG TABLET PO PRN (14:20)
[2024-03-11 05:50] LABS: BASOPHILS % (AUTO) 0.4 %; EOSINOPHILS # (AUTO) 0.4 10^3/uL (0.0-0.7); EOSINOPHILS % (AUTO) 7.3 %; HCT - HEMATOCRIT 34.2 % (42.0-52.0); HGB - HEMOGLOBIN 11.3 g/dL (14.0-18.0); LYMPHOCYTES # (AUTO) 1.2 10^3/uL (1.5-3.5); LYMPHOCYTES % (AUTO) 23.1 %; MEAN CORPUSCULAR HEMOGLOBIN 28.2 pg (27.0-31.0); MEAN CORPUSCULAR VOLUME 85.3 fL (80.0-94.0); MEAN PLATELET VOLUME 12.3 fL (7.4-11.4); MONOCYTES # (AUTO) 0.5 10^3/uL (0.0-1.0); NEUTROPHILS # (AUTO) 3.1 10^3/uL (1.5-6.6); NEUTROPHILS % (AUTO) 58.8 %; PLT - PLATELET COUNT 133 10^3/uL (130-450); RED BLOOD COUNT 4.01 10^6/uL (4.70-6.10); RED CELL DISTRIBUTION WIDTH 14.5 % (12.0-15.0); WHITE BLOOD COUNT 5.3 x10^3/uL (4.8-10.8)
[2024-03-11 06:05] LABS: CALCIUM 7.8 mg/dL (8.5-10.3); CREATININE 1.9 mg/dL (0.6-1.3); POTASSIUM 3.3 mmol/L (3.5-4.5)
--- NOTE | 2024-03-11 08:48 | PROVIDER PROGRESS NOTE ---
Subjective Subjective Pt reports feeling: Improved Subjective: Patient is now alert and oriented x 3. He does have episodes of confusion. He mentioned that overnight, he felt like he was away from the hospital, and he was driving in a car. He states that he knows that it was not reality, but is concerning him. He does state that whenever he is in the hospital, he has episodes of delirium. Other than that, he is doing well. He has been eating and drinking well. His abdominal pain has resolved. He does have chronic pain in his legs, which is improved with the starting of Lyrica yesterday. He does endorse some pain in his knees which he says is chronic. Current Medications Current Medications Current Medications: Current Medications Generic Name Dose Route Start Last Admin Trade Name Freq PRN Reason Stop Dose Admin Acetaminophen 650 mg 03/06/24 11:43 03/11/24 06:38 Acetaminophen 325 Mg Tablet PO 650 mg Q4HR PRN Administration Pain 1 to 4, or Fever Aspirin 81 mg 03/08/24 09:00 03/10/24 08:46 Aspirin Ec 81 Mg Tablet PO 81 mg DAILY MICKEY Administration Atorvastatin Calcium 40 mg 03/08/24 09:00 03/10/24 08:46 Atorvastatin 40 Mg Tablet PO 40 mg DAILY MICKEY Administration Carboxymethylcellulose 1 drops 03/10/24 12:59 03/10/24 13:18 Carboxymethylcellulose Ophth Drops EACHEYE 1 unit Q4HR PRN Administration Dry Eye Diclofenac Sodium 4 gm 03/11/24 09:00 Diclofenac Sodium 1% Gel 50 Gm Tube TOP QID MICKEY Acetaminophen 1,000 mg in 100 mls @ 400 mls/hr 03/06/24 18:55 03/09/24 18:16 Acetaminophen IV Infused Q6HR PRN Infusion FEVER > 100.5 F Insulin Glargine-yfgn 20 unit 03/06/24 21:00 03/10/24 21:01 Insulin Glargine-Yfgn 300 Unit/3 Ml Pen SUBQ 20 unit QPM MICKEY Administration Insulin Human Lispro 1 - 9 unit 03/10/24 08:00 03/11/24 07:52 Insulin Lispro 300 Unit/3 Ml Pen SUBQ Not Given 0800,1200,1700,2100 [facility] Protocol Losartan Potassium 50 mg 03/11/24 09:00 Losartan 50 Mg Tablet PO DAILY [facility] Melatonin 3 mg 03/08/24 21:00 03/10/24 21:02 Melatonin 3 Mg Tablet PO 3 mg QPM MICKEY Administration Melatonin 3 mg 03/10/24 14:20 Melatonin 3 Mg Tablet PO QPM PRN Insomnia Metoprolol Succinate 50 mg 03/09/24 09:00 03/10/24 08:46 Metoprolol Succinate 50 Mg Tablet PO 50 mg DAILY MICKEY Administration Ondansetron HCl 4 mg 03/06/24 11:43 03/10/24 07:47 Ondansetron Odt 4 Mg Tablet TL 4 mg Q6HR PRN Administration Nausea / Vomiting Ondansetron HCl 4 mg 03/06/24 11:43 03/09/24 00:16 Ondansetron 4 Mg/2 Ml Vial IVP 4 mg Q6HR PRN Administration Nausea / Vomiting Pantoprazole Sodium 40 mg 03/09/24 07:00 03/11/24 06:38 Pantoprazole 40 Mg Tablet PO 40 mg BIDAC MICKEY Administration Patient Own Med ( 1 each 03/08/24 09:00 03/10/24 09:30 Jardiance 10 Mg PO Not Given Tablet) DAILY MICKEY Myrbetriq 50mg 1 each 03/08/24 09:00 03/10/24 09:19 PO 1 each DAILY MICKEY Administration Patient Own Med ( 1 each 03/10/24 09:00 03/10/24 21:02 Entresto 97/103) PO Not Given BID MICKEY Pregabalin 75 mg 03/10/24 09:00 03/10/24 21:02 Pregabalin 25 Mg Capsule PO 75 mg BID MICKEY Administration Simethicone 80 mg 03/09/24 09:29 Simethicone Chew 80 Mg Tablet PO Q6HR PRN Gas Sodium Chloride 10 ml 03/06/24 11:27 03/07/24 20:49 Sodium Chloride Flush 0.9% 10 Ml Syringe IVP 10 ml PRN PRN Administration NEEDED PER PROVIDER ORDERS Sodium Chloride 10 ml 03/06/24 17:00 03/10/24 23:48 Sodium Chloride Flush 0.9% 10 Ml Syringe IVP 10 ml 0100,0900,1700 MICKEY Administration Objective Vital Signs/Intake & Output Reviewed Vital Signs: Yes Vital Signs: Vital Signs x48h Temp Pulse Pulse Resp BP BP Pulse Ox 03/09/24 08:00 36.6 C 63 18 172/76 H 03/09/24 06:20 62 158/71 H 03/09/24 06:05 62 175/68 H 03/09/24 05:50 62 159/68 H 03/09/24 05:45 64 169/75 H 03/09/24 05:40 60 173/75 H 03/09/24 05:34 179/85 H 03/09/24 05:25 60 179/85 H 03/09/24 05:15 59 L 180/83 H 03/09/24 05:10 64 178/78 H 03/09/24 05:05 59 L 174/82 H 03/09/24 05:00 56 L 170/80 H 03/09/24 04:50 62 186/85 H 03/09/24 04:45 36.6 C 62 20 186/85 H 98 Intake & Output: Intake & Output 03/09/24 03/10/24 03/11/24 03/12/24 05:59 05:59 05:59 05:59 Intake Total 3378 / 3378 3200 / 3200 1500 / 1500 390 / 390 Output Total 1000 / 1000 1525 / 1525 550 / 550 Balance 2378 / 2378 1675 / 1675 1500 / 1500 -160 / -160 Objective General Appearance: positive No acute distress and Alert (some confusion with memory recall) Respiratory: positive Chest non-tender and No respiratory distress Cardiovascular: positive Regular rate & rhythm, No murmur and No gallop Abdomen: positive Tenderness (Tenderness to palpation in epigastric region.), Guarding (Voluntary guarding due to pain.) and Other (Bulge/hernia felt in right abdominal wall; tender to palpation, reducible ) Skin: positive No rash, Dry and Other (Excoriations noted on bilateral knees) Extremities: positive Non-tender Neurologic/Psychiatric: positive Oriented x3, Motor nml, Mood/affect nml and Weakness (Left UE and left LE improving. No gaze deviation present.) Lab Results 03/11/24 05:24 03/11/24 05:24 Other Labs: Lab Results x24hrs 03/11/24 03/11/24 03/10/24 Range/Units 07:49 05:24 20:58 WBC 5.3 (4.8-10.8) x10^3/uL RBC 4.01 L (4.70-6.10) 10^6/uL Hgb 11.3 L (14.0-18.0) g/dL Hct 34.2 L (42.0-52.0) % MCV 85.3 (80.0-94.0) fL MCH 28.2 (27.0-31.0) pg MCHC 33.0 (32.0-36.0) g/dL RDW 14.5 (12.0-15.0) % Plt Count 133 (130-450) 10^3/uL MPV 12.3 H (7.4-11.4) fL Neut # (Auto) 3.1 (1.5-6.6) 10^3/uL Lymph # (Auto) 1.2 L (1.5-3.5) 10^3/uL [place] # (Auto) 0.5 (0.0-1.0) 10^3/uL Eos # (Auto) 0.4 (0.0-0.7) 10^3/uL Baso # (Auto) 0.0 (0.0-0.1) 10^3/uL Absolute Nucleated RBC 0.00 x10^3/uL Nucleated RBC % 0.0 /100WBC Sodium 141 (135-145) mmol/L Potassium 3.3 L (3.5-4.5) mmol/L Chloride 114 H (101-111) mmol/L Carbon Dioxide 24 (21-32) mmol/L Anion Gap 3.0 L (6-13) BUN 27 H (6-20) mg/dL Creatinine 1.9 H (0.6-1.3) mg/dL Estimated GFR (MDRD) 43 L (>89) Glucose 82 (74-104) mg/dL POC Whole Bld Glucose 94 232 (70-100) mg/dL Calcium 7.8 L (8.5-10.3) mg/dL Total Creatine Kinase 241 H (30-223) IU/L 03/10/24 03/10/24 Range/Units 16:50 11:29 WBC (4.8-10.8) x10^3/uL RBC (4.70-6.10) 10^6/uL Hgb (14.0-18.0) g/dL Hct (42.0-52.0) % MCV (80.0-94.0) fL MCH (27.0-31.0) pg MCHC (32.0-36.0) g/dL RDW (12.0-15.0) % Plt Count (130-450) 10^3/uL MPV (7.4-11.4) fL Neut # (Auto) (1.5-6.6) 10^3/uL Lymph # (Auto) (1.5-3.5) 10^3/uL [place] # (Auto) (0.0-1.0) 10^3/uL Eos # (Auto) (0.0-0.7) 10^3/uL Baso # (Auto) (0.0-0.1) 10^3/uL Absolute Nucleated RBC x10^3/uL Nucleated RBC % /100WBC Sodium (135-145) mmol/L Potassium (3.5-4.5) mmol/L Chloride (101-111) mmol/L Carbon Dioxide (21-32) mmol/L Anion Gap (6-13) BUN (6-20) mg/dL Creatinine (0.6-1.3) mg/dL Estimated GFR (MDRD) (>89) Glucose (74-104) mg/dL POC Whole Bld Glucose 189 183 (70-100) mg/dL Calcium (8.5-10.3) mg/dL Total Creatine Kinase (30-223) IU/L Diagnostic Imaging Diagnostic Imaging Results: positive Final report reviewed Diagnostic Imaging Comments: Brain MRI done on 03/06 shows no acute infarct. Chest x-ray shows mildly enlarged cardiac silhouette, no acute consolidation. CTA shows short segment 70% narrowing of right vertebral artery at the origin. Assessment/Plan Problem List (1) Acute metabolic encephalopathy: Impression: Patient found down and confused. Mental status improved, currently ANO x 3. He does appear confused at times and has difficulty with short term recollection. MRI brain with no acute infarcts. Head CT showed small right parietal scalp hematoma. Likely due to uremia and delirium, both of which are improving. Would recommend neurology follow-up outpatient for further neurocognitive testing. (2) Abdominal pain: Impression: Now resolved. Abdominal CT does show moderate inflammatory changes in the duodenum, with an adjacent ulcer versus duodenal diverticulum. He was informed of these results, and advised to follow-up with gastroenterology outpatient. Mild gallbladder distention is noted with stones; however patient does not have any right upper quadrant pain. Low suspicion for cholecystitis, ascending cholangitis. Continue Protonix twice daily. (3) FRANK (acute kidney injury): Impression: Resolved. Baseline appears to be between 1.8-2.3 according to records from 01/27 and 08/27. Entresto not available, losartan restarted. Will also restart pregablin as patient is complaining of some neuropathy as FRANK is now resolved. (4) DM type 2 causing CKD stage 3: Impression: Sugars well-controlled on current regimen: Insulin glargine 20 units every afternoon, sliding scale insulin. A1c on 03/07 13.5%. Will need insulin as outpatient. Diabetes education. (5) Fever: Impression: Patient had fever on admission. Blood cultures are sent on 03/06; no growth to date. Chest x-ray with no infiltrate. UA negative for any infection. Continue to monitor off antibiotics. (6) Rhabdomyolysis: Impression: CPK continues to improve. Encourage P.O. intake. IVF stopped. (7) Dehydration: Impression: See above. (8) Diabetes mellitus type 2 with complications, uncontrolled: Impression: See above. (9) Hypertension: Impression: Patient was unable to take p.o. medications due to mental status; was receiving labetalol pushes. Increased metoprolol succinate to 50 mg daily today. Restart Entresto today - not available, so will start losartan. ECHO reviewed; no systolic heart failure noted.
[2024-03-11] MEDS: LOSARTAN 50 MG TABLET PO SCH (09:21)
[2024-03-11] MEDS: POTASSIUM CHLORIDE 20 MEQ TABLET PO ONE (09:23)
[2024-03-11] MEDS: DICLOFENAC SODIUM 1% GEL 50 GM TUBE TOP SCH (09:23)
[2024-03-12] MEDS: SIMETHICONE CHEW 80 MG TABLET PO PRN (03:29)
[2024-03-12 05:19] LABS: POTASSIUM 3.4 mmol/L (3.5-4.5)
--- NOTE | 2024-03-12 08:19 | PROVIDER PROGRESS NOTE ---
Subjective Subjective Pt reports feeling: Improved Subjective: Patient is now alert and oriented x 3. He continues to have some moments of confusion, especially overnight. Otherwise, he is doing well. Other than that, he is doing well. He has been eating and drinking well. His abdominal pain has resolved. He does have chronic pain in his legs, which is improved with the starting of Lyrica yesterday. He does endorse some pain in his knees which he says is chronic. Current Medications Current Medications Current Medications: Current Medications Generic Name Dose Route Start Last Admin Trade Name Freq PRN Reason Stop Dose Admin Acetaminophen 650 mg 03/06/24 11:43 03/12/24 06:35 Acetaminophen 325 Mg Tablet PO 650 mg Q4HR PRN Administration Pain 1 to 4, or Fever Aspirin 81 mg 03/08/24 09:00 03/11/24 09:22 Aspirin Ec 81 Mg Tablet PO 81 mg DAILY MICKEY Administration Atorvastatin Calcium 40 mg 03/08/24 09:00 03/11/24 09:20 Atorvastatin 40 Mg Tablet PO 40 mg DAILY MICKEY Administration Carboxymethylcellulose 1 drops 03/10/24 12:59 03/10/24 13:18 Carboxymethylcellulose Ophth Drops EACHEYE 1 unit Q4HR PRN Administration Dry Eye Diclofenac Sodium 4 gm 03/11/24 09:00 03/11/24 20:40 Diclofenac Sodium 1% Gel 50 Gm Tube TOP 4 gm QID MICKEY Administration Acetaminophen 1,000 mg in 100 mls @ 400 mls/hr 03/06/24 18:55 03/09/24 18:16 Acetaminophen IV Infused Q6HR PRN Infusion FEVER > 100.5 F Insulin Glargine-yfgn 15 unit 03/12/24 21:00 Insulin Glargine-Yfgn 300 Unit/3 Ml Pen SUBQ QPM MICKEY Insulin Human Lispro 1 - 9 unit 03/10/24 08:00 03/11/24 20:41 Insulin Lispro 300 Unit/3 Ml Pen SUBQ 9 unit 0800,1200,1700,2100 MICKEY Administration Protocol Losartan Potassium 50 mg 03/11/24 09:00 03/11/24 09:21 Losartan 50 Mg Tablet PO 50 mg DAILY MICKEY Administration Melatonin 3 mg 03/08/24 21:00 03/11/24 20:41 Melatonin 3 Mg Tablet PO 3 mg QPM MICKEY Administration Melatonin 3 mg 03/10/24 14:20 Melatonin 3 Mg Tablet PO QPM PRN Insomnia Metoprolol Succinate 50 mg 03/09/24 09:00 03/11/24 09:22 Metoprolol Succinate 50 Mg Tablet PO 50 mg DAILY MICKEY Administration Ondansetron HCl 4 mg 03/06/24 11:43 03/10/24 07:47 Ondansetron Odt 4 Mg Tablet TL 4 mg Q6HR PRN Administration Nausea / Vomiting Ondansetron HCl 4 mg 03/06/24 11:43 03/09/24 00:16 Ondansetron 4 Mg/2 Ml Vial IVP 4 mg Q6HR PRN Administration Nausea / Vomiting Pantoprazole Sodium 40 mg 03/09/24 07:00 03/12/24 06:36 Pantoprazole 40 Mg Tablet PO 40 mg BIDAC MICKEY Administration Patient Own Med ( 1 each 03/08/24 09:00 03/11/24 09:22 Jardiance 10 Mg PO 1 each Tablet) DAILY MICKEY Administration Myrbetriq 50mg 1 each 03/08/24 09:00 03/11/24 09:23 PO 1 each DAILY MICKEY Administration Patient Own Med ( 1 each 03/10/24 09:00 03/11/24 20:47 Entresto 97/103) PO Not Given BID MICKEY Pregabalin 75 mg 03/10/24 09:00 03/11/24 20:41 Pregabalin 25 Mg Capsule PO 75 mg BID MICKEY Administration Simethicone 80 mg 03/09/24 09:29 03/12/24 06:36 Simethicone Chew 80 Mg Tablet PO 80 mg Q6HR PRN Administration Gas Sodium Chloride 10 ml 03/06/24 11:27 03/07/24 20:49 Sodium Chloride Flush 0.9% 10 Ml Syringe IVP 10 ml PRN PRN Administration NEEDED PER PROVIDER ORDERS Sodium Chloride 10 ml 03/06/24 17:00 03/12/24 00:16 Sodium Chloride Flush 0.9% 10 Ml Syringe IVP 10 ml 0100,0900,1700 MICKEY Administration Objective Vital Signs/Intake & Output Reviewed Vital Signs: Yes Vital Signs: Vital Signs x48h Temp Pulse Pulse Resp BP BP Pulse Ox 03/09/24 08:00 36.6 C 63 18 172/76 H 03/09/24 06:20 62 158/71 H 03/09/24 06:05 62 175/68 H 03/09/24 05:50 62 159/68 H 03/09/24 05:45 64 169/75 H 03/09/24 05:40 60 173/75 H 03/09/24 05:34 179/85 H 03/09/24 05:25 60 179/85 H 03/09/24 05:15 59 L 180/83 H 03/09/24 05:10 64 178/78 H 03/09/24 05:05 59 L 174/82 H 03/09/24 05:00 56 L 170/80 H 03/09/24 04:50 62 186/85 H 03/09/24 04:45 36.6 C 62 20 186/85 H 98 Intake & Output: Intake & Output 03/10/24 03/11/24 03/12/24 03/13/24 05:59 05:59 05:59 05:59 Intake Total 3200 / 3200 1500 / 1500 1730 / 1730 Output Total 1525 / 1525 2375 / 2375 Balance 1675 / 1675 1500 / 1500 -645 / -645 Objective General Appearance: positive No acute distress and Alert (some confusion with memory recall) Respiratory: positive Chest non-tender and No respiratory distress Cardiovascular: positive Regular rate & rhythm, No murmur and No gallop Abdomen: positive Tenderness (Tenderness to palpation in epigastric region.), Guarding (Voluntary guarding due to pain.) and Other (Bulge/hernia felt in right abdominal wall; tender to palpation, reducible ) Skin: positive No rash, Dry and Other (Excoriations noted on bilateral knees) Extremities: positive Non-tender Neurologic/Psychiatric: positive Oriented x3, Motor nml, Mood/affect nml and Weakness (Left UE and left LE improving. No gaze deviation present.) Lab Results 03/11/24 05:24 03/12/24 04:20 Other Labs: Lab Results x24hrs 03/12/24 03/12/24 03/12/24 Range/Units 07:52 05:41 04:20 Sodium 140 (135-145) mmol/L Potassium 3.4 L (3.5-4.5) mmol/L Chloride 112 H (101-111) mmol/L Carbon Dioxide 24 (21-32) mmol/L Anion Gap 4.0 L (6-13) BUN 24 H (6-20) mg/dL Creatinine 2.0 H (0.6-1.3) mg/dL Estimated GFR (MDRD) 40 L (>89) Glucose 64 L (74-104) mg/dL POC Whole Bld Glucose 164 115 (70-100) mg/dL Calcium 8.0 L (8.5-10.3) mg/dL 03/11/24 03/11/24 03/11/24 Range/Units 20:33 16:21 11:09 Sodium (135-145) mmol/L Potassium (3.5-4.5) mmol/L Chloride (101-111) mmol/L Carbon Dioxide (21-32) mmol/L Anion Gap (6-13) BUN (6-20) mg/dL Creatinine (0.6-1.3) mg/dL Estimated GFR (MDRD) (>89) Glucose (74-104) mg/dL POC Whole Bld Glucose 382 192 127 (70-100) mg/dL Calcium (8.5-10.3) mg/dL Diagnostic Imaging Diagnostic Imaging Results: positive Final report reviewed Diagnostic Imaging Comments: Brain MRI done on 03/06 shows no acute infarct. Chest x-ray shows mildly enlarged cardiac silhouette, no acute consolidation. CTA shows short segment 70% narrowing of right vertebral artery at the origin. Assessment/Plan Problem List (1) Acute metabolic encephalopathy: Impression: Patient found down and confused. Mental status improved, currently ANO x 3. He does appear confused at times and has difficulty with short term recollection. MRI brain with no acute infarcts. Head CT showed small right parietal scalp hematoma. Likely due to uremia and delirium, both of which are improving. Would recommend neurology follow-up outpatient for further neurocognitive testing. (2) Abdominal pain: Impression: Now resolved. Abdominal CT does show moderate inflammatory changes in the duodenum, with an adjacent ulcer versus duodenal diverticulum. He was informed of these results, and advised to follow-up with gastroenterology outpatient. Mild gallbladder distention is noted with stones; however patient does not have any right upper quadrant pain. Low suspicion for cholecystitis, ascending cholangitis. Continue Protonix twice daily. Will switch to once daily on discharge. (3) FRANK (acute kidney injury): Impression: Resolved. Baseline appears to be between 1.8-2.3 according to records from 01/27 and 08/27. Entresto not available, losartan restarted. Will also restart pregablin as patient is complaining of some neuropathy as FRANK is now resolved. (4) DM type 2 causing CKD stage 3: Impression: Episodes of hypoglycemia in the morning, insulin glargine PM dose decreased to 15 units. Continue sliding scale insulin. A1c on 03/07 13.5%. Will need insulin as outpatient. Diabetes education. Jardiance continued. (5) Fever: Impression: Resolved. Blood cultures are sent on 03/06; no growth to date. Chest x-ray with no infiltrate. UA negative for any infection. Continue to monitor off antibiotics. (6) Rhabdomyolysis: Impression: CPK continues to improve. Encourage P.O. intake. IVF stopped. (7) Dehydration: Impression: See above. (8) Diabetes mellitus type 2 with complications, uncontrolled: Impression: See above. (9) Hypertension: Impression: Patient was unable to take p.o. medications due to mental status; was receiving labetalol pushes. Increased metoprolol succinate to 50 mg daily today. Restart Entresto today - not available, so will start losartan. ECHO reviewed; no systolic heart failure noted.
[2024-03-12] MEDS: BENZOCAINE/MENTHOL LOZENGE MM PRN (10:11)
[2024-03-12] MEDS: INSULIN GLARGINE-YFGN 300 UNIT/3 ML PEN SUBQ SCH (21:25)
[2024-03-13 05:38] LABS: CALCIUM 7.9 mg/dL (8.5-10.3); CREATININE 2.1 mg/dL (0.6-1.3); POTASSIUM 3.5 mmol/L (3.5-4.5)
[2024-03-13] MEDS: PANTOPRAZOLE 40 MG TABLET PO SCH (08:28)
[2024-03-13 10:28] VITALS: O2SAT 100
[2024-03-13] MEDS: LOSARTAN 50 MG TABLET PO ONE (11:35)
--- NOTE | 2024-03-13 11:47 | PROVIDER PROGRESS NOTE ---
Subjective Subjective Pt reports feeling: Improved Subjective: Patient is alert and oriented x 3. He has had no more episodes of confusion in the last 24 hours. He states his abdominal pain has resolved. He is eating and drinking well. He still has some pain in his knees, which is chronic, but improved with diclofenac gel. He is very insistent on wanting to go home. He understands that there are 5 steps of stairs to get into his house, but believes that after that, everything that he needs is on the ground floor. Extensive discussion occurred with him and his , his is very reluctant to take him home. She is worried by his safety, because she works away from home, approximately 2 hours away, 3 times a week. At the end of our conversation, was okay with him going home. However upon further discussion with the social workers his would prefer for him to go to a rehab facility. Will continue having this discussion throughout the day. Current Medications Current Medications Current Medications: Current Medications Generic Name Dose Route Start Last Admin Trade Name Melita PRN Reason Stop Dose Admin Acetaminophen 650 mg 03/06/24 11:43 03/13/24 08:28 Acetaminophen 325 Mg Tablet PO 650 mg Q4HR PRN Administration Pain 1 to 4, or Fever Aspirin 81 mg 03/08/24 09:00 03/13/24 08:28 Aspirin Ec 81 Mg Tablet PO 81 mg DAILY MICKEY Administration Atorvastatin Calcium 40 mg 03/08/24 09:00 03/13/24 08:28 Atorvastatin 40 Mg Tablet PO 40 mg DAILY MICKEY Administration Carboxymethylcellulose 1 drops 03/10/24 12:59 03/13/24 08:37 Carboxymethylcellulose Ophth Drops EACHEYE 1 drops Q4HR PRN Administration Dry Eye Diclofenac Sodium 4 gm 03/11/24 09:00 03/13/24 08:33 Diclofenac Sodium 1% Gel 50 Gm Tube TOP 4 gm QID MICKEY Administration Acetaminophen 1,000 mg in 100 mls @ 400 mls/hr 03/06/24 18:55 03/09/24 18:16 Acetaminophen IV Infused Q6HR PRN Infusion FEVER > 100.5 F Insulin Glargine-yfgn 15 unit 03/14/24 08:00 Insulin Glargine-Yfgn 300 Unit/3 Ml Pen SUBQ DAILY [facility] Insulin Human Lispro 1 - 9 unit 03/10/24 08:00 03/13/24 11:33 Insulin Lispro 300 Unit/3 Ml Pen SUBQ 3 unit 0800,1200,1700,2100 MICKEY Administration Protocol Losartan Potassium 100 mg 03/14/24 09:00 Losartan 50 Mg Tablet PO DAILY MICKEY Melatonin 3 mg 03/08/24 21:00 03/12/24 21:19 Melatonin 3 Mg Tablet PO 3 mg QPM MICKEY Administration Melatonin 3 mg 03/10/24 14:20 Melatonin 3 Mg Tablet PO QPM PRN Insomnia Metoprolol Succinate 50 mg 03/09/24 09:00 03/13/24 08:28 Metoprolol Succinate 50 Mg Tablet PO 50 mg DAILY MICKEY Administration Ondansetron HCl 4 mg 03/06/24 11:43 03/10/24 07:47 Ondansetron Odt 4 Mg Tablet TL 4 mg Q6HR PRN Administration Nausea / Vomiting Ondansetron HCl 4 mg 03/06/24 11:43 03/09/24 00:16 Ondansetron 4 Mg/2 Ml Vial IVP 4 mg Q6HR PRN Administration Nausea / Vomiting Pantoprazole Sodium 40 mg 03/13/24 09:00 03/13/24 08:28 Pantoprazole 40 Mg Tablet PO 40 mg DAILY MICKEY Administration Patient Own Med ( 1 each 03/08/24 09:00 03/13/24 08:33 Jardiance 10 Mg PO 1 each Tablet) DAILY MICKEY Administration Myrbetriq 50mg 1 each 03/08/24 09:00 03/13/24 08:33 PO 1 each DAILY MICKEY Administration Patient Own Med ( 1 each 03/10/24 09:00 03/13/24 10:22 Arnoldsto 97/103) PO Not Given BID MICKEY Pregabalin 75 mg 03/10/24 09:00 03/13/24 08:28 Pregabalin 25 Mg Capsule PO 75 mg BID MICKEY Administration Simethicone 80 mg 03/09/24 09:29 03/13/24 04:28 Simethicone Chew 80 Mg Tablet PO 80 mg Q6HR PRN Administration Gas Sodium Chloride 10 ml 03/06/24 11:27 03/07/24 20:49 Sodium Chloride Flush 0.9% 10 Ml Syringe IVP 10 ml PRN PRN Administration NEEDED PER PROVIDER ORDERS Sodium Chloride 10 ml 03/06/24 17:00 03/13/24 08:29 Sodium Chloride Flush 0.9% 10 Ml Syringe IVP 10 ml 0100,0900,1700 MICKEY Administration Throat Lozenges 1 lozenge 03/12/24 09:52 03/12/24 10:11 Benzocaine/Menthol Lozenge MM 1 lozenge Q2HR PRN Administration Throat pain Objective Vital Signs/Intake & Output Reviewed Vital Signs: Yes Vital Signs: Vital Signs x48h Temp Pulse Resp BP BP Pulse Ox 03/13/24 10:27 98.2 F 62 16 174/79 H 100 03/13/24 07:49 98.1 F 59 L 16 183/78 H 98 Intake & Output: Intake & Output 03/11/24 03/12/24 03/13/24 03/14/24 05:59 05:59 05:59 05:59 Intake Total 1500 / 1500 1730 / 1730 2060 / 2060 360 / 360 Output Total 2375 / 2375 3975 / 3975 650 / 650 Balance 1500 / 1500 -645 / -645 -1915 / -1915 -290 / -290 Objective General Appearance: positive No acute distress and Alert (some confusion with memory recall) Eyes Bilateral: positive Normal inspection, PERRL and EOMI (no gaze deviation noted) ENT: positive ENT inspection nml, Pharynx nml and No signs of dehydration Respiratory: positive Chest non-tender, No respiratory distress and Breath sounds nml; negative Wheezes, Rales or Rhonchi Cardiovascular: positive Regular rate & rhythm, No murmur and No gallop Abdomen: positive Non-tender and No distention; negative No organomegaly, Tenderness, Guarding (Voluntary guarding due to pain.) or Splenomegaly Skin: positive Color nml, No rash, Warm and Other (Excoriations noted on bilateral knees) Extremities: positive Non-tender, Full ROM and No pedal edema Neurologic/Psychiatric: positive Oriented x3, Motor nml (strength 5/5 in all extremities) and Mood/affect nml; negative Facial droop or Slurred/abnml speech Lab Results 03/11/24 05:24 03/13/24 05:05 Other Labs: Lab Results x24hrs 03/13/24 03/13/24 03/13/24 Range/Units 11:06 07:32 05:05 Sodium 142 (135-145) mmol/L Potassium 3.5 (3.5-4.5) mmol/L Chloride 112 H (101-111) mmol/L Carbon Dioxide 25 (21-32) mmol/L Anion Gap 5.0 L (6-13) BUN 24 H (6-20) mg/dL Creatinine 2.1 H (0.6-1.3) mg/dL Estimated GFR (MDRD) 38 L (>89) Glucose 99 (74-104) mg/dL POC Whole Bld Glucose 200 122 (70-100) mg/dL Calcium 7.9 L (8.5-10.3) mg/dL 03/12/24 03/12/24 Range/Units 21:05 16:34 Sodium (135-145) mmol/L Potassium (3.5-4.5) mmol/L Chloride (101-111) mmol/L Carbon Dioxide (21-32) mmol/L Anion Gap (6-13) BUN (6-20) mg/dL Creatinine (0.6-1.3) mg/dL Estimated GFR (MDRD) (>89) Glucose (74-104) mg/dL POC Whole Bld Glucose 290 272 (70-100) mg/dL Calcium (8.5-10.3) mg/dL Diagnostic Imaging Diagnostic Imaging Results: positive Final report reviewed Diagnostic Imaging Comments: Brain MRI done on 03/06 shows no acute infarct. Chest x-ray shows mildly enlarged cardiac silhouette, no acute consolidation. CTA shows short segment 70% narrowing of right vertebral artery at the origin. Assessment/Plan Problem List (1) Acute metabolic encephalopathy: Impression: Resolved. Patient found down and confused. Mental status improved, currently ANO x 3. No episodes of confusion. MRI brain with no acute infarcts. Head CT showed small right parietal scalp hematoma. Likely due to uremia and delirium, both of which are improving. Would recommend neurology follow-up outpatient for further neurocognitive testing. (2) Abdominal pain: Impression: Resolved. Abdominal CT does show moderate inflammatory changes in the duodenum, with an adjacent ulcer versus duodenal diverticulum. He was informed of these results, and advised to follow-up with gastroenterology outpatient. Mild gallbladder distention is noted with stones; however patient does not have any right upper quadrant pain. Low suspicion for cholecystitis, ascending cholangitis. Continue Protonix daily. Qualifiers: Abdominal location: epigastric Qualified Code(s): R10.13 - Epigastric pain (3) FRANK (acute kidney injury): Impression: Resolved. Baseline appears to be between 1.8-2.3 according to records from 01/27 and 08/27. Entresto not available, losartan restarted. Will also restart pregablin as patient is complaining of some neuropathy as FRANK is now resolved. (4) DM type 2 causing CKD stage 3: Impression: Episodes of hypoglycemia in the morning, insulin glargine PM dose decreased to 15 units initially. Now having hyperglycemia; will trial Insulin glargine in AM tomorrow. Continue sliding scale insulin. A1c on 03/07 13.5%. Will need insulin as outpatient. Diabetes education. Jardiance continued, although patient was taking this for heart failure. Per daughter, had history of heart failure with reduced ejection fraction. ECHO completed here shows recovered EF. Will continue at this time. Qualifiers: Diabetes mellitus mcc insulin use: without predatory animal exterminator use Chronic kidney disease stage 3 subtype: stage 3b (GFR 30-44) Qualified Code(s): E11.22 - Type 2 diabetes mellitus with diabetic chronic kidney disease; N18.32 - Chronic kidney disease, stage 3b (5) Fever: Impression: Resolved. Blood cultures are sent on 03/06; no growth to date. Chest x-ray with no infiltrate. UA negative for any infection. Continue to monitor off antibiotics. Qualifiers: Fever type: unspecified Qualified Code(s): R50.9 - Fever, unspecified (6) Rhabdomyolysis: Impression: Resolved. CPK continues to improve. Encourage P.O. intake. IVF stopped. Qualifiers: Rhabdomyolysis type: traumatic Encounter type: sequela Qualified Code(s): T79.6XXS - Traumatic ischemia of muscle, sequela (7) Dehydration: Impression: See above. (8) Diabetes mellitus type 2 with complications, uncontrolled: Impression: See above. (9) Hypertension: Impression: Increased metoprolol succinate to 50 mg daily today. On Entresto at home ( does not have pills); restarted losartan, will increase dose today due to continued elevated blood pressures. ECHO reviewed; no systolic heart failure noted. Qualifiers: Hypertension type: primary hypertension Qualified Code(s): I10 - Essential (primary) hypertension
[2024-03-14] MEDS ORDERED: INSULIN GLARGINE-YFGN 300 UNIT/3 ML PEN SUBQ SCH (09:00)
[2024-03-14] MEDS ORDERED: LOSARTAN 50 MG TABLET PO SCH (09:00)
== END 2024-03-13 16:49 | disposition home or self-care (01) | DRG 557 ==
LOC: EDUNIT# → ED 08:37 → SUATTDRO 11:27 → MS2 11:27
PROVIDERS: ADMIT Specialist; ATTEND Internal Medicine
DX: G93.41 Metabolic encephalopathy; E11.22 Type 2 diabetes mellitus with diabetic chronic kidney disease; N17.9 Acute kidney failure, unspecified; I11.0 Hypertensive heart disease with heart failure; R41.82 Altered mental status, unspecified; E11.649 Type 2 diabetes mellitus with hypoglycemia without coma; X58.XXXA Exposure to other specified factors, initial encounter; R47.1 Dysarthria and anarthria; M62.82 Rhabdomyolysis; S00.93XA Contusion of unspecified part of head, initial encounter; Z66 Do not resuscitate; T69.9XXA Effect of reduced temperature, unspecified, initial encounter; E86.0 Dehydration; W19.XXXA Unspecified fall, initial encounter; Z87.891 Personal history of nicotine dependence; R13.10 Dysphagia, unspecified; I50.9 Heart failure, unspecified; R41.0 Disorientation, unspecified; G81.94 Hemiplegia, unspecified affecting left nondominant side; S00.03XA Contusion of scalp, initial encounter; K26.9 Duodenal ulcer, unspecified as acute or chronic, without hemorrhage or perforation; D63.1 Anemia in chronic kidney disease; E78.00 Pure hypercholesterolemia, unspecified; E11.65 Type 2 diabetes mellitus with hyperglycemia; I65.01 Occlusion and stenosis of right vertebral artery; I63.9 Cerebral infarction, unspecified; I13.0 Hypertensive heart and chronic kidney disease with heart failure and stage 1 through stage 4 chronic kidney disease, or unspecified chronic kidney disease; K43.9 Ventral hernia without obstruction or gangrene; N18.32 Chronic kidney disease, stage 3b; H53.8 Other visual disturbances; R29.723 NIHSS score 23; D72.829 Elevated white blood cell count, unspecified; R47.01 Aphasia; E78.5 Hyperlipidemia, unspecified; R50.9 Fever, unspecified